=== PATIENT | male | born 1970 | race American Indian/Alaskan Native ===

== ENCOUNTER 2017-08-13 22:18 | Inpatient (IN) | payer MEDICAID, OTHER ==
[2017-08-13 22:20] VITALS: BMI 28.5
[2017-08-13] MEDS ORDERED: Iodixanol 320 MG/ML 100 ML BOTTLE IV ONE (22:42)
--- NOTE | 2017-08-13 22:48 | ED PDOC ---
Arrival/HPI - General Time Seen by Provider: 08/13/17 22:19 Historian: Family, EMS - History of Present Illness Narrative History of Present Illness (Text): 08/13/17 22:46 Juan Carlos Brandt is a 47 year old male presents to the emergency department via EMS for AMS. Patient was last seen normal at 830 pm. Girlfriend states left the house at 7, and arrived at 830, verbal, and "had a fall". Family also states, that soon after arriving home, patient was sweating and stumbled trying to sit down. Patient was weak with right sided deficits. Patient has no previous complaints. Full HPI and ROS limited due to patient's mental status. No deficit from previous CVA. Time/Duration: Prior to Arrival Symptom Onset: Sudden Symptom Course: Unchanged Activities at Onset: Light Context: Home Past Medical History - Provider Review Nursing Documentation Reviewed: Yes Family/Social History - Physician Review Nursing Documentation Reviewed: Yes Family/Social History: Unknown Family HX Allergies/Home Meds Allergies/Adverse Reactions: Allergies No Known Allergies Allergy (Verified 08/13/17 22:20) Home Medications: Home Meds Medication Instructions Recorded Confirmed Lisinopril [Zestril] 20 mg PO DAILY 08/13/17 08/13/17 Lovastatin 20 mg PO DAILY 08/13/17 08/13/17 Metoprolol Succinate [Toprol XL] 25 mg PO DAILY 08/13/17 08/13/17 hydroCHLOROthiazide [Hydrodiuril] 25 mg PO DAILY 08/13/17 08/13/17 Review of Systems - Review of Systems Systems not reviewed;Unavailable: Altered Mental Status Physical Exam Vital Signs Temp Pulse Resp BP Pulse Ox 08/14/17 00:12 76 16 184/108 H 97 08/14/17 00:11 75 184/108 H 08/14/17 00:01 75 184/108 H 08/14/17 00:00 77 16 189/115 H 95 08/13/17 23:47 78 16 176/106 H 94 L 08/13/17 23:42 75 177/105 H 08/13/17 23:40 70 15 177/105 H 96 08/13/17 23:25 75 15 173/98 H 97 08/13/17 23:20 72 15 179/96 H 96 08/13/17 23:15 75 17 186/110 H 97 08/13/17 23:00 98 F 77 16 172/94 H 95 08/13/17 22:25 97.9 F 86 16 175/96 H 95 Medical Decision Making ED Course and Treatment: 08/13/17 22:49 Impression: 47 year old male brought into the emergency department via EMS for AMS and right sided deficits. Plan: -- CTA Head -- CT Head -- EKG -- Labs -- Hemoglobin A1C -- Lipid Panel -- Troponin I -- Reassess and disposition Progress Notes: 08/13/17 22:54 CT head reviewed, shows: Brain: Hypodensity is visualized within the left temporal lobe, consistent with an infarct. This is likely subacute. A small hypodense lacunar infarct is visualized within the right cerebellar lobe, which is also likely subacute. No acute intracranial hemorrhage is seen. Midline shift: There is no midline shift. Ventricles: There is a small cavum septum pellucidum variant. No ventriculomegaly. Bones/joints: The calvarium demonstrates no evidence for a depressed fracture. Soft tissues: Unremarkable. Sinuses: Unremarkable. Mastoid air cells: Unremarkable. Vasculature: Mild atherosclerotic changes are visualized. Orbits: There is bilateral proptosis. IMPRESSION: 1. Hypodensity is visualized within the left temporal lobe, consistent with an infarct. This is likely subacute. A small hypodense lacunar infarct is visualized within the right cerebellar lobe, which is also likely subacute. If further evaluation is clinically indicated, an MRI of the brain is recommended. 2. No acute intracranial hemorrhage. 08/13/17 23:52 Case discussed with sister in [place] and girlfriend. Onset 830. Case discussed with Dr. De La Rosa, who recommends tpa. Consented for tpa. tpa pushed [id number] Zabala, ICU. Pt re-assesed. Pt is now verbal with improvement in right lower extremity. 08/14/17 00:01 CTA Head reviewed, shows: Right internal carotid artery: No evidence of acute pathology. Intracranial segment is patent with no significant stenosis. No aneurysm. Right anterior cerebral artery: Unremarkable. No occlusion or significant stenosis. No aneurysm. Right middle cerebral artery: Unremarkable. No occlusion or significant stenosis. No aneurysm. Right posterior cerebral artery: Unremarkable. No occlusion or significant stenosis. No aneurysm. Right vertebral artery: Unremarkable as visualized. Left internal carotid artery: Occluding thrombus is seen in left supraclinoid ICA just distal to the left P-comm extending to ICA bifurcation. There is reconstitution of flow in left M1 segment MCA which appears to be through the mcgrath of Tsang and patent left A1 segment. Flow is detected in proximal M2 segments. No flow is seen in distal M2 or M3 cortical branches in left frontal and parietal lobes. Atherosclerotic disease with areas of moderate stenosis in left supraclinoid ICA. No aneurysm. Left anterior cerebral artery: Unremarkable. No occlusion or significant stenosis. No aneurysm. Left middle cerebral artery: Unremarkable. No occlusion or significant stenosis. No aneurysm. Left posterior cerebral artery: Patent left posterior communicating artery. No occlusion or significant stenosis. No aneurysm. 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 Basilar artery: Unremarkable. No occlusion or significant stenosis. No aneurysm. IMPRESSION: 1. Occluding thrombus is seen in left supraclinoid ICA just distal to the left P -comm extending to ICA bifurcation. There is reconstitution of flow in left M1 segment of MCA which appears to be through the mcgrath of Tsang and patent left A1 segment. Flow is detected in proximal M2 segments. No flow is seen in distal M2 or M3 cortical branches in left frontal and parietal lobes. 2. Atherosclerotic disease with areas of moderate stenosis in left supraclinoid ICA. - Lab Interpretations Lab Results: 08/13/17 22:45 08/13/17 22:45 Lab Results 08/13/17 22:45: TSH 3rd Generation 0.81 08/13/17 22:45: Blood Type A POSITIVE, Antibody Screen Negative, BBK History Checked No verified bt 08/13/17 22:45: Hemoglobin A1c 7.0 H 08/13/17 22:45: Sodium 142, Potassium 3.9, Chloride 108 H, Carbon Dioxide 26, Anion Gap 12, BUN 20, Creatinine 1.3, Est GFR ( Amer) > 60, Est GFR (Non- Af Amer) 59, Random Glucose 132 H, Calcium 9.9, Total Bilirubin 0.4, AST 33, ALT 52, Alkaline Phosphatase 114, Troponin I < 0.01, Total Protein 7.6, Albumin 3.8, Globulin 3.8, Albumin/Globulin Ratio 1.0 L, Triglycerides 157, Cholesterol 191, LDL Cholesterol Direct 123, HDL Cholesterol 23 L 08/13/17 22:45: PT 13.3 H, INR 1.16 H, APTT 30.1 08/13/17 22:45: WBC 8.0, RBC 5.08, Hgb 15.2, Hct 44.2, MCV 87.0, MCH 29.9, MCHC 34.4, RDW 13.9, Plt Count 269, MPV 10.6, Gran % 71.8 H, Lymph % (Auto) 22.0, Dolores % (Auto) 5.8, Eos % (Auto) 0.1 L, Baso % (Auto) 0.3, Gran # 5.71, Lymph # ( Auto) 1.8, Dolores # (Auto) 0.5, Eos # (Auto) 0.0, Baso # (Auto) 0.02 - RAD Interpretation Radiology Orders: 08/13/17 22:23 CTA HEAD/NECK CODE STROKE [CT] Stat HEAD W/O (CODE STROKE) [CT] Stat CHEST PORTABLE [RAD] Stat - Medication Orders Current Medication Orders: Aspirin (Aspirin Chewable) 81 mg PO DAILY [facility] Atorvastatin Calcium (Lipitor) 40 mg PO DIN [facility] Clopidogrel Bisulfate (Plavix) 75 mg PO DAILY [facility] Nicardipine HCl (Cardene Iv Premix) 20 mg in 200 mls @ 50 mls/hr IV .Q4H PRN; Protocol; 5 MG/HR PRN Reason: TITRATE PER MD ORDER Last Titration: 08/14/17 09:53 Dose: 0.5 mg/hr, 5 mls/hr Titration Intervention Document 08/14/17 09:53 FM (Rec: 08/14/17 09:54 FM [id number]) Titration Intake Titration Intake 0 Cumulative Intake 85 Cumulative Intake (Rx) 85 Waste Amount 0 Container Volume 115 Titration Dosing Titration Dose 0.5 IV Rate 5 Intake/Decrease Decreased Cumulative Dose 8.5 Pantoprazole Sodium (Protonix Inj) 40 mg IVP DAILY [facility] Last Admin: 08/14/17 09:45 Dose: 40 mg IVP Administration Document 08/14/17 09:45 FM (Rec: 08/14/17 09:46 FM [id number]) Charges for Administration # of IVP Administrations 1 Discontinued Medications Alteplase, Recombinant (Activase 100 Mg Inj) 8 mg 0.09 mg/kg (8 mg) IV ONCE ONE Stop: 08/13/17 22:55 Last Admin: 08/13/17 23:11 Dose: 8 mg eMAR Start Stop Document 08/13/17 23:11 RG (Rec: 08/13/17 23:16 RG [id number]) Intravenous Solution Start Date 08/13/17 Start Time 23:11 Alteplase, Recombinant (Activase 100 Mg Inj) 73 mg 0.81 mg/kg (73 mg) IV ONCE ONE Stop: 08/13/17 22:55 Last Admin: 08/13/17 23:13 Dose: 73 mg eMAR Start Stop Document 08/13/17 23:13 RG (Rec: 08/13/17 23:18 RG [id number]) Intravenous Solution Start Date 08/13/17 Start Time 23:13 Sodium Chloride (Sodium Chloride 0.9%) 1,000 mls @ 100 mls/hr IV .Q10H JEROD Last Admin: 08/14/17 10:07 Dose: 100 mls/hr eMAR Start Stop Document 08/14/17 10:07 FM (Rec: 08/14/17 10:07 FM [id number]) Intravenous Solution Start Date 08/14/17 Start Time 10:07 End Date 08/14/17 Labetalol HCl (Trandate) 10 mg IV STAT STA Stop: 08/13/17 23:36 Last Admin: 08/13/17 23:42 Dose: 10 mg eMAR Start Stop Document 08/13/17 23:42 RG (Rec: 08/13/17 23:49 RG [id number]) Intravenous Solution Start Date 08/13/17 Start Time 23:42 End Date 08/13/17 End time 23:45 Total Infusion Time 3 MAR Pulse and Blood Pressure Document 08/13/17 23:42 RG (Rec: 08/13/17 23:49 RG [id number]) Pulse Pulse Rate (60-90) 75 Blood Pressure Blood Pressure (100/60-150/90) 177/105 Labetalol HCl (Trandate) 10 mg IV STAT STA Stop: 08/13/17 23:59 Last Admin: 08/14/17 00:01 Dose: 10 mg eMAR Start Stop Document 08/14/17 00:01 RG (Rec: 08/14/17 00:14 RG [id number]) Intravenous Solution Start Date 08/14/17 Start Time 00:01 End Date 08/14/17 End time 00:04 Total Infusion Time 3 MAR Pulse and Blood Pressure Document 08/14/17 00:01 RG (Rec: 08/14/17 00:14 [id number]) Pulse Pulse Rate (60-90) 75 Blood Pressure Blood Pressure (100/60-150/90) 184/108 Labetalol HCl (Trandate) 20 mg IV STAT STA Stop: 08/14/17 00:07 Last Admin: 08/14/17 00:11 Dose: 20 mg eMAR Start Stop Document 08/14/17 00:11 RG (Rec: 08/14/17 00:18 [id number]) Intravenous Solution Start Date 08/14/17 Start Time 00:11 End Date 08/14/17 End time 00:17 Total Infusion Time 6 MAR Pulse and Blood Pressure Document 08/14/17 00:11 RG (Rec: 08/14/17 00:18 [id number]) Pulse Pulse Rate (60-90) 75 Blood Pressure Blood Pressure (100/60-150/90) 184/108 NIHSS Scale ([place]) Time Performed: 22:49 - How Severe is the Stoke Baseline Level of Consciousness: 1=Drowsy LOC to Questions: 2=Neither correct LOC to commands: 0=Obeys both correctly Best Gaze: 2=Forced deviation Visual: 0=No visual loss Facial: 3=Complete unilateral paralysis Motor Arm - Left: 0=No drift Motor Arm - Right: 4=No movement Motor Leg - Left: 0=No drift Motor Leg - Right: 4=No movement Limb Ataxia: 0=Absent Sensory: 2=Severe to total loss Best Language: 3=Mute Dysarthia: 2=Severe, near unintelligible or worse Extinction & Inattention (Neglect): 0=Normal, no object Score: 23 Risk Level: Severe Stroke Risk rTPA Inclusion/Exclusion - Refusal of Treatment Patient Refused Treatment: No - Inclusion Criteria for Altepase Patient is 18 years or Older: No The Clinical Diagnosis of Ischemic Stroke That is Causing a Potentially Disabling Neurological Deficit: Yes Time of Onset is Well Established to be Less Than 270 Minute Before Treatment Would Begin: No Risk/Benefit Discussed With Patient/Family Member Present: Yes - Exclusion Criteria for Altepase Uncontrolled Hypertension at Time of Treatment (Systolic BP above 185 or Diastolic BP above 110 mmHg): No - Scribe Statement The provider has reviewed the documentation as recorded by the Scribe Yolande Liang All medical record entries made by the Scribe were at my direction and personally dictated by me. I have reviewed the chart and agree that the record accurately reflects my personal performance of the history, physical exam, medical decision making, and the department course for this patient. I have also personally directed, reviewed, and agree with the discharge instructions and disposition. Disposition/Present on Arrival - Present on Arrival Any Indicators Present on Arrival: No - Disposition Have Diagnosis and Disposition been Completed?: Yes Diagnosis: Acute ischemic stroke Disposition: HOSPITALIZED Disposition Time: 12:00 Patient Problems: Current Active Problems Problem Status Onset Acute ischemic stroke Acute Condition: CRITICAL
--- NOTE | 2017-08-13 22:50 | ED PDOC ---
Arrival/HPI - General Time Seen by Provider: 08/13/17 22:19 Historian: Patient, EMS EM Caveat: Intoxicated - History of Present Illness Narrative History of Present Illness (Text): 08/13/17 22:46 Lan Brandt is a 47 year old male presents to the emergency department via EMS for AMS. Patient was last seen normal at 19:00. Patient came home and was weak with right sided deficits. Patient has no previous complaints. Full HPI and ROS limited due to patient's mental status. Time/Duration: Prior to Arrival Symptom Onset: Sudden Symptom Course: Unchanged Activities at Onset: Light Context: Home Past Medical History - Provider Review Nursing Documentation Reviewed: Yes Family/Social History - Physician Review Nursing Documentation Reviewed: Yes Family/Social History: Unknown Family HX Allergies/Home Meds Allergies/Adverse Reactions: Allergies No Known Allergies Allergy (Verified 08/13/17 22:20) Home Medications: Home Meds Medication Instructions Recorded Confirmed Lisinopril [Zestril] 20 mg PO DAILY 08/13/17 08/13/17 Lovastatin 20 mg PO DAILY 08/13/17 08/13/17 Metoprolol Succinate [Toprol XL] 25 mg PO DAILY 08/13/17 08/13/17 hydroCHLOROthiazide [Hydrodiuril] 25 mg PO DAILY 08/13/17 08/13/17 Review of Systems - Review of Systems Systems not reviewed;Unavailable: Altered Mental Status Medical Decision Making ED Course and Treatment: 08/13/17 22:49 Impression: 47 year old male brought into the emergency department via EMS for AMS and right sided deficits. Plan: -- CTA Head -- CT Head -- EKG -- Labs -- Hemoglobin A1C -- Lipid Panel -- Troponin I -- Reassess and disposition Progress Notes: 08/13/17 22:54 CT head reviewed, shows: Brain: Hypodensity is visualized within the left temporal lobe, consistent with an infarct. This is likely subacute. A small hypodense lacunar infarct is visualized within the right cerebellar lobe, which is also likely subacute. No acute intracranial hemorrhage is seen. Midline shift: There is no midline shift. Ventricles: There is a small cavum septum pellucidum variant. No ventriculomegaly. Bones/joints: The calvarium demonstrates no evidence for a depressed fracture. Soft tissues: Unremarkable. Sinuses: Unremarkable. Mastoid air cells: Unremarkable. Vasculature: Mild atherosclerotic changes are visualized. Orbits: There is bilateral proptosis. IMPRESSION: 1. Hypodensity is visualized within the left temporal lobe, consistent with an infarct. This is likely subacute. A small hypodense lacunar infarct is visualized within the right cerebellar lobe, which is also likely subacute. If further evaluation is clinically indicated, an MRI of the brain is recommended. 2. No acute intracranial hemorrhage. - RAD Interpretation Radiology Orders: 08/13/17 22:23 CTA HEAD/NECK CODE STROKE [CT] Stat HEAD W/O (CODE STROKE) [CT] Stat CHEST PORTABLE [RAD] Stat - Scribe Statement The provider has reviewed the documentation as recorded by the Scribe Yolande Liang All medical record entries made by the Scribe were at my direction and personally dictated by me. I have reviewed the chart and agree that the record accurately reflects my personal performance of the history, physical exam, medical decision making, and the department course for this patient. I have also personally directed, reviewed, and agree with the discharge instructions and disposition. Disposition/Present on Arrival - Disposition Referrals: Chapo Goldman, [Primary Care Provider] - Follow up with primary
[2017-08-13 23:00] LABS: BASO # 0.02 K/mm3 (0.0-2.0); BASO % 0.3 % (0.0-3.0); EOS % 0.1 % (1.5-5.0); GRAN # 5.71 (1.4-6.5); GRAN % 71.8 % (50.0-68.0); HEMOGLOBIN 15.2 g/dL (14.0-18.0); LYMPH # 1.8 (1.2-3.4); MEAN CORPUSCULAR HEMOGLOBIN 29.9 pg (25.0-35.0); MEAN CORPUSCULAR HGB CONC 34.4 g/dl (31.0-37.0); MEAN PLATELET VOLUME 10.6 fl (7.0-11.0); MONO # 0.5 (0.1-0.6); MONO % 5.8 % (1.0-6.0); RBC 5.08 10^6/uL (3.5-6.1); RED CELL DISTRIBUTION WIDTH 13.9 % (11.5-14.5)
[2017-08-13 23:07] LABS: ALBUMIN 3.8 g/dL (3.0-4.8); ALT/SGPT 52 U/L (7-56); AST/SGOT 33 U/L (17-59); BLOOD UREA NITROGEN 20 mg/dL (7-21); CALCIUM 9.9 mg/dL (8.4-10.5); GFR AFRICAN-AMERICAN > 60; GFR NON-AFRICAN AMERICAN 59; HDL CHOLESTEROL 23 mg/dL (29-60); INR 1.16 (0.93-1.08); PARTIAL THROMBOPLASTIN TIME 30.1 Seconds (25.1-36.5); PROTHROMBIN TIME 13.3 SECONDS (9.4-12.5)
--- NOTE | 2017-08-13 23:07 | CP.PCM.PN ---
Subjective - Date & Time of Evaluation Date of Evaluation: 08/13/17 Time of Evaluation: 10:45 - Subjective Subjective: This is a tele-stroke visit that was conducted by telephone due to non- functioning Emailage system. Mr. Brandt is a 47-year-old man with a past medical history of HTN, and previous CVA 3 years ago, who was last normal at around 8:30PM tonight, when he was walking, talking and missed a chair and fell (witnessed by friend). He then developed speech difficulty, right side weakness, and gaze preference. He was brought to the ED, where his NIHSS was 23. He was taken to the CT scanner and there was no evidence of hemorrhage, but there were chronic infarcts in the left temporal lobe noted. According to the history, he was not on anticoagulation and there were no contraindications to IV tPA. His BP was below 185/105 mm Hg. He was within the 3 hour time window of IV tPA and it was recommended as long as it can be initiated prior to the 3 hours time limit. Objective - Neurological Exam Additional comments: Right side hemiplegia, aphasia and left gaze preference with NIHSS of 23. Assessment and Plan (1) Acute ischemic stroke Assessment & Plan: The patient appears to be having an acute ischemic stroke involving the left MCA. There was no bleed on CT head and no obvious large vessel occlusion ( unofficial read). He is a candidate for IV tPA and the family consents after an explanation of the risks and benefits were provided. Since the patient has a history of previous stroke, there is a slightly higher risk of bleeding, but considering the severity of his symptoms, the benefits outweigh the risks. Furthermore, I recommend the followin. ICU 2. Follow post-tPA protocol 3. Repeat CT head in 24 hours 4. MRI brain without contrast 5. Lipids, HbA1c, B12, folate, TSH, homocysteine 6. PT/OT eval 7. FLuids with NS at 100 mL/hr 8. Case management consult Thank you. Neurology will follow. Status: Acute
[2017-08-13 23:17] LABS: LDL CHOLESTEROL 123 mg/dL (0-129)
[2017-08-13 23:20] LABS: TROPONIN I < 0.01 ng/mL
[2017-08-13] MEDS ORDERED: Labetalol 5 mg/ml Inj 20ML IV STA ×2 (23:35→23:58)
[2017-08-14] MEDS ORDERED: Labetalol 5 mg/ml Inj 20ML IV STA (00:06)
[2017-08-14] MEDS ORDERED: diltiaZEM IVPB 100mg in NS 100 ML IV PRN (00:18)
[2017-08-14] MEDS: Nicardipine 20 MG/200 ML 20 MG/200 ML BAG IV PRN (00:31)
--- NOTE | 2017-08-14 00:36 | CP.PCM.HP ---
<Benoit Fregoso - Last Filed: 08/14/17 00:51> History of Present Illness - History of Present Illness History of Present Illness: CC: Right sided weakness Pt is a 47 yo M with PMH of asthma, HTN, HLD, and CVA (3 yrs ago) presents to ED due to right sided weakness. Patient's girlfriend was at bedside to provide history as patient was somnolent and difficult to arose at time of exam. Pt was last seen normal around 8:30 pm. Girlfriend stated that he was ambulating and verbal, but missed chair when trying to sit down and fell. Girlfriend noticed that his speech was slurred, could not move his right arm, and had right sided facial drooping. In the ED, NIHSS was found to be 23. CT head showed a hypodensity within the left temporal lobe, consistent with an infarct. Patient was evaluated by neurologist and IV tPA was recommended as the patient was within the 3 hour time window and no contraindications were present. Further HPI and ROS limited due to patient's current mental status. PMD: Khalid PMH: asthma, HTN, HLD, CVA Surg: denied All: NKDA FHx: Non-contributory SH: 1 ppd for 20 yrs, social EtOH use, marijuana use Medications as per MAR Present on Admission - Present on Admission Any Indicators Present on Admission: No Review of Systems - Review of Systems Review of Systems: 12 point ROS limited due to patient's current mental status Past Patient History - Past Social History Smoking Status: Former Smoker - CARDIAC Hx Hypercholesterolemia: Yes Hx Hypertension: Yes - PULMONARY Hx Asthma: Yes - NEUROLOGICAL Hx Neurological Disorder: No - RENAL Hx Chronic Kidney Disease: No - ENDOCRINE/METABOLIC Hx Endocrine Disorders: No - HEMATOLOGICAL/ONCOLOGICAL Hx Blood Disorders: No - INTEGUMENTARY Hx Dermatological Problems: No - MUSCULOSKELETAL/RHEUMATOLOGICAL Hx Musculoskeletal Disorders: No - GASTROINTESTINAL Hx Gastrointestinal Disorders: No - GENITOURINARY/GYNECOLOGICAL Hx Genitourinary Disorders: No - PSYCHIATRIC Hx Psychophysiologic Disorder: No Hx Substance Use: No - SURGICAL HISTORY Hx Surgeries: No - ANESTHESIA Hx Anesthesia: No Meds Allergies/Adverse Reactions: Allergies Allergy/AdvReac Type Severity Reaction Status Date / Time No Known Allergies Allergy Verified 08/13/17 22:20 Physical Exam - Constitutional Appears: No Acute Distress - Head Exam Head Exam: NORMAL INSPECTION - Eye Exam Eye Exam: Normal appearance - ENT Exam ENT Exam: Normal Exam - Neck Exam Neck exam: Positive for: Normal Inspection - Respiratory Exam Respiratory Exam: Clear to Auscultation Bilateral. absent: Rales, Rhonchi, Wheezes - Cardiovascular Exam Cardiovascular Exam: RRR, +S1, +S2. absent: Diastolic murmur, Gallop, Rubs, Systolic Murmur - GI/Abdominal Exam GI & Abdominal Exam: Soft. absent: Distended, Guarding, Rebound, Tenderness - Extremities Exam Extremities exam: Positive for: normal inspection - Back Exam Back exam: NORMAL INSPECTION - Neurological Exam Neurological exam: CN II-XII Intact Additional comments: Right sided facial droop Strength: RUE 0/5, LUE 5/5, RLE 0/5, LLE 5/5; Right sided sensory deficit - Skin Skin Exam: Dry, Intact, Normal Color, Warm Results - Vital Signs Recent Vital Signs: Last Vital Signs Temp 98 F 08/13/17 23:00 Pulse 76 08/14/17 00:12 Resp 16 08/14/17 00:12 BP 184/108 H 08/14/17 00:12 Pulse Ox 97 08/14/17 00:12 - Labs Result Diagrams: 08/13/17 22:45 08/13/17 22:45 Assessment & Plan - Assessment and Plan (Free Text) Assessment: 47 yo M with PMH of asthma, HTN, HLD, and CVA admitted for ischemic CVA s/p IV tPA. Plan: 1. Ischemic CVA - NIHSS 23 - CT head showed hypodensity in left temporal lobe and small hypodense lacunar infarct in right cerebellar lobe, both likely subacute. No acute hemorrhage. - CTA head showed occluding thrombus in left supraclinoid ICA distal to left p- comm extending to ICA bifurcation. No flow in distal M2 or M3 cortical branches in left frontal and parietal lobes - IV tPA given per neuro - CT head ordered for 24 hr post tPA - Brain MRI without contrast ordered - Lipid panel, HgbA1c, Folate, B12, Homocysteine ordered - AM EKG and troponin ordered - Cardene drip, titrate to keep SBP < 185 - NS at 100 cc/hr - Vitals and Neurochecks post tPA: q15min for 2 hr, q30min for 6 hrs, q1h for 24 hrs, then q2h - Accucheck q2h - NPO pending swallow eval - Fall and aspiration risk precautions - PT/OT eval - Case management referral - Neurology consulted 2. HTN - Holding home PO meds - Cardene drip - Titrate to keep SBP < 185 3. HLD - Holding home PO meds GI/DVT PPx - Protonix - SCDs Pt seen and discussed in detail with Dr. Zabala. Robert Fregoso, PGY1 NIHSS Scale ([place]) Time Performed: 00:00 - How Severe is the Stoke Post tPA Level of Consciousness: 1=Drowsy LOC to Questions: 2=Neither correct LOC to commands: 0=Obeys both correctly Best Gaze: 2=Forced deviation Visual: 0=No visual loss Facial: 3=Complete unilateral paralysis Motor Arm - Left: 0=No drift Motor Arm - Right: 4=No movement Motor Leg - Left: 0=No drift Motor Leg - Right: 4=No movement Limb Ataxia: 0=Absent Sensory: 2=Severe to total loss Best Language: 3=Mute Dysarthia: 2=Severe, near unintelligible or worse Extinction & Inattention (Neglect): 0=Normal, no object Score: 23 Risk Level: Severe Stroke Risk <Sagrario NARANJO,Guillermo - Last Filed: 08/14/17 11:10> Results - Vital Signs Recent Vital Signs: Last Vital Signs Temp 98.5 F 08/14/17 06:00 Pulse 67 08/14/17 08:40 Resp 13 08/14/17 08:40 BP 154/102 H 08/14/17 08:00 Pulse Ox 100 08/14/17 08:40 - Labs Result Diagrams: 08/13/17 22:45 08/14/17 08:45 Labs: Laboratory Results - last 24 hr 08/14/17 08/14/17 00:47 08:45 Sodium 145 Potassium 3.9 Chloride 112 H Carbon Dioxide 26 Anion Gap 10 BUN 17 Creatinine 0.9 Est GFR ( Amer) > 60 Est GFR (Non-Af Amer) > 60 Random Glucose 98 Calcium 9.5 Total Bilirubin 0.7 AST 37 ALT 49 Alkaline Phosphatase 111 Total Protein 7.5 Albumin 3.7 Globulin 3.8 Albumin/Globulin Ratio 1.0 L Triglycerides 173 H Cholesterol 204 H LDL Cholesterol Direct 132 H HDL Cholesterol 22 L Blood Type Confirm A POSITIVE Attending/Attestation - Attestation I have personally seen and examined this patient.: Yes I have fully participated in the care of the patient.: Yes I have reviewed all pertinent clinical information: Yes Notes (Text): -I agree with the above H&P completed by the resident physician with the following additions and/or changes: -The patient is a 47 year old man with a history of CVA (with no residual deficits), HL and HTN who presented with acute right hemiparesis and slurred speech. CT-head confirmed ischemic CVA and patient was given t-PA in the ED. He will now be admitted to the ICU for hourly neuro checks and tight blood pressure control. He will be placed on Nicardipine drip with goal to keep SBP< 185 and DBP<105. Neurology is already on board. HgA1c, Lipids and USD will be checked. He will be kept NPO and have a formal swallow evaluation in the morning. Repeat CT-head 24 hours after initial study. Critical Care Time Spent: 90-120 minutes
[2017-08-14] MEDS: Sodium Chloride 0.9% 1,000 ML IV SCH ×2 (00:40→10:07)
[2017-08-14 09:15] LABS: ALBUMIN 3.7 g/dL (3.0-4.8); ALT/SGPT 49 U/L (7-56); AST/SGOT 37 U/L (17-59); BLOOD UREA NITROGEN 17 mg/dL (7-21); CALCIUM 9.5 mg/dL (8.4-10.5); GFR AFRICAN-AMERICAN > 60; GFR NON-AFRICAN AMERICAN > 60; HDL CHOLESTEROL 22 mg/dL (29-60)
[2017-08-14 09:25] LABS: LDL CHOLESTEROL 132 mg/dL (0-129)
--- NOTE | 2017-08-14 09:45 | RAD ---
Portable chest History. Code stroke Comments. A single portable film was obtained. Heart and mediastinum are normal in size and the lungs are clear. There are no bony abnormalities. Impression: No active disease
--- NOTE | 2017-08-14 12:00 | CP.CCUPN ---
<Willard Cota - Last Filed: 08/14/17 12:03> CCU Subjective - Physician Review Subjective (Free Text): Patient seen and examined at bedside. Patient's speech improved from overnight, but right upper extremity hemiparesis remains. Denies chest pain, shortness of breath, nausea, vomiting, diarrhea, fever, chills. CCU Objective - Vital Signs / Intake & Output Vital Signs (Last 4 hours): Vital Signs Pulse Resp BP Pulse Ox 08/14/17 08:40 67 13 100 08/14/17 08:30 67 14 100 08/14/17 08:20 67 19 100 08/14/17 08:10 67 16 100 08/14/17 08:00 71 18 154/102 H 100 Intake and Output (Last 8hrs): Intake & Output 08/13/17 08/14/17 08/14/17 22:59 06:59 14:59 Intake Total 480 5 Output Total 0 Balance 480 5 Intake: IV 480 5 Left Hand 0 Right Antecubital 0 Right Hand 400 Oral 0 Output: Urine 0 Condom 0 Other: # Bowel Movements 0 - Physical Exam Head: Positive for: Atraumatic, Normocephalic Extroacular Muscles: Positive for: EOMI Conjunctiva: Positive for: Normal Respiratory/Chest: Positive for: Clear to Auscultation. Negative for: Respiratory Distress Cardiovascular: Positive for: Regular Rate and Rhythm, Normal S1, S2 Abdomen: Positive for: Normal Bowel Sounds. Negative for: Tenderness Lower Extremity: Positive for: Neurovascularly Intact Neurological: Positive for: CN II-XII Intact, Speech Normal, Normal Sensory Function, Other (Right arm hemiparesis. Sensatation intact. Muscle strength 0/5) Psychiatric: Positive for: Alert, Oriented x 3, Normal Insight, Normal Concentration - Medications Active Medications: Active Medications Generic Name Dose Route Start Last Admin Trade Name Freq PRN Reason Stop Dose Admin Atorvastatin Calcium 40 mg 08/14/17 17:00 Lipitor PO DIN JEROD Nicardipine HCl 20 mg in 200 mls @ 50 mls/hr 08/14/17 00:16 08/14/17 09:53 Cardene Iv Premix IV 0.5 mg/hr .Q4H PRN 5 mls/hr TITRATE PER MD ORDER Titration Protocol 5 MG/HR Sodium Chloride 1,000 mls @ 100 mls/hr 08/14/17 00:30 08/14/17 10:07 Sodium Chloride 0.9% IV 100 mls/hr .Q10H JEROD Administration Pantoprazole Sodium 40 mg 08/14/17 10:00 08/14/17 09:45 Protonix Inj IVP 40 mg DAILY JEROD Administration - Patient Studies Lab Studies: Lab Studies 08/14/17 08/14/17 Range/Units 08:45 00:47 Sodium 145 (132-148) mmol/L Potassium 3.9 (3.6-5.0) mmol/L Chloride 112 H (98-107) mmol/L Carbon Dioxide 26 (21-33) mmol/L Anion Gap 10 (10-20) BUN 17 (7-21) mg/dL Creatinine 0.9 (0.8-1.5) mg/dl Est GFR ( Amer) > 60 Est GFR (Non-Af Amer) > 60 Random Glucose 98 (70-110) mg/dL Calcium 9.5 (8.4-10.5) mg/dL Total Bilirubin 0.7 (0.2-1.3) mg/dL AST 37 (17-59) U/L ALT 49 (7-56) U/L Alkaline Phosphatase 111 (38-126) U/L Total Protein 7.5 (5.8-8.3) g/dL Albumin 3.7 (3.0-4.8) g/dL Globulin 3.8 gm/dL Albumin/Globulin Ratio 1.0 L (1.1-1.8) Triglycerides 173 H (35-160) mg/dL Cholesterol 204 H (130-200) mg/dL LDL Cholesterol Direct 132 H (0-129) mg/dL HDL Cholesterol 22 L (29-60) mg/dL Blood Type Confirm A POSITIVE Laboratory Results - last 24 hr 08/14/17 08/14/17 00:47 08:45 Sodium 145 Potassium 3.9 Chloride 112 H Carbon Dioxide 26 Anion Gap 10 BUN 17 Creatinine 0.9 Est GFR ( Amer) > 60 Est GFR (Non-Af Amer) > 60 Random Glucose 98 Calcium 9.5 Total Bilirubin 0.7 AST 37 ALT 49 Alkaline Phosphatase 111 Total Protein 7.5 Albumin 3.7 Globulin 3.8 Albumin/Globulin Ratio 1.0 L Triglycerides 173 H Cholesterol 204 H LDL Cholesterol Direct 132 H HDL Cholesterol 22 L Blood Type Confirm A POSITIVE EKG/Cardiology Studies: Cardiology / EKG Studies 08/14/17 05:00 ELECTROCARDIOGRAM DAILY Comment: Reason For Exam: stroke Fingerstick Blood Sugar Results: 111 Critical Care Progress Note - Nutrition Nutrition: Nutrition Category Date Time Status Heart Healthy Diet [DIET] Diets 08/14/17 Dinner Ordered NPO Diet [DIET] Diets 08/14/17 Breakfast Ordered Assessment/Plan - Assessment and Plan (Free Text) Plan: 47 yo M with PMH of asthma, HIV, HTN, HLD, and CVA admitted for ischemic CVA s/ p tPA. Patient placed on cardiene drip for elevated BP overnight, this morning BP is stable. Patient will have repeat CT and MRI as per neurology. Patient will also have echocardiogram, Will add Lipitor to medical regimen. Continue monitor closely Neuro: CT head showed hypodensity in left temporal lobe and small hypodense lacunar infarct in right cerebellar lobe, both likely subacute. No acute hemorrhage. CTA head showed occluding thrombus in left supraclinoid ICA distal to left posterior communicating extending to ICA bifurcation. No flow in distal M2 or M3 cortical branches in left frontal and parietal lobes Neurochecks q1h Repeat CT head Brain MRI ordered PT/OT ordered Cardio: Cardiene drip Maintain hemodynamic stability Maintain MAP >65 Lipid panel elevated Pulm: Maintain O2 sat > 90% GI: Protonix Bedside nursing swallow eval shows no acute dysphagia Nephro: HgA1c 7 Maintain euvolemia Replete electrolytes as needed Heme/ID: Afebrile, no leukocytosis Maintain normothermia Cipriano, PGY-2 <Emiliano Garcia - Last Filed: 08/14/17 12:39> CCU Objective - Vital Signs / Intake & Output Vital Signs (Last 4 hours): Vital Signs Pulse Resp Pulse Ox 08/14/17 08:40 67 13 100 Intake and Output (Last 8hrs): Intake & Output 08/13/17 08/14/17 08/14/17 22:59 06:59 14:59 Intake Total 480 5 Output Total 0 Balance 480 5 Intake: IV 480 5 Left Hand 0 Right Antecubital 0 Right Hand 400 Oral 0 Output: Urine 0 Condom 0 Other: # Bowel Movements 0 - Medications Active Medications: Active Medications Generic Name Dose Route Start Last Admin Trade Name Freq PRN Reason Stop Dose Admin Atorvastatin Calcium 40 mg 08/14/17 17:00 Lipitor PO DIN JEROD Nicardipine HCl 20 mg in 200 mls @ 50 mls/hr 08/14/17 00:16 08/14/17 09:53 Cardene Iv Premix IV 0.5 mg/hr .Q4H PRN 5 mls/hr TITRATE PER MD ORDER Titration Protocol 5 MG/HR Sodium Chloride 1,000 mls @ 100 mls/hr 08/14/17 00:30 08/14/17 10:07 Sodium Chloride 0.9% IV 100 mls/hr .Q10H JEROD Administration Pantoprazole Sodium 40 mg 08/14/17 10:00 08/14/17 09:45 Protonix Inj IVP 40 mg DAILY JEROD Administration - Patient Studies Lab Studies: Lab Studies 08/14/17 08/14/17 Range/Units 08:45 00:47 Sodium 145 (132-148) mmol/L Potassium 3.9 (3.6-5.0) mmol/L Chloride 112 H (98-107) mmol/L Carbon Dioxide 26 (21-33) mmol/L Anion Gap 10 (10-20) BUN 17 (7-21) mg/dL Creatinine 0.9 (0.8-1.5) mg/dl Est GFR ( Amer) > 60 Est GFR (Non-Af Amer) > 60 Random Glucose 98 (70-110) mg/dL Calcium 9.5 (8.4-10.5) mg/dL Total Bilirubin 0.7 (0.2-1.3) mg/dL AST 37 (17-59) U/L ALT 49 (7-56) U/L Alkaline Phosphatase 111 (38-126) U/L Total Protein 7.5 (5.8-8.3) g/dL Albumin 3.7 (3.0-4.8) g/dL Globulin 3.8 gm/dL Albumin/Globulin Ratio 1.0 L (1.1-1.8) Triglycerides 173 H (35-160) mg/dL Cholesterol 204 H (130-200) mg/dL LDL Cholesterol Direct 132 H (0-129) mg/dL HDL Cholesterol 22 L (29-60) mg/dL Vitamin B12 322 (239-931) pg/mL Folate 15.8 ng/mL Blood Type Confirm A POSITIVE Laboratory Results - last 24 hr 08/14/17 08/14/17 00:47 08:45 Sodium 145 Potassium 3.9 Chloride 112 H Carbon Dioxide 26 Anion Gap 10 BUN 17 Creatinine 0.9 Est GFR ( Amer) > 60 Est GFR (Non-Af Amer) > 60 Random Glucose 98 Calcium 9.5 Total Bilirubin 0.7 AST 37 ALT 49 Alkaline Phosphatase 111 Total Protein 7.5 Albumin 3.7 Globulin 3.8 Albumin/Globulin Ratio 1.0 L Triglycerides 173 H Cholesterol 204 H LDL Cholesterol Direct 132 H HDL Cholesterol 22 L Vitamin B12 322 Folate 15.8 Blood Type Confirm A POSITIVE EKG/Cardiology Studies: Cardiology / EKG Studies 08/14/17 05:00 ELECTROCARDIOGRAM DAILY Comment: Reason For Exam: stroke Critical Care Progress Note - Nutrition Nutrition: Nutrition Category Date Time Status Heart Healthy Diet [DIET] Diets 08/14/17 Dinner Ordered Assessment/Plan - Assessment and Plan (Free Text) Plan: Patient seen and examined on rounds with resident agree with note with following additions/exceptions: Patient is 47yo male with PMhx of HIV on ?HAART, HLD, CVA, a/w ischemic CVA s/p tPA. Patient is currently afebrile, HD stable, on cardene drip. On exam speech is improving, RUQ 1/5, otherwise normal neuro exam. Neurology following. Acute CVA s/p tPA HIV HLD HTN Recommend: - supp o2 as neede - panculture - BP contorl, cardene - follow up neuro - MRI brain - hold ASA for now, s/p tPA - Statin - ECHO with bubble - check HgbA1C, TSH - ID consult for HIV - GI ppx - DVT ppx - Monitor in MICU
[2017-08-14 12:21] LABS: FOLATE 15.8 ng/mL
--- NOTE | 2017-08-14 12:49 | CT ---
PROCEDURE: CT HEAD WITHOUT CONTRAST. HISTORY: Code Stroke COMPARISON: None available. TECHNIQUE: Axial computed tomography images were obtained through the head/brain without intravenous contrast. Radiation dose: Total exam DLP = 884 mGy-cm. This CT exam was performed using one or more of the following dose reduction techniques: Automated exposure control, adjustment of the mA and/or kV according to patient size, and/or use of iterative reconstruction technique. FINDINGS: HEMORRHAGE: No intracranial hemorrhage. BRAIN: There is a 1.6 x 2.6 cm hypodensity in the left temporal lobe consistent with an acute or subacute infarct. VENTRICLES: Unremarkable. No hydrocephalus. CALVARIUM: Unremarkable. PARANASAL SINUSES: Unremarkable as visualized. No significant inflammatory changes. MASTOID AIR CELLS: Unremarkable as visualized. No inflammatory changes. OTHER FINDINGS: The report concurs with the preliminary [facility] report IMPRESSION: Acute or subacute infarct in the left temporal lobe
--- NOTE | 2017-08-14 12:58 | CP.PCM.PN ---
Subjective - Date & Time of Evaluation Date of Evaluation: 08/14/17 Time of Evaluation: 12:56 - Subjective Subjective: Mr. Brandt was seen and examined at the bedside in ICU. He is alert, oriented in all spheres. He denies any headache, dizziness, lightheadedness, blurred vision , diplopia. He is able to follow simple commands with the right side weaker than the left especially the right upper extremity which is flaccid. His pupils are reactive to light accommodation. There was no untoward events overnight. Objective - Vital Signs/Intake and Output Vital Signs (last 24 hours): Temp Pulse Resp BP Pulse Ox 98.5 F 67 13 154/102 H 100 08/14/17 06:00 08/14/17 08:40 08/14/17 08:40 08/14/17 08:00 08/14/17 08:40 Intake and Output: 08/14/17 08/14/17 06:59 18:59 Intake Total 480 5 Output Total 0 Balance 480 5 - Medications Medications: Current Medications Aspirin (Aspirin Chewable) 81 mg PO DAILY [facility] Atorvastatin Calcium (Lipitor) 40 mg PO DIN [facility] Clopidogrel Bisulfate (Plavix) 75 mg PO DAILY [facility] Nicardipine HCl (Cardene Iv Premix) 20 mg in 200 mls @ 50 mls/hr IV .Q4H PRN; Protocol; 5 MG/HR PRN Reason: TITRATE PER MD ORDER Last Titration: 08/14/17 09:53 Dose: 0.5 mg/hr, 5 mls/hr Sodium Chloride (Sodium Chloride 0.9%) 1,000 mls @ 100 mls/hr IV .Q10H [facility] Last Admin: 08/14/17 10:07 Dose: 100 mls/hr Pantoprazole Sodium (Protonix Inj) 40 mg IVP DAILY [facility] Last Admin: 08/14/17 09:45 Dose: 40 mg - Labs Labs: 08/14/17 08:45 PT 13.3 SECONDS (9.4-12.5) H 08/13/17 22:45 INR 1.16 (0.93-1.08) H 08/13/17 22:45 APTT 30.1 Seconds (25.1-36.5) 08/13/17 22:45 - Constitutional Appears: No Acute Distress - Head Exam Head Exam: NORMAL INSPECTION - Neurological Exam Neurological Exam: Alert, Awake, Oriented x3 Neuro motor strength exam: Left Upper Extremity: 5, Right Upper Extremity: 0, Left Lower Extremity: 5, Right Lower Extremity: 3 Additional comments: He is alert, oriented in all spheres, follows commands. Sensation is asymmetrical especially the right upper extremity. Assessment and Plan (1) Acute ischemic stroke Assessment & Plan: Case discussed with Dr. Wayne, continue all current medical. physical, occupational, and speech therapies. Pending MRI of the brain, echocardiogram. Recommend aspirin 81 mg PO daily and plavix 75 mg po daily starting danna. Recommend blood pressure control. Recommend acute rehab for discharge planning. Status: Acute
--- NOTE | 2017-08-14 13:06 | CT ---
PROCEDURE: CT Angiography of the neck with contrast HISTORY: code stroke COMPARISON: None available. TECHNIQUE: Contiguous axial images of the neck were obtained from the level of the skull-base to the superior mediastinum in the arteriographic phase of enhancement. Coronal and sagittal reformats or also generated. IV contrast dose: 100 cc of Visipaque 320 Radiation Dose - DLP: 526 mGy-cm This CT exam was performed using one or more of the following dose reduction techniques: Automated exposure control, adjustment of the mA and/or kV according to patient size, and/or use of iterative reconstruction technique. FINDINGS: RIGHT CAROTID ARTERIES: Common Carotid Artery: Normal. Carotid Bifurcation: Normal. Internal Carotid Artery:There is a mild 50 percent stenosis of the proximal internal carotid External Carotid Artery (proximal branches): Normal. LEFT CAROTID ARTERIES: Common Carotid Artery: Normal. Carotid Bifurcation: Normal. Internal Carotid Artery:Mild 50 percent stenosis of the proximal internal carotid External Carotid Artery (proximal branches): Normal. VERTEBRAL ARTERIES: Right Vertebral Artery: Normal. Left Vertebral Artery: Normal. OTHER FINDINGS: The report concurs with the preliminary [facility] report IMPRESSION: Mild stenosis less than 50 percent of the internal carotid arteries CT Angiography of the Brain. HISTORY: code stroke COMPARISON: None available. TECHNIQUE: CT angiography of the intracranial arteries was performed. Coronal and sagittal maximum intensity projection reformated images were generated. This CT exam was performed using one or more of the following dose reduction techniques: Automated exposure control, adjustment of the mA and/or kV according to patient size, and/or use of iterative reconstruction technique. FINDINGS: INTERNAL CEREBRAL ARTERIES: There is a high-grade stenosis or occlusion at the junction of the left supraclinoid carotid can the proximal middle cerebral artery. ANTERIOR CEREBRAL ARTERIES: Unremarkable. A1 and A2 segments are widely patent. Smaller distal branches unremarkable, as visualized. MIDDLE CEREBRAL ARTERIES: Unremarkable. M1 and M2 segments are widely patent. Perisylvian branches grossly symmetric. The left MCA is supplied by a n[place] of Tsang collaterals. There is a high-grade stenosis or occlusion at the junction of the internal carotid and middle cerebral POSTERIOR CIRCULATION: Basilar Artery: Unremarkable. Distal Vertebral Arteries: Unremarkable. Posterior Cerebral Arteries: Unremarkable. Posterior Inferior Cerebellar Arteries: Unremarkable. ANEURYSM/ VASCULAR MALFORMATIONS: None. OTHER FINDINGS: The report concurs with the preliminary [facility] report IMPRESSION: There is a high-grade stenosis or occlusion at the junction of the left supraclinoid carotid and the proximal middle cerebral artery. The MCA is supplied by a n[place]nek of Tsang collaterals via the anterior communicator. There is some diminished flow in the distal branches of the left MCA in the area of the left temporal infarct
[2017-08-14] MEDS ORDERED: Gadodiamide 287 MG/ML VIAL (15ML) IV ONE (15:17)
--- NOTE | 2017-08-14 16:06 | MRI ---
PROCEDURE: MRI BRAIN WITH AND WITHOUT CONTRAST HISTORY: stroke COMPARISON: None. TECHNIQUE: Multiplanar, multisequence MR images of the brain were obtained with and without intravenous contrast enhancement. 15 cc of Omniscan FINDINGS: HEMORRHAGE: None DWI: Multiple acute cortical and subcortical infarcts are seen in the left frontal and left parietal lobe in the distribution of the middle cerebral artery. BRAIN PARENCHYMA: No mass,mass effect or edema. There is no atrophy ENHANCEMENT: No abnormal intracranial enhancement. VENTRICLES: Unremarkable. No hydrocephalus. CRANIUM: Unremarkable. ORBITS: Grossly unremarkable. PARANASAL SINUSES/MASTOIDS: Clear VASCULAR SYSTEM: Skull base flow voids intact. OTHER FINDINGS: None . IMPRESSION: Multiple acute cortical and subcortical infarcts are seen in the left frontal and left parietal lobe in the distribution of the middle cerebral artery.
--- NOTE | 2017-08-14 18:05 | CP.PCM.CON ---
History of Present Illness - History of Present Illness History of Present Illness: Infectious Disease Consultation: August 14, 2017 47 yo male who presented with slurred speech, right sided facial droop, right arm weakness. Given tPA by neurology. Patient with known HIV disease. Speech has improved. The patient states he was on treatment for HIV with Genvoya. States he hasn't been on HAART for at least 1 month. The patient had prior CVA attack in the past. He still have right arm and right sided weakness. PMHx: HTN, CVA, Asthma, HIV, hyperlipidemia PSHx: Denies Allergies: NKDA Social Hx: Tobacco 1 ppd for 20 years Social EtOH use Marijuana use Active Medications Aspirin (Aspirin Chewable) 81 mg PO DAILY [facility] Atorvastatin Calcium (Lipitor) 40 mg PO DIN [facility] Last Admin: 08/14/17 17:10 Dose: 40 mg Clopidogrel Bisulfate (Plavix) 75 mg PO DAILY [facility] Nicardipine HCl (Cardene Iv Premix) 20 mg in 200 mls @ 50 mls/hr IV .Q4H PRN; Protocol; 5 MG/HR PRN Reason: TITRATE PER MD ORDER Last Titration: 08/14/17 09:53 Dose: 0.5 mg/hr, 5 mls/hr Pantoprazole Sodium (Protonix Inj) 40 mg IVP DAILY [facility] Last Admin: 08/14/17 09:45 Dose: 40 mg Family Hx: none given ROS: Difficult to obtain from the patient. Right sided weakness especially right arm. Past Patient History - Past Social History Smoking Status: Light Smoker < 10 Cigarettes Daily - CARDIAC Hx Cardiac Disorders: No Hx Hypertension: Yes - PULMONARY Hx Asthma: Yes - NEUROLOGICAL HX Cerebrovascular Accident: Yes - HEENT Hx HEENT Problems: No - RENAL Hx Chronic Kidney Disease: No - ENDOCRINE/METABOLIC Hx Endocrine Disorders: No - HEMATOLOGICAL/ONCOLOGICAL Hx Blood Disorders: No Hx AIDS: No Hx Anemia: No Hx Cancer: No Hx Chemotherapy: No Hx Cirrhosis: No Hx Hepatitis A: No Hx Hepatitis B: No Hx Hepatitis C: No Hx Human Immunodeficiency Virus (HIV): No - INTEGUMENTARY Hx Dermatological Problems: No - MUSCULOSKELETAL/RHEUMATOLOGICAL Hx Musculoskeletal Disorders: No Hx Falls: Yes - GASTROINTESTINAL Hx Gastrointestinal Disorders: No - GENITOURINARY/GYNECOLOGICAL Hx Genitourinary Disorders: No - PSYCHIATRIC Hx Psychophysiologic Disorder: No - SURGICAL HISTORY Hx Surgeries: No - ANESTHESIA Hx Anesthesia: No Meds Allergies/Adverse Reactions: Allergies Allergy/AdvReac Type Severity Reaction Status Date / Time No Known Allergies Allergy Verified 08/13/17 22:20 - Medications Medications: Current Medications Aspirin (Aspirin Chewable) 81 mg PO DAILY [facility] Atorvastatin Calcium (Lipitor) 40 mg PO DIN [facility] Last Admin: 08/14/17 17:10 Dose: 40 mg Clopidogrel Bisulfate (Plavix) 75 mg PO DAILY [facility] Nicardipine HCl (Cardene Iv Premix) 20 mg in 200 mls @ 50 mls/hr IV .Q4H PRN; Protocol; 5 MG/HR PRN Reason: TITRATE PER MD ORDER Last Titration: 08/14/17 09:53 Dose: 0.5 mg/hr, 5 mls/hr Pantoprazole Sodium (Protonix Inj) 40 mg IVP DAILY [facility] Last Admin: 08/14/17 09:45 Dose: 40 mg Physical Exam - Constitutional Appears: Non-toxic, No Acute Distress, Chronically Ill - Head Exam Head Exam: ATRAUMATIC, NORMOCEPHALIC - Eye Exam Eye Exam: EOMI, PERRL Pupil Exam: NORMAL ACCOMODATION, PERRL - ENT Exam ENT Exam: Mucous Membranes Moist, Normal External Ear Exam, TM's Normal Bilaterally - Neck Exam Neck exam: Positive for: Full Rom, Normal Inspection - Respiratory Exam Respiratory Exam: Clear to Auscultation Bilateral, NORMAL BREATHING PATTERN. absent: Rales, Rhonchi, Wheezes - Cardiovascular Exam Cardiovascular Exam: REGULAR RHYTHM, RRR, +S1, +S2 - GI/Abdominal Exam GI & Abdominal Exam: Normal Bowel Sounds, Soft. absent: Distended, Tenderness - Extremities Exam Extremities exam: Positive for: normal inspection Additional comments: right sided weakness. - Neurological Exam Neurological exam: Alert, Oriented x3 Additional comments: right sided weakness. mild facial droop on the right side. - Expanded Neurological Exam Expanded Neuro motor strength exam: Left Upper Extremity: 5, Right Upper Extremity: 0, Left Lower Extremity: 5, Right Lower Extremity: 0 - Psychiatric Exam Psychiatric exam: Normal Affect, Normal Mood - Skin Skin Exam: Intact, Normal Color, Warm Results - Vital Signs Recent Vital Signs: Last Vital Signs Temp 98.7 F 08/14/17 07:00 Pulse 67 08/14/17 08:40 Resp 13 08/14/17 08:40 BP 154/102 H 08/14/17 08:00 Pulse Ox 100 08/14/17 08:40 - Labs Result Diagrams: 08/13/17 22:45 08/14/17 08:45 Labs: Laboratory Results - last 24 hr 08/14/17 08/14/17 00:47 08:45 Sodium 145 Potassium 3.9 Chloride 112 H Carbon Dioxide 26 Anion Gap 10 BUN 17 Creatinine 0.9 Est GFR ( Amer) > 60 Est GFR (Non-Af Amer) > 60 Random Glucose 98 Calcium 9.5 Total Bilirubin 0.7 AST 37 ALT 49 Alkaline Phosphatase 111 Total Protein 7.5 Albumin 3.7 Globulin 3.8 Albumin/Globulin Ratio 1.0 L Triglycerides 173 H Cholesterol 204 H LDL Cholesterol Direct 132 H HDL Cholesterol 22 L Vitamin B12 322 Folate 15.8 Blood Type Confirm A POSITIVE Assessment & Plan - Assessment and Plan (Free Text) Assessment: 47 yo AA male with possible left sided CVA showing right sided weakness. History of HIV. On Genvoya before the patient had insurance issues. Check CD4 and HIV Viral Load. The patient has not been on HAART for at least 1 month if not longer. The patient has a prior history of CVA with right sided weakness. The patient's other medical issues include Hypertension, hyperlipidemia. Supportive care. Thank you for allowing me to participate in the care of the patient, we will follow with you.
--- NOTE | 2017-08-14 18:22 | CARD ---
APPROVED REPORT EXAM: Two-dimensional and M-mode echocardiogram with Doppler and color Doppler. INDICATION CVA/TIA BUBBLE STUDY 2D DIMENSIONS Left Atrium (2D)4.2 (1.6-4.0cm)IVSd1.4 (0.7-1.1cm) LVDd4.5 (3.9-5.9cm)PWd1.4 (0.7-1.1cm) LVDs2.8 (2.5-4.0cm)FS (%) 38.5 % LVEF (%)69.0 (>50%) M-Mode DIMENSIONS Aortic Root2.90 (2.2-3.7cm)Aortic Cusp Exc.1.70 (1.5-2.0cm) Aortic Valve AoV Peak Kwotwzeg095.0cm/Manuel Peak GR.16mmHgLVOT Peak Hakaower630.0cm/s LVOT VTI29.20cm Mitral Valve MV E Pfbrebkn79.2cm/sMV A Cjpaxvei97.1cm/sE/A ratio1.1 TDI Lateral E' Peak V7.41cm/sMedial E' Peak V8.97cm/sE/Lateral E'12.6 E/Medial E'10.4 Pulmonary Valve PV Peak Lcxptctp806.0cm/sPV Peak Grad.5mmHg Tricuspid Valve TR Peak Qkuctfrx638qb/sRAP [id number] Peak Gr.26mmHg [id number] LEFT VENTRICLE The left ventricle is normal size. There is mild concentric left ventricular hypertrophy. The left ventricular function is normal. The left ventricular ejection fraction is within the normal range. There is normal LV segmental wall motion. Transmitral Doppler flow pattern is Grade I-abnormal relaxation pattern. RIGHT VENTRICLE The right ventricle is normal size. There is normal right ventricular wall thickness. The right ventricular systolic function is normal. ATRIA The left atrium is borderline dilated. The right atrium size is normal. The interatrial septum is intact with no evidence for an atrial septal defect. AORTIC VALVE The aortic valve is normal in structure. No aortic regurgitation is present. There is no aortic valvular stenosis. MITRAL VALVE The mitral valve is normal in structure. There is no mitral valve regurgitation noted. There is no mitral valve stenosis. TRICUSPID VALVE The tricuspid valve is normal in structure. There is mild tricuspid regurgitation. There is mild pulmonary hypertension. GREAT VESSELS The aortic root is normal in size. The IVC is normal in size and collapses >50% with inspiration. PERICARDIAL EFFUSION There is no pleural effusion. There is no pericardial effusion. <Conclusion> The left ventricle is normal size. There is mild concentric left ventricular hypertrophy. The left ventricular function is normal. The left ventricular ejection fraction is within the normal range. There is normal LV segmental wall motion. Transmitral Doppler flow pattern is Grade I-abnormal relaxation pattern. There is mild tricuspid regurgitation. There is mild pulmonary hypertension. The interatrial septum is intact with no evidence for an atrial septal defect.
--- NOTE | 2017-08-14 19:31 | CARD ---
APPROVED REPORT EKG Measurement Heart [id number] <Conclusion> Normal sinus rhythm Minimal voltage criteria for LVH, may be normal variant ST & T wave abnormality, consider inferolateral ischemia Abnormal ECG
[2017-08-15] MEDS: Nicardipine 20 MG/200 ML 20 MG/200 ML BAG IV PRN ×2 (01:23→05:00)
[2017-08-15 06:47] LABS: HEMOGLOBIN 15.9 g/dL (14.0-18.0); MEAN CELL VOLUME 87.9 fl (80.0-105.0); MEAN CORPUSCULAR HEMOGLOBIN 30.1 pg (25.0-35.0); MEAN CORPUSCULAR HGB CONC 34.2 g/dl (31.0-37.0); MEAN PLATELET VOLUME 10.9 fl (7.0-11.0); RBC 5.29 10^6/uL (3.5-6.1); RED CELL DISTRIBUTION WIDTH 14.1 % (11.5-14.5); WHITE BLOOD COUNT 10.2 10^3/ul (4.5-11.0)
[2017-08-15 07:07] LABS: TROPONIN I < 0.01 ng/mL
[2017-08-15 07:11] LABS: ALT/SGPT 49 U/L (7-56); AST/SGOT 34 U/L (17-59); BLOOD UREA NITROGEN 12 mg/dL (7-21); CALCIUM 9.6 mg/dL (8.4-10.5); GFR AFRICAN-AMERICAN > 60; GFR NON-AFRICAN AMERICAN > 60
[2017-08-15 07:15] LABS: INR 1.12 (0.93-1.08); PROTHROMBIN TIME 12.9 SECONDS (9.4-12.5)
[2017-08-15 07:16] LABS: PARTIAL THROMBOPLASTIN TIME 31.5 Seconds (25.1-36.5)
--- NOTE | 2017-08-15 08:54 | CT ---
PROCEDURE: CT HEAD WITHOUT CONTRAST. HISTORY: post tPA, stroke COMPARISON: CT 08/13/2017 TECHNIQUE: Axial computed tomography images were obtained through the head/brain without intravenous contrast. Radiation dose: Total exam DLP = 849 mGy-cm. This CT exam was performed using one or more of the following dose reduction techniques: Automated exposure control, adjustment of the mA and/or kV according to patient size, and/or use of iterative reconstruction technique. FINDINGS: HEMORRHAGE: No intracranial hemorrhage. BRAIN: The left temporal infarct described previously has a more well-defined appearance. New areas of infarction are seen in the subcortical white matter of the left frontal lobe VENTRICLES: Unremarkable. No hydrocephalus. CALVARIUM: Unremarkable. PARANASAL SINUSES: Unremarkable as visualized. No significant inflammatory changes. MASTOID AIR CELLS: Unremarkable as visualized. No inflammatory changes. OTHER FINDINGS: The report concurs with the preliminary [facility] report IMPRESSION: The left temporal infarct described previously has a more well-defined appearance. New areas of infarction are seen in the subcortical white matter of the left frontal lobe
[2017-08-15] MEDS: Metoprolol Succinate 25 mg XL Tab PO SCH (09:02)
[2017-08-15] MEDS: Pantoprazole 40 mg EC Tab PO SCH (09:07)
--- NOTE | 2017-08-15 11:59 | CP.CCUPN ---
<Willard Cota - Last Filed: 08/15/17 13:17> CCU Subjective - Physician Review Subjective (Free Text): Patient seen and examined at bedside. Patient's speech at baseline, but right upper extremity hemiparesis remains the same as previous day. Denies chest pain , shortness of breath, nausea, vomiting, diarrhea, fever, chills. CCU Objective - Vital Signs / Intake & Output Vital Signs (Last 4 hours): Vital Signs Pulse BP 08/15/17 09:02 82 155/84 H 08/15/17 09:01 80 155/101 H Intake and Output (Last 8hrs): Intake & Output 08/14/17 08/15/17 08/15/17 22:59 06:59 14:59 Intake Total 565 125 Output Total 525 Balance 40 125 Intake: IV 565 125 Left Hand 250 Output: Urine 525 Condom 525 - Physical Exam Head: Positive for: Atraumatic, Normocephalic Extroacular Muscles: Positive for: EOMI Conjunctiva: Positive for: Normal Mouth: Positive for: Moist Mucous Membranes Respiratory/Chest: Positive for: Clear to Auscultation, Good Air Exchange. Negative for: Respiratory Distress Cardiovascular: Positive for: Regular Rate and Rhythm, Normal S1, S2 Abdomen: Positive for: Normal Bowel Sounds. Negative for: Tenderness Upper Extremity: Positive for: Normal Inspection Lower Extremity: Positive for: Normal Inspection, Neurovascularly Intact Neurological: Positive for: CN II-XII Intact, Speech Normal, Normal Sensory Function, Other (Right arm hemiparesis. Sensatation intact. Muscle strength 0/5) Psychiatric: Positive for: Alert, Oriented x 3, Normal Insight, Normal Concentration - Medications Active Medications: Active Medications Generic Name Dose Route Start Last Admin Trade Name Freq PRN Reason Stop Dose Admin Aspirin 81 mg 08/15/17 10:00 Aspirin Chewable PO DAILY [facility] Atorvastatin Calcium 40 mg 08/14/17 17:00 08/14/17 17:10 Lipitor PO 40 mg DIN JEROD Administration Clopidogrel Bisulfate 75 mg 08/15/17 10:00 08/15/17 09:01 Plavix PO 75 mg DAILY JEROD Administration Hydrochlorothiazide 25 mg 08/15/17 10:00 08/15/17 09:02 Hydrodiuril PO 25 mg DAILY JEROD Administration Lisinopril 20 mg 08/15/17 10:00 08/15/17 09:01 Zestril PO 20 mg DAILY JEROD Administration Metoprolol Succinate 25 mg 08/15/17 10:00 08/15/17 09:02 Toprol Xl PO 25 mg DAILY JEROD Administration Pantoprazole Sodium 40 mg 08/15/17 10:00 08/15/17 09:07 Protonix Ec Tab PO 40 mg DAILY JEROD Administration - Patient Studies Lab Studies: Microbiology Studies 08/14/17 02:30 MRSA Culture (Admit) - Final Naris MRSA NOT DETECTED Lab Studies 08/15/17 08/15/17 08/15/17 Range/Units 06:05 06:05 06:05 WBC 10.2 D (4.5-11.0) 10^3/ul RBC 5.29 (3.5-6.1) 10^6/uL Hgb 15.9 (14.0-18.0) g/dL Hct 46.5 (42.0-52.0) % MCV 87.9 (80.0-105.0) fl MCH 30.1 (25.0-35.0) pg MCHC 34.2 (31.0-37.0) g/dl RDW 14.1 (11.5-14.5) % Plt Count 274 (120.0-450.0) 10^3/uL MPV 10.9 (7.0-11.0) fl PT 12.9 H (9.4-12.5) SECONDS INR 1.12 H (0.93-1.08) APTT 31.5 (25.1-36.5) Seconds Sodium 140 (132-148) mmol/L Potassium 3.6 (3.6-5.0) mmol/L Chloride 106 (98-107) mmol/L Carbon Dioxide 25 (21-33) mmol/L Anion Gap 12 (10-20) BUN 12 (7-21) mg/dL Creatinine 0.9 (0.8-1.5) mg/dl Est GFR ( Amer) > 60 Est GFR (Non-Af Amer) > 60 POC Glucose (mg/dL) (65-110) mg/dL Random Glucose 124 H (70-110) mg/dL Calcium 9.6 (8.4-10.5) mg/dL Phosphorus 2.9 (2.5-4.5) mg/dL Magnesium 2.0 (1.7-2.2) mg/dL Total Bilirubin 0.5 (0.2-1.3) mg/dL AST 34 (17-59) U/L ALT 49 (7-56) U/L Alkaline Phosphatase 117 (38-126) U/L Troponin I < 0.01 ng/mL Total Protein 7.8 (5.8-8.3) g/dL Albumin 4.0 (3.0-4.8) g/dL Globulin 3.9 gm/dL Albumin/Globulin Ratio 1.0 L (1.1-1.8) Vitamin B12 (239-931) pg/mL Folate ng/mL Homocysteine ( <11.4) umol/L 08/15/17 08/14/17 08/14/17 Range/Units 04:51 08:45 08:45 WBC (4.5-11.0) 10^3/ul RBC (3.5-6.1) 10^6/uL Hgb (14.0-18.0) g/dL Hct (42.0-52.0) % MCV (80.0-105.0) fl MCH (25.0-35.0) pg MCHC (31.0-37.0) g/dl RDW (11.5-14.5) % Plt Count (120.0-450.0) 10^3/uL MPV (7.0-11.0) fl PT (9.4-12.5) SECONDS INR (0.93-1.08) APTT (25.1-36.5) Seconds Sodium (132-148) mmol/L Potassium (3.6-5.0) mmol/L Chloride (98-107) mmol/L Carbon Dioxide (21-33) mmol/L Anion Gap (10-20) BUN (7-21) mg/dL Creatinine (0.8-1.5) mg/dl Est GFR ( Amer) Est GFR (Non-Af Amer) POC Glucose (mg/dL) 123 H (65-110) mg/dL Random Glucose (70-110) mg/dL Calcium (8.4-10.5) mg/dL Phosphorus (2.5-4.5) mg/dL Magnesium (1.7-2.2) mg/dL Total Bilirubin (0.2-1.3) mg/dL AST (17-59) U/L ALT (7-56) U/L Alkaline Phosphatase (38-126) U/L Troponin I ng/mL Total Protein (5.8-8.3) g/dL Albumin (3.0-4.8) g/dL Globulin gm/dL Albumin/Globulin Ratio (1.1-1.8) Vitamin B12 322 (239-931) pg/mL Folate 15.8 ng/mL Homocysteine 7.0 ( <11.4) umol/L Laboratory Results - last 24 hr 08/14/17 08/14/17 08/15/17 08:45 08:45 04:51 WBC RBC Hgb Hct MCV MCH MCHC RDW Plt Count MPV PT INR APTT Sodium Potassium Chloride Carbon Dioxide Anion Gap BUN Creatinine Est GFR ( Amer) Est GFR (Non-Af Amer) POC Glucose (mg/dL) 123 H Random Glucose Calcium Phosphorus Magnesium Total Bilirubin AST ALT Alkaline Phosphatase Troponin I Total Protein Albumin Globulin Albumin/Globulin Ratio Vitamin B12 322 Folate 15.8 Homocysteine 7.0 08/15/17 08/15/17 08/15/17 06:05 06:05 06:05 WBC 10.2 D RBC 5.29 Hgb 15.9 Hct 46.5 MCV 87.9 MCH 30.1 MCHC 34.2 RDW 14.1 Plt Count 274 MPV 10.9 PT 12.9 H INR 1.12 H APTT 31.5 Sodium 140 Potassium 3.6 Chloride 106 Carbon Dioxide 25 Anion Gap 12 BUN 12 Creatinine 0.9 Est GFR ( Amer) > 60 Est GFR (Non-Af Amer) > 60 POC Glucose (mg/dL) Random Glucose 124 H Calcium 9.6 Phosphorus 2.9 Magnesium 2.0 Total Bilirubin 0.5 AST 34 ALT 49 Alkaline Phosphatase 117 Troponin I < 0.01 Total Protein 7.8 Albumin 4.0 Globulin 3.9 Albumin/Globulin Ratio 1.0 L Vitamin B12 Folate Homocysteine Fingerstick Blood Sugar Results: 123 Critical Care Progress Note - Nutrition Nutrition: Nutrition Category Date Time Status Heart Healthy Diet [DIET] Diets 08/14/17 Lunch Ordered Assessment/Plan - Assessment and Plan (Free Text) Plan: 47 yo M with PMH of asthma, HIV, HTN, HLD, and CVA admitted for ischemic CVA s/ p tPA. Patient taken off cardiene drip and has had his blood pressure meds restarted. Patient is hemodynamically stable. Patient will be transferred to remote telemetry. Neuro: Repeat CT head demonstrates well defined area of infarct Brain MRI demonstrates PT/OT ordered Cardio: Cardiene drip Maintain hemodynamic stability Maintain MAP >65 Lipid panel elevated Pulm: Maintain O2 sat > 90% GI: Protonix Bedside nursing swallow eval shows no acute dysphagia Nephro: HgA1c 7 Maintain euvolemia Replete electrolytes as needed Heme/ID: Afebrile, no leukocytosis Maintain normothermia Heparin for DVT PPX Cipriano, PGY-2 <Emiliano Garcia - Last Filed: 08/15/17 15:05> CCU Objective - Vital Signs / Intake & Output Vital Signs (Last 4 hours): Vital Signs Temp Pulse Resp BP Pulse Ox 08/15/17 14:45 96 08/15/17 14:40 95 08/15/17 14:30 146/93 H 92 L 08/15/17 14:20 95 08/15/17 14:10 98 08/15/17 14:00 140/83 92 L 08/15/17 13:50 98 08/15/17 13:40 97 08/15/17 13:34 99.3 F 08/15/17 13:30 146/92 H 92 L 08/15/17 13:20 96 08/15/17 13:10 95 08/15/17 13:00 146/104 H 91 L 08/15/17 12:50 96 08/15/17 12:40 97 08/15/17 12:30 151/99 H 90 L 08/15/17 12:20 97 08/15/17 12:10 97 08/15/17 12:00 92 L 08/15/17 11:50 99 08/15/17 11:46 143/99 H 97 08/15/17 11:44 96 08/15/17 11:30 153/83 H 98 08/15/17 11:20 64 98 08/15/17 11:10 70 21 96 Intake and Output (Last 8hrs): Intake & Output 08/15/17 08/15/17 08/15/17 06:59 14:59 22:59 Intake Total 565 125 Output Total 525 Balance 40 125 Weight 199 lb Intake: IV 565 125 Left Hand 250 Output: Urine 525 Condom 525 - Medications Active Medications: Active Medications Generic Name Dose Route Start Last Admin Trade Name Graciela PRN Reason Stop Dose Admin Aspirin 81 mg 08/15/17 10:00 08/15/17 10:03 Aspirin Chewable PO 81 mg DAILY [facility] Administration Atorvastatin Calcium 40 mg 08/14/17 17:00 08/14/17 17:10 Lipitor PO 40 mg DIN JEROD Administration Clopidogrel Bisulfate 75 mg 08/15/17 10:00 08/15/17 09:01 Plavix PO 75 mg DAILY [facility] Administration Hydrochlorothiazide 25 mg 08/15/17 10:00 08/15/17 09:02 Hydrodiuril PO 25 mg DAILY [facility] Administration Lisinopril 20 mg 08/15/17 10:00 08/15/17 09:01 Zestril PO 20 mg DAILY [facility] Administration Metoprolol Succinate 25 mg 08/15/17 10:00 08/15/17 09:02 Toprol Xl PO 25 mg DAILY [facility] Administration Pantoprazole Sodium 40 mg 08/15/17 10:00 08/15/17 09:07 Protonix Ec Tab PO 40 mg DAILY [facility] Administration - Patient Studies Lab Studies: Microbiology Studies 08/14/17 02:30 MRSA Culture (Admit) - Final Naris MRSA NOT DETECTED Lab Studies 08/15/17 08/15/17 08/15/17 Range/Units 14:45 12:34 10:28 WBC (4.5-11.0) 10^3/ul RBC (3.5-6.1) 10^6/uL Hgb (14.0-18.0) g/dL Hct (42.0-52.0) % MCV (80.0-105.0) fl MCH (25.0-35.0) pg MCHC (31.0-37.0) g/dl RDW (11.5-14.5) % Plt Count (120.0-450.0) 10^3/uL MPV (7.0-11.0) fl PT (9.4-12.5) SECONDS INR (0.93-1.08) APTT (25.1-36.5) Seconds Sodium (132-148) mmol/L Potassium (3.6-5.0) mmol/L Chloride (98-107) mmol/L Carbon Dioxide (21-33) mmol/L Anion Gap (10-20) BUN (7-21) mg/dL Creatinine (0.8-1.5) mg/dl Est GFR ( Amer) Est GFR (Non-Af Amer) POC Glucose (mg/dL) 106 143 H 130 H (65-110) mg/dL Random Glucose (70-110) mg/dL Calcium (8.4-10.5) mg/dL Phosphorus (2.5-4.5) mg/dL Magnesium (1.7-2.2) mg/dL Total Bilirubin (0.2-1.3) mg/dL AST (17-59) U/L ALT (7-56) U/L Alkaline Phosphatase (38-126) U/L Troponin I ng/mL Total Protein (5.8-8.3) g/dL Albumin (3.0-4.8) g/dL Globulin gm/dL Albumin/Globulin Ratio (1.1-1.8) Homocysteine ( <11.4) umol/L 08/15/17 08/15/17 08/15/17 Range/Units 08:32 07:01 06:05 WBC (4.5-11.0) 10^3/ul RBC (3.5-6.1) 10^6/uL Hgb (14.0-18.0) g/dL Hct (42.0-52.0) % MCV (80.0-105.0) fl MCH (25.0-35.0) pg MCHC (31.0-37.0) g/dl RDW (11.5-14.5) % Plt Count (120.0-450.0) 10^3/uL MPV (7.0-11.0) fl PT (9.4-12.5) SECONDS INR (0.93-1.08) APTT (25.1-36.5) Seconds Sodium 140 (132-148) mmol/L Potassium 3.6 (3.6-5.0) mmol/L Chloride 106 (98-107) mmol/L Carbon Dioxide 25 (21-33) mmol/L Anion Gap 12 (10-20) BUN 12 (7-21) mg/dL Creatinine 0.9 (0.8-1.5) mg/dl Est GFR ( Amer) > 60 Est GFR (Non-Af Amer) > 60 POC Glucose (mg/dL) 133 H 155 H (65-110) mg/dL Random Glucose 124 H (70-110) mg/dL Calcium 9.6 (8.4-10.5) mg/dL Phosphorus 2.9 (2.5-4.5) mg/dL Magnesium 2.0 (1.7-2.2) mg/dL Total Bilirubin 0.5 (0.2-1.3) mg/dL AST 34 (17-59) U/L ALT 49 (7-56) U/L Alkaline Phosphatase 117 (38-126) U/L Troponin I < 0.01 ng/mL Total Protein 7.8 (5.8-8.3) g/dL Albumin 4.0 (3.0-4.8) g/dL Globulin 3.9 gm/dL Albumin/Globulin Ratio 1.0 L (1.1-1.8) Homocysteine ( <11.4) umol/L 08/15/17 08/15/17 08/15/17 Range/Units 06:05 06:05 04:51 WBC 10.2 D (4.5-11.0) 10^3/ul RBC 5.29 (3.5-6.1) 10^6/uL Hgb 15.9 (14.0-18.0) g/dL Hct 46.5 (42.0-52.0) % MCV 87.9 (80.0-105.0) fl MCH 30.1 (25.0-35.0) pg MCHC 34.2 (31.0-37.0) g/dl RDW 14.1 (11.5-14.5) % Plt Count 274 (120.0-450.0) 10^3/uL MPV 10.9 (7.0-11.0) fl PT 12.9 H (9.4-12.5) SECONDS INR 1.12 H (0.93-1.08) APTT 31.5 (25.1-36.5) Seconds Sodium (132-148) mmol/L Potassium (3.6-5.0) mmol/L Chloride (98-107) mmol/L Carbon Dioxide (21-33) mmol/L Anion Gap (10-20) BUN (7-21) mg/dL Creatinine (0.8-1.5) mg/dl Est GFR ( Amer) Est GFR (Non-Af Amer) POC Glucose (mg/dL) 123 H (65-110) mg/dL Random Glucose (70-110) mg/dL Calcium (8.4-10.5) mg/dL Phosphorus (2.5-4.5) mg/dL Magnesium (1.7-2.2) mg/dL Total Bilirubin (0.2-1.3) mg/dL AST (17-59) U/L ALT (7-56) U/L Alkaline Phosphatase (38-126) U/L Troponin I ng/mL Total Protein (5.8-8.3) g/dL Albumin (3.0-4.8) g/dL Globulin gm/dL Albumin/Globulin Ratio (1.1-1.8) Homocysteine ( <11.4) umol/L 08/14/17 Range/Units 08:45 WBC (4.5-11.0) 10^3/ul RBC (3.5-6.1) 10^6/uL Hgb (14.0-18.0) g/dL Hct (42.0-52.0) % MCV (80.0-105.0) fl MCH (25.0-35.0) pg MCHC (31.0-37.0) g/dl RDW (11.5-14.5) % Plt Count (120.0-450.0) 10^3/uL MPV (7.0-11.0) fl PT (9.4-12.5) SECONDS INR (0.93-1.08) APTT (25.1-36.5) Seconds Sodium (132-148) mmol/L Potassium (3.6-5.0) mmol/L Chloride (98-107) mmol/L Carbon Dioxide (21-33) mmol/L Anion Gap (10-20) BUN (7-21) mg/dL Creatinine (0.8-1.5) mg/dl Est GFR ( Amer) Est GFR (Non-Af Amer) POC Glucose (mg/dL) (65-110) mg/dL Random Glucose (70-110) mg/dL Calcium (8.4-10.5) mg/dL Phosphorus (2.5-4.5) mg/dL Magnesium (1.7-2.2) mg/dL Total Bilirubin (0.2-1.3) mg/dL AST (17-59) U/L ALT (7-56) U/L Alkaline Phosphatase (38-126) U/L Troponin I ng/mL Total Protein (5.8-8.3) g/dL Albumin (3.0-4.8) g/dL Globulin gm/dL Albumin/Globulin Ratio (1.1-1.8) Homocysteine 7.0 ( <11.4) umol/L Laboratory Results - last 24 hr 08/14/17 08/15/17 08/15/17 08:45 04:51 06:05 WBC 10.2 D RBC 5.29 Hgb 15.9 Hct 46.5 MCV 87.9 MCH 30.1 MCHC 34.2 RDW 14.1 Plt Count 274 MPV 10.9 PT INR APTT Sodium Potassium Chloride Carbon Dioxide Anion Gap BUN Creatinine Est GFR ( Amer) Est GFR (Non-Af Amer) POC Glucose (mg/dL) 123 H Random Glucose Calcium Phosphorus Magnesium Total Bilirubin AST ALT Alkaline Phosphatase Troponin I Total Protein Albumin Globulin Albumin/Globulin Ratio Homocysteine 7.0 08/15/17 08/15/17 08/15/17 06:05 06:05 07:01 WBC RBC Hgb Hct MCV MCH MCHC RDW Plt Count MPV PT 12.9 H INR 1.12 H APTT 31.5 Sodium 140 Potassium 3.6 Chloride 106 Carbon Dioxide 25 Anion Gap 12 BUN 12 Creatinine 0.9 Est GFR ( Amer) > 60 Est GFR (Non-Af Amer) > 60 POC Glucose (mg/dL) 155 H Random Glucose 124 H Calcium 9.6 Phosphorus 2.9 Magnesium 2.0 Total Bilirubin 0.5 AST 34 ALT 49 Alkaline Phosphatase 117 Troponin I < 0.01 Total Protein 7.8 Albumin 4.0 Globulin 3.9 Albumin/Globulin Ratio 1.0 L Homocysteine 08/15/17 08/15/17 08/15/17 08:32 10:28 12:34 WBC RBC Hgb Hct MCV MCH MCHC RDW Plt Count MPV PT INR APTT Sodium Potassium Chloride Carbon Dioxide Anion Gap BUN Creatinine Est GFR ( Amer) Est GFR (Non-Af Amer) POC Glucose (mg/dL) 133 H 130 H 143 H Random Glucose Calcium Phosphorus Magnesium Total Bilirubin AST ALT Alkaline Phosphatase Troponin I Total Protein Albumin Globulin Albumin/Globulin Ratio Homocysteine 08/15/17 14:45 WBC RBC Hgb Hct MCV MCH MCHC RDW Plt Count MPV PT INR APTT Sodium Potassium Chloride Carbon Dioxide Anion Gap BUN Creatinine Est GFR ( Amer) Est GFR (Non-Af Amer) POC Glucose (mg/dL) 106 Random Glucose Calcium Phosphorus Magnesium Total Bilirubin AST ALT Alkaline Phosphatase Troponin I Total Protein Albumin Globulin Albumin/Globulin Ratio Homocysteine Critical Care Progress Note - Nutrition Nutrition: Nutrition Category Date Time Status Heart Healthy Diet [DIET] Diets 08/14/17 Lunch Ordered Assessment/Plan - Assessment and Plan (Free Text) Plan: Patient seen and examined on rounds with resident agree with note with following additions/exceptions: Patient is 47yo male with PMhx of HIV on ?HAART, HLD, CVA, a/w ischemic CVA s/p tPA. Patient is currently afebrile, HD stable, OFF cardene drip. On exam speech is normal RUQ 1/5, otherwise normal neuro exam. Acute CVA s/p tPA HIV HLD HTN Recommend: - supp o2 as needed - panculture - BP control - follow up neuro - Statin - ECHO with bubble - check HgbA1C, TSH - GI ppx - DVT ppx - transfer to telemetry
--- NOTE | 2017-08-15 13:14 | CP.PCM.PN ---
<Jamie Maguire - Last Filed: 08/15/17 13:10> Subjective - Date & Time of Evaluation Date of Evaluation: 08/15/17 Time of Evaluation: 13:10 - Subjective Subjective: Medicine Progress Note: Patient seen and assessed at bedside in ICU. No acute events overnight noted by patient or nursing staff. Patient endorses that he is still experiencing motor deficits in his RUE but denies fevers, chills, headache, changes in his vision, chest pain, SOB, cough, wheezing, abdominal pain, N/V/D/C, changes in urinary color/frequency, dysuria, or any skin changes. Objective - Vital Signs/Intake and Output Vital Signs (last 24 hours): Temp Pulse Resp BP Pulse Ox 98.4 F 82 18 155/84 H 95 08/15/17 04:00 08/15/17 09:02 08/15/17 05:50 08/15/17 09:02 08/15/17 05:50 Intake and Output: 08/15/17 08/15/17 06:59 18:59 Intake Total 565 125 Output Total 525 Balance 40 125 - Medications Medications: Current Medications Aspirin (Aspirin Chewable) 81 mg PO DAILY [facility] Last Admin: 08/15/17 10:03 Dose: 81 mg Atorvastatin Calcium (Lipitor) 40 mg PO DIN [facility] Last Admin: 08/14/17 17:10 Dose: 40 mg Clopidogrel Bisulfate (Plavix) 75 mg PO DAILY [facility] Last Admin: 08/15/17 09:01 Dose: 75 mg Hydrochlorothiazide (Hydrodiuril) 25 mg PO DAILY [facility] Last Admin: 08/15/17 09:02 Dose: 25 mg Lisinopril (Zestril) 20 mg PO DAILY [facility] Last Admin: 08/15/17 09:01 Dose: 20 mg Metoprolol Succinate (Toprol Xl) 25 mg PO DAILY [facility] Last Admin: 08/15/17 09:02 Dose: 25 mg Pantoprazole Sodium (Protonix Ec Tab) 40 mg PO DAILY [facility] Last Admin: 08/15/17 09:07 Dose: 40 mg - Labs Labs: 08/15/17 06:05 08/15/17 06:05 PT 12.9 SECONDS (9.4-12.5) H 08/15/17 06:05 INR 1.12 (0.93-1.08) H 08/15/17 06:05 APTT 31.5 Seconds (25.1-36.5) 08/15/17 06:05 - Constitutional Appears: Non-toxic, No Acute Distress - Head Exam Head Exam: ATRAUMATIC, NORMOCEPHALIC - Eye Exam Eye Exam: EOMI Pupil Exam: NORMAL ACCOMODATION, PERRL Additional comments: Lateral strabismus - ENT Exam ENT Exam: Mucous Membranes Moist, Normal Exam - Neck Exam Neck Exam: Full ROM, Normal Inspection. absent: Lymphadenopathy, Meningismus, Tenderness - Respiratory Exam Respiratory Exam: Clear to Ausculation Bilateral, NORMAL BREATHING PATTERN. absent: Accessory Muscle Use, Chest Wall Tenderness, Decreased Breath Sounds, Prolonged Expiratory Phase, Rales, Rhonchi, Wheezes, Respiratory Distress - Cardiovascular Exam Cardiovascular Exam: REGULAR RHYTHM, RRR, +S1, +S2. absent: Bradycardia, Tachycardia, Clicks, Diastolic murmur, Gallop, Irregular Rhythm, JVD, Rubs, +S4 , Murmur - GI/Abdominal Exam GI & Abdominal Exam: Soft, Normal Bowel Sounds. absent: Distended, Firm, Guarding, Rigid, Tenderness, Rebound - Extremities Exam Extremities Exam: Full ROM, Normal Capillary Refill, Normal Inspection. absent : Calf Tenderness, Joint Swelling, Pedal Edema, Tenderness - Back Exam Back Exam: Full ROM, NORMAL INSPECTION. absent: CVA tenderness (L), CVA tenderness (R), muscle spasm, paraspinal tenderness, rash noted, tenderness, vertebral tenderness - Neurological Exam Neurological Exam: Alert, Awake, CN II-XII Intact, Oriented x3 Neuro motor strength exam: Left Upper Extremity: 5, Right Upper Extremity: 0 ( Limited sensory intact to distal phalanges), Left Lower Extremity: 5, Right Lower Extremity: 3 - Psychiatric Exam Psychiatric exam: Normal Affect, Normal Mood - Skin Skin Exam: Dry, Intact, Normal Color, Warm Assessment and Plan - Assessment and Plan (Free Text) Assessment: 47 year old male with a past medical history significant for HIV, asthma, HTN, HLD, and CVA (3 yrs ago) who presented with right sided weakness. In the ED, NIHSS was found to be 23. CT head showed a hypodensity within the left temporal lobe, consistent with an infarct. Patient was evaluated by neurologist and IV tPA was administered. Patient currently being treated medically for acute ischemic stroke and is under remote telemetry monitoring. Plan: 1. Acute Ischemic Stroke -Brain MRI showed multiple acute cortical and subcortical infarcts in the left frontal and left parietal lobe in the distribution of the MCA -[address] Head showed left temporal infarct with interval improved definition noted as well as new areas of infarction seen in the subcortical white matter of the left frontal lobe -Initial CT Head showed a hypodensity in the left temporal lobe and a small hypodense lacunar infarct in right cerebellar lobe -CTA Head and Neck showed a high grade stenosis or occlusion at the junction of the left supraclinoid carotid and the proximal middle cerebral artery and diminished flow in the distal branches of the left MCA in the area of the left temporal infarct -Echocardiogram with Bubble Study showed normal left ventricular size, function and EF with Grade-I abnormal relaxation pattern as well as an intact interatrial septum -EKG showed NSR at 64 beats/min with minimal LVH voltage criteria -S/P tPA at 2300 on 08/13/2017 -Continue high intensity Lipitor, low dose ASA, and Plavix -Neuro checks Q2H -Transferred from ICU to Remote Telemetry -Neurology consulted, all recommendations appreciated -PT/OT recommending acute rehab upon discharge 2. History of HIV -Patient reports seeing a Dr. Alberts in [place] -Will obtain records from PMD including current medications (Genvoya), latest CD4 count and latest viral load -ID consulted, all recommendations appreciated 3. History of HTN -Continue home Toprol XL, HCTZ and Lisinopril GI Prophylaxis: Protonix DVT Prophylaxis: Heparin and SCD's Diet: Heart healthy Patient seen and case discussed with attending, Dr. Stoll. <Reece Stoll - Last Filed: 08/15/17 15:39> Objective - Vital Signs/Intake and Output Vital Signs (last 24 hours): Temp Pulse Resp BP Pulse Ox 99.3 F 64 21 146/93 H 96 08/15/17 13:34 08/15/17 11:20 08/15/17 11:10 08/15/17 14:30 08/15/17 14:45 Intake and Output: 08/15/17 08/15/17 06:59 18:59 Intake Total 565 125 Output Total 525 Balance 40 125 - Medications Medications: Current Medications Aspirin (Aspirin Chewable) 81 mg PO DAILY [facility] Last Admin: 04/03/18 10:03 Dose: 81 mg Atorvastatin Calcium (Lipitor) 40 mg PO DIN [facility] Last Admin: 08/14/17 17:10 Dose: 40 mg Clopidogrel Bisulfate (Plavix) 75 mg PO DAILY [facility] Last Admin: 08/15/17 09:01 Dose: 75 mg Hydrochlorothiazide (Hydrodiuril) 25 mg PO DAILY [facility] Last Admin: 08/15/17 09:02 Dose: 25 mg Lisinopril (Zestril) 20 mg PO DAILY [facility] Last Admin: 08/15/17 09:01 Dose: 20 mg Metoprolol Succinate (Toprol Xl) 25 mg PO DAILY [facility] Last Admin: 08/15/17 09:02 Dose: 25 mg Pantoprazole Sodium (Protonix Ec Tab) 40 mg PO DAILY [facility] Last Admin: 08/15/17 09:07 Dose: 40 mg - Labs Labs: 08/15/17 06:05 08/15/17 06:05 PT 12.9 SECONDS (9.4-12.5) H 08/15/17 06:05 INR 1.12 (0.93-1.08) H 08/15/17 06:05 APTT 31.5 Seconds (25.1-36.5) 08/15/17 06:05 Attending/Attestation - Attestation I have personally seen and examined this patient.: Yes I have fully participated in the care of the patient.: Yes I have reviewed all pertinent clinical information, including history, physical exam and plan: Yes Notes (Text): 08/15/17 15:33 attending note; Patient seen and examined with resident. Patient is a 47-year-old male with a history of hypertension, HIV, previous CVA is admitted with right sided weakness. Status post TPA. MRI showed showed multiple acute cortical and subcortical infarcts in the left frontal and left parietal lobe in the distribution of the MCA. neurology evaluation appreciated. Continue aspirin and Plavix, Lipitor. hypertension; Cardene drip was discontinued. Continue metoprolol, lisinopril. history of HIV; currently not on meds. needs to follow up with HIV clinic upon discharge. PT evaluation requested. acute rehabilitation recommended. 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 upon discharge patient will follow-up with [facility] clinic.
--- NOTE | 2017-08-15 14:33 | CP.PCM.PN ---
Subjective - Date & Time of Evaluation Date of Evaluation: 08/15/17 Time of Evaluation: 14:15 - Subjective Subjective: Patient is clinically the same, with right sided plegia and unchanged neurological examination. MRI brain shows that patient has new acute subcortical and cortical infarcts in the left frontal and parietal regions that are in the left mCA territory. ECHO: normal EF with no septal defect. CTA: shows that he has high grade stenosis of the left supraclinoid near the left mca. ON EXAM: PERRL, speech fluent, aaox3. cn 2-12 normal. has right sided plegia, sensory: decreased ft, pin, in right upper and lower limb. no speech deficits noted. +2 dtr ul and ll bl. Toes downgoing, no clonus. Objective - Vital Signs/Intake and Output Vital Signs (last 24 hours): Temp Pulse Resp BP Pulse Ox 99.3 F 82 18 155/84 H 95 08/15/17 13:34 08/15/17 09:02 08/15/17 05:50 08/15/17 09:02 08/15/17 05:50 Intake and Output: 08/15/17 08/15/17 06:59 18:59 Intake Total 565 125 Output Total 525 Balance 40 125 - Medications Medications: Current Medications Aspirin (Aspirin Chewable) 81 mg PO DAILY [facility] Last Admin: 08/15/17 10:03 Dose: 81 mg Atorvastatin Calcium (Lipitor) 40 mg PO DIN [facility] Last Admin: 08/14/17 17:10 Dose: 40 mg Clopidogrel Bisulfate (Plavix) 75 mg PO DAILY [facility] Last Admin: 08/15/17 09:01 Dose: 75 mg Hydrochlorothiazide (Hydrodiuril) 25 mg PO DAILY [facility] Last Admin: 08/15/17 09:02 Dose: 25 mg Lisinopril (Zestril) 20 mg PO DAILY [facility] Last Admin: 08/15/17 09:01 Dose: 20 mg Metoprolol Succinate (Toprol Xl) 25 mg PO DAILY [facility] Last Admin: 08/15/17 09:02 Dose: 25 mg Pantoprazole Sodium (Protonix Ec Tab) 40 mg PO DAILY [facility] Last Admin: 08/15/17 09:07 Dose: 40 mg - Labs Labs: 08/15/17 06:05 08/15/17 06:05 PT 12.9 SECONDS (9.4-12.5) H 08/15/17 06:05 INR 1.12 (0.93-1.08) H 08/15/17 06:05 APTT 31.5 Seconds (25.1-36.5) 08/15/17 06:05 Assessment and Plan - Assessment and Plan (Free Text) Assessment: 47 yr old male with what appears to be embolic (from left carotid most likely ) strokes in left mca region, with old stroke present in the same territory. I have consulted from endovascular and he will address the high stenosis, and we will continue with stroke management. Plan: 1. Permissive hypertension. Please discontinue all bp meds and keep bp at 180- 190 systolic 2. IV fluids ns at 100ccs per hour. 3. Physical therapy 4. asprin and plavix Dr. Tone MD, DPN.
--- NOTE | 2017-08-15 19:11 | CP.PCM.PN ---
Subjective - Date & Time of Evaluation Date of Evaluation: 08/15/17 Time of Evaluation: 18:00 - Subjective Subjective: Infectious Disease Follow Up: August 15, 2017 47 yo male who presented with slurred speech, right sided facial droop, right arm weakness. Given tPA by neurology. Patient with known HIV disease. Speech has improved. The patient states he was on treatment for HIV with Genvoya. States he hasn't been on HAART for at least 1 month. The patient had prior CVA attack in the past. He still have right arm and right sided weakness. Difficulties on obtaining HAART as the patient's medicaid in not in [place] and he does not have the funds to afford the HAART medications. Objective - Vital Signs/Intake and Output Vital Signs (last 24 hours): Temp Pulse Resp BP Pulse Ox 99.3 F 64 21 146/93 H 96 08/15/17 13:34 08/15/17 16:21 08/15/17 11:10 08/15/17 14:30 08/15/17 14:45 Intake and Output: 08/15/17 08/16/17 18:59 06:59 Intake Total 125 Balance 125 - Medications Medications: Current Medications Aspirin (Aspirin Chewable) 81 mg PO DAILY [facility] Last Admin: 08/15/17 10:03 Dose: 81 mg Atorvastatin Calcium (Lipitor) 40 mg PO DIN [facility] Last Admin: 08/15/17 17:04 Dose: 40 mg Clopidogrel Bisulfate (Plavix) 75 mg PO DAILY [facility] Last Admin: 08/15/17 09:01 Dose: 75 mg Hydrochlorothiazide (Hydrodiuril) 25 mg PO DAILY [facility] Last Admin: 08/15/17 09:02 Dose: 25 mg Lisinopril (Zestril) 20 mg PO DAILY [facility] Last Admin: 08/15/17 09:01 Dose: 20 mg Metoprolol Succinate (Toprol Xl) 25 mg PO DAILY [facility] Last Admin: 08/15/17 09:02 Dose: 25 mg Pantoprazole Sodium (Protonix Ec Tab) 40 mg PO DAILY [facility] Last Admin: 08/15/17 09:07 Dose: 40 mg - Labs Labs: 08/15/17 06:05 08/15/17 06:05 PT 12.9 SECONDS (9.4-12.5) H 08/15/17 06:05 INR 1.12 (0.93-1.08) H 08/15/17 06:05 APTT 31.5 Seconds (25.1-36.5) 08/15/17 06:05 - Constitutional Appears: Non-toxic, No Acute Distress, Chronically Ill - Head Exam Head Exam: ATRAUMATIC, NORMOCEPHALIC - Eye Exam Eye Exam: EOMI, PERRL Pupil Exam: NORMAL ACCOMODATION, PERRL - ENT Exam ENT Exam: Mucous Membranes Moist, Normal External Ear Exam, TM's Normal Bilaterally - Neck Exam Neck Exam: Full ROM, Normal Inspection - Respiratory Exam Respiratory Exam: Clear to Ausculation Bilateral, NORMAL BREATHING PATTERN. absent: Rales, Rhonchi, Wheezes - Cardiovascular Exam Cardiovascular Exam: REGULAR RHYTHM, RRR, +S1, +S2 - GI/Abdominal Exam GI & Abdominal Exam: Soft, Normal Bowel Sounds. absent: Distended, Tenderness - Extremities Exam Additional comments: right sided weakness. - Neurological Exam Neurological Exam: Alert, Awake, Oriented x3 Neuro motor strength exam: Left Upper Extremity: 5, Right Upper Extremity: 0, Left Lower Extremity: 5, Right Lower Extremity: 0 Additional comments: right sided weakness. mild facial droop on the right side. - Psychiatric Exam Psychiatric exam: Normal Affect, Normal Mood - Skin Skin Exam: Intact, Normal Color, Warm Assessment and Plan - Assessment and Plan (Free Text) Assessment: 47 yo AA male with possible left sided CVA showing right sided weakness. History of HIV. On Genvoya before the patient had insurance issues. Check CD4 and HIV Viral Load. The patient has not been on HAART for at least 1 month if not longer. The patient has a prior history of CVA with right sided weakness. The patient's other medical issues include Hypertension, hyperlipidemia. Supportive care. Patient with extremely limited resources as an outpatient. On the whole, the patient is improving. Thank you for allowing me to participate in the care of the patient, we will follow with you.
[2017-08-16 06:55] LABS: ALBUMIN 4.1 g/dL (3.0-4.8); ALT/SGPT 44 U/L (7-56); AST/SGOT 35 U/L (17-59); BLOOD UREA NITROGEN 14 mg/dL (7-21); CALCIUM 10.1 mg/dL (8.4-10.5); GFR AFRICAN-AMERICAN > 60; GFR NON-AFRICAN AMERICAN > 60
[2017-08-16 07:35] LABS: HEMOGLOBIN 16.1 g/dL (14.0-18.0); MEAN CELL VOLUME 86.8 fl (80.0-105.0); MEAN CORPUSCULAR HEMOGLOBIN 30.3 pg (25.0-35.0); MEAN CORPUSCULAR HGB CONC 34.8 g/dl (31.0-37.0); MEAN PLATELET VOLUME 11.2 fl (7.0-11.0); RBC 5.32 10^6/uL (3.5-6.1); RED CELL DISTRIBUTION WIDTH 13.8 % (11.5-14.5)
[2017-08-16] MEDS: Pantoprazole 40 mg EC Tab PO SCH (09:06)
[2017-08-16] MEDS: Metoprolol Succinate 25 mg XL Tab PO SCH (09:06)
--- NOTE | 2017-08-16 14:01 | CP.PCM.PN ---
<Jamie Maguire - Last Filed: 08/16/17 13:57> Subjective - Date & Time of Evaluation Date of Evaluation: 08/16/17 Time of Evaluation: 13:58 - Subjective Subjective: Medicine Progress Note: Patient seen and assessed at bedside in ICU. No acute events overnight noted by patient or nursing staff. Patient is currently without any new complaints and denies fevers, chills, headache, changes in his vision, chest pain, SOB, cough, wheezing, abdominal pain, N/V/D/C, changes in urinary color/frequency, dysuria, or any skin changes. Objective - Vital Signs/Intake and Output Vital Signs (last 24 hours): Temp Pulse Resp BP Pulse Ox 98.5 F 66 20 167/85 H 95 08/16/17 08:15 08/16/17 13:16 08/16/17 07:00 08/16/17 09:06 08/16/17 07:00 Intake and Output: 08/16/17 08/16/17 06:59 18:59 Intake Total 240 Output Total 800 Balance -560 - Medications Medications: Current Medications Aspirin (Aspirin Chewable) 81 mg PO DAILY [facility] Last Admin: 08/16/17 09:06 Dose: 81 mg Atorvastatin Calcium (Lipitor) 40 mg PO DIN [facility] Last Admin: 08/15/17 17:04 Dose: 40 mg Clopidogrel Bisulfate (Plavix) 75 mg PO DAILY [facility] Last Admin: 08/16/17 09:06 Dose: 75 mg Hydrochlorothiazide (Hydrodiuril) 50 mg PO DAILY [facility] Lisinopril (Zestril) 20 mg PO DAILY [facility] Last Admin: 08/16/17 09:06 Dose: 20 mg Metoprolol Succinate (Toprol Xl) 25 mg PO DAILY [facility] Last Admin: 08/16/17 09:06 Dose: 25 mg Pantoprazole Sodium (Protonix Ec Tab) 40 mg PO DAILY [facility] Last Admin: 08/16/17 09:06 Dose: 40 mg - Labs Labs: 08/16/17 05:30 08/16/17 05:30 PT 12.9 SECONDS (9.4-12.5) H 08/15/17 06:05 INR 1.12 (0.93-1.08) H 08/15/17 06:05 APTT 31.5 Seconds (25.1-36.5) 08/15/17 06:05 - Constitutional Appears: Non-toxic, No Acute Distress - Head Exam Head Exam: ATRAUMATIC, NORMOCEPHALIC - Eye Exam Eye Exam: EOMI. absent: Normal appearance (lateral strabismus noted) Pupil Exam: NORMAL ACCOMODATION, PERRL - ENT Exam ENT Exam: Mucous Membranes Moist, Normal Exam - Neck Exam Neck Exam: Full ROM, Normal Inspection - Respiratory Exam Respiratory Exam: Clear to Ausculation Bilateral, NORMAL BREATHING PATTERN. absent: Accessory Muscle Use, Rales, Rhonchi, Wheezes - Cardiovascular Exam Cardiovascular Exam: REGULAR RHYTHM, RRR, +S1, +S2. absent: Bradycardia, Tachycardia, Clicks, Diastolic murmur, Gallop, Irregular Rhythm, JVD, Rubs, +S4 , Murmur - GI/Abdominal Exam GI & Abdominal Exam: Soft, Normal Bowel Sounds. absent: Distended, Firm, Guarding, Rigid, Tenderness, Rebound - Extremities Exam Extremities Exam: Full ROM, Normal Capillary Refill, Normal Inspection. absent : Calf Tenderness, Joint Swelling, Pedal Edema, Tenderness - Back Exam Back Exam: NORMAL INSPECTION - Neurological Exam Neurological Exam: Alert, Awake, Oriented x3 Neuro motor strength exam: Left Upper Extremity: 5, Right Upper Extremity: 0, Left Lower Extremity: 5, Right Lower Extremity: 3 - Psychiatric Exam Psychiatric exam: Normal Affect, Normal Mood - Skin Skin Exam: Dry, Intact, Normal Color, Warm Assessment and Plan - Assessment and Plan (Free Text) Assessment: 47 year old male with a past medical history significant for HIV, asthma, HTN, HLD, and CVA (3 yrs ago) who presented with right sided weakness. In the ED, NIHSS was found to be 23. CT head showed a hypodensity within the left temporal lobe, consistent with an infarct. Patient was evaluated by neurologist and IV tPA was administered. Patient currently being treated medically for acute ischemic stroke and is under remote telemetry monitoring. Plan: 1. Acute Ischemic Stroke -Brain MRI showed multiple acute cortical and subcortical infarcts in the left frontal and left parietal lobe in the distribution of the MCA -[address] Head showed left temporal infarct with interval improved definition noted as well as new areas of infarction seen in the subcortical white matter of the left frontal lobe -Initial CT Head showed a hypodensity in the left temporal lobe and a small hypodense lacunar infarct in right cerebellar lobe -CTA Head and Neck showed a high grade stenosis or occlusion at the junction of the left supraclinoid carotid and the proximal middle cerebral artery and diminished flow in the distal branches of the left MCA in the area of the left temporal infarct -Echocardiogram with Bubble Study showed normal left ventricular size, function and EF with Grade-I abnormal relaxation pattern as well as an intact interatrial septum -EKG showed NSR at 64 beats/min with minimal LVH voltage criteria -S/P tPA at 2300 on 08/13/2017 -Continue high intensity Lipitor, low dose ASA, and Plavix -Neuro checks Q2H -Remote Telemetry -Neurology consulted, all recommendations appreciated -PT/OT recommending acute rehab upon discharge 2. History of HIV -Patient reports seeing EVALUATION ASSISTANT [place] in [place] -Will obtain records from PMD including current medications (Genvoya), latest CD4 count and latest viral load -ID consulted, all recommendations appreciated 3. History of HTN -Increased HCTZ dosage to 50mg PO daily -Continue home Toprol XL and Lisinopril GI Prophylaxis: Protonix DVT Prophylaxis: Heparin and SCD's Diet: Heart healthy Patient seen and case discussed with attending, Dr. Stoll. <Reece Stoll - Last Filed: 08/16/17 18:51> Objective - Vital Signs/Intake and Output Vital Signs (last 24 hours): Temp Pulse Resp BP Pulse Ox 97.4 F L 68 20 167/85 H 95 08/16/17 14:31 08/16/17 18:00 08/16/17 07:00 08/16/17 09:06 08/16/17 07:00 Intake and Output: 08/16/17 08/16/17 06:59 18:59 Intake Total 960 Output Total 1450 Balance -490 - Medications Medications: Current Medications Aspirin (Aspirin Chewable) 81 mg PO DAILY [facility] Last Admin: 08/16/17 09:06 Dose: 81 mg Atorvastatin Calcium (Lipitor) 40 mg PO DIN [facility] Last Admin: 08/16/17 16:37 Dose: 40 mg Clopidogrel Bisulfate (Plavix) 75 mg PO DAILY [facility] Last Admin: 08/16/17 09:06 Dose: 75 mg Hydrochlorothiazide (Hydrodiuril) 50 mg PO DAILY [facility] Sodium Chloride (Sodium Chloride 0.9%) 1,000 mls @ 50 mls/hr IV .Q20H [facility] Last Admin: 08/16/17 16:38 Dose: 50 mls/hr Lisinopril (Zestril) 20 mg PO DAILY [facility] Last Admin: 08/16/17 09:06 Dose: 20 mg Metoprolol Succinate (Toprol Xl) 25 mg PO DAILY [facility] Last Admin: 08/16/17 09:06 Dose: 25 mg Pantoprazole Sodium (Protonix Ec Tab) 40 mg PO DAILY [facility] Last Admin: 08/16/17 09:06 Dose: 40 mg - Labs Labs: 08/16/17 05:30 08/16/17 05:30 PT 12.9 SECONDS (9.4-12.5) H 08/15/17 06:05 INR 1.12 (0.93-1.08) H 08/15/17 06:05 APTT 31.5 Seconds (25.1-36.5) 08/15/17 06:05 Attending/Attestation - Attestation I have personally seen and examined this patient.: Yes I have fully participated in the care of the patient.: Yes I have reviewed all pertinent clinical information, including history, physical exam and plan: Yes Notes (Text): 08/16/17 18:45 attending note; Patient seen and examined with resident. Patient is a 47-year-old male with a history of hypertension, HIV, previous CVA is admitted with right sided weakness. Status post TPA. MRI showed showed multiple acute cortical and subcortical infarcts in the left frontal and left parietal lobe in the distribution of the MCA. neurology evaluation appreciated. currently patient has right upper extremity flaccid. Strength is 0/5. Patient had some expressive aphasia. Improving. Continue aspirin and Plavix, Lipitor. patient was evaluated by neuro tar boiler. hypertension; Cardene drip was discontinued. Continue metoprolol, lisinopril and hydro-thiazide. history of HIV; currently not on meds. needs to follow up with HIV clinic upon discharge. PT evaluation appreciated. acute rehabilitation recommended. crime prevention worker evaluation appreciated in assisting insurance information and discharge planning. upon discharge patient will follow-up with [facility] clinic.
--- NOTE | 2017-08-16 14:03 | CP.PCM.PN ---
Subjective - Date & Time of Evaluation Date of Evaluation: 08/16/17 Time of Evaluation: 13:30 - Subjective Subjective: Infectious Disease Follow Up: August 16, 2017 47 yo male who presented with slurred speech, right sided facial droop, right arm weakness. Given tPA by neurology. Patient with known HIV disease. Speech has improved. The patient states he was on treatment for HIV with Genvoya. States he hasn't been on HAART for at least 1 month. The patient had prior CVA attack in the past. He still has right arm and right sided weakness. Difficulties on obtaining HAART as the patient's medicaid in not in [place] and he does not have the funds to afford the HAART medications. Objective - Vital Signs/Intake and Output Vital Signs (last 24 hours): Temp Pulse Resp BP Pulse Ox 98.5 F 66 20 167/85 H 95 08/16/17 08:15 08/16/17 13:16 08/16/17 07:00 08/16/17 09:06 08/16/17 07:00 Intake and Output: 08/16/17 08/16/17 06:59 18:59 Intake Total 240 Output Total 800 Balance -560 - Medications Medications: Current Medications Aspirin (Aspirin Chewable) 81 mg PO DAILY [facility] Last Admin: 08/16/17 09:06 Dose: 81 mg Atorvastatin Calcium (Lipitor) 40 mg PO DIN [facility] Last Admin: 08/15/17 17:04 Dose: 40 mg Clopidogrel Bisulfate (Plavix) 75 mg PO DAILY [facility] Last Admin: 08/16/17 09:06 Dose: 75 mg Hydrochlorothiazide (Hydrodiuril) 50 mg PO DAILY [facility] Lisinopril (Zestril) 20 mg PO DAILY [facility] Last Admin: 08/16/17 09:06 Dose: 20 mg Metoprolol Succinate (Toprol Xl) 25 mg PO DAILY [facility] Last Admin: 08/16/17 09:06 Dose: 25 mg Pantoprazole Sodium (Protonix Ec Tab) 40 mg PO DAILY [facility] Last Admin: 08/16/17 09:06 Dose: 40 mg - Labs Labs: 08/16/17 05:30 08/16/17 05:30 PT 12.9 SECONDS (9.4-12.5) H 08/15/17 06:05 INR 1.12 (0.93-1.08) H 04/03/18 06:05 APTT 31.5 Seconds (25.1-36.5) 08/15/17 06:05 - Constitutional Appears: Non-toxic, No Acute Distress, Chronically Ill - Head Exam Head Exam: ATRAUMATIC, NORMOCEPHALIC - Eye Exam Eye Exam: EOMI, PERRL Pupil Exam: NORMAL ACCOMODATION, PERRL - ENT Exam ENT Exam: Mucous Membranes Moist, Normal External Ear Exam, TM's Normal Bilaterally - Neck Exam Neck Exam: Full ROM, Normal Inspection - Respiratory Exam Respiratory Exam: Clear to Ausculation Bilateral, NORMAL BREATHING PATTERN. absent: Rales, Rhonchi, Wheezes - Cardiovascular Exam Cardiovascular Exam: REGULAR RHYTHM, RRR, +S1, +S2 - GI/Abdominal Exam GI & Abdominal Exam: Soft, Normal Bowel Sounds. absent: Distended, Tenderness - Extremities Exam Additional comments: right sided weakness - Neurological Exam Neurological Exam: Alert, Awake, Oriented x3 Neuro motor strength exam: Left Upper Extremity: 5, Right Upper Extremity: 0, Left Lower Extremity: 5, Right Lower Extremity: 0 Additional comments: right sided weakness. mild facial droop on the right side. - Psychiatric Exam Psychiatric exam: Normal Affect, Normal Mood - Skin Skin Exam: Intact, Normal Color, Warm Assessment and Plan - Assessment and Plan (Free Text) Assessment: 47 yo AA male with possible left sided CVA showing right sided weakness. History of HIV. On Genvoya before the patient had insurance issues. Check CD4 and HIV Viral Load. The patient has not been on HAART for at least 1 month if not longer. The patient has a prior history of CVA with right sided weakness. The patient's other medical issues include Hypertension, hyperlipidemia. Supportive care. Patient with extremely limited resources as an outpatient. On the whole, the patient is improving with slight improvement to the weakness of the right side. Obtaining HAART medications for the patient may be difficult due to the patient' s lack of resources and the his Medicaid being out of state. Thank you for allowing me to participate in the care of the patient, we will follow with you.
--- NOTE | 2017-08-16 14:06 | CP.PCM.CON ---
History of Present Illness - History of Present Illness History of Present Illness: The patient is a 47 y/o male with a PMH significant for a stroke 3 years ago with no clear residual, asthma,HIV+ and HTN. 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 Initial NIHSS was 23. IV tpa given and the patient was admitted to the ICU. Intial CTH showed changes in the left temporal lobe, but likely due to his previous strokes. CTA showed an occlusion of the left supraclinoid ICA with collateralization to the left MCA from the left A1 and distal left MCA flow deficits. Post event MRI showed scattered acute infarctions in the left MCA territory. Review of Systems - Hematologic/Lymphatic Additional comments: Patient says he cannot move his right arm Past Patient History - Past Social History Smoking Status: Light Smoker < 10 Cigarettes Daily - CARDIAC Hx Cardiac Disorders: No Hx Hypertension: Yes - PULMONARY Hx Asthma: Yes - NEUROLOGICAL HX Cerebrovascular Accident: Yes - HEENT Hx HEENT Problems: No - RENAL Hx Chronic Kidney Disease: No - ENDOCRINE/METABOLIC Hx Endocrine Disorders: No - HEMATOLOGICAL/ONCOLOGICAL Hx Blood Disorders: No Hx AIDS: No Hx Anemia: No Hx Cancer: No Hx Chemotherapy: No Hx Cirrhosis: No Hx Hepatitis A: No Hx Hepatitis B: No Hx Hepatitis C: No Hx Human Immunodeficiency Virus (HIV): Yes (See ID notes ) - INTEGUMENTARY Hx Dermatological Problems: No - MUSCULOSKELETAL/RHEUMATOLOGICAL Hx Musculoskeletal Disorders: No Hx Falls: Yes - GASTROINTESTINAL Hx Gastrointestinal Disorders: No - GENITOURINARY/GYNECOLOGICAL Hx Genitourinary Disorders: No - PSYCHIATRIC Hx Psychophysiologic Disorder: No - SURGICAL HISTORY Hx Surgeries: No - ANESTHESIA Hx Anesthesia: No Meds Allergies/Adverse Reactions: Allergies Allergy/AdvReac Type Severity Reaction Status Date / Time No Known Allergies Allergy Verified 08/13/17 22:20 - Medications Medications: Current Medications Aspirin (Aspirin Chewable) 81 mg PO DAILY [facility] Last Admin: 08/16/17 09:06 Dose: 81 mg Atorvastatin Calcium (Lipitor) 40 mg PO DIN [facility] Last Admin: 08/15/17 17:04 Dose: 40 mg Clopidogrel Bisulfate (Plavix) 75 mg PO DAILY [facility] Last Admin: 08/16/17 09:06 Dose: 75 mg Hydrochlorothiazide (Hydrodiuril) 50 mg PO DAILY [facility] Lisinopril (Zestril) 20 mg PO DAILY [facility] Last Admin: 08/16/17 09:06 Dose: 20 mg Metoprolol Succinate (Toprol Xl) 25 mg PO DAILY [facility] Last Admin: 08/16/17 09:06 Dose: 25 mg Pantoprazole Sodium (Protonix Ec Tab) 40 mg PO DAILY [facility] Last Admin: 08/16/17 09:06 Dose: 40 mg Physical Exam - Additional Findings Additional findings: NIHSS: 5 for gaze in left eye (possibly chronic 1 points) and left arm paresis ( 4 points) AOx3 No aphasia No dysarthria left 3rd nerve palsy Moves all extremities excpet left arm which is 0/5 Sensory grossly intact Results - Vital Signs Recent Vital Signs: Last Vital Signs Temp 98.5 F 08/16/17 08:15 Pulse 66 08/16/17 13:16 Resp 20 08/16/17 07:00 BP 167/85 H 08/16/17 09:06 Pulse Ox 95 08/16/17 07:00 - Labs Result Diagrams: 08/16/17 05:30 08/16/17 05:30 Labs: Laboratory Results - last 24 hr 08/15/17 08/15/17 08/15/17 12:34 14:45 16:07 WBC RBC Hgb Hct MCV MCH MCHC RDW Plt Count MPV Sodium Potassium Chloride Carbon Dioxide Anion Gap BUN Creatinine Est GFR ( Amer) Est GFR (Non-Af Amer) POC Glucose (mg/dL) 143 H 106 112 H Random Glucose Calcium Phosphorus Magnesium Total Bilirubin AST ALT Alkaline Phosphatase Total Protein Albumin Globulin Albumin/Globulin Ratio 08/15/17 08/16/17 08/16/17 18:29 00:33 05:30 WBC 9.0 RBC 5.32 Hgb 16.1 Hct 46.2 MCV 86.8 MCH 30.3 MCHC 34.8 RDW 13.8 Plt Count 258 MPV 11.2 H Sodium Potassium Chloride Carbon Dioxide Anion Gap BUN Creatinine Est GFR ( Amer) Est GFR (Non-Af Amer) POC Glucose (mg/dL) 152 H 96 Random Glucose Calcium Phosphorus Magnesium Total Bilirubin AST ALT Alkaline Phosphatase Total Protein Albumin Globulin Albumin/Globulin Ratio 08/16/17 05:30 WBC RBC Hgb Hct MCV MCH MCHC RDW Plt Count MPV Sodium 140 Potassium 3.7 Chloride 101 Carbon Dioxide 31 Anion Gap 11 BUN 14 Creatinine 1.1 Est GFR ( Amer) > 60 Est GFR (Non-Af Amer) > 60 POC Glucose (mg/dL) Random Glucose 106 Calcium 10.1 Phosphorus 3.8 Magnesium 2.1 Total Bilirubin 0.7 AST 35 ALT 44 Alkaline Phosphatase 129 H Total Protein 8.1 Albumin 4.1 Globulin 4.0 Albumin/Globulin Ratio 1.0 L Assessment & Plan - Assessment and Plan (Free Text) Assessment: Left MCA territory stroke s/p IV TPA with significant improvement in symptoms. Plan: 1. Continue ID workup as requested. 2. Continue Neurology workup 3. Repeat CTA of the head and neck tomorrow to determine if there is still residual clot, or underlying structural abnormality. Prior please optimize renal function. - Date & Time Date: 08/16/17 Time: 14:06
[2017-08-16] MEDS: Sodium Chloride 0.9% 1,000 ML IV SCH (16:38)
--- NOTE | 2017-08-16 22:04 | CP.PCM.PN ---
Subjective - Date & Time of Evaluation Date of Evaluation: 08/16/17 Time of Evaluation: 14:00 - Subjective Subjective: Patient is slightly improved, with no headache, no other complaints. Neuro exam: unchanged. continues to be plegic right arm, with fluent speech, no aphasia. Objective - Vital Signs/Intake and Output Vital Signs (last 24 hours): Temp Pulse Resp BP Pulse Ox 97.4 F L 74 20 174/92 H 95 08/16/17 14:31 08/16/17 21:11 08/16/17 07:00 08/16/17 21:11 08/16/17 07:00 Intake and Output: 08/16/17 08/17/17 18:59 06:59 Intake Total 960 Output Total 1450 Balance -490 - Medications Medications: Current Medications Aspirin (Aspirin Chewable) 81 mg PO DAILY [facility] Last Admin: 08/16/17 09:06 Dose: 81 mg Atorvastatin Calcium (Lipitor) 40 mg PO DIN [facility] Last Admin: 08/16/17 16:37 Dose: 40 mg Clopidogrel Bisulfate (Plavix) 75 mg PO DAILY [facility] Last Admin: 08/16/17 09:06 Dose: 75 mg Hydrochlorothiazide (Hydrodiuril) 50 mg PO DAILY [facility] Sodium Chloride (Sodium Chloride 0.9%) 1,000 mls @ 50 mls/hr IV .Q20H [facility] Last Admin: 08/16/17 16:38 Dose: 50 mls/hr Lisinopril (Zestril) 20 mg PO DAILY [facility] Last Admin: 08/16/17 09:06 Dose: 20 mg Metoprolol Succinate (Toprol Xl) 25 mg PO DAILY [facility] Last Admin: 08/16/17 09:06 Dose: 25 mg Pantoprazole Sodium (Protonix Ec Tab) 40 mg PO DAILY [facility] Last Admin: 08/16/17 09:06 Dose: 40 mg - Labs Labs: 08/16/17 05:30 08/16/17 05:30 PT 12.9 SECONDS (9.4-12.5) H 08/15/17 06:05 INR 1.12 (0.93-1.08) H 08/15/17 06:05 APTT 31.5 Seconds (25.1-36.5) 08/15/17 06:05 Assessment and Plan - Assessment and Plan (Free Text) Assessment: 47 yr old male s/p TPA with embolic left mca strokes, resulting in right sided plegia and now being evaluated for possible thrombectomy. APpreciate consult and input. We will hydrate him and obtain repeat CTA in am. We will restart aspirin and plavix. PLan: 1. physical therapy 2. DVT with venodynes 3. Repeat CTA am 4. COntinue hypertension control. Our team will follow thank you. Dr. Wayne
[2017-08-17 06:30] LABS: HEMOGLOBIN 17.1 g/dL (14.0-18.0); MEAN CELL VOLUME 85.8 fl (80.0-105.0); MEAN CORPUSCULAR HEMOGLOBIN 30.7 pg (25.0-35.0); MEAN CORPUSCULAR HGB CONC 35.8 g/dl (31.0-37.0); MEAN PLATELET VOLUME 10.8 fl (7.0-11.0); RBC 5.57 10^6/uL (3.5-6.1); RED CELL DISTRIBUTION WIDTH 13.6 % (11.5-14.5); WHITE BLOOD COUNT 7.7 10^3/ul (4.5-11.0)
[2017-08-17 07:07] LABS: BLOOD UREA NITROGEN 18 mg/dL (7-21); CALCIUM 10.7 mg/dL (8.4-10.5); GFR AFRICAN-AMERICAN > 60; GFR NON-AFRICAN AMERICAN > 60
[2017-08-17] MEDS ORDERED: Potassium Chloride 20 mEq ER Tab PO STA (08:32)
[2017-08-17] MEDS: Pantoprazole 40 mg EC Tab PO SCH ×2 (08:49→09:07)
[2017-08-17] MEDS: Metoprolol Succinate 25 mg XL Tab PO SCH ×2 (08:49→09:07)
[2017-08-17] MEDS ORDERED: Iohexol 350 MG/100 ML VIAL ONE (10:05)
--- NOTE | 2017-08-17 11:13 | CP.PCM.PN ---
<Jamie Maguire - Last Filed: 08/17/17 11:09> Subjective - Date & Time of Evaluation Date of Evaluation: 08/17/17 Time of Evaluation: 11:09 - Subjective Subjective: Medicine Progress Note: Patient seen and assessed at bedside. No acute events overnight noted by patient or nursing staff. Patient still endorses flaccid paralysis of RUE with limited sensory intact. Patient is currently without any new complaints and denies fevers, chills, headache, changes in his vision, chest pain, SOB, cough, abdominal pain, N/V/D/C, changes in urinary color/frequency, dysuria, or any skin changes. Objective - Vital Signs/Intake and Output Vital Signs (last 24 hours): Temp Pulse Resp BP Pulse Ox 99.6 F 88 17 139/97 H 99 08/17/17 08:58 08/17/17 08:50 08/17/17 08:50 08/17/17 08:50 08/17/17 08:50 Intake and Output: 08/17/17 08/17/17 06:59 18:59 Intake Total 500 Output Total 450 Balance 50 - Medications Medications: Current Medications Aspirin (Aspirin Chewable) 81 mg PO DAILY [facility] Last Admin: 08/17/17 09:06 Dose: Not Given Atorvastatin Calcium (Lipitor) 40 mg PO DIN [facility] Last Admin: 08/16/17 16:37 Dose: 40 mg Clopidogrel Bisulfate (Plavix) 75 mg PO DAILY [facility] Last Admin: 08/17/17 09:07 Dose: Not Given Hydrochlorothiazide (Hydrodiuril) 50 mg PO DAILY [facility] Last Admin: 08/17/17 09:06 Dose: Not Given Sodium Chloride (Sodium Chloride 0.9%) 1,000 mls @ 50 mls/hr IV .Q20H [facility] Last Admin: 08/16/17 16:38 Dose: 50 mls/hr Lisinopril (Zestril) 20 mg PO DAILY [facility] Last Admin: 08/17/17 09:07 Dose: Not Given Metoprolol Succinate (Toprol Xl) 25 mg PO DAILY [facility] Last Admin: 08/17/17 09:07 Dose: Not Given Pantoprazole Sodium (Protonix Ec Tab) 40 mg PO DAILY [facility] Last Admin: 08/17/17 09:07 Dose: Not Given - Labs Labs: 08/17/17 06:00 08/17/17 06:00 PT 12.9 SECONDS (9.4-12.5) H 08/15/17 06:05 INR 1.12 (0.93-1.08) H 08/15/17 06:05 APTT 31.5 Seconds (25.1-36.5) 08/15/17 06:05 - Constitutional Appears: Non-toxic, No Acute Distress - Head Exam Head Exam: ATRAUMATIC, NORMOCEPHALIC - Eye Exam Eye Exam: EOMI. absent: Normal appearance (Left lateral strabismus) Pupil Exam: NORMAL ACCOMODATION, PERRL - ENT Exam ENT Exam: Mucous Membranes Moist, Normal Exam - Neck Exam Neck Exam: Full ROM, Normal Inspection. absent: Lymphadenopathy, Tenderness - Respiratory Exam Respiratory Exam: Clear to Ausculation Bilateral, NORMAL BREATHING PATTERN. absent: Rales, Rhonchi, Wheezes - Cardiovascular Exam Cardiovascular Exam: REGULAR RHYTHM, RRR, +S1, +S2. absent: Bradycardia, Tachycardia, Clicks, Diastolic murmur, Gallop, Irregular Rhythm, JVD, Rubs, +S4 , Murmur - GI/Abdominal Exam GI & Abdominal Exam: Soft, Normal Bowel Sounds. absent: Distended, Firm, Guarding, Rigid, Tenderness, Rebound - Extremities Exam Extremities Exam: Full ROM, Normal Capillary Refill, Normal Inspection. absent : Calf Tenderness, Joint Swelling, Pedal Edema, Tenderness - Neurological Exam Neurological Exam: Alert, Awake, Oriented x3 Neuro motor strength exam: Left Upper Extremity: 5, Right Upper Extremity: 0, Left Lower Extremity: 5, Right Lower Extremity: 5 - Psychiatric Exam Psychiatric exam: Normal Affect, Normal Mood - Skin Skin Exam: Dry, Intact, Normal Color, Warm Assessment and Plan - Assessment and Plan (Free Text) Assessment: 47 year old male with a past medical history significant for HIV, asthma, HTN, HLD, and CVA (3 yrs ago) who presented with right sided weakness. In the ED, NIHSS was found to be 23. CT head showed a hypodensity within the left temporal lobe, consistent with an infarct. Patient was evaluated by neurologist and IV tPA was administered. Patient currently being treated medically for acute ischemic stroke and is under remote telemetry monitoring. Patient is pending MARI placement. Plan: 1. Acute Embolic Stroke -Repeat CTA Head and Neck pending official interpretation -Brain MRI showed multiple acute cortical and subcortical infarcts in the left frontal and left parietal lobe in the distribution of the MCA -[address] Head showed left temporal infarct with interval improved definition noted as well as new areas of infarction seen in the subcortical white matter of the left frontal lobe -Initial CT Head showed a hypodensity in the left temporal lobe and a small hypodense lacunar infarct in right cerebellar lobe -CTA Head and Neck showed a high grade stenosis or occlusion at the junction of the left supraclinoid carotid and the proximal middle cerebral artery and diminished flow in the distal branches of the left MCA in the area of the left temporal infarct -Echocardiogram with Bubble Study showed normal left ventricular size, function and EF with Grade-I abnormal relaxation pattern as well as an intact interatrial septum -EKG showed NSR at 64 beats/min with minimal LVH voltage criteria -S/P tPA at 2300 on 08/13/2017 -Evaluation for possible thrombectomy pending -Continue high intensity Lipitor, low dose ASA, and Plavix -Neuro checks Q2H -Remote Telemetry -Neurology and Neurointerventional Radiology consulted, all recommendations appreciated -PT/OT recommending acute rehab upon discharge 2. History of HIV -Patient reports seeing [facility]ELOP[facility]ORDIN[facility] in [place] -Will obtain records from [facility]D including current medications (Genvoya), latest CD4 count and latest viral load -ID consulted, all recommendations appreciated 3. History of HTN -Continue home HCTZ, Toprol XL and Lisinopril GI Prophylaxis: Protonix DVT Prophylaxis: Heparin and SCD's Diet: Heart healthy Patient seen and case discussed with attending, Dr. Stoll. <Reece Stoll - Last Filed: 08/17/17 15:15> Objective - Vital Signs/Intake and Output Vital Signs (last 24 hours): Temp Pulse Resp BP Pulse Ox 99.6 F 88 17 139/97 H 99 08/17/17 08:58 08/17/17 08:50 08/17/17 08:50 08/17/17 08:50 08/17/17 08:50 Intake and Output: 08/17/17 08/17/17 06:59 18:59 Intake Total 500 Output Total 450 Balance 50 - Medications Medications: Current Medications Aspirin (Aspirin Chewable) 81 mg PO DAILY [facility] Last Admin: 08/17/17 09:06 Dose: Not Given Atorvastatin Calcium (Lipitor) 40 mg PO DIN [facility] Last Admin: 08/16/17 16:37 Dose: 40 mg Clopidogrel Bisulfate (Plavix) 75 mg PO DAILY [facility] Last Admin: 08/17/17 09:07 Dose: Not Given Hydrochlorothiazide (Hydrodiuril) 50 mg PO DAILY [facility] Last Admin: 08/17/17 09:06 Dose: Not Given Sodium Chloride (Sodium Chloride 0.9%) 1,000 mls @ 50 mls/hr IV .Q20H [facility] Last Admin: 08/17/17 11:53 Dose: 50 mls/hr Lisinopril (Zestril) 20 mg PO DAILY [facility] Last Admin: 08/17/17 09:07 Dose: Not Given Metoprolol Succinate (Toprol Xl) 25 mg PO DAILY [facility] Last Admin: 08/17/17 09:07 Dose: Not Given Pantoprazole Sodium (Protonix Ec Tab) 40 mg PO DAILY [facility] Last Admin: 08/17/17 09:07 Dose: Not Given - Labs Labs: 08/17/17 06:00 08/17/17 06:00 PT 12.9 SECONDS (9.4-12.5) H 08/15/17 06:05 INR 1.12 (0.93-1.08) H 08/15/17 06:05 APTT 31.5 Seconds (25.1-36.5) 08/15/17 06:05 Attending/Attestation - Attestation I have personally seen and examined this patient.: Yes I have fully participated in the care of the patient.: Yes I have reviewed all pertinent clinical information, including history, physical exam and plan: Yes Notes (Text): 08/17/17 15:13 attending note; Patient seen and examined with resident. Patient is a 47-year-old male with a history of hypertension, HIV, previous CVA is admitted with right sided weakness. Status post TPA. MRI showed showed multiple acute cortical and subcortical infarcts in the left frontal and left parietal lobe in the distribution of the MCA. neurology evaluation appreciated. currently patient has right upper extremity flaccid. Strength is 0/5. Patient had some expressive aphasia. Improving. Continue aspirin and Plavix, Lipitor. patient was evaluated by neuro trade economist. Repeat CT angiography of the head and neck is normal. hypertension; Continue metoprolol, lisinopril and hydro-thiazide. history of HIV; currently not on meds. needs to follow up with HIV clinic upon discharge. PT evaluation appreciated. acute rehabilitation recommended. pond worker evaluation appreciated in assisting insurance information and discharge planning. upon discharge patient will follow-up with [facility] clinic.
--- NOTE | 2017-08-17 11:20 | CT ---
PROCEDURE: CT Angiography of the neck with contrast HISTORY: CVA COMPARISON: CTA 08/13/2017 TECHNIQUE: Contiguous axial images of the neck were obtained from the level of the skull-base to the superior mediastinum in the arteriographic phase of enhancement. Coronal and sagittal reformats or also generated. IV contrast dose: 100 cc of Omni 350 Radiation Dose - DLP: mGy-cm This CT exam was performed using one or more of the following dose reduction techniques: Automated exposure control, adjustment of the mA and/or kV according to patient size, and/or use of iterative reconstruction technique. FINDINGS: RIGHT CAROTID ARTERIES: Common Carotid Artery: Normal. Carotid Bifurcation: Normal. Internal Carotid Artery:Mild stenosis of the proximal internal carotid External Carotid Artery (proximal branches): Normal. LEFT CAROTID ARTERIES: Common Carotid Artery: Normal. Carotid Bifurcation: Normal. Internal Carotid Artery:Mild stenosis of the proximal internal carotid External Carotid Artery (proximal branches): Normal. VERTEBRAL ARTERIES: Right Vertebral Artery: Normal. Left Vertebral Artery: Normal. OTHER FINDINGS: None. IMPRESSION: Mild stenosis of less than 50 percent of both internal carotid arteries. Findings are unchanged CT Angiography of the Brain. HISTORY: CVA COMPARISON: 08/13/2017 TECHNIQUE: CT angiography of the intracranial arteries was performed. Coronal and sagittal maximum intensity projection reformated images were generated. This CT exam was performed using one or more of the following dose reduction techniques: Automated exposure control, adjustment of the mA and/or kV according to patient size, and/or use of iterative reconstruction technique. FINDINGS: INTERNAL CEREBRAL ARTERIES: The previous study showed a focal occlusion or high-grade stenosis at the junction of the left supraclinoid internal carotid and the middle cerebral artery. This artery appears more normal on the current study. The artery is patent as seen on image 31 series 604. ANTERIOR CEREBRAL ARTERIES: Unremarkable. A1 and A2 segments are widely patent. Smaller distal branches unremarkable, as visualized. MIDDLE CEREBRAL ARTERIES: Unremarkable. M1 and M2 segments are widely patent. Perisylvian branches grossly symmetric. POSTERIOR CIRCULATION: Basilar Artery: Unremarkable. Distal Vertebral Arteries: Unremarkable. Posterior Cerebral Arteries: Unremarkable. Posterior Inferior Cerebellar Arteries: Unremarkable. ANEURYSM/ VASCULAR MALFORMATIONS: None. OTHER FINDINGS: None. IMPRESSION: The previous study showed a focal occlusion or high-grade stenosis at the junction of the left supraclinoid internal carotid and the middle cerebral artery. This artery appears more normal on the current study. .
--- NOTE | 2017-08-17 11:48 | CP.PCM.PN ---
Subjective - Date & Time of Evaluation Date of Evaluation: 08/17/17 Time of Evaluation: 11:47 - Subjective Subjective: Mr. Brandt was seen and examined at the bedside. He is alert, oriented in all spheres. He denies any headache, dizziness, lightheadedness, blurred vision, diplopia, nausea, or vomiting. He is able to move all 3 extremities ( left upper and bilateral lower extremities), his right upper extremity remains flaccid. He is preoccupied with food. He is concern of not receiving lunch tray since he was just moved from ICU.Repeat CTA of the head and neck showed normal in comparison from the previous study which showed focal occlusion or high grade stenosis at the junction of the left supraclinoid internal carotid and the MCA. Echocardiogram showed LV size is normalmild concentric LV hypertrophy , LV function is normal, EF is within normal range, LV segmental wall motion is normal. There is mild tricuspid regurgitation, pulmonary hypertension. There is no intraseptal defect.There was no untoward events overnight. Objective - Vital Signs/Intake and Output Vital Signs (last 24 hours): Temp Pulse Resp BP Pulse Ox 99.6 F 88 17 139/97 H 99 08/17/17 08:58 08/17/17 08:50 08/17/17 08:50 08/17/17 08:50 08/17/17 08:50 Intake and Output: 08/17/17 08/17/17 06:59 18:59 Intake Total 500 Output Total 450 Balance 50 - Medications Medications: Current Medications Aspirin (Aspirin Chewable) 81 mg PO DAILY [facility] Last Admin: 08/17/17 09:06 Dose: Not Given Atorvastatin Calcium (Lipitor) 40 mg PO DIN [facility] Last Admin: 08/16/17 16:37 Dose: 40 mg Clopidogrel Bisulfate (Plavix) 75 mg PO DAILY [facility] Last Admin: 08/17/17 09:07 Dose: Not Given Hydrochlorothiazide (Hydrodiuril) 50 mg PO DAILY [facility] Last Admin: 08/17/17 09:06 Dose: Not Given Sodium Chloride (Sodium Chloride 0.9%) 1,000 mls @ 50 mls/hr IV .Q20H [facility] Last Admin: 08/16/17 16:38 Dose: 50 mls/hr Lisinopril (Zestril) 20 mg PO DAILY [facility] Last Admin: 08/17/17 09:07 Dose: Not Given Metoprolol Succinate (Toprol Xl) 25 mg PO DAILY [facility] Last Admin: 08/17/17 09:07 Dose: Not Given Pantoprazole Sodium (Protonix Ec Tab) 40 mg PO DAILY [facility] Last Admin: 08/17/17 09:07 Dose: Not Given - Labs Labs: 08/17/17 06:00 08/17/17 06:00 PT 12.9 SECONDS (9.4-12.5) H 08/15/17 06:05 INR 1.12 (0.93-1.08) H 08/15/17 06:05 APTT 31.5 Seconds (25.1-36.5) 08/15/17 06:05 - Constitutional Appears: No Acute Distress - Head Exam Head Exam: NORMAL INSPECTION - Neurological Exam Neurological Exam: Alert, Awake, Oriented x3 Neuro motor strength exam: Left Upper Extremity: 5, Right Upper Extremity: 0, Left Lower Extremity: 5, Right Lower Extremity: 5 Additional comments: Neurological unchanged from previous examination. Assessment and Plan (1) Acute ischemic stroke Assessment & Plan: Case discussed with Dr. Wayne, continue all current medical, physical, occupational, and speech therapies. Recommend normotension and glycemic control. Status: Acute
[2017-08-17] MEDS: Sodium Chloride 0.9% 1,000 ML IV SCH (11:53)
--- NOTE | 2017-08-17 18:35 | CP.PCM.PN ---
Subjective - Date & Time of Evaluation Date of Evaluation: 08/17/17 Time of Evaluation: 16:00 - Subjective Subjective: Infectious Disease Follow Up: August 17, 2017 47 yo male who presented with slurred speech, right sided facial droop, right arm weakness. Given tPA by neurology. Patient with known HIV disease. Speech has improved. The patient states he was on treatment for HIV with Genvoya. States he hasn't been on HAART for at least 1 month. The patient had prior CVA attack in the past. He still has right arm and right sided weakness. Difficulties on obtaining HAART as the patient's medicaid has become inactive and he does not have the funds to afford the HAART medications. Objective - Vital Signs/Intake and Output Vital Signs (last 24 hours): Temp Pulse Resp BP Pulse Ox 98.1 F 64 20 139/97 H 98 08/17/17 16:00 08/17/17 18:00 08/17/17 16:00 08/17/17 08:50 08/17/17 16:00 Intake and Output: 08/17/17 08/17/17 06:59 18:59 Intake Total 500 Output Total 450 Balance 50 - Medications Medications: Current Medications Aspirin (Aspirin Chewable) 81 mg PO DAILY [facility] Last Admin: 08/17/17 09:06 Dose: Not Given Atorvastatin Calcium (Lipitor) 40 mg PO DIN [facility] Last Admin: 08/17/17 17:33 Dose: 40 mg Clopidogrel Bisulfate (Plavix) 75 mg PO DAILY [facility] Last Admin: 08/17/17 09:07 Dose: Not Given Hydrochlorothiazide (Hydrodiuril) 50 mg PO DAILY [facility] Last Admin: 08/17/17 09:06 Dose: Not Given Sodium Chloride (Sodium Chloride 0.9%) 1,000 mls @ 50 mls/hr IV .Q20H [facility] Last Admin: 08/17/17 11:53 Dose: 50 mls/hr Lisinopril (Zestril) 20 mg PO DAILY [facility] Last Admin: 08/17/17 09:07 Dose: Not Given Metoprolol Succinate (Toprol Xl) 25 mg PO DAILY [facility] Last Admin: 08/17/17 09:07 Dose: Not Given Pantoprazole Sodium (Protonix Ec Tab) 40 mg PO DAILY [facility] Last Admin: 08/17/17 09:07 Dose: Not Given - Labs Labs: 08/17/17 06:00 04/05/18 06:00 PT 12.9 SECONDS (9.4-12.5) H 08/15/17 06:05 INR 1.12 (0.93-1.08) H 08/15/17 06:05 APTT 31.5 Seconds (25.1-36.5) 08/15/17 06:05 - Constitutional Appears: Non-toxic, No Acute Distress, Chronically Ill - Head Exam Head Exam: ATRAUMATIC, NORMOCEPHALIC - Eye Exam Eye Exam: EOMI, PERRL Pupil Exam: NORMAL ACCOMODATION, PERRL - ENT Exam ENT Exam: Mucous Membranes Moist, Normal External Ear Exam, TM's Normal Bilaterally - Neck Exam Neck Exam: Full ROM, Normal Inspection - Respiratory Exam Respiratory Exam: Clear to Ausculation Bilateral, NORMAL BREATHING PATTERN. absent: Rales, Rhonchi, Wheezes - Cardiovascular Exam Cardiovascular Exam: REGULAR RHYTHM, RRR, +S1, +S2 - GI/Abdominal Exam GI & Abdominal Exam: Soft, Normal Bowel Sounds. absent: Distended, Tenderness - Extremities Exam Additional comments: right sided weakness. - Neurological Exam Neurological Exam: Alert, Awake, CN II-XII Intact, Oriented x3 Neuro motor strength exam: Left Upper Extremity: 5, Right Upper Extremity: 0, Left Lower Extremity: 5, Right Lower Extremity: 5 Additional comments: right arm weakness. mild facial droop on the right side. - Psychiatric Exam Psychiatric exam: Normal Affect, Normal Mood - Skin Skin Exam: Intact, Normal Color, Warm Assessment and Plan - Assessment and Plan (Free Text) Assessment: 47 yo AA male with possible left sided CVA showing right sided weakness. History of HIV. On Genvoya before the patient had insurance issues. Check CD4 and HIV Viral Load. The patient has not been on HAART for at least 1 month if not longer. The patient has a prior history of CVA with right sided weakness. The patient's other medical issues include Hypertension, hyperlipidemia. Supportive care. Patient with extremely limited resources as an outpatient. On the whole, the patient is improving with slight improvement to the weakness of the right side. Obtaining HAART medications for the patient may be difficult due to the patient' s lack of resources and his Medicaid being inactive now. Thank you for allowing me to participate in the care of the patient, we will follow with you.
[2017-08-18 06:22] LABS: MEAN CORPUSCULAR HEMOGLOBIN 30.2 pg (25.0-35.0); MEAN CORPUSCULAR HGB CONC 34.8 g/dl (31.0-37.0); MEAN PLATELET VOLUME 10.8 fl (7.0-11.0); RBC 5.62 10^6/uL (3.5-6.1); RED CELL DISTRIBUTION WIDTH 13.7 % (11.5-14.5)
[2017-08-18 07:17] LABS: ALBUMIN 4.2 g/dL (3.0-4.8); ALT/SGPT 57 U/L (7-56); AST/SGOT 56 U/L (17-59); BLOOD UREA NITROGEN 23 mg/dL (7-21); CALCIUM 10.8 mg/dL (8.4-10.5); GFR AFRICAN-AMERICAN > 60; GFR NON-AFRICAN AMERICAN > 60
[2017-08-18] MEDS: Metoprolol Succinate 25 mg XL Tab PO SCH (09:55)
[2017-08-18] MEDS: Pantoprazole 40 mg EC Tab PO SCH (09:56)
--- NOTE | 2017-08-18 10:59 | CP.PCM.PN ---
Subjective - Date & Time of Evaluation Date of Evaluation: 08/18/17 Time of Evaluation: 10:59 - Subjective Subjective: Mr. Brandt was seen and examined at the bedside. He is alert, oriented in all spheres. He denies any headache, dizziness, lightheadedness, blurred vision, diplopia, nausea, or vomiting. He is able to move all 3 extremities ( left upper and bilateral lower extremities), his right upper extremity remains flaccid. He is preoccupied with food especially foods high in sugar. Educated the importance of food selection. He is awaiting placement to [facility]. There was no untoward events overnight. Objective - Vital Signs/Intake and Output Vital Signs (last 24 hours): Temp Pulse Resp BP Pulse Ox 98.0 F 78 20 141/98 H 100 08/18/17 06:00 08/18/17 06:00 08/18/17 06:00 08/18/17 06:00 08/18/17 06:00 Intake and Output: 08/18/17 08/18/17 06:59 18:59 Intake Total 540 Output Total 0 Balance 540 - Medications Medications: Current Medications Aspirin (Aspirin Chewable) 81 mg PO DAILY [facility] Last Admin: 08/18/17 09:56 Dose: 81 mg Atorvastatin Calcium (Lipitor) 40 mg PO DIN [facility] Last Admin: 08/17/17 17:33 Dose: 40 mg Clopidogrel Bisulfate (Plavix) 75 mg PO DAILY [facility] Last Admin: 08/18/17 09:56 Dose: 75 mg Hydrochlorothiazide (Hydrodiuril) 50 mg PO DAILY [facility] Last Admin: 08/18/17 09:56 Dose: 50 mg Sodium Chloride (Sodium Chloride 0.9%) 1,000 mls @ 50 mls/hr IV .Q20H [facility] Last Admin: 08/17/17 11:53 Dose: 50 mls/hr Lisinopril (Zestril) 20 mg PO DAILY [facility] Last Admin: 08/18/17 09:55 Dose: 20 mg Metoprolol Succinate (Toprol Xl) 25 mg PO DAILY [facility] Last Admin: 08/18/17 09:55 Dose: 25 mg Pantoprazole Sodium (Protonix Ec Tab) 40 mg PO DAILY [facility] Last Admin: 08/18/17 09:56 Dose: 40 mg - Labs Labs: 08/18/17 05:30 08/18/17 05:30 PT 12.9 SECONDS (9.4-12.5) H 08/15/17 06:05 INR 1.12 (0.93-1.08) H 08/15/17 06:05 APTT 31.5 Seconds (25.1-36.5) 08/15/17 06:05 - Constitutional Appears: No Acute Distress - Head Exam Head Exam: NORMAL INSPECTION - Neurological Exam Neurological Exam: Alert, Awake, Oriented x3 Neuro motor strength exam: Left Upper Extremity: 5, Right Upper Extremity: 0, Left Lower Extremity: 5, Right Lower Extremity: 5 Additional comments: Neurological unchanged from previous examination. Assessment and Plan (1) Acute ischemic stroke Assessment & Plan: Case discussed with Dr. Wayne, continue all current medical, physical, occupational, and speech therapies. Recommend HGBA1C level. Recommend normotension and glycemic control. May follow up with either Dr. De La Rosa/Tone after his rehab. at [facility]. He can make appointment at [address] [place] [address]. [address] [facility]3] [id number]. Tel. # [phone]. Status: Acute
--- NOTE | 2017-08-18 12:04 | CP.PCM.PN ---
<Jamie Maguire - Last Filed: 08/18/17 12:01> Subjective - Date & Time of Evaluation Date of Evaluation: 08/18/17 Time of Evaluation: 12:01 - Subjective Subjective: Medicine Progress Note: Patient seen and assessed at bedside. No acute events overnight noted by patient or nursing staff. Patient is currently without any new complaints and denies fevers, chills, headache, changes in his vision, chest pain, SOB, cough, abdominal pain, N/V/D/C, changes in urinary color/frequency, dysuria, or any skin changes. Objective - Vital Signs/Intake and Output Vital Signs (last 24 hours): Temp Pulse Resp BP Pulse Ox 98.0 F 82 20 141/98 H 100 08/18/17 06:00 08/18/17 10:00 08/18/17 06:00 08/18/17 06:00 08/18/17 06:00 Intake and Output: 08/18/17 08/18/17 06:59 18:59 Intake Total 540 Output Total 0 Balance 540 - Medications Medications: Current Medications Aspirin (Aspirin Chewable) 81 mg PO DAILY [facility] Last Admin: 08/18/17 09:56 Dose: 81 mg Atorvastatin Calcium (Lipitor) 40 mg PO DIN [facility] Last Admin: 08/17/17 17:33 Dose: 40 mg Clopidogrel Bisulfate (Plavix) 75 mg PO DAILY [facility] Last Admin: 08/18/17 09:56 Dose: 75 mg Hydrochlorothiazide (Hydrodiuril) 50 mg PO DAILY [facility] Last Admin: 08/18/17 09:56 Dose: 50 mg Sodium Chloride (Sodium Chloride 0.9%) 1,000 mls @ 50 mls/hr IV .Q20H [facility] Last Admin: 08/17/17 11:53 Dose: 50 mls/hr Lisinopril (Zestril) 20 mg PO DAILY [facility] Last Admin: 08/18/17 09:55 Dose: 20 mg Metoprolol Succinate (Toprol Xl) 25 mg PO DAILY [facility] Last Admin: 08/18/17 09:55 Dose: 25 mg Pantoprazole Sodium (Protonix Ec Tab) 40 mg PO DAILY [facility] Last Admin: 08/18/17 09:56 Dose: 40 mg - Labs Labs: 08/18/17 05:30 08/18/17 05:30 PT 12.9 SECONDS (9.4-12.5) H 08/15/17 06:05 INR 1.12 (0.93-1.08) H 08/15/17 06:05 APTT 31.5 Seconds (25.1-36.5) 08/15/17 06:05 - Constitutional Appears: Non-toxic, No Acute Distress - Head Exam Head Exam: ATRAUMATIC, NORMOCEPHALIC - Eye Exam Eye Exam: EOMI, Normal appearance Pupil Exam: NORMAL ACCOMODATION, PERRL - ENT Exam ENT Exam: Mucous Membranes Moist, Normal Exam - Neck Exam Neck Exam: Full ROM, Normal Inspection. absent: Lymphadenopathy, Tenderness - Respiratory Exam Respiratory Exam: Clear to Ausculation Bilateral, NORMAL BREATHING PATTERN. absent: Accessory Muscle Use, Chest Wall Tenderness, Decreased Breath Sounds, Prolonged Expiratory Phase, Rales, Rhonchi, Wheezes, Respiratory Distress, Stridor - Cardiovascular Exam Cardiovascular Exam: REGULAR RHYTHM, RRR, +S1, +S2. absent: Bradycardia, Tachycardia, Clicks, Diastolic murmur, Gallop, Irregular Rhythm, JVD, Rubs, +S4 , Murmur - GI/Abdominal Exam GI & Abdominal Exam: Soft, Normal Bowel Sounds. absent: Distended, Firm, Guarding, Rigid, Tenderness, Rebound - Extremities Exam Extremities Exam: Full ROM, Normal Capillary Refill, Normal Inspection. absent : Calf Tenderness, Joint Swelling, Pedal Edema, Tenderness - Back Exam Back Exam: Full ROM, NORMAL INSPECTION. absent: CVA tenderness (L), CVA tenderness (R), muscle spasm, paraspinal tenderness, rash noted, tenderness, vertebral tenderness - Neurological Exam Neurological Exam: Alert, Awake, Oriented x3 Neuro motor strength exam: Left Upper Extremity: 5, Right Upper Extremity: 0, Left Lower Extremity: 5, Right Lower Extremity: 5 - Psychiatric Exam Psychiatric exam: Normal Affect, Normal Mood - Skin Skin Exam: Dry, Intact, Normal Color, Warm Assessment and Plan - Assessment and Plan (Free Text) Assessment: 47 year old male with a past medical history significant for HIV, asthma, HTN, HLD, and CVA (3 yrs ago) who presented with right sided weakness. In the ED, NIHSS was found to be 23. CT head showed a hypodensity within the left temporal lobe, consistent with an infarct. Patient was evaluated by neurologist and IV tPA was administered. Patient currently being treated medically for acute ischemic stroke and is under remote telemetry monitoring. Patient is pending MARI placement. Plan: 1. Acute Embolic Stroke -Repeat CTA Head and Neck showed mild stenosis of less than 50 percent of both internal carotid arteries and interval resolution of previously noted high grade stenosis or occlusion at the junction of the left supraclinoid carotid and the proximal middle cerebral artery -CTA Head and Neck showed a high grade stenosis or occlusion at the junction of the left supraclinoid carotid and the proximal middle cerebral artery and diminished flow in the distal branches of the left MCA in the area of the left temporal infarct -Brain MRI showed multiple acute cortical and subcortical infarcts in the left frontal and left parietal lobe in the distribution of the MCA -[address] Head showed left temporal infarct with interval improved definition noted as well as new areas of infarction seen in the subcortical white matter of the left frontal lobe -Initial CT Head showed a hypodensity in the left temporal lobe and a small hypodense lacunar infarct in right cerebellar lobe -Echocardiogram with Bubble Study showed normal left ventricular size, function and EF with Grade-I abnormal relaxation pattern as well as an intact interatrial septum -EKG showed NSR at 64 beats/min with minimal LVH voltage criteria -S/P tPA at 2300 on 08/13/2017 -Continue high intensity Lipitor, low dose ASA, and Plavix -Neuro checks Q2H -Telemetry discontinued -Neurology and Neurointerventional Radiology consulted, all recommendations appreciated -PT recommending acute rehab upon discharge -OT, MAINTENANCE PAINTER and Swallow Evaluation and Treatments pending 2. History of HIV -Patient reports seeing [facility] in [place] -CD4 count and HIV Viral Load pending -ID consulted, all recommendations appreciated 3. History of HTN -Continue home HCTZ, Toprol XL and Lisinopril GI Prophylaxis: Protonix DVT Prophylaxis: Heparin and SCD's Diet: Heart healthy Disposition: Patient pending OT, MAINTENANCE PAINTER and Swallow evaluation for possible placement at [facility] for rehab following discharge. Patient to follow up with Neurology (Dr. De La Rosa/Dr. Wayne) and ID upon discharge. Patient seen and case discussed with attending, Dr. Stoll. <Reece Stoll - Last Filed: 08/18/17 14:41> Objective - Vital Signs/Intake and Output Vital Signs (last 24 hours): Temp Pulse Resp BP Pulse Ox 98.0 F 82 20 141/98 H 100 08/18/17 06:00 08/18/17 10:00 08/18/17 06:00 08/18/17 06:00 08/18/17 06:00 Intake and Output: 08/18/17 08/18/17 06:59 18:59 Intake Total 540 Output Total 0 Balance 540 - Medications Medications: Current Medications Aspirin (Aspirin Chewable) 81 mg PO DAILY [facility] Last Admin: 08/18/17 09:56 Dose: 81 mg Atorvastatin Calcium (Lipitor) 40 mg PO DIN [facility] Last Admin: 08/17/17 17:33 Dose: 40 mg Clopidogrel Bisulfate (Plavix) 75 mg PO DAILY [facility] Last Admin: 08/18/17 09:56 Dose: 75 mg Hydrochlorothiazide (Hydrodiuril) 50 mg PO DAILY [facility] Last Admin: 08/18/17 09:56 Dose: 50 mg Sodium Chloride (Sodium Chloride 0.9%) 1,000 mls @ 50 mls/hr IV .Q20H [facility] Last Admin: 08/17/17 11:53 Dose: 50 mls/hr Lisinopril (Zestril) 20 mg PO DAILY [facility] Last Admin: 08/18/17 09:55 Dose: 20 mg Metoprolol Succinate (Toprol Xl) 25 mg PO DAILY [facility] Last Admin: 08/18/17 09:55 Dose: 25 mg Pantoprazole Sodium (Protonix Ec Tab) 40 mg PO DAILY [facility] Last Admin: 08/18/17 09:56 Dose: 40 mg - Labs Labs: 08/18/17 05:30 08/18/17 05:30 PT 12.9 SECONDS (9.4-12.5) H 08/15/17 06:05 INR 1.12 (0.93-1.08) H 08/15/17 06:05 APTT 31.5 Seconds (25.1-36.5) 08/15/17 06:05 Attending/Attestation - Attestation I have personally seen and examined this patient.: Yes I have fully participated in the care of the patient.: Yes I have reviewed all pertinent clinical information, including history, physical exam and plan: Yes Notes (Text): 08/18/17 14:40 attending note; Patient seen and examined with resident. Patient is a 47-year-old male with a history of hypertension, HIV, previous CVA is admitted with right sided weakness. Status post TPA. MRI showed showed multiple acute cortical and subcortical infarcts in the left frontal and left parietal lobe in the distribution of the MCA. neurology evaluation appreciated. currently patient has right upper extremity flaccid. Strength is 0/5. Patient had some expressive aphasia. Improving. Continue aspirin and Plavix, Lipitor. patient was evaluated by neuro box office attendant. Repeat CT angiography of the head and neck is normal. hypertension; Continue metoprolol, lisinopril and hydro-thiazide. history of HIV; currently not on meds. needs to follow up with HIV clinic upon discharge. PT evaluation appreciated. acute rehabilitation recommended. Occupational therapy and speech therapy evaluation requested. Pending approval from acute rehabilitation. bridge maintenance worker evaluation appreciated in assisting insurance information and discharge planning. upon discharge patient will follow-up with [facility] clinic. 08/18/17 14:41
--- NOTE | 2017-08-18 13:17 | CP.PCM.PN ---
Subjective - Date & Time of Evaluation Date of Evaluation: 08/18/17 Time of Evaluation: 11:30 - Subjective Subjective: Infectious Disease Follow Up: August 18, 2017 47 yo male who presented with slurred speech, right sided facial droop, right arm weakness. Given tPA by neurology. Patient with known HIV disease. Speech has improved. The patient states he was on treatment for HIV with Genvoya. States he hasn't been on HAART for at least 1 month. The patient had prior CVA attack in the past. He still has right arm weakness. Difficulties on obtaining HAART as the patient's medicaid has become inactive and he does not have the funds to afford the HAART medications. Patient was going to [place] for his HIV care before his Medicaid stopped. Objective - Vital Signs/Intake and Output Vital Signs (last 24 hours): Temp Pulse Resp BP Pulse Ox 98.0 F 82 20 141/98 H 100 08/18/17 06:00 08/18/17 10:00 08/18/17 06:00 08/18/17 06:00 08/18/17 06:00 Intake and Output: 08/18/17 08/18/17 06:59 18:59 Intake Total 540 Output Total 0 Balance 540 - Medications Medications: Current Medications Aspirin (Aspirin Chewable) 81 mg PO DAILY [facility] Last Admin: 08/18/17 09:56 Dose: 81 mg Atorvastatin Calcium (Lipitor) 40 mg PO DIN [facility] Last Admin: 08/17/17 17:33 Dose: 40 mg Clopidogrel Bisulfate (Plavix) 75 mg PO DAILY [facility] Last Admin: 08/18/17 09:56 Dose: 75 mg Hydrochlorothiazide (Hydrodiuril) 50 mg PO DAILY [facility] Last Admin: 08/18/17 09:56 Dose: 50 mg Sodium Chloride (Sodium Chloride 0.9%) 1,000 mls @ 50 mls/hr IV .Q20H [facility] Last Admin: 08/17/17 11:53 Dose: 50 mls/hr Lisinopril (Zestril) 20 mg PO DAILY [facility] Last Admin: 08/18/17 09:55 Dose: 20 mg Metoprolol Succinate (Toprol Xl) 25 mg PO DAILY [facility] Last Admin: 08/18/17 09:55 Dose: 25 mg Pantoprazole Sodium (Protonix Ec Tab) 40 mg PO DAILY [facility] Last Admin: 08/18/17 09:56 Dose: 40 mg - Labs Labs: 08/18/17 05:30 08/18/17 05:30 PT 12.9 SECONDS (9.4-12.5) H 08/15/17 06:05 INR 1.12 (0.93-1.08) H 08/15/17 06:05 APTT 31.5 Seconds (25.1-36.5) 08/15/17 06:05 - Constitutional Appears: Non-toxic, No Acute Distress, Chronically Ill - Eye Exam Eye Exam: EOMI, PERRL Pupil Exam: NORMAL ACCOMODATION, PERRL - ENT Exam ENT Exam: Mucous Membranes Moist, Normal External Ear Exam, TM's Normal Bilaterally - Neck Exam Neck Exam: Full ROM, Normal Inspection - Respiratory Exam Respiratory Exam: Clear to Ausculation Bilateral, NORMAL BREATHING PATTERN. absent: Rales, Rhonchi, Wheezes - Cardiovascular Exam Cardiovascular Exam: REGULAR RHYTHM, RRR, +S1, +S2 - GI/Abdominal Exam GI & Abdominal Exam: Soft, Normal Bowel Sounds. absent: Distended, Tenderness - Extremities Exam Additional comments: right sided weakness. - Neurological Exam Neurological Exam: Alert, Awake, CN II-XII Intact, Oriented x3 Neuro motor strength exam: Left Upper Extremity: 5, Right Upper Extremity: 0, Left Lower Extremity: 5, Right Lower Extremity: 5 Additional comments: right arm weakness. very mild facial droop on the right side. - Psychiatric Exam Psychiatric exam: Normal Affect, Normal Mood - Skin Skin Exam: Intact, Normal Color Assessment and Plan - Assessment and Plan (Free Text) Assessment: 47 yo AA male with possible left sided CVA showing right sided weakness. History of HIV. On Genvoya before the patient had insurance issues. Check CD4 and HIV Viral Load. The patient has not been on HAART for at least 1 month if not longer. The patient has a prior history of CVA with right sided weakness. The patient's other medical issues include Hypertension, hyperlipidemia. Supportive care. Patient with extremely limited resources as an outpatient. On the whole, the patient is improving with residual right arm weakness. Obtaining HAART medications for the patient may be difficult due to the patient' s lack of resources and his Medicaid being inactive now. He states that he was going to a clinic in [place] before his Medicaid stopped. Thank you for allowing me to participate in the care of the patient, we will follow with you.
--- NOTE | 2017-08-18 14:30 | CP.PCM.PN ---
Subjective - Date & Time of Evaluation Date of Evaluation: 08/18/17 Time of Evaluation: 14:24 - Subjective Subjective: 47 year old male presented with a left MCA syndrome, IV tpa given with excellent improvement. Now with resolving right arm weakness. Objective - Vital Signs/Intake and Output Vital Signs (last 24 hours): Temp Pulse Resp BP Pulse Ox 98.0 F 82 20 141/98 H 100 08/18/17 06:00 08/18/17 10:00 08/18/17 06:00 08/18/17 06:00 08/18/17 06:00 Intake and Output: 08/18/17 08/18/17 06:59 18:59 Intake Total 540 Output Total 0 Balance 540 - Medications Medications: Current Medications Aspirin (Aspirin Chewable) 81 mg PO DAILY [facility] Last Admin: 08/18/17 09:56 Dose: 81 mg Atorvastatin Calcium (Lipitor) 40 mg PO DIN [facility] Last Admin: 08/17/17 17:33 Dose: 40 mg Clopidogrel Bisulfate (Plavix) 75 mg PO DAILY [facility] Last Admin: 08/18/17 09:56 Dose: 75 mg Hydrochlorothiazide (Hydrodiuril) 50 mg PO DAILY [facility] Last Admin: 08/18/17 09:56 Dose: 50 mg Sodium Chloride (Sodium Chloride 0.9%) 1,000 mls @ 50 mls/hr IV .Q20H [facility] Last Admin: 08/17/17 11:53 Dose: 50 mls/hr Lisinopril (Zestril) 20 mg PO DAILY [facility] Last Admin: 08/18/17 09:55 Dose: 20 mg Metoprolol Succinate (Toprol Xl) 25 mg PO DAILY [facility] Last Admin: 08/18/17 09:55 Dose: 25 mg Pantoprazole Sodium (Protonix Ec Tab) 40 mg PO DAILY [facility] Last Admin: 08/18/17 09:56 Dose: 40 mg - Labs Labs: 08/18/17 05:30 08/18/17 05:30 PT 12.9 SECONDS (9.4-12.5) H 08/15/17 06:05 INR 1.12 (0.93-1.08) H 08/15/17 06:05 APTT 31.5 Seconds (25.1-36.5) 08/15/17 06:05 - Neurological Exam Additional comments: In bed, left eye with exodeviation. No aphasia, No dysarthria Moving all extrmities except for left arm. Assessment and Plan - Assessment and Plan (Free Text) Assessment: Left MCA territory stroke, severity of infarct greatly mitigated by prompt administration of IV thrombolytic Plan: 1. Repeat CTA shows clearing of previously described clot in left supraclinoid ICA. As well Carotids have less than 50% stenosis bilaterally. No current indication for Carotid stenting. 2. Continue stroke workup 3. Continue DAPT and aggressive lipid lowering. 4. Follow up with me in clinic in 1 month.
[2017-08-19 07:36] LABS: MEAN CELL VOLUME 87.3 fl (80.0-105.0); MEAN CORPUSCULAR HEMOGLOBIN 30.1 pg (25.0-35.0); MEAN CORPUSCULAR HGB CONC 34.5 g/dl (31.0-37.0); MEAN PLATELET VOLUME 11.1 fl (7.0-11.0); RBC 5.65 10^6/uL (3.5-6.1); RED CELL DISTRIBUTION WIDTH 13.6 % (11.5-14.5); WHITE BLOOD COUNT 9.2 10^3/ul (4.5-11.0)
[2017-08-19 07:49] LABS: ALBUMIN 4.2 g/dL (3.0-4.8); ALT/SGPT 53 U/L (7-56); AST/SGOT 59 U/L (17-59); BLOOD UREA NITROGEN 29 mg/dL (7-21); CALCIUM 10.4 mg/dL (8.4-10.5); GFR AFRICAN-AMERICAN > 60; GFR NON-AFRICAN AMERICAN > 60
[2017-08-19] MEDS: Pantoprazole 40 mg EC Tab PO SCH (09:37)
[2017-08-19] MEDS: Metoprolol Succinate 25 mg XL Tab PO SCH (09:37)
--- NOTE | 2017-08-19 12:03 | CP.PCM.PN ---
<Jamie Maguire - Last Filed: 08/19/17 11:53> Subjective - Date & Time of Evaluation Date of Evaluation: 08/19/17 Time of Evaluation: 11:53 - Subjective Subjective: Medicine Progress Note: Patient seen and assessed at bedside. No acute events overnight noted. Patient reports that he has been doing the recommended exercises for his RUE. Patient is without complaints at this time and denies fevers, chills, headache, changes in his vision, chest pain, SOB, cough, abdominal pain, N/V/D/C, changes in urinary color/frequency, dysuria, or any skin changes. Objective - Vital Signs/Intake and Output Vital Signs (last 24 hours): Temp Pulse Resp BP Pulse Ox 98.2 F 73 19 119/85 99 08/19/17 08:03 08/19/17 09:38 08/19/17 08:03 08/19/17 09:38 08/19/17 08:03 Intake and Output: 08/19/17 08/19/17 06:59 18:59 Intake Total 480 Balance 480 - Medications Medications: Current Medications Aspirin (Aspirin Chewable) 81 mg PO DAILY [facility] Last Admin: 08/19/17 09:37 Dose: 81 mg Atorvastatin Calcium (Lipitor) 40 mg PO DIN [facility] Last Admin: 08/18/17 16:58 Dose: 40 mg Clopidogrel Bisulfate (Plavix) 75 mg PO DAILY [facility] Last Admin: 08/19/17 09:37 Dose: 75 mg Hydrochlorothiazide (Hydrodiuril) 50 mg PO DAILY [facility] Last Admin: 08/19/17 09:37 Dose: 50 mg Lisinopril (Zestril) 20 mg PO DAILY [facility] Last Admin: 08/19/17 09:38 Dose: 20 mg Metoprolol Succinate (Toprol Xl) 25 mg PO DAILY [facility] Last Admin: 08/19/17 09:37 Dose: 25 mg Pantoprazole Sodium (Protonix Ec Tab) 40 mg PO DAILY [facility] Last Admin: 08/19/17 09:37 Dose: 40 mg - Labs Labs: 08/19/17 07:00 08/19/17 07:00 PT 12.9 SECONDS (9.4-12.5) H 08/15/17 06:05 INR 1.12 (0.93-1.08) H 08/15/17 06:05 APTT 31.5 Seconds (25.1-36.5) 08/15/17 06:05 - Constitutional Appears: Non-toxic, No Acute Distress - Head Exam Head Exam: ATRAUMATIC, NORMOCEPHALIC - Eye Exam Eye Exam: EOMI. absent: Normal appearance (Lateral strabimus noted (chronic)) Pupil Exam: NORMAL ACCOMODATION, PERRL - ENT Exam ENT Exam: Mucous Membranes Moist, Normal Exam - Neck Exam Neck Exam: Full ROM, Normal Inspection. absent: Lymphadenopathy, Tenderness - Respiratory Exam Respiratory Exam: Clear to Ausculation Bilateral, NORMAL BREATHING PATTERN. absent: Accessory Muscle Use, Decreased Breath Sounds, Rales, Rhonchi, Wheezes, Respiratory Distress - Cardiovascular Exam Cardiovascular Exam: REGULAR RHYTHM, RRR, +S1, +S2. absent: Bradycardia, Tachycardia, Clicks, Diastolic murmur, Gallop, Irregular Rhythm, JVD, Rubs, +S4 , Murmur - GI/Abdominal Exam GI & Abdominal Exam: Soft, Normal Bowel Sounds. absent: Distended, Firm, Guarding, Rigid, Tenderness, Rebound - Extremities Exam Extremities Exam: Full ROM, Normal Capillary Refill, Normal Inspection. absent : Calf Tenderness, Joint Swelling, Pedal Edema, Tenderness - Back Exam Back Exam: Full ROM, NORMAL INSPECTION. absent: CVA tenderness (L), CVA tenderness (R), muscle spasm, paraspinal tenderness, rash noted, tenderness, vertebral tenderness - Neurological Exam Neurological Exam: Alert, Awake, Oriented x3 Neuro motor strength exam: Left Upper Extremity: 5, Right Upper Extremity: 0, Left Lower Extremity: 5, Right Lower Extremity: 5 - Psychiatric Exam Psychiatric exam: Normal Affect, Normal Mood - Skin Skin Exam: Dry, Intact, Normal Color, Warm Assessment and Plan - Assessment and Plan (Free Text) Assessment: 47 year old male with a past medical history significant for HIV, asthma, HTN, HLD, and CVA (3 yrs ago) who presented with right sided weakness. In the ED, NIHSS was found to be 23. CT head showed a hypodensity within the left temporal lobe, consistent with an infarct. Patient was evaluated by neurologist and IV tPA was administered. Patient currently being treated medically for acute ischemic stroke and is under remote telemetry monitoring. Patient is pending MARI placement. Plan: 1. Acute Embolic Stroke -Repeat CTA Head and Neck showed mild stenosis of less than 50 percent of both internal carotid arteries and interval resolution of previously noted high grade stenosis or occlusion at the junction of the left supraclinoid carotid and the proximal middle cerebral artery -CTA Head and Neck showed a high grade stenosis or occlusion at the junction of the left supraclinoid carotid and the proximal middle cerebral artery and diminished flow in the distal branches of the left MCA in the area of the left temporal infarct -Brain MRI showed multiple acute cortical and subcortical infarcts in the left frontal and left parietal lobe in the distribution of the MCA -[address] Head showed left temporal infarct with interval improved definition noted as well as new areas of infarction seen in the subcortical white matter of the left frontal lobe -Initial CT Head showed a hypodensity in the left temporal lobe and a small hypodense lacunar infarct in right cerebellar lobe -Echocardiogram with Bubble Study showed normal left ventricular size, function and EF with Grade-I abnormal relaxation pattern as well as an intact interatrial septum -EKG showed NSR at 64 beats/min with minimal LVH voltage criteria -S/P tPA at 2300 on 08/13/2017 -Continue high intensity Lipitor, low dose ASA, and Plavix -Neuro checks Q2H -Neurology and Neurointerventional Radiology consulted, all recommendations appreciated -PT/OT recommending acute rehab upon discharge -Swallow Evaluation and Speech Pathology recommend to continue regular consistency diet with thin liquids with no further interventions to be done at this time 2. History of HIV -Patient reports seeing [facility] in [place] -CD4 count and HIV Viral Load pending -ID consulted, all recommendations appreciated 3. History of HTN -Continue home HCTZ, Toprol XL and Lisinopril GI Prophylaxis: Protonix DVT Prophylaxis: Heparin and SCD's Diet: Heart Healthy Disposition: Patient pending possible placement at [facility] for rehab next week. Patient to follow up with Neurology (Dr. De La Rosa/Dr. Wayne), Neurointerventional Radiology (Dr. Dubose) and ID upon discharge. Patient seen and case discussed with attending, Dr. Stoll. <Reece Stoll - Last Filed: 08/19/17 16:20> Objective - Vital Signs/Intake and Output Vital Signs (last 24 hours): Temp Pulse Resp BP Pulse Ox 98.2 F 73 19 119/85 99 08/19/17 08:03 08/19/17 09:38 08/19/17 08:03 08/19/17 09:38 08/19/17 08:03 Intake and Output: 08/19/17 08/19/17 06:59 18:59 Intake Total 480 600 Balance 480 600 - Medications Medications: Current Medications Aspirin (Aspirin Chewable) 81 mg PO DAILY [facility] Last Admin: 08/19/17 09:37 Dose: 81 mg Atorvastatin Calcium (Lipitor) 40 mg PO DIN [facility] Last Admin: 08/18/17 16:58 Dose: 40 mg Clopidogrel Bisulfate (Plavix) 75 mg PO DAILY [facility] Last Admin: 08/19/17 09:37 Dose: 75 mg Hydrochlorothiazide (Hydrodiuril) 50 mg PO DAILY [facility] Last Admin: 08/19/17 09:37 Dose: 50 mg Lisinopril (Zestril) 20 mg PO DAILY [facility] Last Admin: 08/19/17 09:38 Dose: 20 mg Metoprolol Succinate (Toprol Xl) 25 mg PO DAILY [facility] Last Admin: 08/19/17 09:37 Dose: 25 mg Pantoprazole Sodium (Protonix Ec Tab) 40 mg PO DAILY [facility] Last Admin: 08/19/17 09:37 Dose: 40 mg - Labs Labs: 08/19/17 07:00 08/19/17 07:00 PT 12.9 SECONDS (9.4-12.5) H 08/15/17 06:05 INR 1.12 (0.93-1.08) H 08/15/17 06:05 APTT 31.5 Seconds (25.1-36.5) 08/15/17 06:05 Attending/Attestation - Attestation I have personally seen and examined this patient.: Yes I have fully participated in the care of the patient.: Yes I have reviewed all pertinent clinical information, including history, physical exam and plan: Yes Notes (Text): 08/19/17 16:03 attending note; Patient seen and examined with resident. Patient is a 47-year-old male with a history of hypertension, HIV, previous CVA is admitted with right sided weakness. Status post TPA. MRI showed showed multiple acute cortical and subcortical infarcts in the left frontal and left parietal lobe in the distribution of the MCA. neurology evaluation appreciated. currently patient has right upper extremity flaccid. Strength is 0/5. Patient had some expressive aphasia. Improving. Continue aspirin and Plavix, Lipitor. patient was evaluated by neuro sales project coordinator. Repeat CT angiography of the head and neck is normal. hypertension; Continue metoprolol, lisinopril and hydro-thiazide. history of HIV; currently not on meds. needs to follow up with HIV clinic upon discharge. PT evaluation appreciated. acute rehabilitation recommended. Occupational therapy and speech therapy evaluation requested. sanitation worker cleaning equipment evaluation appreciated in assisting insurance information and discharge planning. waiting for Rehab placement. upon discharge patient will follow-up with [facility] clinic. 08/19/17 16:03
[2017-08-19 14:07] LABS: % CD4 (T HELPER CELL) 45 Percent (30-61); % CD8 (SUPPRESSOR T CELL) 31 Percent (12-42); ABSOLUTE CD4 CELLS 1208 Cells/mcL (490-1740); ABSOLUTE CD8 CELLS 828 Cells/mcL (180-1170); ABSOLUTE LYMPHOCYTES 2690 Cells/mcL (850-3900); HELPER/SUPPRESSOR RATIO 1.46 Ratio (0.86-5.00)
--- NOTE | 2017-08-19 17:37 | CP.PCM.PN ---
Subjective - Date & Time of Evaluation Date of Evaluation: 08/29/17 Time of Evaluation: 11:00 - Subjective Subjective: Patient resting comfortably, no headaches, no dizziness, no new complaints. On exam: aaox3. PERRL. Right sided arm plegic, good motor strength in all other modalities. Decreased ft, pin right arm, all else normal. Can name and repeat. Objective - Vital Signs/Intake and Output Vital Signs (last 24 hours): Temp Pulse Resp BP Pulse Ox 97.8 F 64 20 127/87 98 08/19/17 16:00 08/19/17 16:00 08/19/17 16:00 08/19/17 16:00 08/19/17 16:00 Intake and Output: 08/19/17 08/19/17 06:59 18:59 Intake Total 480 600 Balance 480 600 - Medications Medications: Current Medications Aspirin (Aspirin Chewable) 81 mg PO DAILY [facility] Last Admin: 08/19/17 09:37 Dose: 81 mg Atorvastatin Calcium (Lipitor) 40 mg PO DIN [facility] Last Admin: 08/18/17 16:58 Dose: 40 mg Clopidogrel Bisulfate (Plavix) 75 mg PO DAILY [facility] Last Admin: 08/19/17 09:37 Dose: 75 mg Hydrochlorothiazide (Hydrodiuril) 25 mg PO DAILY [facility] Lisinopril (Zestril) 20 mg PO DAILY [facility] Last Admin: 08/19/17 09:38 Dose: 20 mg Metoprolol Succinate (Toprol Xl) 25 mg PO DAILY [facility] Last Admin: 08/19/17 09:37 Dose: 25 mg Pantoprazole Sodium (Protonix Ec Tab) 40 mg PO DAILY [facility] Last Admin: 08/19/17 09:37 Dose: 40 mg - Labs Labs: 08/19/17 07:00 08/19/17 07:00 PT 12.9 SECONDS (9.4-12.5) H 08/15/17 06:05 INR 1.12 (0.93-1.08) H 08/15/17 06:05 APTT 31.5 Seconds (25.1-36.5) 08/15/17 06:05 Assessment and Plan - Assessment and Plan (Free Text) Assessment: 47 yr old male with stroke lt. mca distribution and right sided plegia. Plan: 1. continue antiplatelets 2. continue statin 3. No stent recommended. APpreciate input. 4. disposition: rehab Dr. mervin md, DPN
--- NOTE | 2017-08-19 18:35 | CP.PCM.PN ---
Subjective - Date & Time of Evaluation Date of Evaluation: 08/19/17 Time of Evaluation: 17:00 - Subjective Subjective: Infectious Disease Follow Up: August 19, 2017 47 yo male who presented with slurred speech, right sided facial droop, right arm weakness. Given tPA by neurology. Patient with known HIV disease. Speech has improved. The patient states he was on treatment for HIV with Genvoya. States he hasn't been on HAART for at least 1 month. The patient had prior CVA attack in the past. He still has right arm weakness. Difficulties on obtaining HAART as the patient's medicaid has become inactive and he does not have the funds to afford the HAART medications. Patient was going to [place] for his HIV care before his Medicaid stopped. Still with right arm weakness. Objective - Vital Signs/Intake and Output Vital Signs (last 24 hours): Temp Pulse Resp BP Pulse Ox 97.8 F 64 20 127/87 98 08/19/17 16:00 08/19/17 16:00 08/19/17 16:00 08/19/17 16:00 08/19/17 16:00 Intake and Output: 08/19/17 08/19/17 06:59 18:59 Intake Total 480 600 Balance 480 600 - Medications Medications: Current Medications Aspirin (Aspirin Chewable) 81 mg PO DAILY [facility] Last Admin: 08/19/17 09:37 Dose: 81 mg Atorvastatin Calcium (Lipitor) 40 mg PO DIN [facility] Last Admin: 08/19/17 17:59 Dose: 40 mg Clopidogrel Bisulfate (Plavix) 75 mg PO DAILY [facility] Last Admin: 08/19/17 09:37 Dose: 75 mg Hydrochlorothiazide (Hydrodiuril) 25 mg PO DAILY [facility] Lisinopril (Zestril) 20 mg PO DAILY [facility] Last Admin: 08/19/17 09:38 Dose: 20 mg Metoprolol Succinate (Toprol Xl) 25 mg PO DAILY [facility] Last Admin: 08/19/17 09:37 Dose: 25 mg Pantoprazole Sodium (Protonix Ec Tab) 40 mg PO DAILY [facility] Last Admin: 08/19/17 09:37 Dose: 40 mg - Labs Labs: 08/19/17 07:00 08/19/17 07:00 PT 12.9 SECONDS (9.4-12.5) H 08/15/17 06:05 INR 1.12 (0.93-1.08) H 08/15/17 06:05 APTT 31.5 Seconds (25.1-36.5) 08/15/17 06:05 - Constitutional Appears: Non-toxic, No Acute Distress, Chronically Ill - Head Exam Head Exam: ATRAUMATIC, NORMOCEPHALIC - Eye Exam Eye Exam: EOMI, PERRL Pupil Exam: NORMAL ACCOMODATION, PERRL - ENT Exam ENT Exam: Mucous Membranes Moist, Normal External Ear Exam, TM's Normal Bilaterally - Neck Exam Neck Exam: Full ROM, Normal Inspection - Respiratory Exam Respiratory Exam: Clear to Ausculation Bilateral, NORMAL BREATHING PATTERN. absent: Rales, Rhonchi, Wheezes - Cardiovascular Exam Cardiovascular Exam: REGULAR RHYTHM, RRR, +S1, +S2 - GI/Abdominal Exam GI & Abdominal Exam: Soft, Normal Bowel Sounds. absent: Distended, Tenderness - Extremities Exam Additional comments: right sided weakness. - Neurological Exam Neurological Exam: Alert, Awake, CN II-XII Intact, Oriented x3 Neuro motor strength exam: Left Upper Extremity: 5, Right Upper Extremity: 0, Left Lower Extremity: 5, Right Lower Extremity: 5 Additional comments: right arm weakness. very mild facial droop on the right side. - Psychiatric Exam Psychiatric exam: Normal Affect, Normal Mood - Skin Skin Exam: Intact, Normal Color Assessment and Plan - Assessment and Plan (Free Text) Assessment: 47 yo AA male with possible left sided CVA showing right sided weakness. History of HIV. On Genvoya before the patient had insurance issues. Check CD4 and HIV Viral Load. The patient has not been on HAART for at least 1 month if not longer. The patient has a prior history of CVA with right sided weakness. The patient's other medical issues include Hypertension, hyperlipidemia. Supportive care. Patient with extremely limited resources as an outpatient. On the whole, the patient is improving with residual right arm weakness. Obtaining HAART medications for the patient may be difficult due to the patient' s lack of resources and his Medicaid being inactive now. He states that he was going to a clinic in [place] before his Medicaid stopped. Thank you for allowing me to participate in the care of the patient, we will follow with you.
[2017-08-20 07:00] LABS: ALBUMIN 4.2 g/dL (3.0-4.8); ALT/SGPT 53 U/L (7-56); AST/SGOT 50 U/L (17-59); BLOOD UREA NITROGEN 28 mg/dL (7-21); CALCIUM 10.5 mg/dL (8.4-10.5); GFR AFRICAN-AMERICAN > 60; GFR NON-AFRICAN AMERICAN 54
[2017-08-20 07:29] LABS: BASO # 0.02 K/mm3 (0.0-2.0); BASO % 0.2 % (0.0-3.0); EOS # 0.1 (0.0-0.7); EOS % 1.4 % (1.5-5.0); GRAN # 4.71 (1.4-6.5); GRAN % 52.4 % (50.0-68.0); HEMOGLOBIN 16.3 g/dL (14.0-18.0); LYMPH # 3.2 (1.2-3.4); LYMPH % 35.3 % (22.0-35.0); MEAN CELL VOLUME 88.8 fl (80.0-105.0); MEAN CORPUSCULAR HEMOGLOBIN 30.4 pg (25.0-35.0); MEAN CORPUSCULAR HGB CONC 34.2 g/dl (31.0-37.0); MONO % 10.7 % (1.0-6.0); RBC 5.36 10^6/uL (3.5-6.1); RED CELL DISTRIBUTION WIDTH 13.6 % (11.5-14.5)
[2017-08-20] MEDS: Pantoprazole 40 mg EC Tab PO SCH (09:23)
[2017-08-20] MEDS: Metoprolol Succinate 25 mg XL Tab PO SCH (09:23)
--- NOTE | 2017-08-20 11:05 | CP.PCM.PN ---
<Jamie Maguire - Last Filed: 08/20/17 11:06> Subjective - Date & Time of Evaluation Date of Evaluation: 08/20/17 Time of Evaluation: 11:03 - Subjective Subjective: Medicine Progress Note: Patient seen and assessed at bedside. No acute events overnight noted by patient or nursing staff. Patient is without complaints at this time and denies fevers, chills, headache, changes in his vision, chest pain, SOB, cough, abdominal pain, N/V/D/C, changes in urinary color/frequency, dysuria, or any skin changes. Objective - Vital Signs/Intake and Output Vital Signs (last 24 hours): Temp Pulse Resp BP Pulse Ox 98.3 F 77 18 121/82 99 08/20/17 07:28 08/20/17 09:23 08/20/17 07:28 08/20/17 09:23 08/20/17 07:28 Intake and Output: 08/20/17 08/20/17 06:59 18:59 Intake Total 1140 Balance 1140 - Medications Medications: Current Medications Aspirin (Aspirin Chewable) 81 mg PO DAILY [facility] Last Admin: 08/20/17 09:23 Dose: 81 mg Atorvastatin Calcium (Lipitor) 40 mg PO DIN [facility] Last Admin: 08/19/17 17:59 Dose: 40 mg Clopidogrel Bisulfate (Plavix) 75 mg PO DAILY [facility] Last Admin: 08/20/17 09:23 Dose: 75 mg Hydrochlorothiazide (Hydrodiuril) 25 mg PO DAILY [facility] Last Admin: 08/20/17 09:23 Dose: 25 mg Lisinopril (Zestril) 20 mg PO DAILY [facility] Last Admin: 08/20/17 09:23 Dose: 20 mg Metoprolol Succinate (Toprol Xl) 25 mg PO DAILY [facility] Last Admin: 08/20/17 09:23 Dose: 25 mg Pantoprazole Sodium (Protonix Ec Tab) 40 mg PO DAILY [facility] Last Admin: 08/20/17 09:23 Dose: 40 mg - Labs Labs: 08/20/17 06:00 08/20/17 06:00 PT 12.9 SECONDS (9.4-12.5) H 08/15/17 06:05 INR 1.12 (0.93-1.08) H 08/15/17 06:05 APTT 31.5 Seconds (25.1-36.5) 08/15/17 06:05 - Constitutional Appears: Non-toxic, No Acute Distress - Head Exam Head Exam: ATRAUMATIC, NORMOCEPHALIC - Eye Exam Eye Exam: EOMI, Normal appearance Pupil Exam: NORMAL ACCOMODATION, PERRL - ENT Exam ENT Exam: Mucous Membranes Moist, Normal Exam - Neck Exam Neck Exam: Full ROM, Normal Inspection. absent: Lymphadenopathy, Tenderness - Respiratory Exam Respiratory Exam: Clear to Ausculation Bilateral, NORMAL BREATHING PATTERN. absent: Accessory Muscle Use, Rales, Rhonchi, Wheezes, Respiratory Distress - Cardiovascular Exam Cardiovascular Exam: REGULAR RHYTHM, RRR, +S1, +S2. absent: Bradycardia, Tachycardia, Clicks, Diastolic murmur, Gallop, Irregular Rhythm, JVD, Rubs, +S4 , Murmur - GI/Abdominal Exam GI & Abdominal Exam: Soft, Normal Bowel Sounds. absent: Distended, Firm, Guarding, Rigid, Tenderness, Rebound - Extremities Exam Extremities Exam: Full ROM, Normal Capillary Refill, Normal Inspection. absent : Calf Tenderness, Joint Swelling, Pedal Edema, Tenderness - Back Exam Back Exam: Full ROM, NORMAL INSPECTION. absent: CVA tenderness (L), CVA tenderness (R) - Neurological Exam Neurological Exam: Alert, Awake, Normal Gait, Oriented x3 Neuro motor strength exam: Left Upper Extremity: 5, Right Upper Extremity: 0, Left Lower Extremity: 5, Right Lower Extremity: 5 - Psychiatric Exam Psychiatric exam: Normal Affect, Normal Mood - Skin Skin Exam: Dry, Intact, Normal Color, Warm Assessment and Plan - Assessment and Plan (Free Text) Assessment: 47 year old male with a past medical history significant for HIV, asthma, HTN, HLD, and CVA (3 yrs ago) who presented with right sided weakness. In the ED, NIHSS was found to be 23. CT head showed a hypodensity within the left temporal lobe, consistent with an infarct. Patient was evaluated by neurologist and IV tPA was administered. Patient currently being treated medically for acute ischemic stroke and is under remote telemetry monitoring. Patient is pending MARI placement. Plan: 1. Acute Embolic Stroke -Repeat CTA Head and Neck showed mild stenosis of less than 50 percent of both internal carotid arteries and interval resolution of previously noted high grade stenosis or occlusion at the junction of the left supraclinoid carotid and the proximal middle cerebral artery -CTA Head and Neck showed a high grade stenosis or occlusion at the junction of the left supraclinoid carotid and the proximal middle cerebral artery and diminished flow in the distal branches of the left MCA in the area of the left temporal infarct -Brain MRI showed multiple acute cortical and subcortical infarcts in the left frontal and left parietal lobe in the distribution of the MCA -[address] Head showed left temporal infarct with interval improved definition noted as well as new areas of infarction seen in the subcortical white matter of the left frontal lobe -Initial CT Head showed a hypodensity in the left temporal lobe and a small hypodense lacunar infarct in right cerebellar lobe -Echocardiogram with Bubble Study showed normal left ventricular size, function and EF with Grade-I abnormal relaxation pattern as well as an intact interatrial septum -EKG showed NSR at 64 beats/min with minimal LVH voltage criteria -S/P tPA at 2300 on 08/13/2017 -Continue Lipitor, low dose ASA, and Plavix -Neuro checks Q2H -Neurology and Neurointerventional Radiology consulted, all recommendations appreciated -PT/OT recommending acute rehab upon discharge; Speech Pathology recommending no further interventions at this time 2. History of HIV -CD4 count 1208 with HIV Viral Load pending -ID consulted, all recommendations appreciated 3. History of HTN -Continue home HCTZ, Toprol XL and Lisinopril GI Prophylaxis: Protonix DVT Prophylaxis: Heparin and SCD's Diet: Heart Healthy Disposition: Patient pending possible placement at [facility] for rehab next week. Patient to follow up with Neurology (Dr. De La Rosa/Dr. Wayne), Neurointerventional Radiology (Dr. Dubose) and ID ([facility] [place] in ) upon discharge. Patient seen and case discussed with attending, Dr. Stoll. <Reece Stoll - Last Filed: 08/20/17 14:15> Objective - Vital Signs/Intake and Output Vital Signs (last 24 hours): Temp Pulse Resp BP Pulse Ox 98.3 F 77 18 121/82 99 08/20/17 07:28 08/20/17 09:23 08/20/17 07:28 08/20/17 09:23 08/20/17 07:28 Intake and Output: 08/20/17 08/20/17 06:59 18:59 Intake Total 1140 Balance 1140 - Medications Medications: Current Medications Aspirin (Aspirin Chewable) 81 mg PO DAILY [facility] Last Admin: 08/20/17 09:23 Dose: 81 mg Atorvastatin Calcium (Lipitor) 40 mg PO DIN [facility] Last Admin: 08/19/17 17:59 Dose: 40 mg Clopidogrel Bisulfate (Plavix) 75 mg PO DAILY [facility] Last Admin: 08/20/17 09:23 Dose: 75 mg Hydrochlorothiazide (Hydrodiuril) 25 mg PO DAILY [facility] Last Admin: 08/20/17 09:23 Dose: 25 mg Lisinopril (Zestril) 20 mg PO DAILY [facility] Last Admin: 08/20/17 09:23 Dose: 20 mg Metoprolol Succinate (Toprol Xl) 25 mg PO DAILY [facility] Last Admin: 08/20/17 09:23 Dose: 25 mg Pantoprazole Sodium (Protonix Ec Tab) 40 mg PO DAILY [facility] Last Admin: 08/20/17 09:23 Dose: 40 mg - Labs Labs: 08/20/17 06:00 08/20/17 06:00 PT 12.9 SECONDS (9.4-12.5) H 08/15/17 06:05 INR 1.12 (0.93-1.08) H 08/15/17 06:05 APTT 31.5 Seconds (25.1-36.5) 08/15/17 06:05 Attending/Attestation - Attestation I have personally seen and examined this patient.: Yes I have fully participated in the care of the patient.: Yes I have reviewed all pertinent clinical information, including history, physical exam and plan: Yes Notes (Text): 08/20/17 14:14 attending note; Patient seen and examined with resident. Patient is a 47-year-old male with a history of hypertension, HIV, previous CVA is admitted with right sided weakness. Status post TPA. MRI showed showed multiple acute cortical and subcortical infarcts in the left frontal and left parietal lobe in the distribution of the MCA. neurology evaluation appreciated. currently patient has right upper extremity flaccid. Strength is 0/5. Continue aspirin and Plavix, Lipitor. Repeat CT angiography of the head and neck is normal. hypertension; Continue metoprolol, lisinopril and hydro-thiazide. history of HIV; currently not on meds. needs to follow up with HIV clinic upon discharge. PT evaluation appreciated. acute rehabilitation recommended. Occupational therapy and speech therapy evaluation appreciated. waiting for Rehab placement. upon discharge patient will follow-up with [facility] clinic.
--- NOTE | 2017-08-20 17:56 | CP.PCM.PN ---
Subjective - Date & Time of Evaluation Date of Evaluation: 08/20/17 Time of Evaluation: 15:30 - Subjective Subjective: Infectious Disease Follow Up: August 20, 2017 47 yo male who presented with slurred speech, right sided facial droop, right arm weakness. Given tPA by neurology. Patient with known HIV disease. Speech has improved. The patient states he was on treatment for HIV with Genvoya. States he hasn't been on HAART for at least 1 month. The patient had prior CVA attack in the past. He still has right arm weakness. Difficulties on obtaining HAART as the patient's medicaid has become inactive and he does not have the funds to afford the HAART medications. Patient was going to [place] for his HIV care before his Medicaid stopped. Still with right arm weakness. Objective - Vital Signs/Intake and Output Vital Signs (last 24 hours): Temp Pulse Resp BP Pulse Ox 98.4 F 89 20 116/75 97 08/20/17 16:00 08/20/17 16:00 08/20/17 16:00 08/20/17 16:00 08/20/17 16:00 Intake and Output: 08/20/17 08/20/17 06:59 18:59 Intake Total 1140 540 Balance 1140 540 - Medications Medications: Current Medications Aspirin (Aspirin Chewable) 81 mg PO DAILY [facility] Last Admin: 08/20/17 09:23 Dose: 81 mg Atorvastatin Calcium (Lipitor) 40 mg PO DIN [facility] Last Admin: 08/20/17 17:30 Dose: 40 mg Clopidogrel Bisulfate (Plavix) 75 mg PO DAILY [facility] Last Admin: 08/20/17 09:23 Dose: 75 mg Hydrochlorothiazide (Hydrodiuril) 25 mg PO DAILY [facility] Last Admin: 08/20/17 09:23 Dose: 25 mg Lisinopril (Zestril) 20 mg PO DAILY [facility] Last Admin: 08/20/17 09:23 Dose: 20 mg Metoprolol Succinate (Toprol Xl) 25 mg PO DAILY [facility] Last Admin: 08/20/17 09:23 Dose: 25 mg Pantoprazole Sodium (Protonix Ec Tab) 40 mg PO DAILY [facility] Last Admin: 08/20/17 09:23 Dose: 40 mg - Labs Labs: 08/20/17 06:00 08/20/17 06:00 PT 12.9 SECONDS (9.4-12.5) H 08/15/17 06:05 INR 1.12 (0.93-1.08) H 08/15/17 06:05 APTT 31.5 Seconds (25.1-36.5) 08/15/17 06:05 - Constitutional Appears: Non-toxic, No Acute Distress, Chronically Ill - Head Exam Head Exam: ATRAUMATIC, NORMOCEPHALIC - Eye Exam Eye Exam: EOMI, PERRL Pupil Exam: NORMAL ACCOMODATION, PERRL - ENT Exam ENT Exam: Mucous Membranes Moist, Normal External Ear Exam, TM's Normal Bilaterally - Neck Exam Neck Exam: Full ROM, Normal Inspection - Respiratory Exam Respiratory Exam: Clear to Ausculation Bilateral, NORMAL BREATHING PATTERN. absent: Rales, Rhonchi, Wheezes - Cardiovascular Exam Cardiovascular Exam: REGULAR RHYTHM, RRR, +S1, +S2 - GI/Abdominal Exam GI & Abdominal Exam: Soft, Normal Bowel Sounds. absent: Distended, Tenderness - Extremities Exam Additional comments: right arm weakness. - Neurological Exam Neurological Exam: Alert, Awake, CN II-XII Intact, Oriented x3 Neuro motor strength exam: Left Upper Extremity: 5, Right Upper Extremity: 0, Left Lower Extremity: 5, Right Lower Extremity: 5 Additional comments: right arm weakness. very mild facial droop on the right side. - Psychiatric Exam Psychiatric exam: Normal Affect, Normal Mood - Skin Skin Exam: Intact, Normal Color Assessment and Plan - Assessment and Plan (Free Text) Assessment: 47 yo AA male with possible left sided CVA showing right sided weakness. History of HIV. On Genvoya before the patient had insurance issues. Check CD4 and HIV Viral Load. The patient has not been on HAART for at least 1 month if not longer. The patient has a prior history of CVA with right sided weakness. The patient's other medical issues include Hypertension, hyperlipidemia. Supportive care. Patient with extremely limited resources as an outpatient. On the whole, the patient is improving with residual right arm weakness. Obtaining HAART medications for the patient may be difficult due to the patient' s lack of resources and his Medicaid being inactive now. He states that he was going to a clinic in [place] before his Medicaid stopped. His CD4 count is 1208. Thank you for allowing me to participate in the care of the patient, we will follow with you.
[2017-08-21 06:43] LABS: BASO # 0.04 K/mm3 (0.0-2.0); BASO % 0.5 % (0.0-3.0); EOS # 0.1 (0.0-0.7); EOS % 1.4 % (1.5-5.0); GRAN # 4.2 (1.4-6.5); GRAN % 54.9 % (50.0-68.0); HEMOGLOBIN 16.4 g/dL (14.0-18.0); LYMPH # 2.8 (1.2-3.4); LYMPH % 36.4 % (22.0-35.0); MEAN CORPUSCULAR HEMOGLOBIN 30.2 pg (25.0-35.0); MEAN CORPUSCULAR HGB CONC 34.3 g/dl (31.0-37.0); MEAN PLATELET VOLUME 10.7 fl (7.0-11.0); MONO # 0.5 (0.1-0.6); MONO % 6.8 % (1.0-6.0); RBC 5.43 10^6/uL (3.5-6.1); RED CELL DISTRIBUTION WIDTH 13.6 % (11.5-14.5); WHITE BLOOD COUNT 7.7 10^3/ul (4.5-11.0)
[2017-08-21 06:50] LABS: ALBUMIN 4.3 g/dL (3.0-4.8); ALT/SGPT 57 U/L (7-56); AST/SGOT 51 U/L (17-59); BLOOD UREA NITROGEN 24 mg/dL (7-21); CALCIUM 10.5 mg/dL (8.4-10.5); GFR AFRICAN-AMERICAN > 60; GFR NON-AFRICAN AMERICAN > 60
[2017-08-21 07:54] VITALS: O2SAT 98
[2017-08-21] MEDS: Metoprolol Succinate 25 mg XL Tab PO SCH (09:44)
[2017-08-21] MEDS: Pantoprazole 40 mg EC Tab PO SCH (09:45)
--- NOTE | 2017-08-21 16:11 | CP.PCM.PN ---
<Jonathan Brown - Last Filed: 08/21/17 16:03> Subjective - Date & Time of Evaluation Date of Evaluation: 08/21/17 Time of Evaluation: 16:03 - Subjective Subjective: Patient seen and examined. No overnight events reported. Patient offers no complaints at this time. Objective - Vital Signs/Intake and Output Vital Signs (last 24 hours): Temp Pulse Resp BP Pulse Ox 98.2 F 63 18 137/90 98 08/21/17 07:53 08/21/17 09:45 08/21/17 07:53 08/21/17 09:45 08/21/17 07:53 Intake and Output: 08/21/17 08/21/17 06:59 18:59 Intake Total 700 Balance 700 - Medications Medications: Current Medications Aspirin (Aspirin Chewable) 81 mg PO DAILY [facility] Last Admin: 08/21/17 09:44 Dose: 81 mg Atorvastatin Calcium (Lipitor) 40 mg PO DIN [facility] Last Admin: 08/20/17 17:30 Dose: 40 mg Clopidogrel Bisulfate (Plavix) 75 mg PO DAILY [facility] Last Admin: 08/21/17 09:45 Dose: 75 mg Hydrochlorothiazide (Hydrodiuril) 25 mg PO DAILY [facility] Last Admin: 08/21/17 09:45 Dose: 25 mg Lisinopril (Zestril) 20 mg PO DAILY [facility] Last Admin: 08/21/17 09:45 Dose: 20 mg Metoprolol Succinate (Toprol Xl) 25 mg PO DAILY [facility] Last Admin: 08/21/17 09:44 Dose: 25 mg Pantoprazole Sodium (Protonix Ec Tab) 40 mg PO DAILY [facility] Last Admin: 08/21/17 09:45 Dose: 40 mg - Labs Labs: 08/21/17 05:45 08/21/17 05:45 PT 12.9 SECONDS (9.4-12.5) H 08/15/17 06:05 INR 1.12 (0.93-1.08) H 08/15/17 06:05 APTT 31.5 Seconds (25.1-36.5) 08/15/17 06:05 - Additional Findings Additional findings: - Constitutional Appears: Non-toxic, No Acute Distress - Head Exam Head Exam: ATRAUMATIC, NORMOCEPHALIC - Eye Exam Eye Exam: EOMI, Normal appearance Pupil Exam: NORMAL ACCOMODATION, PERRL - ENT Exam ENT Exam: Mucous Membranes Moist, Normal Exam - Neck Exam Neck Exam: Full ROM, Normal Inspection. absent: Lymphadenopathy, Tenderness - Respiratory Exam Respiratory Exam: Clear to Ausculation Bilateral, NORMAL BREATHING PATTERN. absent: Accessory Muscle Use, Rales, Rhonchi, Wheezes, Respiratory Distress - Cardiovascular Exam Cardiovascular Exam: REGULAR RHYTHM, RRR, +S1, +S2. absent: Bradycardia, Tachycardia, Clicks, Diastolic murmur, Gallop, Irregular Rhythm, JVD, Rubs, +S4 , Murmur - GI/Abdominal Exam GI & Abdominal Exam: Soft, Normal Bowel Sounds. absent: Distended, Firm, Guarding, Rigid, Tenderness, Rebound - Extremities Exam Extremities Exam: Full ROM, Normal Capillary Refill, Normal Inspection. absent : Calf Tenderness, Joint Swelling, Pedal Edema, Tenderness - Back Exam Back Exam: Full ROM, NORMAL INSPECTION. absent: CVA tenderness (L), CVA tenderness (R) - Neurological Exam Neurological Exam: Alert, Awake, Normal Gait, Oriented x3 Neuro motor strength exam: Left Upper Extremity: 5, Right Upper Extremity: 0, Left Lower Extremity: 5, Right Lower Extremity: 5 - Psychiatric Exam Psychiatric exam: Normal Affect, Normal Mood - Skin Skin Exam: Dry, Intact, Normal Color, Warm Assessment and Plan - Assessment and Plan (Free Text) Assessment: 47 year old male with a past medical history significant for HIV, asthma, HTN, HLD, and CVA (3 yrs ago) who presented with right sided weakness. In the ED, NIHSS was found to be 23. CT head showed a hypodensity within the left temporal lobe, consistent with an infarct. Patient was evaluated by neurologist and IV tPA was administered. Patient currently being treated medically for acute ischemic stroke and is under remote telemetry monitoring. Patient is pending [facility] placement. Plan: 1. Acute Embolic Stroke -Repeat CTA Head and Neck showed mild stenosis of less than 50 percent of both internal carotid arteries and interval resolution of previously noted high grade stenosis or occlusion at the junction of the left supraclinoid carotid and the proximal middle cerebral artery -CTA Head and Neck showed a high grade stenosis or occlusion at the junction of the left supraclinoid carotid and the proximal middle cerebral artery and diminished flow in the distal branches of the left MCA in the area of the left temporal infarct -Brain MRI showed multiple acute cortical and subcortical infarcts in the left frontal and left parietal lobe in the distribution of the MCA -[address] Head showed left temporal infarct with interval improved definition noted as well as new areas of infarction seen in the subcortical white matter of the left frontal lobe -Initial CT Head showed a hypodensity in the left temporal lobe and a small hypodense lacunar infarct in right cerebellar lobe -Echocardiogram with Bubble Study showed normal left ventricular size, function and EF with Grade-I abnormal relaxation pattern as well as an intact interatrial septum -EKG showed NSR at 64 beats/min with minimal LVH voltage criteria -S/P tPA at 2300 on 08/13/2017 -Continue Lipitor, low dose ASA, and Plavix -Neuro checks Q2H -Neurology and Neurointerventional Radiology consulted, all recommendations appreciated -PT/OT recommending acute rehab upon discharge; Speech Pathology recommending no further interventions at this time -Awaiting rehab places. 2. History of HIV -CD4 count 1208 with HIV Viral Load pending -ID consulted, all recommendations appreciated 3. History of HTN -Continue home HCTZ, Toprol XL and Lisinopril GI Prophylaxis: Protonix DVT Prophylaxis: Heparin and SCD's Diet: Heart Healthy Disposition: Patient pending possible placement at [facility] for rehab. Patient to follow up with Neurology (Dr. De La Rosa/Dr. Wayne), Neurointerventional Radiology ( Dr. Dubose) and ID ([facility] in ) upon discharge. Patient seen and case discussed with attending, Dr. Poonam Medeiros. Jonathan Brown, PGY-1 <Rolo Medeiros - Last Filed: 08/21/17 16:50> Objective - Vital Signs/Intake and Output Vital Signs (last 24 hours): Temp Pulse Resp BP Pulse Ox 98.2 F 63 18 137/90 98 08/21/17 07:53 08/21/17 09:45 08/21/17 07:53 08/21/17 09:45 08/21/17 07:53 Intake and Output: 08/21/17 08/21/17 06:59 18:59 Intake Total 700 Balance 700 - Medications Medications: Current Medications Aspirin (Aspirin Chewable) 81 mg PO DAILY [facility] Last Admin: 08/21/17 09:44 Dose: 81 mg Atorvastatin Calcium (Lipitor) 40 mg PO DIN [facility] Last Admin: 08/20/17 17:30 Dose: 40 mg Clopidogrel Bisulfate (Plavix) 75 mg PO DAILY [facility] Last Admin: 08/21/17 09:45 Dose: 75 mg Hydrochlorothiazide (Hydrodiuril) 25 mg PO DAILY [facility] Last Admin: 08/21/17 09:45 Dose: 25 mg Lisinopril (Zestril) 20 mg PO DAILY [facility] Last Admin: 08/21/17 09:45 Dose: 20 mg Metoprolol Succinate (Toprol Xl) 25 mg PO DAILY [facility] Last Admin: 08/21/17 09:44 Dose: 25 mg Pantoprazole Sodium (Protonix Ec Tab) 40 mg PO DAILY [facility] Last Admin: 08/21/17 09:45 Dose: 40 mg - Labs Labs: 08/21/17 05:45 08/21/17 05:45 PT 12.9 SECONDS (9.4-12.5) H 08/15/17 06:05 INR 1.12 (0.93-1.08) H 08/15/17 06:05 APTT 31.5 Seconds (25.1-36.5) 08/15/17 06:05 Attending/Attestation - Attestation I have personally seen and examined this patient.: Yes I have fully participated in the care of the patient.: Yes I have reviewed all pertinent clinical information, including history, physical exam and plan: Yes Notes (Text): I have seen and examined patient with resident. 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 He was given tPA. MRI showed showed multiple acute cortical and subcortical infarcts in the left frontal and left parietal lobe in the distribution of the MCA. Neurology evaluation appreciated. Patient continues to have flaccid right upper extremity. Strength is 0/5. Continue with dual antiplatelet therapy including aspirin and Plavix. Continue Lipitor. Repeat CT angiography of the head and neck is normal. Continue metoprolol, lisinopril and hydro chlorothiazide. Patient is not on HIV meds for the past 1 month due to lack of insurance. PT recommended acute rehab. Awaiting rehab placement. A1C is 6.9. Life style modification and diet control recommended. Echo revealed grade 1 abnormal relaxation pattern. Upon discharge patient will follow up in [facility] clinic. Dr Rolo Medeiros
--- NOTE | 2017-08-21 17:00 | CP.PCM.PN ---
Subjective - Date & Time of Evaluation Date of Evaluation: 08/21/17 Time of Evaluation: 16:57 - Subjective Subjective: Infectious Disease Follow Up: August 21, 2017 47 yo male who presented with slurred speech, right sided facial droop, right arm weakness. Given tPA by neurology. Patient with known HIV disease. Speech has improved. The patient states he was on treatment for HIV with Genvoya. States he hasn't been on HAART for at least 1 month. The patient had prior CVA attack in the past. He still has right arm weakness. Difficulties on obtaining HAART as the patient's medicaid has become inactive and he does not have the funds to afford the HAART medications. Patient was going to [place] for his HIV care before his Medicaid stopped. Still with right arm weakness. Objective - Vital Signs/Intake and Output Vital Signs (last 24 hours): Temp Pulse Resp BP Pulse Ox 98.2 F 63 18 137/90 98 08/21/17 07:53 08/21/17 09:45 08/21/17 07:53 08/21/17 09:45 08/21/17 07:53 Intake and Output: 08/21/17 08/21/17 06:59 18:59 Intake Total 700 Balance 700 - Medications Medications: Current Medications Aspirin (Aspirin Chewable) 81 mg PO DAILY [facility] Last Admin: 08/21/17 09:44 Dose: 81 mg Atorvastatin Calcium (Lipitor) 40 mg PO DIN [facility] Last Admin: 08/20/17 17:30 Dose: 40 mg Clopidogrel Bisulfate (Plavix) 75 mg PO DAILY [facility] Last Admin: 08/21/17 09:45 Dose: 75 mg Hydrochlorothiazide (Hydrodiuril) 25 mg PO DAILY [facility] Last Admin: 08/21/17 09:45 Dose: 25 mg Lisinopril (Zestril) 20 mg PO DAILY [facility] Last Admin: 08/21/17 09:45 Dose: 20 mg Metoprolol Succinate (Toprol Xl) 25 mg PO DAILY [facility] Last Admin: 08/21/17 09:44 Dose: 25 mg Pantoprazole Sodium (Protonix Ec Tab) 40 mg PO DAILY [facility] Last Admin: 08/21/17 09:45 Dose: 40 mg - Labs Labs: 08/21/17 05:45 08/21/17 05:45 PT 12.9 SECONDS (9.4-12.5) H 08/15/17 06:05 INR 1.12 (0.93-1.08) H 08/15/17 06:05 APTT 31.5 Seconds (25.1-36.5) 08/15/17 06:05 - Constitutional Appears: Non-toxic, No Acute Distress, Chronically Ill - Head Exam Head Exam: ATRAUMATIC, NORMOCEPHALIC - Eye Exam Eye Exam: EOMI, PERRL Pupil Exam: NORMAL ACCOMODATION, PERRL - ENT Exam ENT Exam: Mucous Membranes Moist, Normal External Ear Exam, TM's Normal Bilaterally - Neck Exam Neck Exam: Full ROM, Normal Inspection - Respiratory Exam Respiratory Exam: Clear to Ausculation Bilateral, NORMAL BREATHING PATTERN. absent: Rales, Rhonchi, Wheezes - Cardiovascular Exam Cardiovascular Exam: REGULAR RHYTHM, RRR, +S1, +S2 - GI/Abdominal Exam GI & Abdominal Exam: Soft, Normal Bowel Sounds. absent: Distended, Tenderness - Extremities Exam Additional comments: right arm weakness. - Neurological Exam Neurological Exam: Alert, Awake, CN II-XII Intact, Oriented x3 Neuro motor strength exam: Left Upper Extremity: 5, Right Upper Extremity: 0, Left Lower Extremity: 5, Right Lower Extremity: 5 Additional comments: right arm weakness. very mild facial droop on the right side. - Skin Skin Exam: Intact, Normal Color Assessment and Plan - Assessment and Plan (Free Text) Assessment: 47 yo AA male with possible left sided CVA showing right sided weakness. History of HIV. On Genvoya before the patient had insurance issues. Check CD4 and HIV Viral Load. The patient has not been on HAART for at least 1 month if not longer. The patient has a prior history of CVA with right sided weakness. The patient's other medical issues include Hypertension, hyperlipidemia. Supportive care. Patient with extremely limited resources as an outpatient. On the whole, the patient is improving with residual right arm weakness. Obtaining HAART medications for the patient may be difficult due to the patient' s lack of resources and his Medicaid being inactive now. He states that he was going to a clinic in [place] before his Medicaid stopped. His CD4 count is 1208. CD4 count of log 2.77. Thank you for allowing me to participate in the care of the patient, we will follow with you.
--- NOTE | 2017-08-21 17:14 | CP.PCM.DIS ---
<Jonathan Brown - Last Filed: 08/22/17 11:21> Provider - Provider Date of Admission: 08/13/17 23:12 Attending physician: Rolo Medeiros MD Primary care physician: NO PRIMARY CARE PROVIDER Consults: Neurology - Dr. Estrella HERNANDES - Dr. Rivera Time Spent in preparation of Discharge (in minutes): 50 Diagnosis - Discharge Diagnosis (1) Acute ischemic stroke Status: Acute Hospital Course - Lab Results Lab Results: Micro Results 08/14/17 02:30 Naris MRSA Culture (Admit) - Final MRSA NOT DETECTED Most Recent Lab Values WBC 7.7 10^3/ul (4.5-11.0) 08/21/17 05:45 RBC 5.43 10^6/uL (3.5-6.1) 08/21/17 05:45 Hgb 16.4 g/dL (14.0-18.0) 08/21/17 05:45 Hct 47.8 % (42.0-52.0) 08/21/17 05:45 MCV 88.0 fl (80.0-105.0) 08/21/17 05:45 MCH 30.2 pg (25.0-35.0) 08/21/17 05:45 MCHC 34.3 g/dl (31.0-37.0) 08/21/17 05:45 RDW 13.6 % (11.5-14.5) 08/21/17 05:45 Plt Count 248 10^3/uL (120.0-450.0) 08/21/17 05:45 MPV 10.7 fl (7.0-11.0) 08/21/17 05:45 Gran % 54.9 % (50.0-68.0) 08/21/17 05:45 Lymph % (Auto) 36.4 % (22.0-35.0) H 08/21/17 05:45 [place] % (Auto) 6.8 % (1.0-6.0) H 08/21/17 05:45 Eos % (Auto) 1.4 % (1.5-5.0) L 08/21/17 05:45 Baso % (Auto) 0.5 % (0.0-3.0) 08/21/17 05:45 Gran # 4.20 (1.4-6.5) 08/21/17 05:45 Lymph # (Auto) 2.8 (1.2-3.4) 08/21/17 05:45 [place] # (Auto) 0.5 (0.1-0.6) 08/21/17 05:45 Eos # (Auto) 0.1 (0.0-0.7) 08/21/17 05:45 Baso # (Auto) 0.04 K/mm3 (0.0-2.0) 08/21/17 05:45 PT 12.9 SECONDS (9.4-12.5) H 08/15/17 06:05 INR 1.12 (0.93-1.08) H 08/15/17 06:05 APTT 31.5 Seconds (25.1-36.5) 08/15/17 06:05 Sodium 138 mmol/L (132-148) 08/21/17 05:45 Potassium 3.7 mmol/L (3.6-5.0) 08/21/17 05:45 Chloride 96 mmol/L (98-107) L 08/21/17 05:45 Carbon Dioxide 36 mmol/L (21-33) H 08/21/17 05:45 Anion Gap 10 (10-20) 08/21/17 05:45 BUN 24 mg/dL (7-21) H 08/21/17 05:45 Creatinine 1.1 mg/dl (0.8-1.5) 08/21/17 05:45 Est GFR ( Amer) > 60 08/21/17 05:45 Est GFR (Non-Af Amer) > 60 08/21/17 05:45 POC Glucose (mg/dL) 123 mg/dL (65-110) H 08/17/17 07:36 Random Glucose 154 mg/dL (70-110) H 08/21/17 05:45 Hemoglobin A1c 6.9 % (4.2-6.5) H 08/19/17 07:00 Calcium 10.5 mg/dL (8.4-10.5) 08/21/17 05:45 Phosphorus 3.8 mg/dL (2.5-4.5) 08/16/17 05:30 Magnesium 2.1 mg/dL (1.7-2.2) 08/16/17 05:30 Total Bilirubin 0.9 mg/dL (0.2-1.3) 08/21/17 05:45 AST 51 U/L (17-59) 08/21/17 05:45 ALT 57 U/L (7-56) H 08/21/17 05:45 Alkaline Phosphatase 136 U/L (38-126) H 08/21/17 05:45 Troponin I < 0.01 ng/mL 08/15/17 06:05 Total Protein 8.4 g/dL (5.8-8.3) H 08/21/17 05:45 Albumin 4.3 g/dL (3.0-4.8) 08/21/17 05:45 Globulin 4.2 gm/dL 08/21/17 05:45 Albumin/Globulin Ratio 1.0 (1.1-1.8) L 08/21/17 05:45 Triglycerides 173 mg/dL (35-160) H 08/14/17 08:45 Cholesterol 204 mg/dL (130-200) H 08/14/17 08:45 LDL Cholesterol Direct 132 mg/dL (0-129) H 08/14/17 08:45 HDL Cholesterol 22 mg/dL (29-60) L 08/14/17 08:45 Vitamin B12 322 pg/mL (239-931) 08/14/17 08:45 Folate 15.8 ng/mL 08/14/17 08:45 Homocysteine 7.0 umol/L ( <11.4) 08/14/17 08:45 TSH 3rd Generation 0.81 mIU/mL (0.46-4.68) 08/13/17 22:45 Absolute Lymphs (Flow) 2690 Cells/mcL (850-3900) 08/18/17 05:30 % CD4 Cells 45 Percent (30-61) 08/18/17 05:30 Absolute CD4 Count 1208 Cells/mcL (490-1740) 08/18/17 05:30 T-Help/Suppress Ratio 1.46 Ratio (0.86-5.00) 08/18/17 05:30 % CD8 Cells 31 Percent (12-42) 08/18/17 05:30 Absolute CD8 Count 828 Cells/mcL (180-1170) 08/18/17 05:30 HIV-1 RNA Qnt (RT-PCR) 2.77 (Not Detected) H 08/18/17 05:30 Blood Type A POSITIVE 08/13/17 22:45 Blood Type Confirm A POSITIVE 08/14/17 00:47 Antibody Screen Negative 08/13/17 22:45 BBK History Checked No verified bt 08/13/17 22:45 - Hospital Course Hospital Course: Pt is a 47 yo M with PMH of asthma, HTN, HLD, and CVA (3 yrs ago) presents to ED due to right sided weakness. Patient's girlfriend was at bedside to provide history as patient was somnolent and difficult to arose at time of exam. Pt was last seen normal around 8:30 pm. Girlfriend stated that he was ambulating and verbal, but missed chair when trying to sit down and fell. Girlfriend noticed that his speech was slurred, could not move his right arm, and had right sided facial drooping. In the ED, NIHSS was found to be 23. CT head showed a hypodensity within the left temporal lobe, consistent with an infarct. Patient was evaluated by neurologist and IV tPA was recommended as the patient was within the 3 hour time window and no contraindications were present. Patient was also found to have right upper extremity weakness. CT head on admission showed hypodensity in left temporal lobe and small hypodense lacunar infarct in right cerebellar lobe, both likely subacute. No acute hemorrhage. CTA head showed occluding thrombus in left supraclinoid ICA distal to left p-comm extending to ICA bifurcation. No flow in distal M2 or M3 cortical branches in left frontal and parietal lobes. Repeat CTA head and neck showed mild stenosis of less than 50 percent of both internal carotid arteries and interval resolution of previously noted high grade stenosis or occlusion at the junction of the left supraclinoid carotid and the proximal middle cerebral artery. Echocardiogram with bubble stody showed normal left ventricular size, function and EF with Grade-I abnormal relaxation pattern as well as an intact interatrial septum. EKG showed NSR at 64 beats/min with minimal LVH voltage criteria. Patient treated with TpA within the 3-hour window on admission. During hospital course he was treated with low dose ASA, Lipitor, and Plavix. Patient was evaluated by PT who recommended acute rehab upon discharge. Patient left AMA. Benefits of staying and risk of leaving were thoroughly explained to the patient. Patient was given prescriptions for ASA, Lipitor, Plavix, HCTZ, Lisinopril, and Metoprolol. He was told to follow up with his PCP , Neurology, Neurointerventional neurology and ID as soon as possible. Relevant Labs: Absolute CD4 Count 1208 HIV-1 RNA Qnt (RT-PCR) Jonathan Brown, PGY-1 - Date & Time of H&P Date of H&P: 08/21/17 Time of H&P: 16:00 Discharge Exam - Head Exam Head Exam: ATRAUMATIC ( ), NORMOCEPHALIC - Eye Exam Eye Exam: EOMI Additional comments: Sluggish lateral gaze - ENT Exam ENT Exam: Mucous Membranes Moist - Neck Exam Neck exam: Full Rom - Respiratory Exam Respiratory Exam: Clear to PA & Lateral. absent: Rales, Rhonchi, Wheezes - Cardiovascular Exam Cardiovascular Exam: RRR, +S1, +S2 - GI/Abdominal Exam GI & Abdominal Exam: Normal Bowel Sounds, Soft. absent: Tenderness - Extremities Exam Additional comments: No Pedal Edema - Neurological Exam Neurological exam: Normal Gait Additional comments: Right Upper Extremity - 0/5 Motor Strength Left Upper Ext, Left/Right Lower Extremity - 5/5 motor strength. - Psychiatric Exam Psychiatric exam: Anxious - Skin Skin Exam: Dry, Intact, Normal Color, Warm Discharge Plan - Discharge Medications Prescriptions: Aspirin [Aspirin Chewable] 81 mg PO DAILY #30 chew Atorvastatin [Lipitor] 40 mg PO DIN #30 tab Clopidogrel [Plavix] 75 mg PO DAILY #30 tab hydroCHLOROthiazide [Hydrodiuril] 25 mg PO DAILY 30 Days tab Lisinopril [Zestril] 20 mg PO DAILY #30 tab Metoprolol Succinate [Toprol XL] 25 mg PO DAILY #30 tab - Follow Up Plan Condition: GUARDED Disposition: AGAINST MEDICAL ADVICE Instructions: Stroke, Stroke (DC) Referrals: PCP,NO [Primary Care Provider] - Clinical Quality Measures - CQM - Stroke Antithrombotic Prescribed: Yes Anticoagulation Prescribed for Atrial Flutter, Atrial Fibrillation and History of:: Yes Statin prescribed: Yes <Rolo Medeiros - Last Filed: 08/22/17 14:35> Provider - Provider Date of Admission: 08/13/17 23:12 Attending physician: Rolo Medeiros MD Primary care physician: NO PRIMARY CARE PROVIDER Hospital Course - Lab Results Lab Results: Micro Results 08/14/17 02:30 Naris MRSA Culture (Admit) - Final MRSA NOT DETECTED Most Recent Lab Values WBC 7.7 10^3/ul (4.5-11.0) 08/21/17 05:45 RBC 5.43 10^6/uL (3.5-6.1) 08/21/17 05:45 Hgb 16.4 g/dL (14.0-18.0) 08/21/17 05:45 Hct 47.8 % (42.0-52.0) 08/21/17 05:45 MCV 88.0 fl (80.0-105.0) 08/21/17 05:45 MCH 30.2 pg (25.0-35.0) 08/21/17 05:45 MCHC 34.3 g/dl (31.0-37.0) 08/21/17 05:45 RDW 13.6 % (11.5-14.5) 08/21/17 05:45 Plt Count 248 10^3/uL (120.0-450.0) 08/21/17 05:45 MPV 10.7 fl (7.0-11.0) 08/21/17 05:45 Gran % 54.9 % (50.0-68.0) 08/21/17 05:45 Lymph % (Auto) 36.4 % (22.0-35.0) H 08/21/17 05:45 [place] % (Auto) 6.8 % (1.0-6.0) H 08/21/17 05:45 Eos % (Auto) 1.4 % (1.5-5.0) L 08/21/17 05:45 Baso % (Auto) 0.5 % (0.0-3.0) 08/21/17 05:45 Gran # 4.20 (1.4-6.5) 08/21/17 05:45 Lymph # (Auto) 2.8 (1.2-3.4) 08/21/17 05:45 [place] # (Auto) 0.5 (0.1-0.6) 08/21/17 05:45 Eos # (Auto) 0.1 (0.0-0.7) 08/21/17 05:45 Baso # (Auto) 0.04 K/mm3 (0.0-2.0) 08/21/17 05:45 PT 12.9 SECONDS (9.4-12.5) H 08/15/17 06:05 INR 1.12 (0.93-1.08) H 08/15/17 06:05 APTT 31.5 Seconds (25.1-36.5) 08/15/17 06:05 Sodium 138 mmol/L (132-148) 08/21/17 05:45 Potassium 3.7 mmol/L (3.6-5.0) 08/21/17 05:45 Chloride 96 mmol/L (98-107) L 08/21/17 05:45 Carbon Dioxide 36 mmol/L (21-33) H 08/21/17 05:45 Anion Gap 10 (10-20) 08/21/17 05:45 BUN 24 mg/dL (7-21) H 08/21/17 05:45 Creatinine 1.1 mg/dl (0.8-1.5) 08/21/17 05:45 Est GFR ( Amer) > 60 08/21/17 05:45 Est GFR (Non-Af Amer) > 60 08/21/17 05:45 POC Glucose (mg/dL) 123 mg/dL (65-110) H 08/17/17 07:36 Random Glucose 154 mg/dL (70-110) H 08/21/17 05:45 Hemoglobin A1c 6.9 % (4.2-6.5) H 08/19/17 07:00 Calcium 10.5 mg/dL (8.4-10.5) 08/21/17 05:45 Phosphorus 3.8 mg/dL (2.5-4.5) 08/16/17 05:30 Magnesium 2.1 mg/dL (1.7-2.2) 08/16/17 05:30 Total Bilirubin 0.9 mg/dL (0.2-1.3) 08/21/17 05:45 AST 51 U/L (17-59) 08/21/17 05:45 ALT 57 U/L (7-56) H 08/21/17 05:45 Alkaline Phosphatase 136 U/L (38-126) H 08/21/17 05:45 Troponin I < 0.01 ng/mL 08/15/17 06:05 Total Protein 8.4 g/dL (5.8-8.3) H 08/21/17 05:45 Albumin 4.3 g/dL (3.0-4.8) 08/21/17 05:45 Globulin 4.2 gm/dL 08/21/17 05:45 Albumin/Globulin Ratio 1.0 (1.1-1.8) L 08/21/17 05:45 Triglycerides 173 mg/dL (35-160) H 08/14/17 08:45 Cholesterol 204 mg/dL (130-200) H 08/14/17 08:45 LDL Cholesterol Direct 132 mg/dL (0-129) H 08/14/17 08:45 HDL Cholesterol 22 mg/dL (29-60) L 08/14/17 08:45 Vitamin B12 322 pg/mL (239-931) 08/14/17 08:45 Folate 15.8 ng/mL 08/14/17 08:45 Homocysteine 7.0 umol/L ( <11.4) 08/14/17 08:45 TSH 3rd Generation 0.81 mIU/mL (0.46-4.68) 08/13/17 22:45 Absolute Lymphs (Flow) 2690 Cells/mcL (850-3900) 08/18/17 05:30 % CD4 Cells 45 Percent (30-61) 08/18/17 05:30 Absolute CD4 Count 1208 Cells/mcL (490-1740) 08/18/17 05:30 T-Help/Suppress Ratio 1.46 Ratio (0.86-5.00) 08/18/17 05:30 % CD8 Cells 31 Percent (12-42) 08/18/17 05:30 Absolute CD8 Count 828 Cells/mcL (180-1170) 08/18/17 05:30 HIV-1 RNA Qnt (RT-PCR) 2.77 (Not Detected) H 08/18/17 05:30 Blood Type A POSITIVE 08/13/17 22:45 Blood Type Confirm A POSITIVE 08/14/17 00:47 Antibody Screen Negative 08/13/17 22:45 BBK History Checked No verified bt 08/13/17 22:45 Attending/Attestation - Attestation I have personally seen and examined this patient.: Yes I have fully participated in the care of the patient.: Yes I have reviewed all pertinent clinical information, including history, physical exam and plan: Yes Notes (Text): Patient left AMA.
[2017-08-21 17:25] VITALS: BP 121/74; PULSE 73; RESP 20; TEMP 97.8
== END 2017-08-21 18:00 | disposition home or self-care (01) | DRG 712 ==
LOC: ED 22:18 → ERH 23:12 → UNDOADMIN 23:18 → ERH 23:18 → ICU 08-14 01:55 → 3RSO 08-17 05:11 → ICU 08-17 05:16 → 3RNO 08-17 09:23
PROVIDERS: ADMIT Internal Medicine; ATTEND Hospitalist
DX: I63.412 Cerebral infarction due to embolism of left middle cerebral artery (principal); B20 Human immunodeficiency virus [HIV] disease; I07.1 Rheumatic tricuspid insufficiency; I10 Essential (primary) hypertension; R47.81 Slurred speech; G81.01 Flaccid hemiplegia affecting right dominant side; R29.810 Facial weakness; R29.723 NIHSS score 23; I27.20 Pulmonary hypertension, unspecified; J45.909 Unspecified asthma, uncomplicated; E78.5 Hyperlipidemia, unspecified; F12.90 Cannabis use, unspecified, uncomplicated; Z87.891 Personal history of nicotine dependence

== ENCOUNTER 2017-11-02 23:39 | Inpatient (IN) | payer MEDICAID ==
[2017-11-02 23:47] VITALS: BMI 28.2
[2017-11-03] MEDS ORDERED: levETIRAcetam 1,500 MG in Sodium Chloride 0.9% 100 ML IV ONE (00:24)
--- NOTE | 2017-11-03 00:40 | ED PDOC ---
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 As per patient and girlfriend at bedside, after AMA discharge from [facility] 2 months prior (AMA'ed as he didn't want to wait for acute rehab), rehabing at home and has continued to have improved right extremity strength, to point of ambulating without issue. Walked home from [facility], went to bed at ~8pm, awoke with twitches at ~9:30pm , and was concerned he was having a new stroke, so he presented to ED. He and girlfriend deny any similar episodes since discharge. Girlfriend states episode only lasted for a few seconds, but then occurred again a few minutes later, also for only a few seconds. Patient and girlfriend deny loss of consciousness, post-ictal period, loss of ambulation after, or confusion. Patient witnessed having several episodes while in ED, able to speak through it , only having some speech difficulties yamini to trying to speak through a stutter. Denies chest pain, shortness of breath, nausea, emesis, fevers, chills , diarrhea, constipation, dysuria, hematuria, focal weakness, loss of consciousness, loss of gait, hemiparesis, or vision changes. Does admit to sensation of dry mouth/thirst, increased PO water intake, and increased urinary frequency for last 3 days. All other ROS in 12-system review negative. PMH: as above PSH: denied FHx: Non-contributory SH: 1 ppd for 20 yrs, social EtOH use (1 beer and 1 shot today, no binging in last week), marijuana use (none used in last 2 days) PMD: Dr. Figueroa Time/Duration: Prior to Arrival (went to sleep at ~8pm, awoke with symptoms at ~ 9:30pm) Past Medical History - Provider Review Nursing Documentation Reviewed: Yes - Cardiac Hx Hypertension: Yes - Pulmonary Hx Asthma: Yes - Neurological HX Cerebrovascular Accident: Yes (3 years ago) - HEENT Hx HEENT Disorder: No - Renal Hx Renal Disorder: No - Endocrine/Metabolic Hx Endocrine Disorders: No - Hematological/Oncological Hx Blood Disorders: No Hx AIDS: No Hx Anemia: No Hx Cancer: No Hx Chemotherapy: No Hx Cirrhosis: No Hx Hepatitis A: No Hx Hepatitis B: No Hx Hepatitis C: No - Integumentary Hx Dermatological Disorder: No - Musculoskeletal/Rheumatological Hx Musculoskeletal Disorders: No Hx Falls: Yes - Gastrointestinal Hx Gastrointestinal Disorders: No - Genitourinary/Gynecological Hx Genitourinary Disorders: No - Psychiatric Hx Psychophysiologic Disorder: No Hx Substance Use: No - Anesthesia Hx Anesthesia: No Family/Social History - Physician Review Nursing Documentation Reviewed: Yes Family/Social History: No Known Family HX Smoking Status: Current Some Days Smoker Hx Alcohol Use: Yes Hx Substance Use: No Allergies/Home Meds Allergies/Adverse Reactions: Allergies Penicillins Allergy (Verified 11/03/17 00:01) ANAPHYLAXIS Review of Systems - Physician Review All systems were reviewed & negative as marked: Yes (as per HPI) - Review of Systems Constitutional: Normal. absent: Fatigue, Fevers, Night Sweats Eyes: Normal. absent: Vision Changes ENT: Normal. absent: Sore Throat, Rhinorrhea, Epistaxis Respiratory: Normal. absent: SOB, Cough, Sputum, Wheezing Cardiovascular: Normal. absent: Chest Pain, Palpitations, Syncope Gastrointestinal: Normal. absent: Abdominal Pain, Nausea, Vomiting Genitourinary Male: Frequency. absent: Normal, Dysuria, Hematuria Musculoskeletal: Normal. absent: Neck Pain Skin: Normal. absent: Rash, Pruritis Neurological: Other (right-sided facial twitches including mouth/eye/gross head movement and shaking of right shoulder and arm, retaining consciousness/speech/ alertness during, no post-ictal period). absent: Headache, Dizziness Endocrine: Polyuria (increased urination x3 days), Polydipsia (increased thirst and PO water intake x3 days). absent: Diaphoresis Physical Exam Vital Signs Reviewed: Yes Vital Signs Temp Pulse Resp BP Pulse Ox 11/03/17 02:46 98.1 F 11/03/17 02:36 85 16 113/76 95 11/02/17 23:43 82 16 107/71 98 Temperature: Afebrile Blood Pressure: Normal Pulse: Regular Respiratory Rate: Normal Appearance: Positive for: Well-Appearing, Non-Toxic, Comfortable Pain Distress: None Mental Status: Positive for: Alert and Oriented X 3 - Systems Exam Head: Present: Atraumatic, Normocephalic, Other (non-conjugate gaze, mild left eye deviation away from midline when gazing forward but peripheral martinez grossly intact on testing). No: Contusion, Ecchymosis, Abrasion, Laceration Pupils: Present: PERRL. No: Pinpoint Extroacular Muscles: Present: EOMI. No: Gaze Palsy, Entrapment Conjunctiva: Present: Normal. No: Injected, Icteric Mouth: Present: Moist Mucous Membranes (drinking water bottle prior to exam), Normal Lips, Normal Tounge, Normal Teeth. No: Dry, Drooling Pharnyx: Present: Normal. No: ERYTHEMA, EXUDATE Nose (External): Present: Atraumatic. No: Abrasion, Laceration Nose (Internal): Present: No Active Bleeding. No: Epistaxis Neck: Present: Normal Range of Motion, Trachea Midline. No: MIDLINE TENDERNESS , JVD Respiratory/Chest: Present: Clear to Auscultation, Good Air Exchange. No: Respiratory Distress, Accessory Muscle Use, Wheezes, Decreased Breath Sounds, Rales, Rhonchi, Tachypneic Cardiovascular: Present: Regular Rate and Rhythm, Normal S1, S2, Peripheal Pulses Present (+2 radial and dorsalis pedis). No: Murmurs, Irregular Rhythm, Tachycardic, Bradycardic Abdomen: Present: Normal Bowel Sounds. No: Tenderness, Distention, Guarding Upper Extremity: Present: Normal Inspection, Normal ROM, NORMAL PULSES. No: Cyanosis, Edema, Tenderness, Swelling, Erythema, Deformity Lower Extremity: Present: Normal Inspection, NORMAL PULSES, Normal ROM. No: Edema, CALF TENDERNESS, Cyanosis, Tenderness, Swelling, Erythema, Deformity Neurological: Present: GCS=15, CN II-XII Intact, Speech Normal, Motor Func Grossly Intact (5/5 strength testing LUE & LLE, 4/4 for RUE and RLE, facial motor symmetric and equal, occular findings as per eye exam), Normal Sensory Function, Other (intermittent witnessed episodes of right-sided twitches involving repetitive rightward motion of whole head, twitching of right eye and right side of mouth, and shaking of right upper extremity, but maintains awake/ alert/oriented state, speech remains intact with some word pronouncement difficulties during episode (yamini to a stutter), no post-ictal period observed, episodes lasting for 30 seconds to 1 minute) Skin: Present: Warm, Dry, Normal Color. No: Rashes Lymphatic: No: Cervical Adenopathy Psychiatric: Present: Alert, Oriented x 3, Normal Insight, Normal Concentration , Normal Affect, Normal Mood Medical Decision Making ED Course and Treatment: 11/03/17 00:21 Ddx: complex-partial seizures vs new stroke -Due to lack of neurological deficit associated with episodes, less likely new stroke, so NOT a Code Stroke, but could be seizures 2/2 prior CVA -Stat Head CT to rule out acute intracranial process -Stat CBC, CMP, Mg, Phos to rule out acute infectious process (claudia given HIV hx ) or metabolic derangement contributing -Not complaining of chest pain, but will obtain trop given hx HTN and HLD, and will obtain EKG 11/03/17 01:17 -CT head negative for acute intracranial process, another twitching episode observed (total 3 observed in ED), so 1.5g Keppra IV ordered -EKG notable for 2mm ST elevation in V3 and 1.5 ST elevation in V2 with reciprocal depressions in II, III, and aVF; reciprocal depression present in prior EKG and appear unchanged; prior ST elevations in V2 and V3 observed but with different morphology. Patient again confirms no chest pain or shortness of breath, still pending trop, but if elevated with call Cardio for assessment of EKG 11/03/17 01:47 -Trop negative x1 -Initial lab-work concerning for Blood glucose > 1200 and K 5.8, but lab reports lipemic and hemolyzed; repeat drawn and lipid panel added on, fingerstick obtained notable for reading > 600, Insulin 10 units SC ordered, 2L NS bolus IV ordered -Repeat labs notable for blood glucose 1075 (after 2.5L NS bolused), K 5.5, and Triglycerides > 1700, Insulin drip started, will also assist with elevated K -JANELL with Cr 1.6 (was 0.9 on last admit) and BUN 40, likely dehydration injury due to elevated blood glucose, more likely HHS than DKA given lack of anion gap -Intesivist called for admission to ICU given insulin drip, discussed with Dr. Medeiros, who agrees with admission to ICU. ICU resident pagelisha and case discussed Patient seen, reviewed, and discussed with attending, Dr. Gao Reassessment Condition: Re-examined - Lab Interpretations Lab Results: 11/03/17 00:06 11/03/17 00:55 Lab Results 11/03/17 02:25: POC Glucose (mg/dL) > 500 H* 11/03/17 01:44: Urine Color Colorless, Urine Appearance Clear, Urine pH 6.0, Ur Specific [place] <= 1.005, Urine Protein Negative, Urine Glucose (UA) >=1000, Urine Ketones Negative, Urine Blood Negative, Urine Nitrate Negative, Urine Bilirubin Negative, Urine Urobilinogen 0.2, Ur Leukocyte Esterase Negative 11/03/17 01:39: POC Glucose (mg/dL) > 500 H* 11/03/17 00:55: Sodium 123 L, Potassium 5.5 H, Chloride 86 L, Carbon Dioxide 25 , Anion Gap 18, BUN 39 H, Creatinine 1.6 H, Est GFR ( Amer) 56, Est GFR ( Non-Af Amer) 46, Random Glucose 1075 H*, Calcium 8.9, Total Bilirubin 0.5, AST 39, ALT 29, Alkaline Phosphatase 137 H, Troponin I < 0.01, Total Protein 7.9, Albumin 4.1, Globulin 3.9, Albumin/Globulin Ratio 1.1, Triglycerides 1760 H, Cholesterol 188, LDL Cholesterol Direct < 30, HDL Cholesterol 21 L 11/03/17 00:55: pO2 18 L, VBG pH 7.26 L, VBG pCO2 61.0 H, VBG HCO3 27.4, VBG Total CO2 29.3 H, VBG O2 Sat (Calc) 33.8 L, VBG Base Excess -1.0 L, VBG Potassium 5.6 H, Glucose 661 H*, Lactate 2.3 H, FiO2 21.0, Sodium 124.0 L, Chloride 84.0 L, Venous Blood Potassium 5.6 H 11/03/17 00:46: POC Glucose (mg/dL) > 500 H* 11/03/17 00:06: TSH 3rd Generation 1.74 11/03/17 00:06: Sodium 122 L, Potassium 5.8 H* D, Chloride 85 L, Carbon Dioxide 23, Anion Gap 20, BUN 40 H, Creatinine 1.6 H, Est GFR ( Amer) 56, Est GFR (Non-Af Amer) 46, Random Glucose 1237 H* D, Calcium 9.3, Phosphorus 4.8 H, Magnesium 2.7 H, Total Bilirubin 1.0, AST 46, ALT 27, Alkaline Phosphatase 138 H , Total Protein 8.3, Albumin 4.3, Globulin 4.0, Albumin/Globulin Ratio 1.1 11/03/17 00:06: WBC 6.6, RBC 5.37, Hgb 16.1, Hct 45.3, MCV 84.4 D, MCH 30.0, MCHC 35.5, RDW 14.7 H, Plt Count 275, Gran % 67.7, Lymph % (Auto) 22.8, Vernon % ( Auto) 7.9 H, Eos % (Auto) 0.8 L, Baso % (Auto) 0.8, Gran # 4.48, Lymph # (Auto) 1.5, Vernon # (Auto) 0.5, Eos # (Auto) 0.1, Baso # (Auto) 0.05 - RAD Interpretation Radiology Orders: 11/03/17 00:16 HEAD W/O CONTRAST [CT] Stat - Medication Orders Current Medication Orders: Sodium Chloride (Sodium Chloride 0.9%) 1,000 mls @ 999 mls/hr IV .Q1H1M STA Stop: 11/03/17 03:04 Last Admin: 11/03/17 02:22 Dose: 999 mls/hr eMAR Start Stop Document 11/03/17 02:22 MS (Rec: 11/03/17 02:22 MS [id number]) Intravenous Solution Start Date 11/03/17 Start Time 01:10 End Date 11/03/17 End time 02:10 Total Infusion Time 60 Sodium Chloride (Sodium Chloride 0.9%) 1,000 mls @ 200 mls/hr IV .Q5H JEROD Last Admin: 11/03/17 02:31 Dose: 200 mls/hr eMAR Start Stop Document 11/03/17 02:31 MS (Rec: 11/03/17 02:32 MS [facility] [id number]) Intravenous Solution Start Date 11/03/17 Start Time 02:31 Sodium Chloride (Sodium Chloride 0.9%) 1,000 mls @ 999 mls/hr IV .Q1H1M STA Stop: 11/03/17 03:06 Last Admin: 11/03/17 02:21 Dose: 999 mls/hr eMAR Start Stop Document 11/03/17 02:21 MS (Rec: 11/03/17 02:21 MS [id number]) Intravenous Solution Start Date 11/03/17 Start Time 01:50 End Date 11/03/17 End time 02:50 Total Infusion Time 60 Insulin Human Regular 100 (units/ Sodium Chloride) 100 mls @ 10 mls/hr IV .Q10H PRN; Protocol; 10 UNITS/HR PRN Reason: TITRATE PER MD ORDER Last Admin: 11/03/17 02:26 Dose: 10 mls/hr eMAR Start Stop Document 11/03/17 02:26 MS (Rec: 11/03/17 02:31 MS [facility]-[id number]) Intravenous Solution Start Date 11/03/17 Start Time 02:30 MAR Blood Glucose Document 11/03/17 02:26 MS (Rec: 11/03/17 02:31 MS [id number]) Blood Glucose Finger Stick Blood Glucose (70-120) 500 Discontinued Medications Levetiracetam 1,500 mg/ Sodium (Chloride) 115 mls @ 460 mls/hr IV ONCE ONE Stop: 11/03/17 00:38 Last Admin: 11/03/17 00:41 Dose: 460 mls/hr eMAR Start Stop Document 11/03/17 00:41 MS (Rec: 11/03/17 00:47 MS [id number]) Intravenous Solution Start Date 11/03/17 Start Time 00:46 End Date 11/03/17 End time 01:01 Total Infusion Time 15 Sodium Chloride (Sodium Chloride 0.9%) 1,000 mls @ 999 mls/hr IV .Q1H1M STA Stop: 11/03/17 01:57 Last Admin: 11/03/17 01:24 Dose: 999 mls/hr eMAR Start Stop Document 11/03/17 01:24 MS (Rec: 11/03/17 01:27 MS [id number]) Intravenous Solution Start Date 11/03/17 Start Time 01:00 End Date 11/03/17 End time 02:00 Total Infusion Time 60 Insulin Human Regular (Humulin R) 10 units SC ONCE ONE Stop: 11/03/17 01:01 Last Admin: 11/03/17 01:22 Dose: 10 units MAR Blood Glucose Document 11/03/17 01:22 MS (Rec: 11/03/17 01:23 MS [id number]) Blood Glucose Finger Stick Blood Glucose (70-120) 500 Subcutaneous Administrations Document 11/03/17 01:22 MS (Rec: 11/03/17 01:23 MS [facility]-[id number]) Injection Site MAR Injection Site Left Deltoid Charges for Administration # of Subcutaneous Administrations 1 Disposition/Present on Arrival - Present on Arrival Any Indicators Present on Arrival: No History of DVT/PE: No History of Uncontrolled Diabetes: No Urinary Catheter: No History of Decub. Ulcer: No History Surgical Site Infection Following: None - Disposition Have Diagnosis and Disposition been Completed?: Yes Diagnosis: Hypertriglyceridemia, Hyperglycemic hyperosmolar nonketotic coma Disposition: HOSPITALIZED Disposition Time: 03:55 Patient Plan: Admission, ICU Condition: SERIOUS Forms: [employer] ([place])
[2017-11-03 00:52] LABS: ALB/GLOB RATIO 1.1 (1.1-1.8); ALBUMIN 4.3 g/dL (3.0-4.8); CALCIUM 9.3 mg/dL (8.4-10.5)
[2017-11-03 00:57] LABS: HEMOGLOBIN 16.1 g/dL (14.0-18.0); MEAN CELL VOLUME 84.4 fl (80.0-105.0); RBC 5.37 10^6/uL (3.5-6.1); WHITE BLOOD COUNT 6.6 10^3/ul (4.5-11.0)
[2017-11-03] MEDS ORDERED: Sodium Chloride 0.9% 1,000 ML IV STA ×3 (00:57→02:06)
[2017-11-03 00:58] LABS: BASO % 0.8 % (0.0-3.0); EOS % 0.8 % (1.5-5.0); GRAN # 4.48 (1.4-6.5); GRAN % 67.7 % (50.0-68.0); LYMPH # 1.5 (1.2-3.4); LYMPH % 22.8 % (22.0-35.0); MEAN CORPUSCULAR HGB CONC 35.5 g/dl (31.0-37.0); MONO # 0.5 (0.1-0.6); MONO % 7.9 % (1.0-6.0); RED CELL DISTRIBUTION WIDTH 14.7 % (11.5-14.5)
[2017-11-03 00:59] LABS: BASO # 0.05 K/mm3 (0.0-2.0); EOS # 0.1 (0.0-0.7)
[2017-11-03] MEDS ORDERED: Insulin Regular 1 UNITS/0.01 ML ML SC ONE (01:00)
[2017-11-03 01:01] LABS: PLATELET COUNT 275 10^3/uL (120.0-450.0)
[2017-11-03 01:13] LABS: VENOUS BLOOD GAS PO2 18 mm/Hg (30-55); VENOUS BLOOD PH 7.26 (7.32-7.43)
[2017-11-03 02:04] LABS: TROPONIN I < 0.01 ng/mL
[2017-11-03 02:08] LABS: ALB/GLOB RATIO 1.1 (1.1-1.8); ALBUMIN 4.1 g/dL (3.0-4.8); ALT/SGPT 29 U/L (7-56); AST/SGOT 39 U/L (17-59); BLOOD UREA NITROGEN 39 mg/dL (7-21); CALCIUM 8.9 mg/dL (8.4-10.5); GFR AFRICAN-AMERICAN 56; GFR NON-AFRICAN AMERICAN 46; HDL CHOLESTEROL 21 mg/dL (29-60); LDL CHOLESTEROL < 30 mg/dL (0-129)
[2017-11-03] MEDS ORDERED: Sodium Chloride 0.9% 1,000 ML IV SCH (02:15)
[2017-11-03 02:16] LABS: URINE BILIRUBIN NEGATIVE (NEGATIVE); URINE BLOOD NEGATIVE (NEGATIVE); URINE GLUCOSE (UA) >=1000 mg/dL (NEGATIVE); URINE LEUKOCYTE ESTERASE NEGATIVE Leu/uL (NEGATIVE); URINE PROTEIN NEGATIVE mg/dL (<30 mg/dL); URINE UROBILINOGEN 0.2 E.U./dL (<1 E.U./dL)
[2017-11-03 02:22] LABS: URINE APPEARANCE CLEAR (CLEAR); URINE COLOR COLORLESS (YELLOW)
[2017-11-03] MEDS: Insulin Regular 100 UNITS in Sodium Chloride 0.9% 99 ML IV PRN ×3 (02:26→10:09)
--- NOTE | 2017-11-03 03:49 | CP.PCM.HP ---
History of Present Illness - History of Present Illness History of Present Illness: PGY-[address] 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 Today, after 2 shots of alcohol, pt went to [facility] for a milk shake, went back home to sleep at 8pm, and suddenly found his "head shaking" which awoke him at 9:30pm. His girlfriend witnessed the head shaking as well. She states each shaking episodes only lasted for a few seconds , but then occurred again a few minutes later, also for only a few seconds. Pt did not lose consciousness, no tongue biting, no foaming in mouth, no bowel/ bladder incontinence. This has never happened before. Pt was concerned about a potential stroke, so he went to the ED. In the ED, ED resident witnessed 3 more shaking episodes, each lasted less than 30 seconds, self-resolved without any Ativan given. ED resident observed that pt's head was bobbing, R sided of face twitching, R side of shoulder twitching. Pt talked through the shaking episodes , stuttering. Pt was somnolent. He received 1g Keppra in the ED. 2 months ago, he was admitted to [facility] for a second stroke at L temporal/L frontal , s/p TPA, left AMA. He claimed that he rehab at home, R extremity strength improves, ambulate independently without assist. ROS: (+) polyuria (+) polydipsia (+) dry mouth Deny loss of consciousness, post-ictal period, loss of ambulation after, or confusion. Denies recent sickness, substance use Denies SCOTT, change of vision, fever, chills, chest pain, shortness of breath, nausea, emesis, diarrhea, constipation, dysuria, hematuria, focal weakness, loss of consciousness, loss of gait, worsening hemiparesis. In the ED, he was foung to have hyperglycemia at 1075. triglyceride at 1760. Insulin gtt started. 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) Asthma, active smoker Diabetes DM2, A1C 6.9 (August 2017) Surg: denied FHx: Non-contributory SH: 1 ppd for 20 yrs, social EtOH use, marijuana use All: NKDA MEd: Toprol XL 25 HCTZ 25 Lisinopril 20 Plavix 75 Lipitor 40 ASA 81 Pharmacy: [place], [place] Present on Admission - Present on Admission Any Indicators Present on Admission: Yes History of Uncontrolled Diabetes: Yes Past Patient History - Past Social History Smoking Status: Current Some Days Smoker - CARDIAC Hx Hypertension: Yes - PULMONARY Hx Asthma: Yes - NEUROLOGICAL HX Cerebrovascular Accident: Yes (3 years ago) - HEENT Hx HEENT Problems: No - RENAL Hx Chronic Kidney Disease: No - ENDOCRINE/METABOLIC Hx Endocrine Disorders: No - HEMATOLOGICAL/ONCOLOGICAL Hx Blood Disorders: No Hx AIDS: No Hx Anemia: No Hx Cancer: No Hx Chemotherapy: No Hx Cirrhosis: No Hx Hepatitis A: No Hx Hepatitis B: No Hx Hepatitis C: No - INTEGUMENTARY Hx Dermatological Problems: No - MUSCULOSKELETAL/RHEUMATOLOGICAL Hx Musculoskeletal Disorders: No Hx Falls: Yes - GASTROINTESTINAL Hx Gastrointestinal Disorders: No - GENITOURINARY/GYNECOLOGICAL Hx Genitourinary Disorders: No - PSYCHIATRIC Hx Psychophysiologic Disorder: No Hx Substance Use: No - SURGICAL HISTORY Hx Surgeries: No - ANESTHESIA Hx Anesthesia: No Meds Allergies/Adverse Reactions: Allergies Allergy/AdvReac Type Severity Reaction Status Date / Time Penicillins Allergy ANAPHYLAXIS Verified 11/03/17 00:01 Physical Exam - Constitutional Appears: No Acute Distress Additional comments: Lethargic. easily awaken - Head Exam Head Exam: ATRAUMATIC, NORMAL INSPECTION, NORMOCEPHALIC - Eye Exam Eye Exam: EOMI, Normal appearance, PERRL. absent: Scleral icterus Pupil Exam: NORMAL ACCOMODATION - ENT Exam ENT Exam: Mucous Membranes Moist - Neck Exam Additional comments: supple - Respiratory Exam Respiratory Exam: Clear to Auscultation Bilateral. absent: Rales, Rhonchi, Wheezes - Cardiovascular Exam Cardiovascular Exam: REGULAR RHYTHM, +S1, +S2 - GI/Abdominal Exam GI & Abdominal Exam: Normal Bowel Sounds, Soft. absent: Distended, Guarding, Rigid - Extremities Exam Extremities exam: Positive for: pedal pulses present. Negative for: calf tenderness, pedal edema - Neurological Exam Neurological exam: CN II-XII Intact, Oriented x3 Additional comments: Speech normal Motor 5/5 except RUE 4/5 Sensation diminish RUE with numbness finger to nose - overshoot R hand rapid-alternating movement - intact - Psychiatric Exam Psychiatric exam: Normal Affect, Normal Mood - Skin Skin Exam: Dry, Warm Results - Vital Signs Recent Vital Signs: Last Vital Signs Temp 98.1 F 11/03/17 02:46 Pulse 85 11/03/17 02:36 Resp 16 11/03/17 02:36 BP 113/76 11/03/17 02:36 Pulse Ox 95 11/03/17 02:36 - Labs Result Diagrams: 11/03/17 00:06 11/03/17 00:55 Labs: Laboratory Results - last 24 hr 11/03/17 11/03/17 11/03/17 00:06 00:06 00:06 WBC 6.6 RBC 5.37 Hgb 16.1 Hct 45.3 MCV 84.4 D MCH 30.0 MCHC 35.5 RDW 14.7 H Plt Count 275 Gran % 67.7 Lymph % (Auto) 22.8 [place] % (Auto) 7.9 H Eos % (Auto) 0.8 L Baso % (Auto) 0.8 Gran # 4.48 Lymph # (Auto) 1.5 [place] # (Auto) 0.5 Eos # (Auto) 0.1 Baso # (Auto) 0.05 pO2 VBG pH VBG pCO2 VBG HCO3 VBG Total CO2 VBG O2 Sat (Calc) VBG Base Excess VBG Potassium Glucose Lactate FiO2 Sodium 122 L Potassium 5.8 H* D Chloride 85 L Carbon Dioxide 23 Anion Gap 20 BUN 40 H Creatinine 1.6 H Est GFR ( Amer) 56 Est GFR (Non-Af Amer) 46 POC Glucose (mg/dL) Random Glucose 1237 H* D Calcium 9.3 Phosphorus 4.8 H Magnesium 2.7 H Total Bilirubin 1.0 AST 46 ALT 27 Alkaline Phosphatase 138 H Troponin I Total Protein 8.3 Albumin 4.3 Globulin 4.0 Albumin/Globulin Ratio 1.1 Triglycerides Cholesterol LDL Cholesterol Direct HDL Cholesterol TSH 3rd Generation 1.74 Venous Blood Potassium Urine Color Urine Appearance Urine pH Ur Specific [place] Urine Protein Urine Glucose (UA) Urine Ketones Urine Blood Urine Nitrate Urine Bilirubin Urine Urobilinogen Ur Leukocyte Esterase 11/03/17 11/03/17 11/03/17 00:46 00:55 00:55 WBC RBC Hgb Hct MCV MCH MCHC RDW Plt Count Gran % Lymph % (Auto) [place] % (Auto) Eos % (Auto) Baso % (Auto) Gran # Lymph # (Auto) [place] # (Auto) Eos # (Auto) Baso # (Auto) pO2 18 L VBG pH 7.26 L VBG pCO2 61.0 H VBG HCO3 27.4 VBG Total CO2 29.3 H VBG O2 Sat (Calc) 33.8 L VBG Base Excess -1.0 L VBG Potassium 5.6 H Glucose 661 H* Lactate 2.3 H FiO2 21.0 Sodium 124.0 L 123 L Potassium 5.5 H Chloride 84.0 L 86 L Carbon Dioxide 25 Anion Gap 18 BUN 39 H Creatinine 1.6 H Est GFR ( Amer) 56 Est GFR (Non-Af Amer) 46 POC Glucose (mg/dL) > 500 H* Random Glucose 1075 H* Calcium 8.9 Phosphorus Magnesium Total Bilirubin 0.5 AST 39 ALT 29 Alkaline Phosphatase 137 H Troponin I < 0.01 Total Protein 7.9 Albumin 4.1 Globulin 3.9 Albumin/Globulin Ratio 1.1 Triglycerides 1760 H Cholesterol 188 LDL Cholesterol Direct < 30 HDL Cholesterol 21 L TSH 3rd Generation Venous Blood Potassium 5.6 H Urine Color Urine Appearance Urine pH Ur Specific [place] Urine Protein Urine Glucose (UA) Urine Ketones Urine Blood Urine Nitrate Urine Bilirubin Urine Urobilinogen Ur Leukocyte Esterase 11/03/17 11/03/17 11/03/17 01:39 01:44 02:25 WBC RBC Hgb Hct MCV MCH MCHC RDW Plt Count Gran % Lymph % (Auto) [place] % (Auto) Eos % (Auto) Baso % (Auto) Gran # Lymph # (Auto) [place] # (Auto) Eos # (Auto) Baso # (Auto) pO2 VBG pH VBG pCO2 VBG HCO3 VBG Total CO2 VBG O2 Sat (Calc) VBG Base Excess VBG Potassium Glucose Lactate FiO2 Sodium Potassium Chloride Carbon Dioxide Anion Gap BUN Creatinine Est GFR ( Amer) Est GFR (Non-Af Amer) POC Glucose (mg/dL) > 500 H* > 500 H* Random Glucose Calcium Phosphorus Magnesium Total Bilirubin AST ALT Alkaline Phosphatase Troponin I Total Protein Albumin Globulin Albumin/Globulin Ratio Triglycerides Cholesterol LDL Cholesterol Direct HDL Cholesterol TSH 3rd Generation Venous Blood Potassium Urine Color Colorless Urine Appearance Clear Urine pH 6.0 Ur Specific [place] <= 1.005 Urine Protein Negative Urine Glucose (UA) >=1000 Urine Ketones Negative Urine Blood Negative Urine Nitrate Negative Urine Bilirubin Negative Urine Urobilinogen 0.2 Ur Leukocyte Esterase Negative 11/03/17 03:14 WBC RBC Hgb Hct MCV MCH MCHC RDW Plt Count Gran % Lymph % (Auto) [place] % (Auto) Eos % (Auto) Baso % (Auto) Gran # Lymph # (Auto) [place] # (Auto) Eos # (Auto) Baso # (Auto) pO2 VBG pH VBG pCO2 VBG HCO3 VBG Total CO2 VBG O2 Sat (Calc) VBG Base Excess VBG Potassium Glucose Lactate FiO2 Sodium Potassium Chloride Carbon Dioxide Anion Gap BUN Creatinine Est GFR ( Amer) Est GFR (Non-Af Amer) POC Glucose (mg/dL) > 500 H* Random Glucose Calcium Phosphorus Magnesium Total Bilirubin AST ALT Alkaline Phosphatase Troponin I Total Protein Albumin Globulin Albumin/Globulin Ratio Triglycerides Cholesterol LDL Cholesterol Direct HDL Cholesterol TSH 3rd Generation Venous Blood Potassium Urine Color Urine Appearance Urine pH Ur Specific [place] Urine Protein Urine Glucose (UA) Urine Ketones Urine Blood Urine Nitrate Urine Bilirubin Urine Urobilinogen Ur Leukocyte Esterase Assessment & Plan - Assessment and Plan (Free Text) Plan: Mr Brandt, 47 AA M with PMH of HIV, asthma/smoker, HTN, HLD, DM, and CVA x 2 (L temporal/L frontal, 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 In the ED, he was foung to have hyperglycemia at 1075. triglyceride at 1760. Insulin gtt started. Vbg lactate 2.3. Na corrected to hyperglycemia is 139. K 5.5. BUN 39/Cre 1.6 (baseline 1). CT head compared with 08/15/17 showed no acute intracranial hemorrahge, midline shift, or mass effect. L high frontal and parietal encephalomalacia unchanged. A: Hyperosmolar hyperglycemic state - r/o infection, ischemia, iatrogenic causes JANELL likely due to dehydration from HHS Possible seizure likely from electrolyte abnormality (HHS/JANELL) vs encephalomalacia from prior strokes Hypertriglyceridemia, likely due to overweight, alcohol use, uncontrolled diabetes mellitus Elevated lactate DM2 HIV, last CD4 1200 (08/18/17), on Genvoya until 3 months ago Penicillin allergy Hx CVA x 2 (L temporal/L frontal, 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 Neuro - pending UDS, CHELLE - seizure precaution - follow up CPK to r/o rhabdomyolysis - s/p Keppra 1g at midnight - Keppra 250mg BID for now, pending neuro rec - Continue Plavix and ASA. Pls confirm with neuro whether ASA or plavix for stroke prevention - F/u with neuro re: repeat head CT vs MRI head/ CTA Pulm Maintain SaO2 above 92% Card Hold home HCTZ 25, Lisinopril 20 - JANELL Continue Toprol XL 25 Continue lipitor Trops negative x 1 GI NPO except meds Follow up Amylase, lipase No abdominal pain NS@200 Monitor electrolytes Endo Insulin gtt Accu q1, BMP q4, lipid panel q8, D5/NS@200 since sugar 260s After JANELL resolve, may add fenofibrate or gemfibrozil TSH normal Follow up on a1c Heme No active issue Infectious Pending HIV viral load and CD4 count Follow up on blood and urine culture Prophylaxis Protonix, Heparin Consult Dr Yoon, endo Dr De La Rosa, s/r/d/w Dr. Medeiros
[2017-11-03 05:02] LABS: VENOUS BLOOD GAS PO2 65 mm/Hg (30-55); VENOUS BLOOD PH 7.37 (7.32-7.43)
[2017-11-03 05:29] LABS: BASO # 0.02 K/mm3 (0.0-2.0); BASO % 0.3 % (0.0-3.0); EOS # 0.1 (0.0-0.7); EOS % 0.7 % (1.5-5.0); GRAN # 4.03 (1.4-6.5); GRAN % 53.3 % (50.0-68.0); LYMPH % 39.9 % (22.0-35.0); MEAN CORPUSCULAR HEMOGLOBIN 29.4 pg (25.0-35.0); MEAN CORPUSCULAR HGB CONC 36.4 g/dl (31.0-37.0); MEAN PLATELET VOLUME 11.7 fl (7.0-11.0); MONO # 0.4 (0.1-0.6); MONO % 5.8 % (1.0-6.0); RBC 5.11 10^6/uL (3.5-6.1); RED CELL DISTRIBUTION WIDTH 13.5 % (11.5-14.5); WHITE BLOOD COUNT 7.6 10^3/ul (4.5-11.0)
[2017-11-03 05:32] LABS: MEAN CELL VOLUME 80.6 fl (80.0-105.0)
[2017-11-03] MEDS: Dextrose 5%/0.9% NS 1,000 ML IV SCH ×4 (05:34→23:25)
[2017-11-03] MEDS: Pantoprazole 40 mg EC Tab PO SCH (05:35)
[2017-11-03] MEDS ORDERED: Insulin Detemir 100 units/ml Vial (Levemir) SC ONE (06:15)
[2017-11-03 06:49] LABS: ALBUMIN 3.8 g/dL (3.0-4.8); ALT/SGPT 31 U/L (7-56); AMYLASE 61 U/L (35-125); AST/SGOT 28 U/L (17-59); BLOOD UREA NITROGEN 29 mg/dL (7-21); CALCIUM 9.2 mg/dL (8.4-10.5); GFR AFRICAN-AMERICAN > 60; GFR NON-AFRICAN AMERICAN > 60; HDL CHOLESTEROL 20 mg/dL (29-60); LDL CHOLESTEROL < 30 mg/dL (0-129); LIPASE 357 U/L (23-300)
[2017-11-03] MEDS ORDERED: Insulin Reg-MEDIUM-Coverage SC SCH (07:30)
--- NOTE | 2017-11-03 08:31 | RAD ---
HISTORY: [facility] COMPARISON: 08/13/2017 FINDINGS: LUNGS: No active pulmonary disease. PLEURA: No significant pleural effusion identified, no pneumothorax apparent. CARDIOVASCULAR: Normal. OSSEOUS STRUCTURES: No significant abnormalities. VISUALIZED UPPER ABDOMEN: Normal. OTHER FINDINGS: None. IMPRESSION: No active disease.
[2017-11-03 08:56] LABS: CALCIUM 8.4 mg/dL (8.4-10.5); GFR AFRICAN-AMERICAN > 60; GFR NON-AFRICAN AMERICAN > 60
[2017-11-03 08:59] LABS: BLOOD UREA NITROGEN 26 mg/dL (7-21)
--- NOTE | 2017-11-03 09:21 | CARD ---
APPROVED REPORT EKG Measurement Heart [id number] <Conclusion> Normal sinus rhythm Minimal voltage criteria for LVH, may be normal variant T wave abnormality, consider inferior ischemia Abnormal ECG
--- NOTE | 2017-11-03 09:33 | CT ---
PROCEDURE: CT HEAD WITHOUT CONTRAST. HISTORY: acute onset gross right-sided twiches s/p CVA COMPARISON: 08/15/2017 TECHNIQUE: Axial computed tomography images were obtained through the head/brain without intravenous contrast. Radiation dose: Total exam DLP = 876 mGy-cm. This CT exam was performed using one or more of the following dose reduction techniques: Automated exposure control, adjustment of the mA and/or kV according to patient size, and/or use of iterative reconstruction technique. FINDINGS: HEMORRHAGE: No intracranial hemorrhage. BRAIN: No mass effect or edema. Chronic infarcts are seen in the left temporal lobe and the left posterior frontal lobe. These have become more well defined and hypodense since the previous exam. VENTRICLES: Unremarkable. No hydrocephalus. CALVARIUM: Unremarkable. PARANASAL SINUSES: Unremarkable as visualized. No significant inflammatory changes. MASTOID AIR CELLS: Unremarkable as visualized. No inflammatory changes. OTHER FINDINGS: The report concurs with the preliminary [facility] report IMPRESSION: Chronic infarcts are seen in the left temporal lobe and the left posterior frontal lobe. These have become more well defined and hypodense since the previous exam. No acute intracranial findings
[2017-11-03] MEDS ORDERED: Potassium Chloride 40 mEq/30 ml LIQ UD PO ONE (09:50)
[2017-11-03] MEDS: Metoprolol Succinate 25 mg XL Tab PO SCH (09:59)
[2017-11-03] MEDS: Multivitamin With Minerals Tab PO SCH (10:18)
[2017-11-03 10:55] LABS: BARBITURATES, UR NEGATIVE (NEGATIVE); BENZODIAZEPINES, UR NEGATIVE (NEGATIVE); OPIATES, UR NEGATIVE (NEGATIVE); PHENCYCLIDINE, UR NEGATIVE (NEGATIVE)
--- NOTE | 2017-11-03 11:21 | CP.CCUPN ---
<BonitaRafa - Last Filed: 11/03/17 12:46> CCU Subjective - Physician Review Events Since Last Encounter (Free Text): 11/03/17 08:45 Patient seen and examined at bedside. Patient presented overnight with HHS and concern for seizures. Patient has no complaints this morning and is resting comfortably. CCU Objective - Vital Signs / Intake & Output Vital Signs (Last 4 hours): Vital Signs Pulse Resp BP Pulse Ox 11/03/17 11:10 71 20 97 11/03/17 11:00 70 20 110/56 L 96 11/03/17 10:50 72 17 97 11/03/17 10:40 75 17 94 L 11/03/17 10:30 76 19 93 L 11/03/17 10:20 71 18 96 11/03/17 10:10 77 18 96 11/03/17 10:01 122/70 11/03/17 09:59 90 126/68 11/03/17 09:55 78 14 98 11/03/17 09:50 78 29 H 99 11/03/17 09:40 83 14 98 11/03/17 09:30 79 19 97 11/03/17 09:20 76 19 96 11/03/17 09:10 76 19 96 11/03/17 09:00 76 20 126/68 95 11/03/17 08:50 78 19 96 11/03/17 08:40 74 18 98 11/03/17 08:30 73 20 96 11/03/17 08:20 73 18 96 11/03/17 08:10 74 17 96 11/03/17 08:00 77 18 124/63 94 L 11/03/17 07:50 75 18 95 11/03/17 07:40 74 18 95 11/03/17 07:30 74 19 95 11/03/17 07:20 71 18 94 L Intake and Output (Last 8hrs): Intake & Output 11/02/17 11/03/17 11/03/17 22:59 06:59 14:59 Intake Total 300 Output Total 100 Balance 200 Intake: IV 200 d5/0.9 200 Oral 100 Output: Urine 100 Urine, Voided 100 Other: Voiding Method Urinal - Physical Exam Head: Positive for: Atraumatic, Normocephalic, Other (non-conjugate gaze, mild left eye deviation away from midline when gazing forward but peripheral martinez grossly intact on testing). Negative for: Contusion, Ecchymosis, Abrasion, Laceration Pupils: Positive for: PERRL. Negative for: Pinpoint Extroacular Muscles: Positive for: EOMI. Negative for: Gaze Palsy, Entrapment Conjunctiva: Positive for: Normal. Negative for: Injected, Icteric Mouth: Positive for: Moist Mucous Membranes (drinking water bottle prior to exam ), Normal Lips, Normal Tounge, Normal Teeth. Negative for: Dry, Drooling Pharnyx: Positive for: Normal. Negative for: ERYTHEMA, EXUDATE Nose (External): Positive for: Atraumatic. Negative for: Abrasion, Laceration Nose (Internal): Positive for: No Active Bleeding. Negative for: Epistaxis Neck: Positive for: Normal Range of Motion, Trachea Midline. Negative for: MIDLINE TENDERNESS, JVD Respiratory/Chest: Positive for: Clear to Auscultation, Good Air Exchange. Negative for: Respiratory Distress, Accessory Muscle Use, Wheezes, Decreased Breath Sounds, Rales, Rhonchi, Tachypneic Cardiovascular: Positive for: Regular Rate and Rhythm, Normal S1, S2, Peripheal Pulses Present (+2 radial and dorsalis pedis). Negative for: Murmurs, Irregular Rhythm, Tachycardic, Bradycardic Abdomen: Positive for: Normal Bowel Sounds. Negative for: Tenderness, Distention, Guarding Upper Extremity: Positive for: Normal Inspection, Normal ROM, NORMAL PULSES. Negative for: Cyanosis, Edema, Tenderness, Swelling, Erythema, Deformity Lower Extremity: Positive for: Normal Inspection, NORMAL PULSES, Normal ROM. Negative for: Edema, CALF TENDERNESS, Cyanosis, Tenderness, Swelling, Erythema, Deformity Neurological: Positive for: GCS=15, CN II-XII Intact, Speech Normal, Motor Func Grossly Intact (5/5 strength testing LUE & LLE, 4/4 for RUE and RLE, facial motor symmetric and equal, occular findings as per eye exam), Normal Sensory Function, Other (intermittent witnessed episodes of right-sided twitches involving repetitive rightward motion of whole head, twitching of right eye and right side of mouth, and shaking of right upper extremity, but maintains awake/ alert/oriented state, speech remains intact with some word pronouncement difficulties during episode (yamini to a stutter), no post-ictal period observed, episodes lasting for 30 seconds to 1 minute) Skin: Positive for: Warm, Dry, Normal Color. Negative for: Rashes Lymphatic: Negative for: Cervical Adenopathy Psychiatric: Positive for: Alert, Oriented x 3, Normal Insight, Normal Concentration, Normal Affect, Normal Mood - Medications Active Medications: Active Medications Generic Name Dose Route Start Last Admin Trade Name Freq PRN Reason Stop Dose Admin Aspirin 81 mg 11/03/17 10:00 11/03/17 09:59 Aspirin Chewable PO 81 mg DAILY JEROD Administration Atorvastatin Calcium 40 mg 11/03/17 17:00 Lipitor PO DIN JEROD Clopidogrel Bisulfate 75 mg 11/03/17 10:00 11/03/17 10:00 Plavix PO 75 mg DAILY JEROD Administration Fenofibrate 145 mg 11/03/17 10:00 11/03/17 09:59 Tricor PO 145 mg DAILY JEROD Administration Folic Acid 1 mg 11/03/17 10:00 11/03/17 10:00 Folic Acid PO 1 mg DAILY JEROD Administration Heparin Sodium (Porcine) 5,000 units 11/03/17 06:00 11/03/17 05:34 Heparin SC 5,000 units Q8 JEROD Administration Protocol Dextrose/Sodium Chloride 1,000 mls @ 200 mls/hr 11/03/17 05:15 11/03/17 10:15 Dextrose 5%/0.9% Ns 1000 Ml IV 200 mls/hr .Q5H JEROD Administration Insulin Human Regular 100 100 mls @ 1 mls/hr 11/03/17 09:43 11/03/17 10:09 units/ Sodium Chloride IV 1 units/hr .Q24H PRN 1 mls/hr TITRATE PER MD ORDER Administration Protocol 1 UNITS/HR Levetiracetam 250 mg 11/03/17 10:00 11/03/17 09:59 Keppra PO 250 mg BID JEROD Administration Lisinopril 20 mg 11/03/17 10:00 Zestril PO DAILY [facility] Metoprolol Succinate 25 mg 11/03/17 10:00 11/03/17 09:59 Toprol Xl PO 25 mg DAILY JEROD Administration Multivitamins/Minerals 1 tab 11/03/17 09:45 11/03/17 10:18 Therapeutic-M Tab PO 1 tab 0800 JEROD Administration Pantoprazole Sodium 40 mg 11/03/17 06:00 11/03/17 05:35 Protonix Ec Tab PO 40 mg 0600 JEROD Administration Thiamine HCl 100 mg 11/03/17 10:00 11/03/17 09:59 Vitamin B1 Tab PO 100 mg DAILY JEROD Administration - Patient Studies Lab Studies: Lab Studies 11/03/17 11/03/17 11/03/17 Range/Units 10:15 09:31 08:30 WBC (4.5-11.0) 10^3/ul RBC (3.5-6.1) 10^6/uL Hgb (14.0-18.0) g/dL Hct (42.0-52.0) % MCV (80.0-105.0) fl MCH (25.0-35.0) pg MCHC (31.0-37.0) g/dl RDW (11.5-14.5) % Plt Count (120.0-450.0) 10^3/uL MPV (7.0-11.0) fl Gran % (50.0-68.0) % Lymph % (Auto) (22.0-35.0) % Anson % (Auto) (1.0-6.0) % Eos % (Auto) (1.5-5.0) % Baso % (Auto) (0.0-3.0) % Gran # (1.4-6.5) Lymph # (Auto) (1.2-3.4) Anson # (Auto) (0.1-0.6) Eos # (Auto) (0.0-0.7) Baso # (Auto) (0.0-2.0) K/mm3 pO2 (30-55) mm/Hg VBG pH (7.32-7.43) VBG pCO2 (40-60) VBG HCO3 (21-28) mmol/l VBG Total CO2 (22-28) mmol.L VBG O2 Sat (Calc) (40-65) % VBG Base Excess (0.0-2.0) mmol/L VBG Potassium (3.6-5.2) mmol/L Sodium 135 (132-148) mmol/L Chloride 103 (98-107) mmol/L Glucose (75-110) mg/dl Lactate (0.7-2.1) mmol/L FiO2 % Potassium 3.9 (3.6-5.0) mmol/L Carbon Dioxide 22 (21-33) mmol/L Anion Gap 14 (10-20) BUN 26 H (7-21) mg/dL Creatinine 1.1 (0.8-1.5) mg/dl Est GFR ( Amer) > 60 Est GFR (Non-Af Amer) > 60 POC Glucose (mg/dL) 269 H (65-110) mg/dL Random Glucose 273 H (70-110) mg/dL Calcium 8.4 (8.4-10.5) mg/dL Total Bilirubin (0.2-1.3) mg/dL AST (17-59) U/L ALT (7-56) U/L Alkaline Phosphatase (38-126) U/L Total Creatine Kinase (35-230) U/L Total Protein (5.8-8.3) g/dL Albumin (3.0-4.8) g/dL Globulin gm/dL Albumin/Globulin Ratio (1.1-1.8) Triglycerides (35-160) mg/dL Cholesterol (130-200) mg/dL LDL Cholesterol Direct (0-129) mg/dL HDL Cholesterol (29-60) mg/dL Amylase (35-125) U/L Lipase (23-300) U/L Venous Blood Potassium (3.6-5.2) mmol/L Urine Opiates Screen Negative (NEGATIVE) Urine Methadone Screen Negative (NEGATIVE) Ur Barbiturates Screen Negative (NEGATIVE) Ur Phencyclidine Scrn Negative (NEGATIVE) Ur Amphetamines Screen Negative (NEGATIVE) U Benzodiazepines Scrn Negative (NEGATIVE) U Oth Cocaine Metabols Negative (NEGATIVE) U Cannabinoids Screen Negative (NEGATIVE) Alcohol, Quantitative (0-10) mg/dL 11/03/17 11/03/17 11/03/17 Range/Units 06:56 05:56 04:59 WBC (4.5-11.0) 10^3/ul RBC (3.5-6.1) 10^6/uL Hgb (14.0-18.0) g/dL Hct (42.0-52.0) % MCV (80.0-105.0) fl MCH (25.0-35.0) pg MCHC (31.0-37.0) g/dl RDW (11.5-14.5) % Plt Count (120.0-450.0) 10^3/uL MPV (7.0-11.0) fl Gran % (50.0-68.0) % Lymph % (Auto) (22.0-35.0) % Anson % (Auto) (1.0-6.0) % Eos % (Auto) (1.5-5.0) % Baso % (Auto) (0.0-3.0) % Gran # (1.4-6.5) Lymph # (Auto) (1.2-3.4) Anson # (Auto) (0.1-0.6) Eos # (Auto) (0.0-0.7) Baso # (Auto) (0.0-2.0) K/mm3 pO2 (30-55) mm/Hg VBG pH (7.32-7.43) VBG pCO2 (40-60) VBG HCO3 (21-28) mmol/l VBG Total CO2 (22-28) mmol.L VBG O2 Sat (Calc) (40-65) % VBG Base Excess (0.0-2.0) mmol/L VBG Potassium (3.6-5.2) mmol/L Sodium (132-148) mmol/L Chloride (98-107) mmol/L Glucose (75-110) mg/dl Lactate (0.7-2.1) mmol/L FiO2 % Potassium (3.6-5.0) mmol/L Carbon Dioxide (21-33) mmol/L Anion Gap (10-20) BUN (7-21) mg/dL Creatinine (0.8-1.5) mg/dl Est GFR ( Amer) Est GFR (Non-Af Amer) POC Glucose (mg/dL) 250 H 219 H 264 H (65-110) mg/dL Random Glucose (70-110) mg/dL Calcium (8.4-10.5) mg/dL Total Bilirubin (0.2-1.3) mg/dL AST (17-59) U/L ALT (7-56) U/L Alkaline Phosphatase (38-126) U/L Total Creatine Kinase (35-230) U/L Total Protein (5.8-8.3) g/dL Albumin (3.0-4.8) g/dL Globulin gm/dL Albumin/Globulin Ratio (1.1-1.8) Triglycerides (35-160) mg/dL Cholesterol (130-200) mg/dL LDL Cholesterol Direct (0-129) mg/dL HDL Cholesterol (29-60) mg/dL Amylase (35-125) U/L Lipase (23-300) U/L Venous Blood Potassium (3.6-5.2) mmol/L Urine Opiates Screen (NEGATIVE) Urine Methadone Screen (NEGATIVE) Ur Barbiturates Screen (NEGATIVE) Ur Phencyclidine Scrn (NEGATIVE) Ur Amphetamines Screen (NEGATIVE) U Benzodiazepines Scrn (NEGATIVE) U Oth Cocaine Metabols (NEGATIVE) U Cannabinoids Screen (NEGATIVE) Alcohol, Quantitative (0-10) mg/dL 11/03/17 11/03/17 11/03/17 Range/Units 04:35 04:35 04:35 WBC 7.6 (4.5-11.0) 10^3/ul RBC 5.11 (3.5-6.1) 10^6/uL Hgb 15.0 (14.0-18.0) g/dL Hct 41.2 L (42.0-52.0) % MCV 80.6 D (80.0-105.0) fl MCH 29.4 (25.0-35.0) pg MCHC 36.4 (31.0-37.0) g/dl RDW 13.5 (11.5-14.5) % Plt Count 243 (120.0-450.0) 10^3/uL MPV 11.7 H (7.0-11.0) fl Gran % 53.3 (50.0-68.0) % Lymph % (Auto) 39.9 H (22.0-35.0) % Anson % (Auto) 5.8 (1.0-6.0) % Eos % (Auto) 0.7 L (1.5-5.0) % Baso % (Auto) 0.3 (0.0-3.0) % Gran # 4.03 (1.4-6.5) Lymph # (Auto) 3.0 (1.2-3.4) Anson # (Auto) 0.4 (0.1-0.6) Eos # (Auto) 0.1 (0.0-0.7) Baso # (Auto) 0.02 (0.0-2.0) K/mm3 pO2 65 H (30-55) mm/Hg VBG pH 7.37 (7.32-7.43) VBG pCO2 40.0 (40-60) VBG HCO3 23.1 (21-28) mmol/l VBG Total CO2 24.3 (22-28) mmol.L VBG O2 Sat (Calc) 95.4 H (40-65) % VBG Base Excess -2.0 L (0.0-2.0) mmol/L VBG Potassium 3.5 L (3.6-5.2) mmol/L Sodium 135.0 136 (132-148) mmol/L Chloride 104.0 105 (98-107) mmol/L Glucose 352 H (75-110) mg/dl Lactate 1.2 (0.7-2.1) mmol/L FiO2 21.0 % Potassium 3.7 (3.6-5.0) mmol/L Carbon Dioxide 22 (21-33) mmol/L Anion Gap 13 (10-20) BUN 29 H (7-21) mg/dL Creatinine 1.2 (0.8-1.5) mg/dl Est GFR ( Amer) > 60 Est GFR (Non-Af Amer) > 60 POC Glucose (mg/dL) (65-110) mg/dL Random Glucose 332 H* D (70-110) mg/dL Calcium 9.2 (8.4-10.5) mg/dL Total Bilirubin 0.4 (0.2-1.3) mg/dL AST 28 (17-59) U/L ALT 31 (7-56) U/L Alkaline Phosphatase 120 (38-126) U/L Total Creatine Kinase 172 (35-230) U/L Total Protein 7.6 (5.8-8.3) g/dL Albumin 3.8 (3.0-4.8) g/dL Globulin 3.8 gm/dL Albumin/Globulin Ratio 1.0 L (1.1-1.8) Triglycerides 1544 H (35-160) mg/dL Cholesterol 194 (130-200) mg/dL LDL Cholesterol Direct < 30 (0-129) mg/dL HDL Cholesterol 20 L (29-60) mg/dL Amylase 61 (35-125) U/L Lipase 357 H (23-300) U/L Venous Blood Potassium 3.5 L (3.6-5.2) mmol/L Urine Opiates Screen (NEGATIVE) Urine Methadone Screen (NEGATIVE) Ur Barbiturates Screen (NEGATIVE) Ur Phencyclidine Scrn (NEGATIVE) Ur Amphetamines Screen (NEGATIVE) U Benzodiazepines Scrn (NEGATIVE) U Oth Cocaine Metabols (NEGATIVE) U Cannabinoids Screen (NEGATIVE) Alcohol, Quantitative (0-10) mg/dL 11/03/17 11/03/17 Range/Units 04:35 03:14 WBC (4.5-11.0) 10^3/ul RBC (3.5-6.1) 10^6/uL Hgb (14.0-18.0) g/dL Hct (42.0-52.0) % MCV (80.0-105.0) fl MCH (25.0-35.0) pg MCHC (31.0-37.0) g/dl RDW (11.5-14.5) % Plt Count (120.0-450.0) 10^3/uL MPV (7.0-11.0) fl Gran % (50.0-68.0) % Lymph % (Auto) (22.0-35.0) % Anson % (Auto) (1.0-6.0) % Eos % (Auto) (1.5-5.0) % Baso % (Auto) (0.0-3.0) % Gran # (1.4-6.5) Lymph # (Auto) (1.2-3.4) Anson # (Auto) (0.1-0.6) Eos # (Auto) (0.0-0.7) Baso # (Auto) (0.0-2.0) K/mm3 pO2 (30-55) mm/Hg VBG pH (7.32-7.43) VBG pCO2 (40-60) VBG HCO3 (21-28) mmol/l VBG Total CO2 (22-28) mmol.L VBG O2 Sat (Calc) (40-65) % VBG Base Excess (0.0-2.0) mmol/L VBG Potassium (3.6-5.2) mmol/L Sodium (132-148) mmol/L Chloride (98-107) mmol/L Glucose (75-110) mg/dl Lactate (0.7-2.1) mmol/L FiO2 % Potassium (3.6-5.0) mmol/L Carbon Dioxide (21-33) mmol/L Anion Gap (10-20) BUN (7-21) mg/dL Creatinine (0.8-1.5) mg/dl Est GFR ( Amer) Est GFR (Non-Af Amer) POC Glucose (mg/dL) > 500 H* (65-110) mg/dL Random Glucose (70-110) mg/dL Calcium (8.4-10.5) mg/dL Total Bilirubin (0.2-1.3) mg/dL AST (17-59) U/L ALT (7-56) U/L Alkaline Phosphatase (38-126) U/L Total Creatine Kinase (35-230) U/L Total Protein (5.8-8.3) g/dL Albumin (3.0-4.8) g/dL Globulin gm/dL Albumin/Globulin Ratio (1.1-1.8) Triglycerides (35-160) mg/dL Cholesterol (130-200) mg/dL LDL Cholesterol Direct (0-129) mg/dL HDL Cholesterol (29-60) mg/dL Amylase (35-125) U/L Lipase (23-300) U/L Venous Blood Potassium (3.6-5.2) mmol/L Urine Opiates Screen (NEGATIVE) Urine Methadone Screen (NEGATIVE) Ur Barbiturates Screen (NEGATIVE) Ur Phencyclidine Scrn (NEGATIVE) Ur Amphetamines Screen (NEGATIVE) U Benzodiazepines Scrn (NEGATIVE) U Oth Cocaine Metabols (NEGATIVE) U Cannabinoids Screen (NEGATIVE) Alcohol, Quantitative < 10 (0-10) mg/dL Laboratory Results - last 24 hr 11/03/17 11/03/17 11/03/17 03:14 04:35 04:35 WBC RBC Hgb Hct MCV MCH MCHC RDW Plt Count MPV Gran % Lymph % (Auto) Anson % (Auto) Eos % (Auto) Baso % (Auto) Gran # Lymph # (Auto) Anson # (Auto) Eos # (Auto) Baso # (Auto) pO2 VBG pH VBG pCO2 VBG HCO3 VBG Total CO2 VBG O2 Sat (Calc) VBG Base Excess VBG Potassium Sodium 136 Chloride 105 Glucose Lactate FiO2 Potassium 3.7 Carbon Dioxide 22 Anion Gap 13 BUN 29 H Creatinine 1.2 Est GFR ( Amer) > 60 Est GFR (Non-Af Amer) > 60 POC Glucose (mg/dL) > 500 H* Random Glucose 332 H* D Calcium 9.2 Total Bilirubin 0.4 AST 28 ALT 31 Alkaline Phosphatase 120 Total Creatine Kinase 172 Total Protein 7.6 Albumin 3.8 Globulin 3.8 Albumin/Globulin Ratio 1.0 L Triglycerides 1544 H Cholesterol 194 LDL Cholesterol Direct < 30 HDL Cholesterol 20 L Amylase 61 Lipase 357 H Venous Blood Potassium Urine Opiates Screen Urine Methadone Screen Ur Barbiturates Screen Ur Phencyclidine Scrn Ur Amphetamines Screen U Benzodiazepines Scrn U Oth Cocaine Metabols U Cannabinoids Screen Alcohol, Quantitative < 10 11/03/17 11/03/17 11/03/17 04:35 04:35 04:59 WBC 7.6 RBC 5.11 Hgb 15.0 Hct 41.2 L MCV 80.6 D MCH 29.4 MCHC 36.4 RDW 13.5 Plt Count 243 MPV 11.7 H Gran % 53.3 Lymph % (Auto) 39.9 H Anson % (Auto) 5.8 Eos % (Auto) 0.7 L Baso % (Auto) 0.3 Gran # 4.03 Lymph # (Auto) 3.0 Anson # (Auto) 0.4 Eos # (Auto) 0.1 Baso # (Auto) 0.02 pO2 65 H VBG pH 7.37 VBG pCO2 40.0 VBG HCO3 23.1 VBG Total CO2 24.3 VBG O2 Sat (Calc) 95.4 H VBG Base Excess -2.0 L VBG Potassium 3.5 L Sodium 135.0 Chloride 104.0 Glucose 352 H Lactate 1.2 FiO2 21.0 Potassium Carbon Dioxide Anion Gap BUN Creatinine Est GFR ( Amer) Est GFR (Non-Af Amer) POC Glucose (mg/dL) 264 H Random Glucose Calcium Total Bilirubin AST ALT Alkaline Phosphatase Total Creatine Kinase Total Protein Albumin Globulin Albumin/Globulin Ratio Triglycerides Cholesterol LDL Cholesterol Direct HDL Cholesterol Amylase Lipase Venous Blood Potassium 3.5 L Urine Opiates Screen Urine Methadone Screen Ur Barbiturates Screen Ur Phencyclidine Scrn Ur Amphetamines Screen U Benzodiazepines Scrn U Oth Cocaine Metabols U Cannabinoids Screen Alcohol, Quantitative 11/03/17 11/03/17 11/03/17 05:56 06:56 08:30 WBC RBC Hgb Hct MCV MCH MCHC RDW Plt Count MPV Gran % Lymph % (Auto) Anson % (Auto) Eos % (Auto) Baso % (Auto) Gran # Lymph # (Auto) Anson # (Auto) Eos # (Auto) Baso # (Auto) pO2 VBG pH VBG pCO2 VBG HCO3 VBG Total CO2 VBG O2 Sat (Calc) VBG Base Excess VBG Potassium Sodium 135 Chloride 103 Glucose Lactate FiO2 Potassium 3.9 Carbon Dioxide 22 Anion Gap 14 BUN 26 H Creatinine 1.1 Est GFR ( Amer) > 60 Est GFR (Non-Af Amer) > 60 POC Glucose (mg/dL) 219 H 250 H Random Glucose 273 H Calcium 8.4 Total Bilirubin AST ALT Alkaline Phosphatase Total Creatine Kinase Total Protein Albumin Globulin Albumin/Globulin Ratio Triglycerides Cholesterol LDL Cholesterol Direct HDL Cholesterol Amylase Lipase Venous Blood Potassium Urine Opiates Screen Urine Methadone Screen Ur Barbiturates Screen Ur Phencyclidine Scrn Ur Amphetamines Screen U Benzodiazepines Scrn U Oth Cocaine Metabols U Cannabinoids Screen Alcohol, Quantitative 11/03/17 11/03/17 09:31 10:15 WBC RBC Hgb Hct MCV MCH MCHC RDW Plt Count MPV Gran % Lymph % (Auto) Anson % (Auto) Eos % (Auto) Baso % (Auto) Gran # Lymph # (Auto) Anson # (Auto) Eos # (Auto) Baso # (Auto) pO2 VBG pH VBG pCO2 VBG HCO3 VBG Total CO2 VBG O2 Sat (Calc) VBG Base Excess VBG Potassium Sodium Chloride Glucose Lactate FiO2 Potassium Carbon Dioxide Anion Gap BUN Creatinine Est GFR ( Amer) Est GFR (Non-Af Amer) POC Glucose (mg/dL) 269 H Random Glucose Calcium Total Bilirubin AST ALT Alkaline Phosphatase Total Creatine Kinase Total Protein Albumin Globulin Albumin/Globulin Ratio Triglycerides Cholesterol LDL Cholesterol Direct HDL Cholesterol Amylase Lipase Venous Blood Potassium Urine Opiates Screen Negative Urine Methadone Screen Negative Ur Barbiturates Screen Negative Ur Phencyclidine Scrn Negative Ur Amphetamines Screen Negative U Benzodiazepines Scrn Negative U Oth Cocaine Metabols Negative U Cannabinoids Screen Negative Alcohol, Quantitative EKG/Cardiology Studies: Cardiology / EKG Studies 11/03/17 01:31 ELECTROCARDIOGRAM Stat Comment: Reason For Exam: INVOULANTARY TWICHING PRE OP:: N Does Patient Have a Pacemaker?: No Fingerstick Blood Sugar Results: 269 Critical Care Progress Note - Nutrition Nutrition: Nutrition Category Date Time Status Liquid Diet [DIET] Diets 11/03/17 Breakfast Ordered Assessment/Plan - Assessment and Plan (Free Text) Assessment: 47 AA M under ICU management for HHS with insulin drip A: Hyperosmolar hyperglycemic state - r/o infection, ischemia, iatrogenic causes, but most likely 2/2 alcohol ingestion day before JANELL likely due to dehydration from HHS Possible seizure likely from electrolyte abnormality (HHS/JANELL) vs encephalomalacia from prior strokes Hypertriglyceridemia, likely due to overweight, alcohol use, uncontrolled diabetes mellitus Elevated lactate likely 2/2 HHS DM2 HIV, last CD4 1200 (08/18/17), on Genvoya until 3 months ago Hx CVA x 2 (L temporal/L frontal, 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 Neuro - Seizure precautions - Follow up CPK to r/o rhabdomyolysis - s/p Keppra 1g at midnight - Switched Keppra to Depakote - MRI Head w and w/o contrast Pulm Maintain SaO2 above 92% Card Hold home HCTZ 25, Lisinopril 20 - JANELL Continue Toprol XL 25 Continue lipitor Trops negative x 1 GI NPO except meds Follow up Amylase, lipase No abdominal pain NS@200 Monitor electrolytes Endo Insulin gtt FS q1 Added fenofibrate TSH normal Follow up on a1c Heme No active issue Infectious Pending HIV viral load and CD4 count Follow up on blood and urine culture If ok with ID - restart HIV meds Prophylaxis Protonix, Heparin Consult Dr Yoon, endo Dr De La Rosa, <Tomas Escamilla - Last Filed: 11/03/17 13:16> CCU Objective - Vital Signs / Intake & Output Vital Signs (Last 4 hours): Vital Signs Pulse Resp BP Pulse Ox 11/03/17 11:10 71 20 97 11/03/17 11:00 70 20 110/56 L 96 11/03/17 10:50 72 17 97 11/03/17 10:40 75 17 94 L 11/03/17 10:30 76 19 93 L 11/03/17 10:20 71 18 96 11/03/17 10:10 77 18 96 11/03/17 10:01 122/70 11/03/17 10:00 75 11/03/17 09:59 90 126/68 11/03/17 09:55 78 14 98 11/03/17 09:50 78 29 H 99 11/03/17 09:40 83 14 98 11/03/17 09:30 79 19 97 11/03/17 09:20 76 19 96 11/03/17 09:10 76 19 96 Intake and Output (Last 8hrs): Intake & Output 11/02/17 11/03/17 11/03/17 22:59 06:59 14:59 Intake Total 300 6 Output Total 100 Balance 200 6 Intake: IV 200 6 d5/0.9 200 Oral 100 Output: Urine 100 Urine, Voided 100 Other: Voiding Method Urinal - Medications Active Medications: Active Medications Generic Name Dose Route Start Last Admin Trade Name Freq PRN Reason Stop Dose Admin Aspirin 81 mg 11/03/17 10:00 11/03/17 09:59 Aspirin Chewable PO 81 mg DAILY JEROD Administration Atorvastatin Calcium 40 mg 11/03/17 17:00 Lipitor PO DIN JEROD Clopidogrel Bisulfate 75 mg 11/03/17 10:00 11/03/17 10:00 Plavix PO 75 mg DAILY JEROD Administration Divalproex Sodium 500 mg 11/03/17 18:00 Kera Carlos(*Bid*) PO BID [facility] Protocol Fenofibrate 145 mg 11/03/17 10:00 11/03/17 09:59 Tricor PO 145 mg DAILY JEROD Administration Folic Acid 1 mg 11/03/17 10:00 11/03/17 10:00 Folic Acid PO 1 mg DAILY JEROD Administration Heparin Sodium (Porcine) 5,000 units 11/03/17 06:00 11/03/17 05:34 Heparin SC 5,000 units Q8 JEROD Administration Protocol Dextrose/Sodium Chloride 1,000 mls @ 200 mls/hr 11/03/17 05:15 11/03/17 10:15 Dextrose 5%/0.9% Ns 1000 Ml IV 200 mls/hr .Q5H JEROD Administration Insulin Human Regular 100 100 mls @ 1 mls/hr 11/03/17 09:43 11/03/17 12:08 units/ Sodium Chloride IV 7 units/hr .Q24H PRN 7 mls/hr TITRATE PER MD ORDER Titration Protocol 1 UNITS/HR Lisinopril 20 mg 11/03/17 10:00 Zestril PO DAILY JEROD Metoprolol Succinate 25 mg 11/03/17 10:00 11/03/17 09:59 Toprol Xl PO 25 mg DAILY JEROD Administration Multivitamins/Minerals 1 tab 11/03/17 09:45 11/03/17 10:18 Therapeutic-M Tab PO 1 tab 0800 JEROD Administration Pantoprazole Sodium 40 mg 11/03/17 06:00 11/03/17 05:35 Protonix Ec Tab PO 40 mg 0600 JEROD Administration Thiamine HCl 100 mg 11/03/17 10:00 11/03/17 09:59 Vitamin B1 Tab PO 100 mg DAILY JEROD Administration - Patient Studies Lab Studies: Lab Studies 11/03/17 11/03/17 11/03/17 Range/Units 11:50 10:15 09:31 WBC (4.5-11.0) 10^3/ul RBC (3.5-6.1) 10^6/uL Hgb (14.0-18.0) g/dL Hct (42.0-52.0) % MCV (80.0-105.0) fl MCH (25.0-35.0) pg MCHC (31.0-37.0) g/dl RDW (11.5-14.5) % Plt Count (120.0-450.0) 10^3/uL MPV (7.0-11.0) fl Gran % (50.0-68.0) % Lymph % (Auto) (22.0-35.0) % Anson % (Auto) (1.0-6.0) % Eos % (Auto) (1.5-5.0) % Baso % (Auto) (0.0-3.0) % Gran # (1.4-6.5) Lymph # (Auto) (1.2-3.4) Anson # (Auto) (0.1-0.6) Eos # (Auto) (0.0-0.7) Baso # (Auto) (0.0-2.0) K/mm3 pO2 (30-55) mm/Hg VBG pH (7.32-7.43) VBG pCO2 (40-60) VBG HCO3 (21-28) mmol/l VBG Total CO2 (22-28) mmol.L VBG O2 Sat (Calc) (40-65) % VBG Base Excess (0.0-2.0) mmol/L VBG Potassium (3.6-5.2) mmol/L Sodium (132-148) mmol/L Chloride (98-107) mmol/L Glucose (75-110) mg/dl Lactate (0.7-2.1) mmol/L FiO2 % Potassium (3.6-5.0) mmol/L Carbon Dioxide (21-33) mmol/L Anion Gap (10-20) BUN (7-21) mg/dL Creatinine (0.8-1.5) mg/dl Est GFR ( Amer) Est GFR (Non-Af Amer) POC Glucose (mg/dL) 320 H 269 H (65-110) mg/dL Random Glucose (70-110) mg/dL Hemoglobin A1c (4.2-6.5) % Calcium (8.4-10.5) mg/dL Total Bilirubin (0.2-1.3) mg/dL AST (17-59) U/L ALT (7-56) U/L Alkaline Phosphatase (38-126) U/L Total Creatine Kinase (35-230) U/L Total Protein (5.8-8.3) g/dL Albumin (3.0-4.8) g/dL Globulin gm/dL Albumin/Globulin Ratio (1.1-1.8) Triglycerides (35-160) mg/dL Cholesterol (130-200) mg/dL LDL Cholesterol Direct (0-129) mg/dL HDL Cholesterol (29-60) mg/dL Amylase (35-125) U/L Lipase (23-300) U/L Venous Blood Potassium (3.6-5.2) mmol/L Urine Opiates Screen Negative (NEGATIVE) Urine Methadone Screen Negative (NEGATIVE) Ur Barbiturates Screen Negative (NEGATIVE) Ur Phencyclidine Scrn Negative (NEGATIVE) Ur Amphetamines Screen Negative (NEGATIVE) U Benzodiazepines Scrn Negative (NEGATIVE) U Oth Cocaine Metabols Negative (NEGATIVE) U Cannabinoids Screen Negative (NEGATIVE) Alcohol, Quantitative (0-10) mg/dL 11/03/17 11/03/17 11/03/17 Range/Units 08:30 06:56 05:56 WBC (4.5-11.0) 10^3/ul RBC (3.5-6.1) 10^6/uL Hgb (14.0-18.0) g/dL Hct (42.0-52.0) % MCV (80.0-105.0) fl MCH (25.0-35.0) pg MCHC (31.0-37.0) g/dl RDW (11.5-14.5) % Plt Count (120.0-450.0) 10^3/uL MPV (7.0-11.0) fl Gran % (50.0-68.0) % Lymph % (Auto) (22.0-35.0) % Anson % (Auto) (1.0-6.0) % Eos % (Auto) (1.5-5.0) % Baso % (Auto) (0.0-3.0) % Gran # (1.4-6.5) Lymph # (Auto) (1.2-3.4) Anson # (Auto) (0.1-0.6) Eos # (Auto) (0.0-0.7) Baso # (Auto) (0.0-2.0) K/mm3 pO2 (30-55) mm/Hg VBG pH (7.32-7.43) VBG pCO2 (40-60) VBG HCO3 (21-28) mmol/l VBG Total CO2 (22-28) mmol.L VBG O2 Sat (Calc) (40-65) % VBG Base Excess (0.0-2.0) mmol/L VBG Potassium (3.6-5.2) mmol/L Sodium 135 (132-148) mmol/L Chloride 103 (98-107) mmol/L Glucose (75-110) mg/dl Lactate (0.7-2.1) mmol/L FiO2 % Potassium 3.9 (3.6-5.0) mmol/L Carbon Dioxide 22 (21-33) mmol/L Anion Gap 14 (10-20) BUN 26 H (7-21) mg/dL Creatinine 1.1 (0.8-1.5) mg/dl Est GFR ( Amer) > 60 Est GFR (Non-Af Amer) > 60 POC Glucose (mg/dL) 250 H 219 H (65-110) mg/dL Random Glucose 273 H (70-110) mg/dL Hemoglobin A1c (4.2-6.5) % Calcium 8.4 (8.4-10.5) mg/dL Total Bilirubin (0.2-1.3) mg/dL AST (17-59) U/L ALT (7-56) U/L Alkaline Phosphatase (38-126) U/L Total Creatine Kinase (35-230) U/L Total Protein (5.8-8.3) g/dL Albumin (3.0-4.8) g/dL Globulin gm/dL Albumin/Globulin Ratio (1.1-1.8) Triglycerides 1136 H (35-160) mg/dL Cholesterol 161 (130-200) mg/dL LDL Cholesterol Direct < 30 (0-129) mg/dL HDL Cholesterol 28 L (29-60) mg/dL Amylase (35-125) U/L Lipase (23-300) U/L Venous Blood Potassium (3.6-5.2) mmol/L Urine Opiates Screen (NEGATIVE) Urine Methadone Screen (NEGATIVE) Ur Barbiturates Screen (NEGATIVE) Ur Phencyclidine Scrn (NEGATIVE) Ur Amphetamines Screen (NEGATIVE) U Benzodiazepines Scrn (NEGATIVE) U Oth Cocaine Metabols (NEGATIVE) U Cannabinoids Screen (NEGATIVE) Alcohol, Quantitative (0-10) mg/dL 11/03/17 11/03/17 11/03/17 Range/Units 04:59 04:35 04:35 WBC (4.5-11.0) 10^3/ul RBC (3.5-6.1) 10^6/uL Hgb (14.0-18.0) g/dL Hct (42.0-52.0) % MCV (80.0-105.0) fl MCH (25.0-35.0) pg MCHC (31.0-37.0) g/dl RDW (11.5-14.5) % Plt Count (120.0-450.0) 10^3/uL MPV (7.0-11.0) fl Gran % (50.0-68.0) % Lymph % (Auto) (22.0-35.0) % Anson % (Auto) (1.0-6.0) % Eos % (Auto) (1.5-5.0) % Baso % (Auto) (0.0-3.0) % Gran # (1.4-6.5) Lymph # (Auto) (1.2-3.4) Anson # (Auto) (0.1-0.6) Eos # (Auto) (0.0-0.7) Baso # (Auto) (0.0-2.0) K/mm3 pO2 65 H (30-55) mm/Hg VBG pH 7.37 (7.32-7.43) VBG pCO2 40.0 (40-60) VBG HCO3 23.1 (21-28) mmol/l VBG Total CO2 24.3 (22-28) mmol.L VBG O2 Sat (Calc) 95.4 H (40-65) % VBG Base Excess -2.0 L (0.0-2.0) mmol/L VBG Potassium 3.5 L (3.6-5.2) mmol/L Sodium 135.0 (132-148) mmol/L Chloride 104.0 (98-107) mmol/L Glucose 352 H (75-110) mg/dl Lactate 1.2 (0.7-2.1) mmol/L FiO2 21.0 % Potassium (3.6-5.0) mmol/L Carbon Dioxide (21-33) mmol/L Anion Gap (10-20) BUN (7-21) mg/dL Creatinine (0.8-1.5) mg/dl Est GFR ( Amer) Est GFR (Non-Af Amer) POC Glucose (mg/dL) 264 H (65-110) mg/dL Random Glucose (70-110) mg/dL Hemoglobin A1c 15.5 H D (4.2-6.5) % Calcium (8.4-10.5) mg/dL Total Bilirubin (0.2-1.3) mg/dL AST (17-59) U/L ALT (7-56) U/L Alkaline Phosphatase (38-126) U/L Total Creatine Kinase (35-230) U/L Total Protein (5.8-8.3) g/dL Albumin (3.0-4.8) g/dL Globulin gm/dL Albumin/Globulin Ratio (1.1-1.8) Triglycerides (35-160) mg/dL Cholesterol (130-200) mg/dL LDL Cholesterol Direct (0-129) mg/dL HDL Cholesterol (29-60) mg/dL Amylase (35-125) U/L Lipase (23-300) U/L Venous Blood Potassium 3.5 L (3.6-5.2) mmol/L Urine Opiates Screen (NEGATIVE) Urine Methadone Screen (NEGATIVE) Ur Barbiturates Screen (NEGATIVE) Ur Phencyclidine Scrn (NEGATIVE) Ur Amphetamines Screen (NEGATIVE) U Benzodiazepines Scrn (NEGATIVE) U Oth Cocaine Metabols (NEGATIVE) U Cannabinoids Screen (NEGATIVE) Alcohol, Quantitative (0-10) mg/dL 11/03/17 11/03/17 11/03/17 Range/Units 04:35 04:35 04:35 WBC 7.6 (4.5-11.0) 10^3/ul RBC 5.11 (3.5-6.1) 10^6/uL Hgb 15.0 (14.0-18.0) g/dL Hct 41.2 L (42.0-52.0) % MCV 80.6 D (80.0-105.0) fl MCH 29.4 (25.0-35.0) pg MCHC 36.4 (31.0-37.0) g/dl RDW 13.5 (11.5-14.5) % Plt Count 243 (120.0-450.0) 10^3/uL MPV 11.7 H (7.0-11.0) fl Gran % 53.3 (50.0-68.0) % Lymph % (Auto) 39.9 H (22.0-35.0) % Anson % (Auto) 5.8 (1.0-6.0) % Eos % (Auto) 0.7 L (1.5-5.0) % Baso % (Auto) 0.3 (0.0-3.0) % Gran # 4.03 (1.4-6.5) Lymph # (Auto) 3.0 (1.2-3.4) Anson # (Auto) 0.4 (0.1-0.6) Eos # (Auto) 0.1 (0.0-0.7) Baso # (Auto) 0.02 (0.0-2.0) K/mm3 pO2 (30-55) mm/Hg VBG pH (7.32-7.43) VBG pCO2 (40-60) VBG HCO3 (21-28) mmol/l VBG Total CO2 (22-28) mmol.L VBG O2 Sat (Calc) (40-65) % VBG Base Excess (0.0-2.0) mmol/L VBG Potassium (3.6-5.2) mmol/L Sodium 136 (132-148) mmol/L Chloride 105 (98-107) mmol/L Glucose (75-110) mg/dl Lactate (0.7-2.1) mmol/L FiO2 % Potassium 3.7 (3.6-5.0) mmol/L Carbon Dioxide 22 (21-33) mmol/L Anion Gap 13 (10-20) BUN 29 H (7-21) mg/dL Creatinine 1.2 (0.8-1.5) mg/dl Est GFR ( Amer) > 60 Est GFR (Non-Af Amer) > 60 POC Glucose (mg/dL) (65-110) mg/dL Random Glucose 332 H* D (70-110) mg/dL Hemoglobin A1c (4.2-6.5) % Calcium 9.2 (8.4-10.5) mg/dL Total Bilirubin 0.4 (0.2-1.3) mg/dL AST 28 (17-59) U/L ALT 31 (7-56) U/L Alkaline Phosphatase 120 (38-126) U/L Total Creatine Kinase 172 (35-230) U/L Total Protein 7.6 (5.8-8.3) g/dL Albumin 3.8 (3.0-4.8) g/dL Globulin 3.8 gm/dL Albumin/Globulin Ratio 1.0 L (1.1-1.8) Triglycerides 1544 H (35-160) mg/dL Cholesterol 194 (130-200) mg/dL LDL Cholesterol Direct < 30 (0-129) mg/dL HDL Cholesterol 20 L (29-60) mg/dL Amylase 61 (35-125) U/L Lipase 357 H (23-300) U/L Venous Blood Potassium (3.6-5.2) mmol/L Urine Opiates Screen (NEGATIVE) Urine Methadone Screen (NEGATIVE) Ur Barbiturates Screen (NEGATIVE) Ur Phencyclidine Scrn (NEGATIVE) Ur Amphetamines Screen (NEGATIVE) U Benzodiazepines Scrn (NEGATIVE) U Oth Cocaine Metabols (NEGATIVE) U Cannabinoids Screen (NEGATIVE) Alcohol, Quantitative < 10 (0-10) mg/dL 11/03/17 Range/Units 03:14 WBC (4.5-11.0) 10^3/ul RBC (3.5-6.1) 10^6/uL Hgb (14.0-18.0) g/dL Hct (42.0-52.0) % MCV (80.0-105.0) fl MCH (25.0-35.0) pg MCHC (31.0-37.0) g/dl RDW (11.5-14.5) % Plt Count (120.0-450.0) 10^3/uL MPV (7.0-11.0) fl Gran % (50.0-68.0) % Lymph % (Auto) (22.0-35.0) % [place] % (Auto) (1.0-6.0) % Eos % (Auto) (1.5-5.0) % Baso % (Auto) (0.0-3.0) % Gran # (1.4-6.5) Lymph # (Auto) (1.2-3.4) [place] # (Auto) (0.1-0.6) Eos # (Auto) (0.0-0.7) Baso # (Auto) (0.0-2.0) K/mm3 pO2 (30-55) mm/Hg VBG pH (7.32-7.43) VBG pCO2 (40-60) VBG HCO3 (21-28) mmol/l VBG Total CO2 (22-28) mmol.L VBG O2 Sat (Calc) (40-65) % VBG Base Excess (0.0-2.0) mmol/L VBG Potassium (3.6-5.2) mmol/L Sodium (132-148) mmol/L Chloride (98-107) mmol/L Glucose (75-110) mg/dl Lactate (0.7-2.1) mmol/L FiO2 % Potassium (3.6-5.0) mmol/L Carbon Dioxide (21-33) mmol/L Anion Gap (10-20) BUN (7-21) mg/dL Creatinine (0.8-1.5) mg/dl Est GFR ( Amer) Est GFR (Non-Af Amer) POC Glucose (mg/dL) > 500 H* (65-110) mg/dL Random Glucose (70-110) mg/dL Hemoglobin A1c (4.2-6.5) % Calcium (8.4-10.5) mg/dL Total Bilirubin (0.2-1.3) mg/dL AST (17-59) U/L ALT (7-56) U/L Alkaline Phosphatase (38-126) U/L Total Creatine Kinase (35-230) U/L Total Protein (5.8-8.3) g/dL Albumin (3.0-4.8) g/dL Globulin gm/dL Albumin/Globulin Ratio (1.1-1.8) Triglycerides (35-160) mg/dL Cholesterol (130-200) mg/dL LDL Cholesterol Direct (0-129) mg/dL HDL Cholesterol (29-60) mg/dL Amylase (35-125) U/L Lipase (23-300) U/L Venous Blood Potassium (3.6-5.2) mmol/L Urine Opiates Screen (NEGATIVE) Urine Methadone Screen (NEGATIVE) Ur Barbiturates Screen (NEGATIVE) Ur Phencyclidine Scrn (NEGATIVE) Ur Amphetamines Screen (NEGATIVE) U Benzodiazepines Scrn (NEGATIVE) U Oth Cocaine Metabols (NEGATIVE) U Cannabinoids Screen (NEGATIVE) Alcohol, Quantitative (0-10) mg/dL Laboratory Results - last 24 hr 11/03/17 11/03/17 11/03/17 03:14 04:35 04:35 WBC RBC Hgb Hct MCV MCH MCHC RDW Plt Count MPV Gran % Lymph % (Auto) [place]son % (Auto) Eos % (Auto) Baso % (Auto) Gran # Lymph # (Auto) [place] # (Auto) Eos # (Auto) Baso # (Auto) pO2 VBG pH VBG pCO2 VBG HCO3 VBG Total CO2 VBG O2 Sat (Calc) VBG Base Excess VBG Potassium Sodium 136 Chloride 105 Glucose Lactate FiO2 Potassium 3.7 Carbon Dioxide 22 Anion Gap 13 BUN 29 H Creatinine 1.2 Est GFR ( Amer) > 60 Est GFR (Non-Af Amer) > 60 POC Glucose (mg/dL) > 500 H* Random Glucose 332 H* D Hemoglobin A1c Calcium 9.2 Total Bilirubin 0.4 AST 28 ALT 31 Alkaline Phosphatase 120 Total Creatine Kinase 172 Total Protein 7.6 Albumin 3.8 Globulin 3.8 Albumin/Globulin Ratio 1.0 L Triglycerides 1544 H Cholesterol 194 LDL Cholesterol Direct < 30 HDL Cholesterol 20 L Amylase 61 Lipase 357 H Venous Blood Potassium Urine Opiates Screen Urine Methadone Screen Ur Barbiturates Screen Ur Phencyclidine Scrn Ur Amphetamines Screen U Benzodiazepines Scrn U Oth Cocaine Metabols U Cannabinoids Screen Alcohol, Quantitative < 10 11/03/17 11/03/17 11/03/17 04:35 04:35 04:35 WBC 7.6 RBC 5.11 Hgb 15.0 Hct 41.2 L MCV 80.6 D MCH 29.4 MCHC 36.4 RDW 13.5 Plt Count 243 MPV 11.7 H Gran % 53.3 Lymph % (Auto) 39.9 H Anson % (Auto) 5.8 Eos % (Auto) 0.7 L Baso % (Auto) 0.3 Gran # 4.03 Lymph # (Auto) 3.0 [place]son # (Auto) 0.4 Eos # (Auto) 0.1 Baso # (Auto) 0.02 pO2 65 H VBG pH 7.37 VBG pCO2 40.0 VBG HCO3 23.1 VBG Total CO2 24.3 VBG O2 Sat (Calc) 95.4 H VBG Base Excess -2.0 L VBG Potassium 3.5 L Sodium 135.0 Chloride 104.0 Glucose 352 H Lactate 1.2 FiO2 21.0 Potassium Carbon Dioxide Anion Gap BUN Creatinine Est GFR ( Amer) Est GFR (Non-Af Amer) POC Glucose (mg/dL) Random Glucose Hemoglobin A1c 15.5 H D Calcium Total Bilirubin AST ALT Alkaline Phosphatase Total Creatine Kinase Total Protein Albumin Globulin Albumin/Globulin Ratio Triglycerides Cholesterol LDL Cholesterol Direct HDL Cholesterol Amylase Lipase Venous Blood Potassium 3.5 L Urine Opiates Screen Urine Methadone Screen Ur Barbiturates Screen Ur Phencyclidine Scrn Ur Amphetamines Screen U Benzodiazepines Scrn U Oth Cocaine Metabols U Cannabinoids Screen Alcohol, Quantitative 06/22/18 06/22/18 06/22/18 04:59 05:56 06:56 WBC RBC Hgb Hct MCV MCH MCHC RDW Plt Count MPV Gran % Lymph % (Auto) Anson % (Auto) Eos % (Auto) Baso % (Auto) Gran # Lymph # (Auto) [place]son # (Auto) Eos # (Auto) Baso # (Auto) pO2 VBG pH VBG pCO2 VBG HCO3 VBG Total CO2 VBG O2 Sat (Calc) VBG Base Excess VBG Potassium Sodium Chloride Glucose Lactate FiO2 Potassium Carbon Dioxide Anion Gap BUN Creatinine Est GFR ( Amer) Est GFR (Non-Af Amer) POC Glucose (mg/dL) 264 H 219 H 250 H Random Glucose Hemoglobin A1c Calcium Total Bilirubin AST ALT Alkaline Phosphatase Total Creatine Kinase Total Protein Albumin Globulin Albumin/Globulin Ratio Triglycerides Cholesterol LDL Cholesterol Direct HDL Cholesterol Amylase Lipase Venous Blood Potassium Urine Opiates Screen Urine Methadone Screen Ur Barbiturates Screen Ur Phencyclidine Scrn Ur Amphetamines Screen U Benzodiazepines Scrn U Oth Cocaine Metabols U Cannabinoids Screen Alcohol, Quantitative 11/03/17 11/03/17 11/03/17 08:30 09:31 10:15 WBC RBC Hgb Hct MCV MCH MCHC RDW Plt Count MPV Gran % Lymph % (Auto) Anson % (Auto) Eos % (Auto) Baso % (Auto) Gran # Lymph # (Auto) [place]son # (Auto) Eos # (Auto) Baso # (Auto) pO2 VBG pH VBG pCO2 VBG HCO3 VBG Total CO2 VBG O2 Sat (Calc) VBG Base Excess VBG Potassium Sodium 135 Chloride 103 Glucose Lactate FiO2 Potassium 3.9 Carbon Dioxide 22 Anion Gap 14 BUN 26 H Creatinine 1.1 Est GFR ( Amer) > 60 Est GFR (Non-Af Amer) > 60 POC Glucose (mg/dL) 269 H Random Glucose 273 H Hemoglobin A1c Calcium 8.4 Total Bilirubin AST ALT Alkaline Phosphatase Total Creatine Kinase Total Protein Albumin Globulin Albumin/Globulin Ratio Triglycerides 1136 H Cholesterol 161 LDL Cholesterol Direct < 30 HDL Cholesterol 28 L Amylase Lipase Venous Blood Potassium Urine Opiates Screen Negative Urine Methadone Screen Negative Ur Barbiturates Screen Negative Ur Phencyclidine Scrn Negative Ur Amphetamines Screen Negative U Benzodiazepines Scrn Negative U Oth Cocaine Metabols Negative U Cannabinoids Screen Negative Alcohol, Quantitative 11/03/17 11:50 WBC RBC Hgb Hct MCV MCH MCHC RDW Plt Count MPV Gran % Lymph % (Auto) [place]son % (Auto) Eos % (Auto) Baso % (Auto) Gran # Lymph # (Auto) [place]son # (Auto) Eos # (Auto) Baso # (Auto) pO2 VBG pH VBG pCO2 VBG HCO3 VBG Total CO2 VBG O2 Sat (Calc) VBG Base Excess VBG Potassium Sodium Chloride Glucose Lactate FiO2 Potassium Carbon Dioxide Anion Gap BUN Creatinine Est GFR ( Amer) Est GFR (Non-Af Amer) POC Glucose (mg/dL) 320 H Random Glucose Hemoglobin A1c Calcium Total Bilirubin AST ALT Alkaline Phosphatase Total Creatine Kinase Total Protein Albumin Globulin Albumin/Globulin Ratio Triglycerides Cholesterol LDL Cholesterol Direct HDL Cholesterol Amylase Lipase Venous Blood Potassium Urine Opiates Screen Urine Methadone Screen Ur Barbiturates Screen Ur Phencyclidine Scrn Ur Amphetamines Screen U Benzodiazepines Scrn U Oth Cocaine Metabols U Cannabinoids Screen Alcohol, Quantitative EKG/Cardiology Studies: Cardiology / EKG Studies 11/03/17 01:31 ELECTROCARDIOGRAM Stat Comment: Reason For Exam: INVOULANTARY TWICHING PRE OP:: N Does Patient Have a Pacemaker?: No Critical Care Progress Note - Nutrition Nutrition: Nutrition Category Date Time Status Heart Healthy Diet [DIET] Diets 11/03/17 Lunch Active Attending/Attestation - Attestation I have personally seen and examined this patient.: Yes I have fully participated in the care of the patient.: Yes I have reviewed all pertinent clinical information: Yes Notes (Text): 11/03/17 13:06 The patient was seen and examined at the bedside. Patient care was discussed with resident Medical records, lab studies, and imaging were reviewed and management issues were discussed and formulated. Last 24H events reviewed. Agree with above treatment plans as outlined in 's note with addition of the following: HHS \ JANELL \ Severe Hypertrigliceridemia \ HIV \ ETOH abuse \ Seizure -hemodynamic monitoring to maintain MAP>65 -o2 supplementation to maintain Spo2>90 Pao2>60; currently comfortable on room air -f\u Bun\Cr and U\o; IVF with D5NS -continue Insulin drip and monitor BGM q1h -monitor and replace e-lites -f\u trigliceride levels -PO diet (diabetic) and aspiration precautions -f\u HbA1c -endocrine team eval -f\u EEG ; neurology eval appreciated; continue anti-seizure regiment and precautions -start Thiamine and folic acid; monitor for ETOH withdrawal -ID team eval for HIV therapy -DVT \ PUD prophylaxis CCM time 33min
--- NOTE | 2017-11-03 11:29 | CP.PCM.CON ---
History of Present Illness - History of Present Illness History of Present Illness: 47 yr old male who had several seizures yesterday, with a prior history of stroke, who is not on AEDs, and is now in the ICU. He has not had any further seizures since he received Keppra yesterday. Today on exam, he is lethargic but arouseable and following commands and speaking clearly. When he came in he had a blood sugar of 1200 and he now it has decreased to 300. He is on insulin drip , and a large increase in triglycerides. He presented with right arm focal twitching with some numbness. He drank 2 shots of alcohol, went to [employer] for a milk shake, and he woke up with his head shaking. Pt did not lose consciousness, no tongue biting, no foaming in mouth, no bowel/bladder incontinence. This has never happened before. 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 No focal deficits. +2 dtr ul and ll bl. Toes downgoing. No clonus. Past Patient History - Past Social History Smoking Status: Current Some Days Smoker - CARDIAC Hx Hypertension: Yes - PULMONARY Hx Asthma: Yes - NEUROLOGICAL HX Cerebrovascular Accident: Yes (3 years ago) - HEENT Hx HEENT Problems: No - RENAL Hx Chronic Kidney Disease: No - ENDOCRINE/METABOLIC Hx Endocrine Disorders: No - HEMATOLOGICAL/ONCOLOGICAL Hx Blood Disorders: No Hx AIDS: No Hx Anemia: No Hx Cancer: No Hx Chemotherapy: No Hx Cirrhosis: No Hx Hepatitis A: No Hx Hepatitis B: No Hx Hepatitis C: No - INTEGUMENTARY Hx Dermatological Problems: No - MUSCULOSKELETAL/RHEUMATOLOGICAL Hx Musculoskeletal Disorders: No Hx Falls: Yes - GASTROINTESTINAL Hx Gastrointestinal Disorders: No - GENITOURINARY/GYNECOLOGICAL Hx Genitourinary Disorders: No - PSYCHIATRIC Hx Psychophysiologic Disorder: No Hx Substance Use: No - SURGICAL HISTORY Hx Surgeries: No - ANESTHESIA Hx Anesthesia: No Meds Allergies/Adverse Reactions: Allergies Allergy/AdvReac Type Severity Reaction Status Date / Time Penicillins Allergy ANAPHYLAXIS Verified 11/03/17 00:01 - Medications Medications: Current Medications Aspirin (Aspirin Chewable) 81 mg PO DAILY [facility] Last Admin: 11/03/17 09:59 Dose: 81 mg Atorvastatin Calcium (Lipitor) 40 mg PO DIN [facility] Clopidogrel Bisulfate (Plavix) 75 mg PO DAILY [facility] Last Admin: 11/03/17 10:00 Dose: 75 mg Fenofibrate (Tricor) 145 mg PO DAILY [facility] Last Admin: 11/03/17 09:59 Dose: 145 mg Folic Acid (Folic Acid) 1 mg PO DAILY [facility] Last Admin: 11/03/17 10:00 Dose: 1 mg Heparin Sodium (Porcine) (Heparin) 5,000 units SC Q8 [facility] PRN Reason: Protocol Last Admin: 11/03/17 05:34 Dose: 5,000 units Dextrose/Sodium Chloride (Dextrose 5%/0.9% Ns 1000 Ml) 1,000 mls @ 200 mls/hr IV .Q5H [facility] Last Admin: 11/03/17 10:15 Dose: 200 mls/hr Insulin Human Regular 100 (units/ Sodium Chloride) 100 mls @ 1 mls/hr IV .Q24H PRN; Protocol; 1 UNITS/HR PRN Reason: TITRATE PER MD ORDER Last Admin: 11/03/17 10:09 Dose: 1 units/hr, 1 mls/hr Levetiracetam (Keppra) 250 mg PO BID [facility] Last Admin: 11/03/17 09:59 Dose: 250 mg Lisinopril (Zestril) 20 mg PO DAILY [facility] Metoprolol Succinate (Toprol Xl) 25 mg PO DAILY [facility] Last Admin: 11/03/17 09:59 Dose: 25 mg Multivitamins/Minerals (Therapeutic-M Tab) 1 tab PO 0800 [facility] Last Admin: 11/03/17 10:18 Dose: 1 tab Pantoprazole Sodium (Protonix Ec Tab) 40 mg PO 0600 [facility] Last Admin: 11/03/17 05:35 Dose: 40 mg Thiamine HCl (Vitamin B1 Tab) 100 mg PO DAILY [facility] Last Admin: 11/03/17 09:59 Dose: 100 mg Results - Vital Signs Recent Vital Signs: Last Vital Signs Temp 97.6 F 11/03/17 04:39 Pulse 90 11/03/17 09:59 Resp 19 11/03/17 07:30 BP 126/68 11/03/17 09:59 Pulse Ox 95 11/03/17 07:30 - Labs Result Diagrams: 11/03/17 04:35 11/03/17 08:30 Labs: Laboratory Results - last 24 hr 11/03/17 11/03/17 11/03/17 03:14 04:35 04:35 WBC RBC Hgb Hct MCV MCH MCHC RDW Plt Count MPV Gran % Lymph % (Auto) [place] % (Auto) Eos % (Auto) Baso % (Auto) Gran # Lymph # (Auto) [place] # (Auto) Eos # (Auto) Baso # (Auto) pO2 VBG pH VBG pCO2 VBG HCO3 VBG Total CO2 VBG O2 Sat (Calc) VBG Base Excess VBG Potassium Sodium 136 Chloride 105 Glucose Lactate FiO2 Potassium 3.7 Carbon Dioxide 22 Anion Gap 13 BUN 29 H Creatinine 1.2 Est GFR ( Amer) > 60 Est GFR (Non-Af Amer) > 60 POC Glucose (mg/dL) > 500 H* Random Glucose 332 H* D Calcium 9.2 Total Bilirubin 0.4 AST 28 ALT 31 Alkaline Phosphatase 120 Total Creatine Kinase 172 Total Protein 7.6 Albumin 3.8 Globulin 3.8 Albumin/Globulin Ratio 1.0 L Triglycerides 1544 H Cholesterol 194 LDL Cholesterol Direct < 30 HDL Cholesterol 20 L Amylase 61 Lipase 357 H Venous Blood Potassium Urine Opiates Screen Urine Methadone Screen Ur Barbiturates Screen Ur Phencyclidine Scrn Ur Amphetamines Screen U Benzodiazepines Scrn U Oth Cocaine Metabols U Cannabinoids Screen Alcohol, Quantitative < 10 11/03/17 11/03/17 11/03/17 04:35 04:35 04:59 WBC 7.6 RBC 5.11 Hgb 15.0 Hct 41.2 L MCV 80.6 D MCH 29.4 MCHC 36.4 RDW 13.5 Plt Count 243 MPV 11.7 H Gran % 53.3 Lymph % (Auto) 39.9 H [place] % (Auto) 5.8 Eos % (Auto) 0.7 L Baso % (Auto) 0.3 Gran # 4.03 Lymph # (Auto) 3.0 [place] # (Auto) 0.4 Eos # (Auto) 0.1 Baso # (Auto) 0.02 pO2 65 H VBG pH 7.37 VBG pCO2 40.0 VBG HCO3 23.1 VBG Total CO2 24.3 VBG O2 Sat (Calc) 95.4 H VBG Base Excess -2.0 L VBG Potassium 3.5 L Sodium 135.0 Chloride 104.0 Glucose 352 H Lactate 1.2 FiO2 21.0 Potassium Carbon Dioxide Anion Gap BUN Creatinine Est GFR ( Amer) Est GFR (Non-Af Amer) POC Glucose (mg/dL) 264 H Random Glucose Calcium Total Bilirubin AST ALT Alkaline Phosphatase Total Creatine Kinase Total Protein Albumin Globulin Albumin/Globulin Ratio Triglycerides Cholesterol LDL Cholesterol Direct HDL Cholesterol Amylase Lipase Venous Blood Potassium 3.5 L Urine Opiates Screen Urine Methadone Screen Ur Barbiturates Screen Ur Phencyclidine Scrn Ur Amphetamines Screen U Benzodiazepines Scrn U Oth Cocaine Metabols U Cannabinoids Screen Alcohol, Quantitative 11/03/17 11/03/17 11/03/17 05:56 06:56 08:30 WBC RBC Hgb Hct MCV MCH MCHC RDW Plt Count MPV Gran % Lymph % (Auto) [place] % (Auto) Eos % (Auto) Baso % (Auto) Gran # Lymph # (Auto) [place] # (Auto) Eos # (Auto) Baso # (Auto) pO2 VBG pH VBG pCO2 VBG HCO3 VBG Total CO2 VBG O2 Sat (Calc) VBG Base Excess VBG Potassium Sodium 135 Chloride 103 Glucose Lactate FiO2 Potassium 3.9 Carbon Dioxide 22 Anion Gap 14 BUN 26 H Creatinine 1.1 Est GFR ( Amer) > 60 Est GFR (Non-Af Amer) > 60 POC Glucose (mg/dL) 219 H 250 H Random Glucose 273 H Calcium 8.4 Total Bilirubin AST ALT Alkaline Phosphatase Total Creatine Kinase Total Protein Albumin Globulin Albumin/Globulin Ratio Triglycerides Cholesterol LDL Cholesterol Direct HDL Cholesterol Amylase Lipase Venous Blood Potassium Urine Opiates Screen Urine Methadone Screen Ur Barbiturates Screen Ur Phencyclidine Scrn Ur Amphetamines Screen U Benzodiazepines Scrn U Oth Cocaine Metabols U Cannabinoids Screen Alcohol, Quantitative 11/03/17 11/03/17 09:31 10:15 WBC RBC Hgb Hct MCV MCH MCHC RDW Plt Count MPV Gran % Lymph % (Auto) [place] % (Auto) Eos % (Auto) Baso % (Auto) Gran # Lymph # (Auto) [place] # (Auto) Eos # (Auto) Baso # (Auto) pO2 VBG pH VBG pCO2 VBG HCO3 VBG Total CO2 VBG O2 Sat (Calc) VBG Base Excess VBG Potassium Sodium Chloride Glucose Lactate FiO2 Potassium Carbon Dioxide Anion Gap BUN Creatinine Est GFR ( Amer) Est GFR (Non-Af Amer) POC Glucose (mg/dL) 269 H Random Glucose Calcium Total Bilirubin AST ALT Alkaline Phosphatase Total Creatine Kinase Total Protein Albumin Globulin Albumin/Globulin Ratio Triglycerides Cholesterol LDL Cholesterol Direct HDL Cholesterol Amylase Lipase Venous Blood Potassium Urine Opiates Screen Negative Urine Methadone Screen Negative Ur Barbiturates Screen Negative Ur Phencyclidine Scrn Negative Ur Amphetamines Screen Negative U Benzodiazepines Scrn Negative U Oth Cocaine Metabols Negative U Cannabinoids Screen Negative Alcohol, Quantitative Assessment & Plan - Assessment and Plan (Free Text) Assessment: CT head: shows minimal atrophy and chronic infarcts. A/P: 47 yr old male who has hiv, severe DM, and hypertension, asthma, hyperlipidemia, prior history of strokes, who a new onset spell of seizures that is most likely related to his DM. However, in light of his HIV status, i will order MRI brain and recommend depakote 500 mg bid. \ PLan: 1. Depakote 500 mg bid 2. EEG now. 3. MRI brain with and without contrast. thank you Dr. jeffries
[2017-11-03 12:23] LABS: HDL CHOLESTEROL 28 mg/dL (29-60)
[2017-11-03 12:38] LABS: LDL CHOLESTEROL < 30 mg/dL (0-129)
[2017-11-03] MEDS ORDERED: Gadodiamide 287 MG/ML VIAL (15ML) IV ONE (15:39)
--- NOTE | 2017-11-03 16:12 | MRI ---
PROCEDURE: MRI BRAIN WITHOUT CONTRAST HISTORY: Patient with Hx of strokes, poss seizure and HIV COMPARISON: MRI 08/14/2017 TECHNIQUE: Multiplanar, multisequence MR images of the brain were obtained without intravenous contrast enhancement. 15 cc of Omniscan FINDINGS: HEMORRHAGE: None DWI: There is a recent infarct involving the left posterior frontal and parietal lobes as well as the left temporal lobe. There is a small amount of restricted diffusion that is seen on the current exam in the left posterior frontal and parietal lobes. This can be seen on image 24 series 3. This could represent an new area of cortical infarction superimposed on the earlier infarct. . No evidence of abnormal enhancement BRAIN PARENCHYMA: No atrophy or chronic microvascular ischemic changes. VENTRICLES: Unremarkable. No hydrocephalus. CRANIUM: Unremarkable. ORBITS: Grossly unremarkable. PARANASAL SINUSES/MASTOIDS: Clear VASCULAR SYSTEM: Skull base flow voids intact. OTHER FINDINGS: None. IMPRESSION: There is a recent infarct involving the left posterior frontal and parietal lobes as well as the left temporal lobe. There is a small amount of restricted diffusion that is seen on the current exam in the left posterior frontal and parietal lobes. This could represent an new area of cortical infarction superimposed on the earlier infarct.
[2017-11-03] MEDS: Divalproex 500 mg DR(BID formulation) PO SCH (17:21)
[2017-11-03] MEDS ORDERED: Insulin Detemir 100 units/ml Vial (Levemir) SC SCH (22:00)
[2017-11-04] MEDS: Pantoprazole 40 mg EC Tab PO SCH (05:26)
[2017-11-04] MEDS: Dextrose 5%/0.9% NS 1,000 ML IV SCH ×2 (05:38→12:19)
[2017-11-04 06:25] LABS: BASO # 0.01 K/mm3 (0.0-2.0); BASO % 0.1 % (0.0-3.0); EOS # 0.1 (0.0-0.7); EOS % 0.8 % (1.5-5.0); GRAN # 4.91 (1.4-6.5); GRAN % 64.3 % (50.0-68.0); HEMOGLOBIN 12.6 g/dL (14.0-18.0); LYMPH # 2.3 (1.2-3.4); LYMPH % 30.2 % (22.0-35.0); MEAN CELL VOLUME 81.3 fl (80.0-105.0); MEAN CORPUSCULAR HEMOGLOBIN 28.7 pg (25.0-35.0); MEAN CORPUSCULAR HGB CONC 35.3 g/dl (31.0-37.0); MEAN PLATELET VOLUME 11.8 fl (7.0-11.0); MONO # 0.4 (0.1-0.6); MONO % 4.6 % (1.0-6.0); RBC 4.39 10^6/uL (3.5-6.1); RED CELL DISTRIBUTION WIDTH 13.4 % (11.5-14.5); WHITE BLOOD COUNT 7.6 10^3/ul (4.5-11.0)
[2017-11-04 06:35] LABS: ALB/GLOB RATIO 0.9 (1.1-1.8); ALT/SGPT 30 U/L (7-56); AST/SGOT 23 U/L (17-59); BLOOD UREA NITROGEN 16 mg/dL (7-21); CALCIUM 8.4 mg/dL (8.4-10.5); GFR AFRICAN-AMERICAN > 60; GFR NON-AFRICAN AMERICAN > 60; LIPASE 286 U/L (23-300)
[2017-11-04] MEDS: Multivitamin With Minerals Tab PO SCH (07:46)
[2017-11-04] MEDS: Divalproex 500 mg DR(BID formulation) PO SCH ×2 (09:45→17:17)
[2017-11-04] MEDS: Metoprolol Succinate 25 mg XL Tab PO SCH (09:46)
[2017-11-04] MEDS ORDERED: GENVOYA PO SCH (10:00)
--- NOTE | 2017-11-04 10:34 | PN ---
DATE: 11/04/2017 SUBJECTIVE: The patient is seen and examined at bedside. He is comfortable. He talks full sentences. He is not in respiratory or otherwise distress. OBJECTIVE: VITAL SIGNS: Heart rate 71, respiratory rate 20, blood pressure 122/66, oxygen saturation 97% on room air. ENT: Head and neck atraumatic. LUNGS: Clear to auscultation bilaterally. HEART: Regular rhythm and rate. S1, S2 normal. ABDOMEN: Soft, nontender, nondistended. MUSCULOSKELETAL: No C/C/E. NEUROLOGICAL: The patient moves all extremities spontaneously. SKIN: Moist. PSYCHIATRIC: The patient is alert, awake and oriented x3. LABORATORY DATA: WBC 7.6, hemoglobin 12.6, platelet count 201. Sodium 136, potassium 3.9, chloride 106, carbon dioxide 23, BUN 16, creatinine 0.9, glucose 178. AST 23, ALT 30, total bilirubin 0.2, triglycerides 579 down from 1136. MEDICATIONS: Aspirin, Lipitor, Plavix, D5 normal saline at 150 mL per hour, Depakote, TriCor, folic acid, Genvoya, heparin, insulin drip, Keppra, lisinopril, metoprolol, multivitamins, Protonix, thiamine. ASSESSMENT AND PLAN: This is a 47-year-old gentleman who presented to Intensive Care Unit with severe hypertriglyceridemia without acute pancreatitis who was started on insulin drip and now his triglycerides level dropped down to 579 from more than 1000. The patient is asymptomatic. No abdominal pain. Endocrinology consult is still pending. He has continued to be on insulin drip. He is on TriCor. We will continue to target euvolemia, euglycemia, normothermia and oxygen saturation more than 90%. The patient is on IV fluids. We will continue with DVT, GI prophylaxes. ccm time 40 min Shay Navarro MD MTDHaylee
[2017-11-04] MEDS ORDERED: Potassium Chloride 20 mEq/15 ml LIQ UD PO ONE (10:45)
--- NOTE | 2017-11-04 10:59 | CP.PCM.CON ---
History of Present Illness - History of Present Illness History of Present Illness: 47 year old male with PMH of chronic HIV infection with last CD4 count 1200, undetecable virus load and compliant with meds, HTN, dyslipidemia, CVA [place] [facility] [place] of right sided weakness of arms and legs (mostly of arms) as well as numbness and twitching of the extremities. 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 He denies headache or dizziness, no chest pain, no nausea or vomiting, no abdominal pain, no diarrhea, no dysuria, no cough or colds, no SOB. He is in the ICU for closer observation and treatment. MRI brain has been done which is showing acute CVA on top of the old CVA. Infectious Diseases consult is requested for HIV infection. Review of Systems - Review of Systems All systems: reviewed and no additional remarkable complaints except (as per HPI ) Past Patient History - Past Social History Smoking Status: Current Some Days Smoker - CARDIAC Hx Hypertension: Yes - PULMONARY Hx Asthma: Yes - NEUROLOGICAL HX Cerebrovascular Accident: Yes (3 years ago) - HEENT Hx HEENT Problems: No - RENAL Hx Chronic Kidney Disease: No - ENDOCRINE/METABOLIC Hx Endocrine Disorders: No - HEMATOLOGICAL/ONCOLOGICAL Hx Blood Disorders: No Hx AIDS: No Hx Anemia: No Hx Cancer: No Hx Chemotherapy: No Hx Cirrhosis: No Hx Hepatitis A: No Hx Hepatitis B: No Hx Hepatitis C: No - INTEGUMENTARY Hx Dermatological Problems: No - MUSCULOSKELETAL/RHEUMATOLOGICAL Hx Musculoskeletal Disorders: No Hx Falls: Yes - GASTROINTESTINAL Hx Gastrointestinal Disorders: No - GENITOURINARY/GYNECOLOGICAL Hx Genitourinary Disorders: No - PSYCHIATRIC Hx Psychophysiologic Disorder: No Hx Substance Use: No - SURGICAL HISTORY Hx Surgeries: No - ANESTHESIA Hx Anesthesia: No Meds Allergies/Adverse Reactions: Allergies Allergy/AdvReac Type Severity Reaction Status Date / Time FISH Allergy Intermediate DIARRHEA Verified 11/03/17 12:28 Penicillins Allergy ANAPHYLAXIS Verified 11/03/17 00:01 - Medications Medications: Current Medications Aspirin (Aspirin Chewable) 81 mg PO DAILY [facility] Last Admin: 11/03/17 09:59 Dose: 81 mg Atorvastatin Calcium (Lipitor) 40 mg PO DIN [facility] Last Admin: 11/03/17 17:22 Dose: Not Given Clopidogrel Bisulfate (Plavix) 75 mg PO DAILY [facility] Last Admin: 11/03/17 10:00 Dose: 75 mg Divalproex Sodium (Depakote Dr(*Bid*)) 500 mg PO BID [facility] PRN Reason: Protocol Last Admin: 11/03/17 17:21 Dose: 500 mg Fenofibrate (Tricor) 145 mg PO DAILY [facility] Last Admin: 11/03/17 09:59 Dose: 145 mg Folic Acid (Folic Acid) 1 mg PO DAILY [facility] Last Admin: 11/03/17 10:00 Dose: 1 mg Heparin Sodium (Porcine) (Heparin) 5,000 units SC Q8 JEROD PRN Reason: Protocol Last Admin: 11/03/17 13:28 Dose: 5,000 units Insulin Human Regular 100 (units/ Sodium Chloride) 100 mls @ 1 mls/hr IV .Q24H PRN; Protocol; 1 UNITS/HR PRN Reason: TITRATE PER MD ORDER Last Titration: 11/03/17 16:04 Dose: 3 units/hr, 3 mls/hr Dextrose/Sodium Chloride (Dextrose 5%/0.9% Ns 1000 Ml) 1,000 mls @ 150 mls/hr IV .Q6H40M [facility] Last Admin: 11/03/17 17:22 Dose: 150 mls/hr Lisinopril (Zestril) 20 mg PO DAILY [facility] Metoprolol Succinate (Toprol Xl) 25 mg PO DAILY [facility] Last Admin: 11/03/17 09:59 Dose: 25 mg Multivitamins/Minerals (Therapeutic-M Tab) 1 tab PO 0800 [facility] Last Admin: 11/03/17 10:18 Dose: 1 tab Pantoprazole Sodium (Protonix Ec Tab) 40 mg PO 0600 [facility] Last Admin: 11/03/17 05:35 Dose: 40 mg Thiamine HCl (Vitamin B1 Tab) 100 mg PO DAILY [facility] Last Admin: 11/03/17 09:59 Dose: 100 mg Physical Exam - Constitutional Appears: Non-toxic, Chronically Ill - Head Exam Head Exam: NORMAL INSPECTION - ENT Exam ENT Exam: Mucous Membranes Moist - Neck Exam Neck exam: Negative for: Lymphadenopathy, Meningismus - Respiratory Exam Respiratory Exam: Decreased Breath Sounds. absent: Rales - Cardiovascular Exam Cardiovascular Exam: +S1, +S2 - GI/Abdominal Exam GI & Abdominal Exam: Soft. absent: Tenderness - Neurological Exam Additional comments: 4/5 strength on right side Results - Vital Signs Recent Vital Signs: Last Vital Signs Temp 98.1 F 11/03/17 04:39 Pulse 74 06/22/18 17:54 Resp 14 11/03/17 17:52 BP 112/69 11/03/17 17:00 Pulse Ox 97 11/03/17 11:10 - Labs Result Diagrams: 11/04/17 05:30 11/04/17 05:30 Labs: Laboratory Results - last 24 hr 11/03/17 11/03/17 11/03/17 03:14 04:35 04:35 WBC RBC Hgb Hct MCV MCH MCHC RDW Plt Count MPV Gran % Lymph % (Auto) Isabela % (Auto) Eos % (Auto) Baso % (Auto) Gran # Lymph # (Auto) Isabela # (Auto) Eos # (Auto) Baso # (Auto) pO2 VBG pH VBG pCO2 VBG HCO3 VBG Total CO2 VBG O2 Sat (Calc) VBG Base Excess VBG Potassium Sodium 136 Chloride 105 Glucose Lactate FiO2 Potassium 3.7 Carbon Dioxide 22 Anion Gap 13 BUN 29 H Creatinine 1.2 Est GFR ( Amer) > 60 Est GFR (Non-Af Amer) > 60 POC Glucose (mg/dL) > 500 H* Random Glucose 332 H* D Hemoglobin A1c Calcium 9.2 Total Bilirubin 0.4 AST 28 ALT 31 Alkaline Phosphatase 120 Total Creatine Kinase 172 Total Protein 7.6 Albumin 3.8 Globulin 3.8 Albumin/Globulin Ratio 1.0 L Triglycerides 1544 H Cholesterol 194 LDL Cholesterol Direct < 30 HDL Cholesterol 20 L Amylase 61 Lipase 357 H Venous Blood Potassium Urine Opiates Screen Urine Methadone Screen Ur Barbiturates Screen Ur Phencyclidine Scrn Ur Amphetamines Screen U Benzodiazepines Scrn U Oth Cocaine Metabols U Cannabinoids Screen Alcohol, Quantitative < 10 11/03/17 11/03/17 11/03/17 04:35 04:35 04:35 WBC 7.6 RBC 5.11 Hgb 15.0 Hct 41.2 L MCV 80.6 D MCH 29.4 MCHC 36.4 RDW 13.5 Plt Count 243 MPV 11.7 H Gran % 53.3 Lymph % (Auto) 39.9 H Isabela % (Auto) 5.8 Eos % (Auto) 0.7 L Baso % (Auto) 0.3 Gran # 4.03 Lymph # (Auto) 3.0 Isabela # (Auto) 0.4 Eos # (Auto) 0.1 Baso # (Auto) 0.02 pO2 65 H VBG pH 7.37 VBG pCO2 40.0 VBG HCO3 23.1 VBG Total CO2 24.3 VBG O2 Sat (Calc) 95.4 H VBG Base Excess -2.0 L VBG Potassium 3.5 L Sodium 135.0 Chloride 104.0 Glucose 352 H Lactate 1.2 FiO2 21.0 Potassium Carbon Dioxide Anion Gap BUN Creatinine Est GFR ( Amer) Est GFR (Non-Af Amer) POC Glucose (mg/dL) Random Glucose Hemoglobin A1c 15.5 H D Calcium Total Bilirubin AST ALT Alkaline Phosphatase Total Creatine Kinase Total Protein Albumin Globulin Albumin/Globulin Ratio Triglycerides Cholesterol LDL Cholesterol Direct HDL Cholesterol Amylase Lipase Venous Blood Potassium 3.5 L Urine Opiates Screen Urine Methadone Screen Ur Barbiturates Screen Ur Phencyclidine Scrn Ur Amphetamines Screen U Benzodiazepines Scrn U Oth Cocaine Metabols U Cannabinoids Screen Alcohol, Quantitative 11/03/17 11/03/17 11/03/17 04:59 05:56 06:56 WBC RBC Hgb Hct MCV MCH MCHC RDW Plt Count MPV Gran % Lymph % (Auto) Isabela % (Auto) Eos % (Auto) Baso % (Auto) Gran # Lymph # (Auto) Isabela # (Auto) Eos # (Auto) Baso # (Auto) pO2 VBG pH VBG pCO2 VBG HCO3 VBG Total CO2 VBG O2 Sat (Calc) VBG Base Excess VBG Potassium Sodium Chloride Glucose Lactate FiO2 Potassium Carbon Dioxide Anion Gap BUN Creatinine Est GFR ( Amer) Est GFR (Non-Af Amer) POC Glucose (mg/dL) 264 H 219 H 250 H Random Glucose Hemoglobin A1c Calcium Total Bilirubin AST ALT Alkaline Phosphatase Total Creatine Kinase Total Protein Albumin Globulin Albumin/Globulin Ratio Triglycerides Cholesterol LDL Cholesterol Direct HDL Cholesterol Amylase Lipase Venous Blood Potassium Urine Opiates Screen Urine Methadone Screen Ur Barbiturates Screen Ur Phencyclidine Scrn Ur Amphetamines Screen U Benzodiazepines Scrn U Oth Cocaine Metabols U Cannabinoids Screen Alcohol, Quantitative 11/03/17 11/03/17 11/03/17 08:30 09:31 10:15 WBC RBC Hgb Hct MCV MCH MCHC RDW Plt Count MPV Gran % Lymph % (Auto) Isabela % (Auto) Eos % (Auto) Baso % (Auto) Gran # Lymph # (Auto) Isabela # (Auto) Eos # (Auto) Baso # (Auto) pO2 VBG pH VBG pCO2 VBG HCO3 VBG Total CO2 VBG O2 Sat (Calc) VBG Base Excess VBG Potassium Sodium 135 Chloride 103 Glucose Lactate FiO2 Potassium 3.9 Carbon Dioxide 22 Anion Gap 14 BUN 26 H Creatinine 1.1 Est GFR ( Amer) > 60 Est GFR (Non-Af Amer) > 60 POC Glucose (mg/dL) 269 H Random Glucose 273 H Hemoglobin A1c Calcium 8.4 Total Bilirubin AST ALT Alkaline Phosphatase Total Creatine Kinase Total Protein Albumin Globulin Albumin/Globulin Ratio Triglycerides 1136 H Cholesterol 161 LDL Cholesterol Direct < 30 HDL Cholesterol 28 L Amylase Lipase Venous Blood Potassium Urine Opiates Screen Negative Urine Methadone Screen Negative Ur Barbiturates Screen Negative Ur Phencyclidine Scrn Negative Ur Amphetamines Screen Negative U Benzodiazepines Scrn Negative U Oth Cocaine Metabols Negative U Cannabinoids Screen Negative Alcohol, Quantitative 11/03/17 11/03/17 11/03/17 11:50 13:14 14:32 WBC RBC Hgb Hct MCV MCH MCHC RDW Plt Count MPV Gran % Lymph % (Auto) Isabela % (Auto) Eos % (Auto) Baso % (Auto) Gran # Lymph # (Auto) Isabela # (Auto) Eos # (Auto) Baso # (Auto) pO2 VBG pH VBG pCO2 VBG HCO3 VBG Total CO2 VBG O2 Sat (Calc) VBG Base Excess VBG Potassium Sodium Chloride Glucose Lactate FiO2 Potassium Carbon Dioxide Anion Gap BUN Creatinine Est GFR ( Amer) Est GFR (Non-Af Amer) POC Glucose (mg/dL) 320 H 269 H 221 H Random Glucose Hemoglobin A1c Calcium Total Bilirubin AST ALT Alkaline Phosphatase Total Creatine Kinase Total Protein Albumin Globulin Albumin/Globulin Ratio Triglycerides Cholesterol LDL Cholesterol Direct HDL Cholesterol Amylase Lipase Venous Blood Potassium Urine Opiates Screen Urine Methadone Screen Ur Barbiturates Screen Ur Phencyclidine Scrn Ur Amphetamines Screen U Benzodiazepines Scrn U Oth Cocaine Metabols U Cannabinoids Screen Alcohol, Quantitative 11/03/17 16:03 WBC RBC Hgb Hct MCV MCH MCHC RDW Plt Count MPV Gran % Lymph % (Auto) Isabela % (Auto) Eos % (Auto) Baso % (Auto) Gran # Lymph # (Auto) Isabela # (Auto) Eos # (Auto) Baso # (Auto) pO2 VBG pH VBG pCO2 VBG HCO3 VBG Total CO2 VBG O2 Sat (Calc) VBG Base Excess VBG Potassium Sodium Chloride Glucose Lactate FiO2 Potassium Carbon Dioxide Anion Gap BUN Creatinine Est GFR ( Amer) Est GFR (Non-Af Amer) POC Glucose (mg/dL) 186 H Random Glucose Hemoglobin A1c Calcium Total Bilirubin AST ALT Alkaline Phosphatase Total Creatine Kinase Total Protein Albumin Globulin Albumin/Globulin Ratio Triglycerides Cholesterol LDL Cholesterol Direct HDL Cholesterol Amylase Lipase Venous Blood Potassium Urine Opiates Screen Urine Methadone Screen Ur Barbiturates Screen Ur Phencyclidine Scrn Ur Amphetamines Screen U Benzodiazepines Scrn U Oth Cocaine Metabols U Cannabinoids Screen Alcohol, Quantitative Assessment & Plan - Assessment and Plan (Free Text) Plan: Assessment chronic HIV infection with last CD4 count 1200, undetectable virus load as of August 2017 as per patient and was compliant with meds acute CVA on top of the old CVA HTN dyslipidemia CVA Plan Will continue ART (Genvoya) with outpatient follow up with HIV provider follow up further recommendations of Neurology
--- NOTE | 2017-11-04 11:48 | CP.CCUPN ---
<Rafa Mesa - Last Filed: 11/04/17 11:35> CCU Subjective - Physician Review Events Since Last Encounter (Free Text): 11/04/17 08:30A Patient seen and examined at bedside. Patient was agitated overnight due to frequent fingersticks, I explained purpose to him this AM and he reasonably agreed. Patient is laying in bed comfortably with no acute complaints. CCU Objective - Vital Signs / Intake & Output Vital Signs (Last 4 hours): Vital Signs Temp Pulse Resp BP 11/04/17 11:00 133/78 11/04/17 10:59 72 20 11/04/17 10:00 74 141/86 11/04/17 09:59 77 29 H 11/04/17 09:46 73 168/85 H 11/04/17 09:00 168/85 H 11/04/17 08:59 78 17 11/04/17 08:01 169/90 H 11/04/17 08:00 97.6 F 80 19 Intake and Output (Last 8hrs): Intake & Output 11/03/17 11/04/17 11/04/17 22:59 06:59 14:59 Intake Total 2232 2282 9 Output Total 1850 2100 Balance 382 182 9 Intake: IV 2212 1782 9 Left Hand 2190 1750 Oral 20 500 Output: Urine 1850 2100 Urine, Voided 1850 2100 Other: # Bowel Movements 0 0 - Physical Exam Head: Positive for: Atraumatic, Normocephalic, Other (non-conjugate gaze, mild left eye deviation away from midline when gazing forward but peripheral martinez grossly intact on testing). Negative for: Contusion, Ecchymosis, Abrasion, Laceration Pupils: Positive for: PERRL. Negative for: Pinpoint Extroacular Muscles: Positive for: EOMI. Negative for: Gaze Palsy, Entrapment Conjunctiva: Positive for: Normal. Negative for: Injected, Icteric Mouth: Positive for: Moist Mucous Membranes (drinking water bottle prior to exam ), Normal Lips, Normal Tounge, Normal Teeth. Negative for: Dry, Drooling Pharnyx: Positive for: Normal. Negative for: ERYTHEMA, EXUDATE Nose (External): Positive for: Atraumatic. Negative for: Abrasion, Laceration Nose (Internal): Positive for: No Active Bleeding. Negative for: Epistaxis Neck: Positive for: Normal Range of Motion, Trachea Midline. Negative for: MIDLINE TENDERNESS, JVD Respiratory/Chest: Positive for: Clear to Auscultation, Good Air Exchange. Negative for: Respiratory Distress, Accessory Muscle Use, Wheezes, Decreased Breath Sounds, Rales, Rhonchi, Tachypneic Cardiovascular: Positive for: Regular Rate and Rhythm, Normal S1, S2, Peripheal Pulses Present (+2 radial and dorsalis pedis). Negative for: Murmurs, Irregular Rhythm, Tachycardic, Bradycardic Abdomen: Positive for: Normal Bowel Sounds. Negative for: Tenderness, Distention, Guarding Upper Extremity: Positive for: Normal Inspection, Normal ROM, NORMAL PULSES. Negative for: Cyanosis, Edema, Tenderness, Swelling, Erythema, Deformity Lower Extremity: Positive for: Normal Inspection, NORMAL PULSES, Normal ROM. Negative for: Edema, CALF TENDERNESS, Cyanosis, Tenderness, Swelling, Erythema, Deformity Neurological: Positive for: GCS=15, CN II-XII Intact, Speech Normal, Motor Func Grossly Intact (5/5 strength testing LUE & LLE, 4/4 for RUE and RLE, facial motor symmetric and equal, occular findings as per eye exam), Normal Sensory Function, Other (intermittent witnessed episodes of right-sided twitches involving repetitive rightward motion of whole head, twitching of right eye and right side of mouth, and shaking of right upper extremity, but maintains awake/ alert/oriented state, speech remains intact with some word pronouncement difficulties during episode (yamini to a stutter), no post-ictal period observed, episodes lasting for 30 seconds to 1 minute) Skin: Positive for: Warm, Dry, Normal Color. Negative for: Rashes Lymphatic: Negative for: Cervical Adenopathy Psychiatric: Positive for: Alert, Oriented x 3, Normal Insight, Normal Concentration, Normal Affect, Normal Mood - Medications Active Medications: Active Medications Generic Name Dose Route Start Last Admin Trade Name Freq PRN Reason Stop Dose Admin Aspirin 81 mg 11/03/17 10:11/04/17 09:45 Aspirin Chewable PO 81 mg DAILY JEROD Administration Atorvastatin Calcium 40 mg 11/03/17 17:00 11/03/17 17:22 Lipitor PO Not Given DIN JEROD Clopidogrel Bisulfate 75 mg 11/03/17 10:00 11/04/17 09:46 Plavix PO 75 mg DAILY JEROD Administration Divalproex Sodium 500 mg 11/03/17 18:00 11/04/17 09:45 Kera Carlos(*Bid*) PO 500 mg BID JEROD Administration Protocol Fenofibrate 145 mg 11/03/17 10:00 11/04/17 09:46 Tricor PO 145 mg DAILY JEROD Administration Folic Acid 1 mg 11/03/17 10:00 11/04/17 09:45 Folic Acid PO 1 mg DAILY JEROD Administration Heparin Sodium (Porcine) 5,000 units 11/03/17 06:00 11/04/17 05:25 Heparin SC 5,000 units Q8 JEROD Administration Protocol Insulin Human Regular 100 100 mls @ 1 mls/hr 11/03/17 09:43 11/04/17 08:40 units/ Sodium Chloride IV 3 units/hr .Q24H PRN 3 mls/hr TITRATE PER MD ORDER Titration Protocol 1 UNITS/HR Dextrose/Sodium Chloride 1,000 mls @ 150 mls/hr 11/03/17 15:11 11/04/17 05:38 Dextrose 5%/0.9% Ns 1000 Ml IV 150 mls/hr .[id number] JEROD Administration Lisinopril 20 mg 11/03/17 10:00 Zestril PO DAILY JEROD Metoprolol Succinate 25 mg 11/03/17 10:00 11/04/17 09:46 Toprol Xl PO 25 mg DAILY JEROD Administration Multivitamins/Minerals 1 tab 11/03/17 09:45 11/04/17 07:46 Therapeutic-M Tab PO 1 tab 0800 JEROD Administration Non-Formulary Medication 1 unit 11/04/17 10:00 Genvoya PO DAILY JEROD Pantoprazole Sodium 40 mg 11/03/17 06:00 11/04/17 05:26 Protonix Ec Tab PO 40 mg 0600 JEROD Administration Thiamine HCl 100 mg 11/03/17 10:00 11/04/17 09:46 Vitamin B1 Tab PO 100 mg DAILY JEROD Administration - Patient Studies Lab Studies: Lab Studies 11/04/17 11/04/17 11/04/17 Range/Units 11:20 10:26 09:51 WBC (4.5-11.0) 10^3/ul RBC (3.5-6.1) 10^6/uL Hgb (14.0-18.0) g/dL Hct (42.0-52.0) % MCV (80.0-105.0) fl MCH (25.0-35.0) pg MCHC (31.0-37.0) g/dl RDW (11.5-14.5) % Plt Count (120.0-450.0) 10^3/uL MPV (7.0-11.0) fl Gran % (50.0-68.0) % Lymph % (Auto) (22.0-35.0) % [place] % (Auto) (1.0-6.0) % Eos % (Auto) (1.5-5.0) % Baso % (Auto) (0.0-3.0) % Gran # (1.4-6.5) Lymph # (Auto) (1.2-3.4) [place] # (Auto) (0.1-0.6) Eos # (Auto) (0.0-0.7) Baso # (Auto) (0.0-2.0) K/mm3 Sodium (132-148) mmol/L Potassium (3.6-5.0) mmol/L Chloride (98-107) mmol/L Carbon Dioxide (21-33) mmol/L Anion Gap (10-20) BUN (7-21) mg/dL Creatinine (0.8-1.5) mg/dl Est GFR ( Amer) Est GFR (Non-Af Amer) POC Glucose (mg/dL) 199 H 201 H 201 H (65-110) mg/dL Random Glucose (70-110) mg/dL Hemoglobin A1c (4.2-6.5) % Calcium (8.4-10.5) mg/dL Total Bilirubin (0.2-1.3) mg/dL AST (17-59) U/L ALT (7-56) U/L Alkaline Phosphatase (38-126) U/L Total Creatine Kinase (35-230) U/L Total Protein (5.8-8.3) g/dL Albumin (3.0-4.8) g/dL Globulin gm/dL Albumin/Globulin Ratio (1.1-1.8) Triglycerides (35-160) mg/dL Cholesterol (130-200) mg/dL LDL Cholesterol Direct (0-129) mg/dL HDL Cholesterol (29-60) mg/dL Lipase (23-300) U/L 11/04/17 11/04/17 11/04/17 Range/Units 08:38 07:44 05:45 WBC (4.5-11.0) 10^3/ul RBC (3.5-6.1) 10^6/uL Hgb (14.0-18.0) g/dL Hct (42.0-52.0) % MCV (80.0-105.0) fl MCH (25.0-35.0) pg MCHC (31.0-37.0) g/dl RDW (11.5-14.5) % Plt Count (120.0-450.0) 10^3/uL MPV (7.0-11.0) fl Gran % (50.0-68.0) % Lymph % (Auto) (22.0-35.0) % [place] % (Auto) (1.0-6.0) % Eos % (Auto) (1.5-5.0) % Baso % (Auto) (0.0-3.0) % Gran # (1.4-6.5) Lymph # (Auto) (1.2-3.4) [place] # (Auto) (0.1-0.6) Eos # (Auto) (0.0-0.7) Baso # (Auto) (0.0-2.0) K/mm3 Sodium (132-148) mmol/L Potassium (3.6-5.0) mmol/L Chloride (98-107) mmol/L Carbon Dioxide (21-33) mmol/L Anion Gap (10-20) BUN (7-21) mg/dL Creatinine (0.8-1.5) mg/dl Est GFR ( Amer) Est GFR (Non-Af Amer) POC Glucose (mg/dL) 184 H 178 H 242 H (65-110) mg/dL Random Glucose (70-110) mg/dL Hemoglobin A1c (4.2-6.5) % Calcium (8.4-10.5) mg/dL Total Bilirubin (0.2-1.3) mg/dL AST (17-59) U/L ALT (7-56) U/L Alkaline Phosphatase (38-126) U/L Total Creatine Kinase (35-230) U/L Total Protein (5.8-8.3) g/dL Albumin (3.0-4.8) g/dL Globulin gm/dL Albumin/Globulin Ratio (1.1-1.8) Triglycerides (35-160) mg/dL Cholesterol (130-200) mg/dL LDL Cholesterol Direct (0-129) mg/dL HDL Cholesterol (29-60) mg/dL Lipase (23-300) U/L 11/04/17 11/04/17 11/04/17 Range/Units 05:30 05:30 03:47 WBC 7.6 (4.5-11.0) 10^3/ul RBC 4.39 (3.5-6.1) 10^6/uL Hgb 12.6 L D (14.0-18.0) g/dL Hct 35.7 L (42.0-52.0) % MCV 81.3 (80.0-105.0) fl MCH 28.7 (25.0-35.0) pg MCHC 35.3 (31.0-37.0) g/dl RDW 13.4 (11.5-14.5) % Plt Count 201 (120.0-450.0) 10^3/uL MPV 11.8 H (7.0-11.0) fl Gran % 64.3 (50.0-68.0) % Lymph % (Auto) 30.2 (22.0-35.0) % [place] % (Auto) 4.6 (1.0-6.0) % Eos % (Auto) 0.8 L (1.5-5.0) % Baso % (Auto) 0.1 (0.0-3.0) % Gran # 4.91 (1.4-6.5) Lymph # (Auto) 2.3 (1.2-3.4) [place] # (Auto) 0.4 (0.1-0.6) Eos # (Auto) 0.1 (0.0-0.7) Baso # (Auto) 0.01 (0.0-2.0) K/mm3 Sodium 136 (132-148) mmol/L Potassium 3.9 (3.6-5.0) mmol/L Chloride 106 (98-107) mmol/L Carbon Dioxide 23 (21-33) mmol/L Anion Gap 11 (10-20) BUN 16 (7-21) mg/dL Creatinine 0.9 (0.8-1.5) mg/dl Est GFR ( Amer) > 60 Est GFR (Non-Af Amer) > 60 POC Glucose (mg/dL) 286 H (65-110) mg/dL Random Glucose 243 H (70-110) mg/dL Hemoglobin A1c (4.2-6.5) % Calcium 8.4 (8.4-10.5) mg/dL Total Bilirubin 0.2 (0.2-1.3) mg/dL AST 23 (17-59) U/L ALT 30 (7-56) U/L Alkaline Phosphatase 78 (38-126) U/L Total Creatine Kinase 164 (35-230) U/L Total Protein 6.2 (5.8-8.3) g/dL Albumin 3.0 (3.0-4.8) g/dL Globulin 3.2 gm/dL Albumin/Globulin Ratio 0.9 L (1.1-1.8) Triglycerides 579 H (35-160) mg/dL Cholesterol (130-200) mg/dL LDL Cholesterol Direct (0-129) mg/dL HDL Cholesterol (29-60) mg/dL Lipase 286 (23-300) U/L 11/04/17 11/03/17 11/03/17 Range/Units 01:51 23:49 21:45 WBC (4.5-11.0) 10^3/ul RBC (3.5-6.1) 10^6/uL Hgb (14.0-18.0) g/dL Hct (42.0-52.0) % MCV (80.0-105.0) fl MCH (25.0-35.0) pg MCHC (31.0-37.0) g/dl RDW (11.5-14.5) % Plt Count (120.0-450.0) 10^3/uL MPV (7.0-11.0) fl Gran % (50.0-68.0) % Lymph % (Auto) (22.0-35.0) % [place] % (Auto) (1.0-6.0) % Eos % (Auto) (1.5-5.0) % Baso % (Auto) (0.0-3.0) % Gran # (1.4-6.5) Lymph # (Auto) (1.2-3.4) [place] # (Auto) (0.1-0.6) Eos # (Auto) (0.0-0.7) Baso # (Auto) (0.0-2.0) K/mm3 Sodium (132-148) mmol/L Potassium (3.6-5.0) mmol/L Chloride (98-107) mmol/L Carbon Dioxide (21-33) mmol/L Anion Gap (10-20) BUN (7-21) mg/dL Creatinine (0.8-1.5) mg/dl Est GFR ( Amer) Est GFR (Non-Af Amer) POC Glucose (mg/dL) 158 H 154 H 230 H (65-110) mg/dL Random Glucose (70-110) mg/dL Hemoglobin A1c (4.2-6.5) % Calcium (8.4-10.5) mg/dL Total Bilirubin (0.2-1.3) mg/dL AST (17-59) U/L ALT (7-56) U/L Alkaline Phosphatase (38-126) U/L Total Creatine Kinase (35-230) U/L Total Protein (5.8-8.3) g/dL Albumin (3.0-4.8) g/dL Globulin gm/dL Albumin/Globulin Ratio (1.1-1.8) Triglycerides (35-160) mg/dL Cholesterol (130-200) mg/dL LDL Cholesterol Direct (0-129) mg/dL HDL Cholesterol (29-60) mg/dL Lipase (23-300) U/L 11/03/17 11/03/17 11/03/17 Range/Units 19:45 16:03 14:32 WBC (4.5-11.0) 10^3/ul RBC (3.5-6.1) 10^6/uL Hgb (14.0-18.0) g/dL Hct (42.0-52.0) % MCV (80.0-105.0) fl MCH (25.0-35.0) pg MCHC (31.0-37.0) g/dl RDW (11.5-14.5) % Plt Count (120.0-450.0) 10^3/uL MPV (7.0-11.0) fl Gran % (50.0-68.0) % Lymph % (Auto) (22.0-35.0) % [place] % (Auto) (1.0-6.0) % Eos % (Auto) (1.5-5.0) % Baso % (Auto) (0.0-3.0) % Gran # (1.4-6.5) Lymph # (Auto) (1.2-3.4) [place] # (Auto) (0.1-0.6) Eos # (Auto) (0.0-0.7) Baso # (Auto) (0.0-2.0) K/mm3 Sodium (132-148) mmol/L Potassium (3.6-5.0) mmol/L Chloride (98-107) mmol/L Carbon Dioxide (21-33) mmol/L Anion Gap (10-20) BUN (7-21) mg/dL Creatinine (0.8-1.5) mg/dl Est GFR ( Amer) Est GFR (Non-Af Amer) POC Glucose (mg/dL) 298 H 186 H 221 H (65-110) mg/dL Random Glucose (70-110) mg/dL Hemoglobin A1c (4.2-6.5) % Calcium (8.4-10.5) mg/dL Total Bilirubin (0.2-1.3) mg/dL AST (17-59) U/L ALT (7-56) U/L Alkaline Phosphatase (38-126) U/L Total Creatine Kinase (35-230) U/L Total Protein (5.8-8.3) g/dL Albumin (3.0-4.8) g/dL Globulin gm/dL Albumin/Globulin Ratio (1.1-1.8) Triglycerides (35-160) mg/dL Cholesterol (130-200) mg/dL LDL Cholesterol Direct (0-129) mg/dL HDL Cholesterol (29-60) mg/dL Lipase (23-300) U/L 11/03/17 11/03/17 11/03/17 Range/Units 13:14 11:50 08:30 WBC (4.5-11.0) 10^3/ul RBC (3.5-6.1) 10^6/uL Hgb (14.0-18.0) g/dL Hct (42.0-52.0) % MCV (80.0-105.0) fl MCH (25.0-35.0) pg MCHC (31.0-37.0) g/dl RDW (11.5-14.5) % Plt Count (120.0-450.0) 10^3/uL MPV (7.0-11.0) fl Gran % (50.0-68.0) % Lymph % (Auto) (22.0-35.0) % [place] % (Auto) (1.0-6.0) % Eos % (Auto) (1.5-5.0) % Baso % (Auto) (0.0-3.0) % Gran # (1.4-6.5) Lymph # (Auto) (1.2-3.4) [place] # (Auto) (0.1-0.6) Eos # (Auto) (0.0-0.7) Baso # (Auto) (0.0-2.0) K/mm3 Sodium 135 (132-148) mmol/L Potassium 3.9 (3.6-5.0) mmol/L Chloride 103 (98-107) mmol/L Carbon Dioxide 22 (21-33) mmol/L Anion Gap 14 (10-20) BUN 26 H (7-21) mg/dL Creatinine 1.1 (0.8-1.5) mg/dl Est GFR ( Amer) > 60 Est GFR (Non-Af Amer) > 60 POC Glucose (mg/dL) 269 H 320 H (65-110) mg/dL Random Glucose 273 H (70-110) mg/dL Hemoglobin A1c (4.2-6.5) % Calcium 8.4 (8.4-10.5) mg/dL Total Bilirubin (0.2-1.3) mg/dL AST (17-59) U/L ALT (7-56) U/L Alkaline Phosphatase (38-126) U/L Total Creatine Kinase (35-230) U/L Total Protein (5.8-8.3) g/dL Albumin (3.0-4.8) g/dL Globulin gm/dL Albumin/Globulin Ratio (1.1-1.8) Triglycerides 1136 H (35-160) mg/dL Cholesterol 161 (130-200) mg/dL LDL Cholesterol Direct < 30 (0-129) mg/dL HDL Cholesterol 28 L (29-60) mg/dL Lipase (23-300) U/L 11/03/17 Range/Units 04:35 WBC (4.5-11.0) 10^3/ul RBC (3.5-6.1) 10^6/uL Hgb (14.0-18.0) g/dL Hct (42.0-52.0) % MCV (80.0-105.0) fl MCH (25.0-35.0) pg MCHC (31.0-37.0) g/dl RDW (11.5-14.5) % Plt Count (120.0-450.0) 10^3/uL MPV (7.0-11.0) fl Gran % (50.0-68.0) % Lymph % (Auto) (22.0-35.0) % [place] % (Auto) (1.0-6.0) % Eos % (Auto) (1.5-5.0) % Baso % (Auto) (0.0-3.0) % Gran # (1.4-6.5) Lymph # (Auto) (1.2-3.4) [place] # (Auto) (0.1-0.6) Eos # (Auto) (0.0-0.7) Baso # (Auto) (0.0-2.0) K/mm3 Sodium (132-148) mmol/L Potassium (3.6-5.0) mmol/L Chloride (98-107) mmol/L Carbon Dioxide (21-33) mmol/L Anion Gap (10-20) BUN (7-21) mg/dL Creatinine (0.8-1.5) mg/dl Est GFR ( Amer) Est GFR (Non-Af Amer) POC Glucose (mg/dL) (65-110) mg/dL Random Glucose (70-110) mg/dL Hemoglobin A1c 15.5 H D (4.2-6.5) % Calcium (8.4-10.5) mg/dL Total Bilirubin (0.2-1.3) mg/dL AST (17-59) U/L ALT (7-56) U/L Alkaline Phosphatase (38-126) U/L Total Creatine Kinase (35-230) U/L Total Protein (5.8-8.3) g/dL Albumin (3.0-4.8) g/dL Globulin gm/dL Albumin/Globulin Ratio (1.1-1.8) Triglycerides (35-160) mg/dL Cholesterol (130-200) mg/dL LDL Cholesterol Direct (0-129) mg/dL HDL Cholesterol (29-60) mg/dL Lipase (23-300) U/L Laboratory Results - last 24 hr 11/03/17 11/03/17 11/03/17 04:35 08:30 11:50 WBC RBC Hgb Hct MCV MCH MCHC RDW Plt Count MPV Gran % Lymph % (Auto) [place] % (Auto) Eos % (Auto) Baso % (Auto) Gran # Lymph # (Auto) [place] # (Auto) Eos # (Auto) Baso # (Auto) Sodium 135 Potassium 3.9 Chloride 103 Carbon Dioxide 22 Anion Gap 14 BUN 26 H Creatinine 1.1 Est GFR ( Amer) > 60 Est GFR (Non-Af Amer) > 60 POC Glucose (mg/dL) 320 H Random Glucose 273 H Hemoglobin A1c 15.5 H D Calcium 8.4 Total Bilirubin AST ALT Alkaline Phosphatase Total Creatine Kinase Total Protein Albumin Globulin Albumin/Globulin Ratio Triglycerides 1136 H Cholesterol 161 LDL Cholesterol Direct < 30 HDL Cholesterol 28 L Lipase 11/03/17 11/03/17 11/03/17 13:14 14:32 16:03 WBC RBC Hgb Hct MCV MCH MCHC RDW Plt Count MPV Gran % Lymph % (Auto) [place] % (Auto) Eos % (Auto) Baso % (Auto) Gran # Lymph # (Auto) [place] # (Auto) Eos # (Auto) Baso # (Auto) Sodium Potassium Chloride Carbon Dioxide Anion Gap BUN Creatinine Est GFR ( Amer) Est GFR (Non-Af Amer) POC Glucose (mg/dL) 269 H 221 H 186 H Random Glucose Hemoglobin A1c Calcium Total Bilirubin AST ALT Alkaline Phosphatase Total Creatine Kinase Total Protein Albumin Globulin Albumin/Globulin Ratio Triglycerides Cholesterol LDL Cholesterol Direct HDL Cholesterol Lipase 11/03/17 11/03/17 11/03/17 19:45 21:45 23:49 WBC RBC Hgb Hct MCV MCH MCHC RDW Plt Count MPV Gran % Lymph % (Auto) [place] % (Auto) Eos % (Auto) Baso % (Auto) Gran # Lymph # (Auto) [place] # (Auto) Eos # (Auto) Baso # (Auto) Sodium Potassium Chloride Carbon Dioxide Anion Gap BUN Creatinine Est GFR ( Amer) Est GFR (Non-Af Amer) POC Glucose (mg/dL) 298 H 230 H 154 H Random Glucose Hemoglobin A1c Calcium Total Bilirubin AST ALT Alkaline Phosphatase Total Creatine Kinase Total Protein Albumin Globulin Albumin/Globulin Ratio Triglycerides Cholesterol LDL Cholesterol Direct HDL Cholesterol Lipase 11/04/17 11/04/17 11/04/17 01:51 03:47 05:30 WBC RBC Hgb Hct MCV MCH MCHC RDW Plt Count MPV Gran % Lymph % (Auto) [place] % (Auto) Eos % (Auto) Baso % (Auto) Gran # Lymph # (Auto) [place] # (Auto) Eos # (Auto) Baso # (Auto) Sodium 136 Potassium 3.9 Chloride 106 Carbon Dioxide 23 Anion Gap 11 BUN 16 Creatinine 0.9 Est GFR ( Amer) > 60 Est GFR (Non-Af Amer) > 60 POC Glucose (mg/dL) 158 H 286 H Random Glucose 243 H Hemoglobin A1c Calcium 8.4 Total Bilirubin 0.2 AST 23 ALT 30 Alkaline Phosphatase 78 Total Creatine Kinase 164 Total Protein 6.2 Albumin 3.0 Globulin 3.2 Albumin/Globulin Ratio 0.9 L Triglycerides 579 H Cholesterol LDL Cholesterol Direct HDL Cholesterol Lipase 286 11/04/17 11/04/17 11/04/17 05:30 05:45 07:44 WBC 7.6 RBC 4.39 Hgb 12.6 L D Hct 35.7 L MCV 81.3 MCH 28.7 MCHC 35.3 RDW 13.4 Plt Count 201 MPV 11.8 H Gran % 64.3 Lymph % (Auto) 30.2 [place] % (Auto) 4.6 Eos % (Auto) 0.8 L Baso % (Auto) 0.1 Gran # 4.91 Lymph # (Auto) 2.3 [place] # (Auto) 0.4 Eos # (Auto) 0.1 Baso # (Auto) 0.01 Sodium Potassium Chloride Carbon Dioxide Anion Gap BUN Creatinine Est GFR ( Amer) Est GFR (Non-Af Amer) POC Glucose (mg/dL) 242 H 178 H Random Glucose Hemoglobin A1c Calcium Total Bilirubin AST ALT Alkaline Phosphatase Total Creatine Kinase Total Protein Albumin Globulin Albumin/Globulin Ratio Triglycerides Cholesterol LDL Cholesterol Direct HDL Cholesterol Lipase 11/04/17 11/04/17 11/04/17 08:38 09:51 10:26 WBC RBC Hgb Hct MCV MCH MCHC RDW Plt Count MPV Gran % Lymph % (Auto) [place] % (Auto) Eos % (Auto) Baso % (Auto) Gran # Lymph # (Auto) [place] # (Auto) Eos # (Auto) Baso # (Auto) Sodium Potassium Chloride Carbon Dioxide Anion Gap BUN Creatinine Est GFR ( Amer) Est GFR (Non-Af Amer) POC Glucose (mg/dL) 184 H 201 H 201 H Random Glucose Hemoglobin A1c Calcium Total Bilirubin AST ALT Alkaline Phosphatase Total Creatine Kinase Total Protein Albumin Globulin Albumin/Globulin Ratio Triglycerides Cholesterol LDL Cholesterol Direct HDL Cholesterol Lipase 11/04/17 11:20 WBC RBC Hgb Hct MCV MCH MCHC RDW Plt Count MPV Gran % Lymph % (Auto) [place] % (Auto) Eos % (Auto) Baso % (Auto) Gran # Lymph # (Auto) [place] # (Auto) Eos # (Auto) Baso # (Auto) Sodium Potassium Chloride Carbon Dioxide Anion Gap BUN Creatinine Est GFR ( Amer) Est GFR (Non-Af Amer) POC Glucose (mg/dL) 199 H Random Glucose Hemoglobin A1c Calcium Total Bilirubin AST ALT Alkaline Phosphatase Total Creatine Kinase Total Protein Albumin Globulin Albumin/Globulin Ratio Triglycerides Cholesterol LDL Cholesterol Direct HDL Cholesterol Lipase Fingerstick Blood Sugar Results: 199 Critical Care Progress Note - Nutrition Nutrition: Nutrition Category Date Time Status Heart Healthy Diet [DIET] Diets 11/03/17 Lunch Active Assessment/Plan - Assessment and Plan (Free Text) Assessment: 47 AA M under ICU management for HHS and Hyper Triglyceridemia with insulin drip A: Hyperosmolar hyperglycemic state - A1C is 15.5 JANELL likely due to dehydration from HHS Possible seizure likely from electrolyte abnormality (HHS/JANELL) vs encephalomalacia from prior strokes Hypertriglyceridemia, likely 2/2 uncontrolled DM (A1C 15.5) VS Poor diet Elevated lactate likely 2/2 HHS DM2 HIV, last CD4 1200 (4/6/18), on Genvoya, confirmed with that he does not miss a day 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 Plan Neuro - Seizure precautions, CPK normalized - Continue Depakote Pulm - Maintain SaO2 above 92% Card - Hold home HCTZ 25, Lisinopril 20 - JANELL - Continue Toprol XL 25 and lipitor - Trops negative x 1 GI - HHD+CHO - No diagnostic criteria for pancreatitis - Protonix for PPX - NS@150 - Monitor electrolytes Endo - Insulin gtt, FS q1 - Added fenofibrate Heme - No active issue; Heparin for PPX Infectious - Pending HIV viral load and CD4 count - Follow up on blood and urine culture - Restarted Genvoya yesterday, patient's confirms compliance - No need for OI prophylaxis given most recent known CD4 count at this time Dispo: At this time will get a TG scheduled for 10:30 to determine if below 500; if so, can stop insulin drip <Shay Navarro - Last Filed: 11/04/17 13:22> CCU Objective - Vital Signs / Intake & Output Vital Signs (Last 4 hours): Vital Signs Pulse Resp BP 11/04/17 11:00 133/78 11/04/17 10:59 72 20 11/04/17 10:00 74 141/86 11/04/17 09:59 77 29 H 11/04/17 09:46 73 168/85 H Intake and Output (Last 8hrs): Intake & Output 11/03/17 11/04/17 11/04/17 22:59 06:59 14:59 Intake Total 2232 2282 24 Output Total 1850 2100 Balance 382 182 24 Intake: IV 2212 1782 24 Left Hand 2190 1750 Oral 20 500 Output: Urine 1850 2100 Urine, Voided 1850 2100 Other: # Bowel Movements 0 0 - Medications Active Medications: Active Medications Generic Name Dose Route Start Last Admin Trade Name Freq PRN Reason Stop Dose Admin Atorvastatin Calcium 40 mg 11/03/17 17:00 11/03/17 17:22 Lipitor PO Not Given DIN JEROD Clopidogrel Bisulfate 75 mg 11/03/17 10:00 11/04/17 09:46 Plavix PO 75 mg DAILY JEROD Administration Dipyridamole/Aspirin 1 ea 11/04/17 18:00 Aggrenox 25-200 Mg PO BID JEROD Divalproex Sodium 500 mg 11/03/17 18:00 11/04/17 09:45 Deplynda Carlos(*Bid*) PO 500 mg BID JEROD Administration Protocol Fenofibrate 145 mg 11/03/17 10:00 11/04/17 09:46 Tricor PO 145 mg DAILY JEROD Administration Folic Acid 1 mg 11/03/17 10:00 11/04/17 09:45 Folic Acid PO 1 mg DAILY JEROD Administration Heparin Sodium (Porcine) 5,000 units 11/03/17 06:00 11/04/17 05:25 Heparin SC 5,000 units Q8 JEROD Administration Protocol Insulin Human Regular 100 100 mls @ 1 mls/hr 11/03/17 09:43 11/04/17 13:15 units/ Sodium Chloride IV 4 units/hr .Q24H PRN 4 mls/hr TITRATE PER MD ORDER Administration Protocol 1 UNITS/HR Dextrose/Sodium Chloride 1,000 mls @ 150 mls/hr 11/03/17 15:11 11/04/17 12:19 Dextrose 5%/0.9% Ns 1000 Ml IV 150 mls/hr .[id number] JEROD Administration Lisinopril 20 mg 11/03/17 10:00 Zestril PO DAILY JEROD Metoprolol Succinate 25 mg 11/03/17 10:00 11/04/17 09:46 Toprol Xl PO 25 mg DAILY JEROD Administration Multivitamins/Minerals 1 tab 11/03/17 09:45 11/04/17 07:46 Therapeutic-M Tab PO 1 tab 0800 JEROD Administration Non-Formulary Medication 1 unit 11/04/17 10:00 Genvoya PO DAILY JEROD Pantoprazole Sodium 40 mg 11/03/17 06:00 11/04/17 05:26 Protonix Ec Tab PO 40 mg 0600 JEROD Administration Thiamine HCl 100 mg 11/03/17 10:00 11/04/17 09:46 Vitamin B1 Tab PO 100 mg DAILY JEROD Administration - Patient Studies Lab Studies: Microbiology Studies 11/03/17 04:20 MRSA Culture (Admit) - Final Nose MRSA NOT DETECTED Lab Studies 11/04/17 11/04/17 11/04/17 Range/Units 13:13 11:20 10:26 WBC (4.5-11.0) 10^3/ul RBC (3.5-6.1) 10^6/uL Hgb (14.0-18.0) g/dL Hct (42.0-52.0) % MCV (80.0-105.0) fl MCH (25.0-35.0) pg MCHC (31.0-37.0) g/dl RDW (11.5-14.5) % Plt Count (120.0-450.0) 10^3/uL MPV (7.0-11.0) fl Gran % (50.0-68.0) % Lymph % (Auto) (22.0-35.0) % [place] % (Auto) (1.0-6.0) % Eos % (Auto) (1.5-5.0) % Baso % (Auto) (0.0-3.0) % Gran # (1.4-6.5) Lymph # (Auto) (1.2-3.4) [place] # (Auto) (0.1-0.6) Eos # (Auto) (0.0-0.7) Baso # (Auto) (0.0-2.0) K/mm3 Sodium (132-148) mmol/L Potassium (3.6-5.0) mmol/L Chloride (98-107) mmol/L Carbon Dioxide (21-33) mmol/L Anion Gap (10-20) BUN (7-21) mg/dL Creatinine (0.8-1.5) mg/dl Est GFR ( Amer) Est GFR (Non-Af Amer) POC Glucose (mg/dL) 219 H 199 H 201 H (65-110) mg/dL Random Glucose (70-110) mg/dL Calcium (8.4-10.5) mg/dL Total Bilirubin (0.2-1.3) mg/dL AST (17-59) U/L ALT (7-56) U/L Alkaline Phosphatase (38-126) U/L Total Creatine Kinase (35-230) U/L Total Protein (5.8-8.3) g/dL Albumin (3.0-4.8) g/dL Globulin gm/dL Albumin/Globulin Ratio (1.1-1.8) Triglycerides (35-160) mg/dL Lipase (23-300) U/L Valproic Acid (50.0-100.0) ug/mL 11/04/17 11/04/17 11/04/17 Range/Units 09:51 08:38 07:44 WBC (4.5-11.0) 10^3/ul RBC (3.5-6.1) 10^6/uL Hgb (14.0-18.0) g/dL Hct (42.0-52.0) % MCV (80.0-105.0) fl MCH (25.0-35.0) pg MCHC (31.0-37.0) g/dl RDW (11.5-14.5) % Plt Count (120.0-450.0) 10^3/uL MPV (7.0-11.0) fl Gran % (50.0-68.0) % Lymph % (Auto) (22.0-35.0) % [place] % (Auto) (1.0-6.0) % Eos % (Auto) (1.5-5.0) % Baso % (Auto) (0.0-3.0) % Gran # (1.4-6.5) Lymph # (Auto) (1.2-3.4) [place] # (Auto) (0.1-0.6) Eos # (Auto) (0.0-0.7) Baso # (Auto) (0.0-2.0) K/mm3 Sodium (132-148) mmol/L Potassium (3.6-5.0) mmol/L Chloride (98-107) mmol/L Carbon Dioxide (21-33) mmol/L Anion Gap (10-20) BUN (7-21) mg/dL Creatinine (0.8-1.5) mg/dl Est GFR ( Amer) Est GFR (Non-Af Amer) POC Glucose (mg/dL) 201 H 184 H 178 H (65-110) mg/dL Random Glucose (70-110) mg/dL Calcium (8.4-10.5) mg/dL Total Bilirubin (0.2-1.3) mg/dL AST (17-59) U/L ALT (7-56) U/L Alkaline Phosphatase (38-126) U/L Total Creatine Kinase (35-230) U/L Total Protein (5.8-8.3) g/dL Albumin (3.0-4.8) g/dL Globulin gm/dL Albumin/Globulin Ratio (1.1-1.8) Triglycerides (35-160) mg/dL Lipase (23-300) U/L Valproic Acid (50.0-100.0) ug/mL 11/04/17 11/04/17 11/04/17 Range/Units 07:00 07:00 05:45 WBC (4.5-11.0) 10^3/ul RBC (3.5-6.1) 10^6/uL Hgb (14.0-18.0) g/dL Hct (42.0-52.0) % MCV (80.0-105.0) fl MCH (25.0-35.0) pg MCHC (31.0-37.0) g/dl RDW (11.5-14.5) % Plt Count (120.0-450.0) 10^3/uL MPV (7.0-11.0) fl Gran % (50.0-68.0) % Lymph % (Auto) (22.0-35.0) % [place] % (Auto) (1.0-6.0) % Eos % (Auto) (1.5-5.0) % Baso % (Auto) (0.0-3.0) % Gran # (1.4-6.5) Lymph # (Auto) (1.2-3.4) [place] # (Auto) (0.1-0.6) Eos # (Auto) (0.0-0.7) Baso # (Auto) (0.0-2.0) K/mm3 Sodium (132-148) mmol/L Potassium (3.6-5.0) mmol/L Chloride (98-107) mmol/L Carbon Dioxide (21-33) mmol/L Anion Gap (10-20) BUN (7-21) mg/dL Creatinine (0.8-1.5) mg/dl Est GFR ( Amer) Est GFR (Non-Af Amer) POC Glucose (mg/dL) 242 H (65-110) mg/dL Random Glucose (70-110) mg/dL Calcium (8.4-10.5) mg/dL Total Bilirubin (0.2-1.3) mg/dL AST (17-59) U/L ALT (7-56) U/L Alkaline Phosphatase (38-126) U/L Total Creatine Kinase (35-230) U/L Total Protein (5.8-8.3) g/dL Albumin (3.0-4.8) g/dL Globulin gm/dL Albumin/Globulin Ratio (1.1-1.8) Triglycerides 593 H (35-160) mg/dL Lipase (23-300) U/L Valproic Acid 23 L (50.0-100.0) ug/mL 11/04/17 11/04/17 11/04/17 Range/Units 05:30 05:30 03:47 WBC 7.6 (4.5-11.0) 10^3/ul RBC 4.39 (3.5-6.1) 10^6/uL Hgb 12.6 L D (14.0-18.0) g/dL Hct 35.7 L (42.0-52.0) % MCV 81.3 (80.0-105.0) fl MCH 28.7 (25.0-35.0) pg MCHC 35.3 (31.0-37.0) g/dl RDW 13.4 (11.5-14.5) % Plt Count 201 (120.0-450.0) 10^3/uL MPV 11.8 H (7.0-11.0) fl Gran % 64.3 (50.0-68.0) % Lymph % (Auto) 30.2 (22.0-35.0) % [place] % (Auto) 4.6 (1.0-6.0) % Eos % (Auto) 0.8 L (1.5-5.0) % Baso % (Auto) 0.1 (0.0-3.0) % Gran # 4.91 (1.4-6.5) Lymph # (Auto) 2.3 (1.2-3.4) [place] # (Auto) 0.4 (0.1-0.6) Eos # (Auto) 0.1 (0.0-0.7) Baso # (Auto) 0.01 (0.0-2.0) K/mm3 Sodium 136 (132-148) mmol/L Potassium 3.9 (3.6-5.0) mmol/L Chloride 106 (98-107) mmol/L Carbon Dioxide 23 (21-33) mmol/L Anion Gap 11 (10-20) BUN 16 (7-21) mg/dL Creatinine 0.9 (0.8-1.5) mg/dl Est GFR ( Amer) > 60 Est GFR (Non-Af Amer) > 60 POC Glucose (mg/dL) 286 H (65-110) mg/dL Random Glucose 243 H (70-110) mg/dL Calcium 8.4 (8.4-10.5) mg/dL Total Bilirubin 0.2 (0.2-1.3) mg/dL AST 23 (17-59) U/L ALT 30 (7-56) U/L Alkaline Phosphatase 78 (38-126) U/L Total Creatine Kinase 164 (35-230) U/L Total Protein 6.2 (5.8-8.3) g/dL Albumin 3.0 (3.0-4.8) g/dL Globulin 3.2 gm/dL Albumin/Globulin Ratio 0.9 L (1.1-1.8) Triglycerides 579 H (35-160) mg/dL Lipase 286 (23-300) U/L Valproic Acid (50.0-100.0) ug/mL 11/04/17 11/03/17 11/03/17 Range/Units 01:51 23:49 21:45 WBC (4.5-11.0) 10^3/ul RBC (3.5-6.1) 10^6/uL Hgb (14.0-18.0) g/dL Hct (42.0-52.0) % MCV (80.0-105.0) fl MCH (25.0-35.0) pg MCHC (31.0-37.0) g/dl RDW (11.5-14.5) % Plt Count (120.0-450.0) 10^3/uL MPV (7.0-11.0) fl Gran % (50.0-68.0) % Lymph % (Auto) (22.0-35.0) % [place] % (Auto) (1.0-6.0) % Eos % (Auto) (1.5-5.0) % Baso % (Auto) (0.0-3.0) % Gran # (1.4-6.5) Lymph # (Auto) (1.2-3.4) [place] # (Auto) (0.1-0.6) Eos # (Auto) (0.0-0.7) Baso # (Auto) (0.0-2.0) K/mm3 Sodium (132-148) mmol/L Potassium (3.6-5.0) mmol/L Chloride (98-107) mmol/L Carbon Dioxide (21-33) mmol/L Anion Gap (10-20) BUN (7-21) mg/dL Creatinine (0.8-1.5) mg/dl Est GFR ( Amer) Est GFR (Non-Af Amer) POC Glucose (mg/dL) 158 H 154 H 230 H (65-110) mg/dL Random Glucose (70-110) mg/dL Calcium (8.4-10.5) mg/dL Total Bilirubin (0.2-1.3) mg/dL AST (17-59) U/L ALT (7-56) U/L Alkaline Phosphatase (38-126) U/L Total Creatine Kinase (35-230) U/L Total Protein (5.8-8.3) g/dL Albumin (3.0-4.8) g/dL Globulin gm/dL Albumin/Globulin Ratio (1.1-1.8) Triglycerides (35-160) mg/dL Lipase (23-300) U/L Valproic Acid (50.0-100.0) ug/mL 11/03/17 11/03/17 11/03/17 Range/Units 19:45 16:03 14:32 WBC (4.5-11.0) 10^3/ul RBC (3.5-6.1) 10^6/uL Hgb (14.0-18.0) g/dL Hct (42.0-52.0) % MCV (80.0-105.0) fl MCH (25.0-35.0) pg MCHC (31.0-37.0) g/dl RDW (11.5-14.5) % Plt Count (120.0-450.0) 10^3/uL MPV (7.0-11.0) fl Gran % (50.0-68.0) % Lymph % (Auto) (22.0-35.0) % [place] % (Auto) (1.0-6.0) % Eos % (Auto) (1.5-5.0) % Baso % (Auto) (0.0-3.0) % Gran # (1.4-6.5) Lymph # (Auto) (1.2-3.4) [place] # (Auto) (0.1-0.6) Eos # (Auto) (0.0-0.7) Baso # (Auto) (0.0-2.0) K/mm3 Sodium (132-148) mmol/L Potassium (3.6-5.0) mmol/L Chloride (98-107) mmol/L Carbon Dioxide (21-33) mmol/L Anion Gap (10-20) BUN (7-21) mg/dL Creatinine (0.8-1.5) mg/dl Est GFR ( Amer) Est GFR (Non-Af Amer) POC Glucose (mg/dL) 298 H 186 H 221 H (65-110) mg/dL Random Glucose (70-110) mg/dL Calcium (8.4-10.5) mg/dL Total Bilirubin (0.2-1.3) mg/dL AST (17-59) U/L ALT (7-56) U/L Alkaline Phosphatase (38-126) U/L Total Creatine Kinase (35-230) U/L Total Protein (5.8-8.3) g/dL Albumin (3.0-4.8) g/dL Globulin gm/dL Albumin/Globulin Ratio (1.1-1.8) Triglycerides (35-160) mg/dL Lipase (23-300) U/L Valproic Acid (50.0-100.0) ug/mL Laboratory Results - last 24 hr 11/03/17 11/03/17 11/03/17 14:32 16:03 19:45 WBC RBC Hgb Hct MCV MCH MCHC RDW Plt Count MPV Gran % Lymph % (Auto) [place] % (Auto) Eos % (Auto) Baso % (Auto) Gran # Lymph # (Auto) [place] # (Auto) Eos # (Auto) Baso # (Auto) Sodium Potassium Chloride Carbon Dioxide Anion Gap BUN Creatinine Est GFR ( Amer) Est GFR (Non-Af Amer) POC Glucose (mg/dL) 221 H 186 H 298 H Random Glucose Calcium Total Bilirubin AST ALT Alkaline Phosphatase Total Creatine Kinase Total Protein Albumin Globulin Albumin/Globulin Ratio Triglycerides Lipase Valproic Acid 11/03/17 11/03/17 11/04/17 21:45 23:49 01:51 WBC RBC Hgb Hct MCV MCH MCHC RDW Plt Count MPV Gran % Lymph % (Auto) [place] % (Auto) Eos % (Auto) Baso % (Auto) Gran # Lymph # (Auto) [place] # (Auto) Eos # (Auto) Baso # (Auto) Sodium Potassium Chloride Carbon Dioxide Anion Gap BUN Creatinine Est GFR ( Amer) Est GFR (Non-Af Amer) POC Glucose (mg/dL) 230 H 154 H 158 H Random Glucose Calcium Total Bilirubin AST ALT Alkaline Phosphatase Total Creatine Kinase Total Protein Albumin Globulin Albumin/Globulin Ratio Triglycerides Lipase Valproic Acid 11/04/17 11/04/17 11/04/17 03:47 05:30 05:30 WBC 7.6 RBC 4.39 Hgb 12.6 L D Hct 35.7 L MCV 81.3 MCH 28.7 MCHC 35.3 RDW 13.4 Plt Count 201 MPV 11.8 H Gran % 64.3 Lymph % (Auto) 30.2 [place] % (Auto) 4.6 Eos % (Auto) 0.8 L Baso % (Auto) 0.1 Gran # 4.91 Lymph # (Auto) 2.3 [place] # (Auto) 0.4 Eos # (Auto) 0.1 Baso # (Auto) 0.01 Sodium 136 Potassium 3.9 Chloride 106 Carbon Dioxide 23 Anion Gap 11 BUN 16 Creatinine 0.9 Est GFR ( Amer) > 60 Est GFR (Non-Af Amer) > 60 POC Glucose (mg/dL) 286 H Random Glucose 243 H Calcium 8.4 Total Bilirubin 0.2 AST 23 ALT 30 Alkaline Phosphatase 78 Total Creatine Kinase 164 Total Protein 6.2 Albumin 3.0 Globulin 3.2 Albumin/Globulin Ratio 0.9 L Triglycerides 579 H Lipase 286 Valproic Acid 06/23/18 06/23/18 06/23/18 05:45 07:00 07:00 WBC RBC Hgb Hct MCV MCH MCHC RDW Plt Count MPV Gran % Lymph % (Auto) [place] % (Auto) Eos % (Auto) Baso % (Auto) Gran # Lymph # (Auto) [place] # (Auto) Eos # (Auto) Baso # (Auto) Sodium Potassium Chloride Carbon Dioxide Anion Gap BUN Creatinine Est GFR ( Amer) Est GFR (Non-Af Amer) POC Glucose (mg/dL) 242 H Random Glucose Calcium Total Bilirubin AST ALT Alkaline Phosphatase Total Creatine Kinase Total Protein Albumin Globulin Albumin/Globulin Ratio Triglycerides 593 H Lipase Valproic Acid 23 L 11/04/17 11/04/17 11/04/17 07:44 08:38 09:51 WBC RBC Hgb Hct MCV MCH MCHC RDW Plt Count MPV Gran % Lymph % (Auto) [place] % (Auto) Eos % (Auto) Baso % (Auto) Gran # Lymph # (Auto) [place] # (Auto) Eos # (Auto) Baso # (Auto) Sodium Potassium Chloride Carbon Dioxide Anion Gap BUN Creatinine Est GFR ( Amer) Est GFR (Non-Af Amer) POC Glucose (mg/dL) 178 H 184 H 201 H Random Glucose Calcium Total Bilirubin AST ALT Alkaline Phosphatase Total Creatine Kinase Total Protein Albumin Globulin Albumin/Globulin Ratio Triglycerides Lipase Valproic Acid 11/04/17 11/04/17 11/04/17 10:26 11:20 13:13 WBC RBC Hgb Hct MCV MCH MCHC RDW Plt Count MPV Gran % Lymph % (Auto) [place] % (Auto) Eos % (Auto) Baso % (Auto) Gran # Lymph # (Auto) [place] # (Auto) Eos # (Auto) Baso # (Auto) Sodium Potassium Chloride Carbon Dioxide Anion Gap BUN Creatinine Est GFR ( Amer) Est GFR (Non-Af Amer) POC Glucose (mg/dL) 201 H 199 H 219 H Random Glucose Calcium Total Bilirubin AST ALT Alkaline Phosphatase Total Creatine Kinase Total Protein Albumin Globulin Albumin/Globulin Ratio Triglycerides Lipase Valproic Acid Critical Care Progress Note - Nutrition Nutrition: Nutrition Category Date Time Status Heart Healthy Diet [DIET] Diets 11/03/17 Lunch Active Attending/Attestation - Attestation I have personally seen and examined this patient.: Yes I have fully participated in the care of the patient.: Yes I have reviewed all pertinent clinical information: Yes Notes (Text): 11/04/17 13:[address] navarro note
--- NOTE | 2017-11-04 12:09 | CP.PCM.PN ---
<Manny Badillo - Last Filed: 11/04/17 12:04> Subjective - Date & Time of Evaluation Date of Evaluation: 11/04/17 Time of Evaluation: 08:00 - Subjective Subjective: Manny Badillo DO PGY1 - IM Progress Note for Dr. Mary Patient seen and examined at bedside in the ICU. Per nursing staff, no acute events overnight. Patient denies any pain or new discomfort. Patient was seen talking to his sister on facetime during encounter. Upon inquiry, patient's sister reports that he is speaking and behaving normally. He denies any headache , and reports that his strength and coordination is at baseline. Objective - Vital Signs/Intake and Output Vital Signs (last 24 hours): Temp Pulse Resp BP Pulse Ox 97.6 F 72 20 133/78 97 11/04/17 08:00 11/04/17 10:59 11/04/17 10:59 11/04/17 11:00 11/03/17 11:10 Intake and Output: 11/04/17 11/04/17 06:59 18:59 Intake Total 2297 9 Output Total 2100 Balance 197 9 - Medications Medications: Current Medications Aspirin (Aspirin Chewable) 81 mg PO DAILY [facility] Last Admin: 11/04/17 09:45 Dose: 81 mg Atorvastatin Calcium (Lipitor) 40 mg PO DIN [facility] Last Admin: 11/03/17 17:22 Dose: Not Given Clopidogrel Bisulfate (Plavix) 75 mg PO DAILY [facility] Last Admin: 11/04/17 09:46 Dose: 75 mg Divalproex Sodium (Depakote Dr(*Bid*)) 500 mg PO BID [facility] PRN Reason: Protocol Last Admin: 11/04/17 09:45 Dose: 500 mg Fenofibrate (Tricor) 145 mg PO DAILY [facility] Last Admin: 11/04/17 09:46 Dose: 145 mg Folic Acid (Folic Acid) 1 mg PO DAILY [facility] Last Admin: 11/04/17 09:45 Dose: 1 mg Heparin Sodium (Porcine) (Heparin) 5,000 units SC Q8 [facility] PRN Reason: Protocol Last Admin: 11/04/17 05:25 Dose: 5,000 units Insulin Human Regular 100 (units/ Sodium Chloride) 100 mls @ 1 mls/hr IV .Q24H PRN; Protocol; 1 UNITS/HR PRN Reason: TITRATE PER MD ORDER Last Titration: 11/04/17 08:40 Dose: 3 units/hr, 3 mls/hr Dextrose/Sodium Chloride (Dextrose 5%/0.9% Ns 1000 Ml) 1,000 mls @ 150 mls/hr IV .Q6H40M [facility] Last Admin: 11/04/17 05:38 Dose: 150 mls/hr Lisinopril (Zestril) 20 mg PO DAILY [facility] Metoprolol Succinate (Toprol Xl) 25 mg PO DAILY [facility] Last Admin: 11/04/17 09:46 Dose: 25 mg Multivitamins/Minerals (Therapeutic-M Tab) 1 tab PO 0800 [facility] Last Admin: 11/04/17 07:46 Dose: 1 tab Non-Formulary Medication (Genvoya) 1 unit PO DAILY [facility] Pantoprazole Sodium (Protonix Ec Tab) 40 mg PO 0600 [facility] Last Admin: 11/04/17 05:26 Dose: 40 mg Thiamine HCl (Vitamin B1 Tab) 100 mg PO DAILY [facility] Last Admin: 11/04/17 09:46 Dose: 100 mg - Labs Labs: 11/04/17 05:30 11/04/17 05:30 - Constitutional Appears: Non-toxic, No Acute Distress, Chronically Ill - Head Exam Head Exam: ATRAUMATIC, NORMOCEPHALIC - Eye Exam Additional comments: Stabismus, but is able to move both eyes in all directions ptosis of right eye - ENT Exam ENT Exam: Mucous Membranes Moist - Neck Exam Neck Exam: Normal Inspection - Respiratory Exam Respiratory Exam: Clear to Ausculation Bilateral, NORMAL BREATHING PATTERN - Cardiovascular Exam Cardiovascular Exam: RRR, +S1, +S2 - GI/Abdominal Exam GI & Abdominal Exam: Soft, Normal Bowel Sounds. absent: Distended, Firm, Guarding, Rigid, Tenderness - Extremities Exam Extremities Exam: absent: Calf Tenderness, Pedal Edema - Neurological Exam Neurological Exam: Alert, Awake, Oriented x3 Neuro motor strength exam: Left Upper Extremity: 5, Right Upper Extremity: 4, Left Lower Extremity: 5, Right Lower Extremity: 4 Additional comments: Right hand contracted - Psychiatric Exam Psychiatric exam: Normal Affect, Normal Mood - Skin Skin Exam: Dry, Intact, Normal Color Assessment and Plan - Assessment and Plan (Free Text) Assessment: 47 yo M with PMH of HIV, asthma/smoker, HTN, HLD, DM, and CVA x 2 (L temporal/L frontal, 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 Active workup and treatment of hyperglycemia, hypertriglyceridema, seizure. Seizure-like episode Possible seizure likely from electrolyte abnormality (HHS/JANELL) vs encephalomalacia from prior strokes vs new stroke EEG done yesterday; pending official report MRI done yesterday, shows recent infarct, and possible superimposed acute infarct Per neuro, likely secondary seizure, but cannot rule out new CVA as etiology Continue depakote as per neuro and ICU; f/u level Maintain seizure precautions Neuro on consult, appreciate recs Hyperosmolar hyperglycemic state - r/o infection, ischemia, iatrogenic causes HHS resolved Remains on insulin drip for hypertriglyceridemia; continue concomitant D5 administration to avoid hypoglycemia A1c 15.5 Patient will need diabetic education counseling and will be discharged with new insulin regimen Continue Q1 accucheck while on insulin drip Endo on consult; appreciate recs Hypertriglyceridemia Improving; continue insulin drip Recheck with AM labs Continue Tricor JANELL likely due to dehydration from HHS Resolved Continue to monitor HIV, last CD4 1200 (08/18/17) Continue ART (Genvoya) as per ID ID on consult; appreciate recs History of stroke; possible new stroke MRI shows "recent infarct involving the left posterior frontal and parietal lobes as well as the left temporal lobe. There is a small amount of restricted diffusion that is seen on the current exam in the left posterior frontal and parietal lobes. This could represent an new area of cortical infarction superimposed on the earlier infarct" Continue aspirin and plavix Continue statin GI/DVT Ppx: Heparin, Protonix Patient seen, and case discussed with attending Dr. Mary <Matias Mary - Last Filed: 11/04/17 15:52> Objective - Vital Signs/Intake and Output Vital Signs (last 24 hours): Temp Pulse Resp BP Pulse Ox 97.6 F 72 20 133/78 97 11/04/17 08:00 11/04/17 10:59 11/04/17 10:59 11/04/17 11:00 11/03/17 11:10 Intake and Output: 11/04/17 11/04/17 06:59 18:59 Intake Total 2297 24 Output Total 2100 Balance 197 24 - Medications Medications: Current Medications Clopidogrel Bisulfate (Plavix) 75 mg PO DAILY [facility] Last Admin: 11/04/17 09:46 Dose: 75 mg Dipyridamole/Aspirin (Aggrenox 25-200 Mg) 1 ea PO BID [facility] Divalproex Sodium (Depakote Dr(*Bid*)) 500 mg PO BID [facility] PRN Reason: Protocol Last Admin: 11/04/17 09:45 Dose: 500 mg Fenofibrate (Tricor) 145 mg PO DAILY [facility] Last Admin: 11/04/17 09:46 Dose: 145 mg Folic Acid (Folic Acid) 1 mg PO DAILY [facility] Last Admin: 11/04/17 09:45 Dose: 1 mg Heparin Sodium (Porcine) (Heparin) 5,000 units SC Q8 [facility] PRN Reason: Protocol Last Admin: 11/04/17 14:22 Dose: 5,000 units Home Med (Home Med) 1 unit PO HS [facility] Home Med (Home Med) 1 unit PO DAILY [facility] Sodium Chloride (Sodium Chloride 0.45%) 1,000 mls @ 150 mls/hr IV .Q6H40M [facility] Last Admin: 11/04/17 14:16 Dose: 150 mls/hr Insulin Detemir (Levemir) 24 unit SC HS [facility] Insulin Human Lispro (Humalog Low) 0 units SC ACHS [facility] PRN Reason: Protocol Insulin Human Lispro (Humalog) 8 units SC AC [facility] Lisinopril (Zestril) 20 mg PO DAILY [facility] Metoprolol Succinate (Toprol Xl) 25 mg PO DAILY [facility] Last Admin: 11/04/17 09:46 Dose: 25 mg Multivitamins/Minerals (Therapeutic-M Tab) 1 tab PO 0800 [facility] Last Admin: 11/04/17 07:46 Dose: 1 tab Pantoprazole Sodium (Protonix Ec Tab) 40 mg PO 0600 [facility] Last Admin: 11/04/17 05:26 Dose: 40 mg Thiamine HCl (Vitamin B1 Tab) 100 mg PO DAILY [facility] Last Admin: 11/04/17 09:46 Dose: 100 mg - Labs Labs: 11/04/17 05:30 11/04/17 05:30 Attending/Attestation - Attestation I have personally seen and examined this patient.: Yes I have fully participated in the care of the patient.: Yes I have reviewed all pertinent clinical information, including history, physical exam and plan: Yes Notes (Text): 11/04/17 15:51 Patient seen and examined independently at bedside. labs, vitals, orders and notes reveiwed. Agree with the outlined plan by the resident.
[2017-11-04] MEDS: Insulin Regular 100 UNITS in Sodium Chloride 0.9% 99 ML IV PRN (13:15)
[2017-11-04] MEDS: Sodium Chloride 0.45% 1,000 ML IV SCH ×2 (14:16→22:16)
[2017-11-04 16:35] LABS: % CD4 (T HELPER CELL) 43 Percent (30-61); % CD8 (SUPPRESSOR T CELL) 32 Percent (12-42); ABSOLUTE CD4 CELLS 811 Cells/mcL (490-1740); ABSOLUTE CD8 CELLS 615 Cells/mcL (180-1170); ABSOLUTE LYMPHOCYTES 1907 Cells/mcL (850-3900); HELPER/SUPPRESSOR RATIO 1.32 Ratio (0.86-5.00)
[2017-11-04] MEDS: Insulin Lispro (humaLOG) LOW Coverage SC SCH ×2 (17:12→22:15)
[2017-11-04] MEDS: Insulin Lispro 1 UNITS/0.01 ML SC SCH (17:13)
[2017-11-04] MEDS: Aspirin-Dipyridamole 200-25 mg ER Cap PO SCH (17:19)
--- NOTE | 2017-11-04 20:46 | PN ---
DATE: 11/04/2017 ENDOCRINOLOGY FOLLOWUP LOCATION: [facility]U 129, room 4. SUBJECTIVE: This is a 47-year-old male with recent uncontrolled type 2 insulin-requiring diabetes presenting here with hyperosmolar hyperglycemic state and recent diagnosis of diabetes with concomitant dehydration and supervening acute pancreatitis with underlying hypertriglyceridemia as noted. His oral intake has improved as noted with subsidence of the vomiting and upper abdominal pain as noted. His glucose values today have ranged from 178 to 184 and 201 mg/dL. His latest chemistry shows a BUN of 16, sodium 136, potassium 3.9, chloride 106, CO2 of 23, glucose 243, and creatinine 0.9. His triglyceride levels today are down to 593 as noted. ASSESSMENT: This is a 47-year-old male with uncontrolled and decompensated type 2 insulin-requiring diabetes of recent onset and evaluation, presenting here with marked hypertriglyceridemia and supervening acute pancreatitis and is now improved clinically and metabolically with the initiation of an insulin drip infusion and vigorous IV hydration as given. PLAN OF MANAGEMENT: As discussed with the patient lengthily at bedside, the imperative need for the initiation of a more physiologic basal and bolus insulin regimen was discussed with the patient and his at bedside. We will initiate diabetic education to include insulin self-administration at this time for the patient as given. We will continue the vigorous IV hydration and switch his IVs to half normal saline infusion running at 150 mL/hour as ordered. We will obtain serial chemistries and supplement accordingly as needed. We will also be initiating a more physiologic basal and bolus insulin drug combination with Humalog to be given as 80 units subcu t.i.d. before meals to start at dinner time today as ordered. We will also add basal insulin with Levemir to be given as 24 units subcu at bedtime daily to start tonight. We will modify the coverage scale to obviate hypoglycemia and detailed orders have been given. We will obtain serial chemistries and supplement accordingly as needed. We will follow this. Tiffany Yoon MD
[2017-11-04] MEDS: Insulin Detemir 100 units/ml Vial (Levemir) SC SCH (21:50)
--- NOTE | 2017-11-05 00:04 | CP.PCM.PN ---
Subjective - Date & Time of Evaluation Date of Evaluation: 11/04/17 Time of Evaluation: 14:00 - Subjective Subjective: Patient is stable, well,alert awake and following commands. MRI brain shows acute left parietal temporal stroke, embolic. He has baseline weakness right hand from prior stroke, and now has no increased weakness. 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 PERRL. congenital nystagmus. Objective - Vital Signs/Intake and Output Vital Signs (last 24 hours): Temp Pulse Resp BP Pulse Ox 97.8 F 81 16 150/89 100 11/04/17 22:13 11/04/17 22:13 11/04/17 22:13 11/04/17 22:13 11/04/17 22:13 Intake and Output: 11/04/17 11/05/17 18:59 06:59 Intake Total 1774 Output Total 1925 Balance -151 - Medications Medications: Current Medications Clopidogrel Bisulfate (Plavix) 75 mg PO DAILY [facility] Last Admin: 11/04/17 09:46 Dose: 75 mg Dipyridamole/Aspirin (Aggrenox 25-200 Mg) 1 ea PO BID [facility] Last Admin: 11/04/17 17:19 Dose: 1 ea Divalproex Sodium (Depakote Dr(*Bid*)) 500 mg PO BID [facility] PRN Reason: Protocol Last Admin: 11/04/17 17:17 Dose: 500 mg Fenofibrate (Tricor) 145 mg PO DAILY [facility] Last Admin: 11/04/17 09:46 Dose: 145 mg Folic Acid (Folic Acid) 1 mg PO DAILY [facility] Last Admin: 11/04/17 09:45 Dose: 1 mg Heparin Sodium (Porcine) (Heparin) 5,000 units SC Q8 [facility] PRN Reason: Protocol Last Admin: 11/04/17 21:49 Dose: 5,000 units Home Med (Home Med) 1 unit PO HS [facility] Last Admin: 11/04/17 21:50 Dose: 1 unit Home Med (Home Med) 1 unit PO DAILY [facility] Sodium Chloride (Sodium Chloride 0.45%) 1,000 mls @ 150 mls/hr IV .Q6H40M [facility] Last Admin: 11/04/17 22:16 Dose: 150 mls/hr Insulin Detemir (Levemir) 24 unit SC [facility] Last Admin: 11/04/17 21:50 Dose: 24 units Insulin Human Lispro (Humalog Low) 0 units SC ACHS [facility] PRN Reason: Protocol Last Admin: 11/04/17 22:15 Dose: Not Given Insulin Human Lispro (Humalog) 8 units SC AC [facility] Last Admin: 11/04/17 17:13 Dose: 8 units Lisinopril (Zestril) 20 mg PO DAILY [facility] Metoprolol Succinate (Toprol Xl) 25 mg PO DAILY [facility] Last Admin: 11/04/17 09:46 Dose: 25 mg Multivitamins/Minerals (Therapeutic-M Tab) 1 tab PO 0800 [facility] Last Admin: 11/04/17 07:46 Dose: 1 tab Pantoprazole Sodium (Protonix Ec Tab) 40 mg PO 0600 [facility] Last Admin: 11/04/17 05:26 Dose: 40 mg Thiamine HCl (Vitamin B1 Tab) 100 mg PO DAILY [facility] Last Admin: 11/04/17 09:46 Dose: 100 mg - Labs Labs: 11/04/17 05:30 11/04/17 05:30 Assessment and Plan - Assessment and Plan (Free Text) Assessment: 47 yr old male with 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 Plan: 1. Contineu on antiepileptic medications. 2. Stroke workup. ECHo with bubble study. protein c, protein s, prothrombin gene mutation, antithrombin 3, homocysteine aspirin 325 mg po daily. pt.st.ot dr jeffries
[2017-11-05] MEDS: Sodium Chloride 0.45% 1,000 ML IV SCH ×3 (03:16→17:29)
[2017-11-05] MEDS: Pantoprazole 40 mg EC Tab PO SCH (05:36)
[2017-11-05] MEDS ORDERED: Valproate 1,000 MG in Sodium Chloride 0.9% 100 ML IVPB ONE (06:07)
--- NOTE | 2017-11-05 06:11 | CP.PCM.PN ---
<Laura Holman - Last Filed: 11/05/17 06:11> Subjective - Date & Time of Evaluation Date of Evaluation: 11/05/17 Time of Evaluation: 06:09 - Subjective Subjective: Mr. Brandt was seen and examined at the bedside. He is alert, oriented able to state person, place, and time. However, he does not remember the incident prior to admission. He denies any headache,dizziness, lightheadedness. He follows simple commands with his right upper extremity weaker than the left. His latest valproic level is 23. There was no untoward events overnight. Objective - Vital Signs/Intake and Output Vital Signs (last 24 hours): Temp Pulse Resp BP Pulse Ox 98.6 F 76 20 150/95 H 98 11/05/17 00:01 11/05/17 02:00 11/05/17 00:01 11/05/17 00:01 11/05/17 00:01 Intake and Output: 11/04/17 11/05/17 18:59 06:59 Intake Total 1774 Output Total 1925 Balance -151 - Medications Medications: Current Medications Clopidogrel Bisulfate (Plavix) 75 mg PO DAILY [facility] Last Admin: 11/04/17 09:46 Dose: 75 mg Dipyridamole/Aspirin (Aggrenox 25-200 Mg) 1 ea PO BID [facility] Last Admin: 11/04/17 17:19 Dose: 1 ea Divalproex Sodium (Depakote Dr(*Bid*)) 500 mg PO BID [facility] PRN Reason: Protocol Last Admin: 11/04/17 17:17 Dose: 500 mg Fenofibrate (Tricor) 145 mg PO DAILY [facility] Last Admin: 11/04/17 09:46 Dose: 145 mg Folic Acid (Folic Acid) 1 mg PO DAILY [facility] Last Admin: 11/04/17 09:45 Dose: 1 mg Heparin Sodium (Porcine) (Heparin) 5,000 units SC Q8 [facility] PRN Reason: Protocol Last Admin: 11/05/17 05:36 Dose: 5,000 units Home Med (Home Med) 1 unit PO HS [facility] Last Admin: 11/04/17 21:50 Dose: 1 unit Home Med (Home Med) 1 unit PO DAILY [facility] Sodium Chloride (Sodium Chloride 0.45%) 1,000 mls @ 150 mls/hr IV .Q6H40M [facility] Last Admin: 11/05/17 03:16 Dose: 150 mls/hr Valproate Sodium 1,000 mg/ (Sodium Chloride) 110 mls @ 100 mls/hr IVPB ONCE ONE Stop: 11/05/17 07:12 Insulin Detemir (Levemir) 24 unit SC HS [facility] Last Admin: 11/04/17 21:50 Dose: 24 units Insulin Human Lispro (Humalog Low) 0 units SC ACHS [facility] PRN Reason: Protocol Last Admin: 11/04/17 22:15 Dose: Not Given Insulin Human Lispro (Humalog) 8 units SC AC [facility] Last Admin: 11/04/17 17:13 Dose: 8 units Lisinopril (Zestril) 20 mg PO DAILY [facility] Metoprolol Succinate (Toprol Xl) 25 mg PO DAILY [facility] Last Admin: 11/04/17 09:46 Dose: 25 mg Multivitamins/Minerals (Therapeutic-M Tab) 1 tab PO 0800 [facility] Last Admin: 11/04/17 07:46 Dose: 1 tab Pantoprazole Sodium (Protonix Ec Tab) 40 mg PO 0600 [facility] Last Admin: 11/05/17 05:36 Dose: 40 mg Thiamine HCl (Vitamin B1 Tab) 100 mg PO DAILY [facility] Last Admin: 11/04/17 09:46 Dose: 100 mg - Labs Labs: 11/04/17 05:30 11/04/17 05:30 - Constitutional Appears: No Acute Distress - Head Exam Head Exam: NORMAL INSPECTION - Eye Exam Eye Exam: Normal appearance Pupil Exam: PERRL - ENT Exam ENT Exam: Mucous Membranes Moist - Neurological Exam Neurological Exam: Alert, Awake, Oriented x3 Neuro motor strength exam: Left Upper Extremity: 5, Right Upper Extremity: 4, Left Lower Extremity: 5, Right Lower Extremity: 5 Additional comments: alert, oriented, follows simple commands with the right upper extremity weaker than the left. Sensation is intact. Assessment and Plan (1) Acute ischemic stroke Assessment & Plan: Case discussed with Dr. Wayne, continue all current medical, physical, occupational, and speech therapies. Recommend valproic 1000 mg IVPB for one dose due to suboptimal valproic acid level and repeat valproic level in am. Pending echocardiogram, hypercoagulability studies. Recommend blood pressure and glycemic control, encourage hydration, and keep head of bed elevated at least 30 degrees angle. Status: Acute <Tone,Brittney - Last Filed: 11/05/17 09:20> Subjective - Subjective Subjective: Other studies pending: CTA head and neck. Objective - Vital Signs/Intake and Output Vital Signs (last 24 hours): Temp Pulse Resp BP Pulse Ox 98.7 F 77 20 147/89 98 11/05/17 06:00 11/05/17 06:00 11/05/17 06:00 11/05/17 06:00 11/05/17 06:00 Intake and Output: 11/05/17 11/05/17 06:59 18:59 Intake Total 1690 Balance 1690 - Medications Medications: Current Medications Clopidogrel Bisulfate (Plavix) 75 mg PO DAILY [facility] Last Admin: 11/04/17 09:46 Dose: 75 mg Dipyridamole/Aspirin (Aggrenox 25-200 Mg) 1 ea PO BID [facility] Last Admin: 11/04/17 17:19 Dose: 1 ea Divalproex Sodium (Depakote Dr(*Bid*)) 500 mg PO BID [facility] PRN Reason: Protocol Last Admin: 11/04/17 17:17 Dose: 500 mg Fenofibrate (Tricor) 145 mg PO DAILY [facility] Last Admin: 11/04/17 09:46 Dose: 145 mg Folic Acid (Folic Acid) 1 mg PO DAILY [facility] Last Admin: 11/04/17 09:45 Dose: 1 mg Heparin Sodium (Porcine) (Heparin) 5,000 units SC Q8 [facility] PRN Reason: Protocol Last Admin: 11/05/17 05:36 Dose: 5,000 units Home Med (Home Med) 1 unit PO HS [facility] Last Admin: 11/04/17 21:50 Dose: 1 unit Home Med (Home Med) 1 unit PO DAILY [facility] Sodium Chloride (Sodium Chloride 0.45%) 1,000 mls @ 150 mls/hr IV .Q6H40M [facility] Last Admin: 11/05/17 03:16 Dose: 150 mls/hr Insulin Detemir (Levemir) 24 unit SC HS [facility] Last Admin: 11/04/17 21:50 Dose: 24 units Insulin Human Lispro (Humalog Low) 0 units SC ACHS [facility] PRN Reason: Protocol Last Admin: 11/05/17 07:48 Dose: Not Given Insulin Human Lispro (Humalog) 8 units SC AC [facility] Last Admin: 11/05/17 07:57 Dose: 8 units Lisinopril (Zestril) 20 mg PO DAILY [facility] Metoprolol Succinate (Toprol Xl) 25 mg PO DAILY [facility] Last Admin: 11/04/17 09:46 Dose: 25 mg Multivitamins/Minerals (Therapeutic-M Tab) 1 tab PO 0800 [facility] Last Admin: 11/05/17 07:57 Dose: 1 tab Pantoprazole Sodium (Protonix Ec Tab) 40 mg PO 0600 [facility] Last Admin: 11/05/17 05:36 Dose: 40 mg Thiamine HCl (Vitamin B1 Tab) 100 mg PO DAILY [facility] Last Admin: 11/04/17 09:46 Dose: 100 mg - Labs Labs: 11/05/17 06:30 11/05/17 06:30
[2017-11-05] MEDS: Insulin Lispro (humaLOG) LOW Coverage SC SCH ×4 (07:48→22:17)
[2017-11-05] MEDS: Insulin Lispro 1 UNITS/0.01 ML SC SCH ×3 (07:57→17:28)
[2017-11-05] MEDS: Multivitamin With Minerals Tab PO SCH (07:57)
[2017-11-05 08:20] LABS: BASO # 0.02 K/mm3 (0.0-2.0); BASO % 0.3 % (0.0-3.0); EOS # 0.1 (0.0-0.7); GRAN # 4.89 (1.4-6.5); GRAN % 61.7 % (50.0-68.0); LYMPH # 2.4 (1.2-3.4); LYMPH % 30.8 % (22.0-35.0); MEAN CELL VOLUME 80.9 fl (80.0-105.0); MEAN CORPUSCULAR HEMOGLOBIN 28.8 pg (25.0-35.0); MEAN CORPUSCULAR HGB CONC 35.6 g/dl (31.0-37.0); MEAN PLATELET VOLUME 11.4 fl (7.0-11.0); MONO # 0.5 (0.1-0.6); MONO % 6.2 % (1.0-6.0); RBC 4.51 10^6/uL (3.5-6.1); RED CELL DISTRIBUTION WIDTH 13.4 % (11.5-14.5); WHITE BLOOD COUNT 7.9 10^3/ul (4.5-11.0)
[2017-11-05 08:29] LABS: ALBUMIN 3.3 g/dL (3.0-4.8); ALT/SGPT 31 U/L (7-56); AST/SGOT 25 U/L (17-59); BLOOD UREA NITROGEN 11 mg/dL (7-21); CALCIUM 8.7 mg/dL (8.4-10.5); GFR AFRICAN-AMERICAN > 60; GFR NON-AFRICAN AMERICAN > 60
[2017-11-05] MEDS: Aspirin-Dipyridamole 200-25 mg ER Cap PO SCH ×2 (09:49→18:04)
[2017-11-05] MEDS: Metoprolol Succinate 25 mg XL Tab PO SCH (09:50)
[2017-11-05] MEDS: Divalproex 500 mg DR(BID formulation) PO SCH ×2 (09:51→18:04)
--- NOTE | 2017-11-05 13:33 | CP.PCM.PN ---
Subjective - Date & Time of Evaluation Date of Evaluation: 11/05/17 Time of Evaluation: 10:15 - Subjective Subjective: No fevers, no headache, still with weakness on the right side. Objective - Vital Signs/Intake and Output Vital Signs (last 24 hours): Temp Pulse Resp BP Pulse Ox 98.7 F 77 20 147/89 98 11/05/17 06:00 11/05/17 06:00 11/05/17 06:00 11/05/17 06:00 11/05/17 06:00 Intake and Output: 11/05/17 11/05/17 06:59 18:59 Intake Total 1690 Balance 1690 - Medications Medications: Current Medications Clopidogrel Bisulfate (Plavix) 75 mg PO DAILY [facility] Last Admin: 11/04/17 09:46 Dose: 75 mg Dipyridamole/Aspirin (Aggrenox 25-200 Mg) 1 ea PO BID [facility] Last Admin: 11/04/17 17:19 Dose: 1 ea Divalproex Sodium (Depakote Dr(*Bid*)) 500 mg PO BID [facility] PRN Reason: Protocol Last Admin: 11/04/17 17:17 Dose: 500 mg Fenofibrate (Tricor) 145 mg PO DAILY [facility] Last Admin: 11/04/17 09:46 Dose: 145 mg Folic Acid (Folic Acid) 1 mg PO DAILY [facility] Last Admin: 11/04/17 09:45 Dose: 1 mg Heparin Sodium (Porcine) (Heparin) 5,000 units SC Q8 [facility] PRN Reason: Protocol Last Admin: 11/05/17 05:36 Dose: 5,000 units Home Med (Home Med) 1 unit PO [facility] Last Admin: 11/04/17 21:50 Dose: 1 unit Home Med (Home Med) 1 unit PO DAILY [facility] Sodium Chloride (Sodium Chloride 0.45%) 1,000 mls @ 150 mls/hr IV .Q6H40M [facility] Last Admin: 11/05/17 03:16 Dose: 150 mls/hr Insulin Detemir (Levemir) 24 unit SC HS [facility] Last Admin: 11/04/17 21:50 Dose: 24 units Insulin Human Lispro (Humalog Low) 0 units SC ACHS [facility] PRN Reason: Protocol Last Admin: 11/05/17 07:48 Dose: Not Given Insulin Human Lispro (Humalog) 8 units SC AC [facility] Last Admin: 11/05/17 07:57 Dose: 8 units Lisinopril (Zestril) 20 mg PO DAILY [facility] Metoprolol Succinate (Toprol Xl) 25 mg PO DAILY [facility] Last Admin: 11/04/17 09:46 Dose: 25 mg Multivitamins/Minerals (Therapeutic-M Tab) 1 tab PO 0800 [facility] Last Admin: 11/05/17 07:57 Dose: 1 tab Pantoprazole Sodium (Protonix Ec Tab) 40 mg PO 0600 [facility] Last Admin: 11/05/17 05:36 Dose: 40 mg Thiamine HCl (Vitamin B1 Tab) 100 mg PO DAILY [facility] Last Admin: 11/04/17 09:46 Dose: 100 mg - Labs Labs: 11/04/17 05:30 11/04/17 05:30 - Constitutional Appears: Non-toxic, Chronically Ill - Head Exam Head Exam: NORMAL INSPECTION - Respiratory Exam Respiratory Exam: Decreased Breath Sounds - Cardiovascular Exam Cardiovascular Exam: +S1, +S2 - GI/Abdominal Exam GI & Abdominal Exam: Soft. absent: Tenderness Assessment and Plan - Assessment and Plan (Free Text) Plan: Assessment chronic HIV infection with last CD4 count 1200, undetectable virus load as of August 2017 as per patient and was compliant with meds acute CVA on top of the old CVA HTN dyslipidemia CVA Plan Will continue ART (Genvoya) with outpatient follow up with HIV provider follow up further recommendations of Neurology
--- NOTE | 2017-11-05 15:13 | CP.PCM.PN ---
<Manny Badillo - Last Filed: 11/05/17 15:19> Subjective - Date & Time of Evaluation Date of Evaluation: 11/05/17 Time of Evaluation: 07:30 - Subjective Subjective: Manny Badillo DO PGY1 - IM Progress Note for Dr. Mary Patient seen and examined at bedside. Patient was transfered out of ICU to telemetry yesterday, otherwise, no acute events overnight. Patient reports that strength is at baseline. He denies pain, fever, chills, confusion. Objective - Vital Signs/Intake and Output Vital Signs (last 24 hours): Temp Pulse Resp BP Pulse Ox 98 F 78 16 131/92 H 98 11/05/17 12:00 11/05/17 14:00 11/05/17 12:00 11/05/17 12:00 11/05/17 06:00 Intake and Output: 11/05/17 11/05/17 06:59 18:59 Intake Total 1690 360 Output Total 300 Balance 1690 60 - Medications Medications: Current Medications Clopidogrel Bisulfate (Plavix) 75 mg PO DAILY [facility] Last Admin: 11/05/17 09:52 Dose: 75 mg Dipyridamole/Aspirin (Aggrenox 25-200 Mg) 1 ea PO BID [facility] Last Admin: 11/05/17 09:49 Dose: 1 ea Divalproex Sodium (Depakote Dr(*Bid*)) 500 mg PO BID [facility] PRN Reason: Protocol Last Admin: 11/05/17 09:51 Dose: 500 mg Fenofibrate (Tricor) 145 mg PO DAILY [facility] Last Admin: 11/05/17 09:50 Dose: 145 mg Folic Acid (Folic Acid) 1 mg PO DAILY [facility] Last Admin: 11/05/17 09:51 Dose: 1 mg Heparin Sodium (Porcine) (Heparin) 5,000 units SC Q8 [facility] PRN Reason: Protocol Last Admin: 11/05/17 14:00 Dose: 5,000 units Home Med (Home Med) 1 unit PO HS [facility] Last Admin: 11/04/17 21:50 Dose: 1 unit Home Med (Home Med) 1 unit PO DAILY [facility] Last Admin: 11/05/17 09:48 Dose: 1 unit Sodium Chloride (Sodium Chloride 0.45%) 1,000 mls @ 150 mls/hr IV .Q6H40M [facility] Last Admin: 11/05/17 09:47 Dose: 150 mls/hr Insulin Detemir (Levemir) 24 unit SC HS [facility] Last Admin: 11/04/17 21:50 Dose: 24 units Insulin Human Lispro (Humalog Low) 0 units SC ACHS [facility] PRN Reason: Protocol Last Admin: 11/05/17 11:53 Dose: Not Given Insulin Human Lispro (Humalog) 8 units SC AC [facility] Last Admin: 11/05/17 11:51 Dose: 8 units Lisinopril (Zestril) 20 mg PO DAILY [facility] Metoprolol Succinate (Toprol Xl) 25 mg PO DAILY [facility] Last Admin: 11/05/17 09:50 Dose: 25 mg Multivitamins/Minerals (Therapeutic-M Tab) 1 tab PO 0800 [facility] Last Admin: 11/05/17 07:57 Dose: 1 tab Pantoprazole Sodium (Protonix Ec Tab) 40 mg PO 0600 [facility] Last Admin: 11/05/17 05:36 Dose: 40 mg Thiamine HCl (Vitamin B1 Tab) 100 mg PO DAILY [facility] Last Admin: 11/05/17 09:49 Dose: 100 mg - Labs Labs: 11/05/17 06:30 11/05/17 06:30 - Additional Findings Additional findings: - Constitutional Appears: Non-toxic, No Acute Distress, Chronically Ill - Head Exam Head Exam: ATRAUMATIC, NORMOCEPHALIC - Eye Exam Additional comments: Stabismus, but is able to move both eyes in all directions - ENT Exam ENT Exam: Mucous Membranes Moist - Neck Exam Neck Exam: Normal Inspection - Respiratory Exam Respiratory Exam: Clear to Ausculation Bilateral, NORMAL BREATHING PATTERN - Cardiovascular Exam Cardiovascular Exam: RRR, +S1, +S2 - GI/Abdominal Exam GI & Abdominal Exam: Soft, Normal Bowel Sounds. absent: Distended, Firm, Guarding, Rigid, Tenderness - Extremities Exam Extremities Exam: absent: Calf Tenderness, Pedal Edema - Neurological Exam Neurological Exam: Alert, Awake, Oriented x3 Neuro motor strength exam: Left Upper Extremity: 5, Right Upper Extremity: 4, Left Lower Extremity: 5, Right Lower Extremity: 4 Additional comments: Right hand contracted - Psychiatric Exam Psychiatric exam: Normal Affect, Normal Mood - Skin Skin Exam: Dry, Intact, Normal Color Assessment and Plan - Assessment and Plan (Free Text) Assessment: 47 yo M with PMH of HIV, asthma/smoker, HTN, HLD, DM, and CVA x 2 (L temporal/L frontal, 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 Active workup and treatment of hyperglycemia, hypertriglyceridema, seizure. Seizure likely from electrolyte abnormality (HHS/JANELL) vs encephalomalacia from prior strokes vs new stroke EEG done yesterday; pending official report MRI brain shows recent infarct, and possible superimposed acute infarct Per neuro, likely secondary seizure, but cannot rule out new CVA as etiology Continue depakote as per neuro; level low; f/u repeat level Maintain seizure precautions Neuro on consult, appreciate recs Hyperglycemia HHS resolved Off insulin drip; switched to basal-bolus regimen by Endo Dr. Yoon A1c 15.5 Patient will need diabetic education counseling and will be discharged with new insulin regimen Endo on consult; appreciate recs Hypertriglyceridemia Improving; off insulin drip Recheck with AM labs Changed tricor to gemfibrozil HIV, last CD4 1200 (08/18/17) Continue ART (Genvoya) as per ID ID on consult; appreciate recs History of stroke; possible new stroke MRI shows "recent infarct involving the left posterior frontal and parietal lobes as well as the left temporal lobe. There is a small amount of restricted diffusion that is seen on the current exam in the left posterior frontal and parietal lobes. This could represent an new area of cortical infarction superimposed on the earlier infarct" Continue aspirin and plavix Continue statin PT recommends acute rehab; ordered CM referral GI/DVT Ppx: Heparin, Protonix Patient seen, and case discussed with attending Dr. Mary <Matias Mary - Last Filed: 11/05/17 15:52> Objective - Vital Signs/Intake and Output Vital Signs (last 24 hours): Temp Pulse Resp BP Pulse Ox 98 F 78 16 131/92 H 98 11/05/17 12:00 11/05/17 14:00 11/05/17 12:00 11/05/17 12:00 11/05/17 06:00 Intake and Output: 11/05/17 11/05/17 06:59 18:59 Intake Total 1690 360 Output Total 300 Balance 1690 60 - Medications Medications: Current Medications Clopidogrel Bisulfate (Plavix) 75 mg PO DAILY [facility] Last Admin: 11/05/17 09:52 Dose: 75 mg Dipyridamole/Aspirin (Aggrenox 25-200 Mg) 1 ea PO BID [facility] Last Admin: 11/05/17 09:49 Dose: 1 ea Divalproex Sodium (Depakote Dr(*Bid*)) 500 mg PO BID [facility] PRN Reason: Protocol Last Admin: 11/05/17 09:51 Dose: 500 mg Folic Acid (Folic Acid) 1 mg PO DAILY [facility] Last Admin: 11/05/17 09:51 Dose: 1 mg Gemfibrozil (Lopid) 600 mg PO BID [facility] Heparin Sodium (Porcine) (Heparin) 5,000 units SC Q8 [facility] PRN Reason: Protocol Last Admin: 11/05/17 14:00 Dose: 5,000 units Home Med (Home Med) 1 unit PO HS [facility] Last Admin: 11/04/17 21:50 Dose: 1 unit Home Med (Home Med) 1 unit PO DAILY [facility] Last Admin: 11/05/17 09:48 Dose: 1 unit Sodium Chloride (Sodium Chloride 0.45%) 1,000 mls @ 150 mls/hr IV .Q6H40M [facility] Last Admin: 11/05/17 09:47 Dose: 150 mls/hr Insulin Detemir (Levemir) 24 unit SC [facility] Last Admin: 11/04/17 21:50 Dose: 24 units Insulin Human Lispro (Humalog Low) 0 units SC ACHS [facility] PRN Reason: Protocol Last Admin: 11/05/17 11:53 Dose: Not Given Insulin Human Lispro (Humalog) 8 units SC AC [facility] Last Admin: 11/05/17 11:51 Dose: 8 units Lisinopril (Zestril) 20 mg PO DAILY [facility] Metoprolol Succinate (Toprol Xl) 25 mg PO DAILY [facility] Last Admin: 11/05/17 09:50 Dose: 25 mg Multivitamins/Minerals (Therapeutic-M Tab) 1 tab PO 0800 [facility] Last Admin: 11/05/17 07:57 Dose: 1 tab Pantoprazole Sodium (Protonix Ec Tab) 40 mg PO 0600 [facility] Last Admin: 11/05/17 05:36 Dose: 40 mg Thiamine HCl (Vitamin B1 Tab) 100 mg PO DAILY [facility] Last Admin: 11/05/17 09:49 Dose: 100 mg - Labs Labs: 11/05/17 06:30 11/05/17 06:30 Attending/Attestation - Attestation I have personally seen and examined this patient.: Yes I have fully participated in the care of the patient.: Yes I have reviewed all pertinent clinical information, including history, physical exam and plan: Yes Notes (Text): 11/05/17 15:51 Patient seen and examined independently at bedside. Labs and vitals reviewed. He feels better overall,PT is recommending acute rehab. Neurology follow up noted. Agree with the plan as discussed and outlined by the resident.
[2017-11-05] MEDS: Insulin Detemir 100 units/ml Vial (Levemir) SC SCH (22:29)
[2017-11-06] MEDS: Sodium Chloride 0.45% 1,000 ML IV SCH ×2 (00:48→08:35)
[2017-11-06] MEDS: Pantoprazole 40 mg EC Tab PO SCH (05:53)
[2017-11-06 07:34] LABS: BASO # 0.01 K/mm3 (0.0-2.0); BASO % 0.1 % (0.0-3.0); EOS % 0.4 % (1.5-5.0); GRAN # 4.71 (1.4-6.5); GRAN % 65.2 % (50.0-68.0); HEMOGLOBIN 13.2 g/dL (14.0-18.0); LYMPH % 27.1 % (22.0-35.0); MEAN CELL VOLUME 81.1 fl (80.0-105.0); MEAN CORPUSCULAR HEMOGLOBIN 28.6 pg (25.0-35.0); MEAN CORPUSCULAR HGB CONC 35.3 g/dl (31.0-37.0); MEAN PLATELET VOLUME 11.1 fl (7.0-11.0); MONO # 0.5 (0.1-0.6); MONO % 7.2 % (1.0-6.0); RBC 4.61 10^6/uL (3.5-6.1); RED CELL DISTRIBUTION WIDTH 13.6 % (11.5-14.5); WHITE BLOOD COUNT 7.2 10^3/ul (4.5-11.0)
[2017-11-06 07:47] LABS: ALB/GLOB RATIO 0.9 (1.1-1.8); ALBUMIN 3.2 g/dL (3.0-4.8); ALT/SGPT 29 U/L (7-56); AST/SGOT 25 U/L (17-59); BLOOD UREA NITROGEN 11 mg/dL (7-21); CALCIUM 9.2 mg/dL (8.4-10.5); GFR AFRICAN-AMERICAN > 60; GFR NON-AFRICAN AMERICAN > 60
[2017-11-06 07:59] VITALS: RESP 20
[2017-11-06] MEDS: Insulin Lispro 1 UNITS/0.01 ML SC SCH ×3 (08:32→17:14)
[2017-11-06] MEDS: Multivitamin With Minerals Tab PO SCH (08:33)
[2017-11-06] MEDS: Insulin Lispro (humaLOG) LOW Coverage SC SCH ×4 (08:33→22:06)
--- NOTE | 2017-11-06 08:51 | CON ---
DATE: 11/03/2017 ENDOCRINOLOGY CONSULT LOCATION: In CCU 129, room 4. HISTORY OF PRESENT ILLNESS: This is a 47-year-old male with known history of type 2 diabetes and hypertension and underlying HIV who presents here with sudden onset of a localized seizure with several recurrences and witnessed by his girlfriend with no apparent loss of consciousness and was also found to have marked hyperglycemic accelerations with hyperosmolar hyperglycemic state and is now being referred for diabetic evaluation and management. PAST MEDICAL HISTORY: History of type 2 diabetes, apparently has been off oral hypoglycemic medications. History of hypertension and dyslipidemia. History of significant cerebrovascular events occurring twice in 2014 and 2018 with residual right upper weakness. History of HIV disease, currently on antiretroviral medications at this time. History of chronic obstructive lung disease and previous admissions for exacerbations of asthma and bronchitis. FAMILY HISTORY: Positive for hypertension and diabetes. SOCIAL HISTORY: Patient is an active smoker, consuming a pack a day for over 20 years with also occasional marijuana use. REVIEW OF SYSTEMS: As mentioned above, admits to generalized body weakness with easy fatigability and tiredness and suboptimal energy level with progressive bouts of dizziness and lightheadedness, worse on the day of admission. No chest pains or palpitations but admits to progressive shortness of breath especially on exertion. His oral intake has been variable with nausea, dyspepsia and vague upper abdominal pains. Also admits to marked polyuria, nocturia, and polydipsia over the past week or so prior to admission. PHYSICAL EXAMINATION: GENERAL: This is an average-built male in no apparent distress. VITAL SIGNS: Blood pressure of 140/80, pulse beats per minute regular, temperature 98, respirations 20. Height is 5 feet 7 inches, weight is 179 pounds. HEENT: Head normocephalic. Eyes anicteric with pink conjunctivae. Funduscopy not possible at this time. Ears, nose and throat otherwise normal. NECK: Supple. Thyroid gland is normal in size. No carotid bruits or any cervical adenopathy. CARDIOPULMONARY: Some adynamic precordium. S1, S2 is rapid and regular. LUNGS: Clear to auscultation. ABDOMEN: Flat, soft with positive bowel sounds. EXTREMITIES: No peripheral edema. Pulses are +2 bilaterally. LABORATORY DATA: His initial chemistry showed a BUN of 40, sodium 122, potassium 5.8, chloride 85, CO2 of 23, glucose 1237, creatinine 1.6. The subsequent glucose levels have improved today and the latest chemistry showed a BUN of 26, sodium 135, potassium 3.9, chloride 103, CO2 of 22, glucose 273 and creatinine 1.1. His triglyceride levels are 1136 and lipase levels are declining as noted. ASSESSMENT: This is a 47-year-old male with uncontrolled and decompensated type 2 insulin-requiring diabetes, presenting here with hyperosmolar hyperglycemic state and dehydration with spurious hyponatremia and hyperkalemia with concomitant localized seizure event of a recurrent nature and with supervening acute pancreatitis and underlying marked dyslipidemia, specifically hypertriglyceridemia as noted thereof. PLAN OF MANAGEMENT: We will concur with the present vigorous IV hydration and intensive insulin therapy using an insulin drip infusion as given. However, as he is tolerating the oral intake as given at this time and no acidosis noted biochemically, we can safely switch him over to a more physiologic basal and bolus insulin regimen as ordered. We will continue the vigorous IV hydration, especially with underlying pancreatitis which was also improved accordingly as noted. We will modify the coverage scale to obviate hypoglycemia and detailed orders have been given. We will initiate diabetic education to include insulin self-administration and glucose monitoring as ordered. We will also consult our dietitian for nutritional counseling accordingly. We will obtain serial chemistries and supplement accordingly as needed. We will follow with you. Tiffany Yoon MD
--- NOTE | 2017-11-06 09:26 | PN ---
DATE: 11/05/2017 ENDOCRINOLOGY FOLLOWUP NOTE SUBJECTIVE: This is a 47 y/o male with recent uncontrolled type 2 insulin-requiring diabetes and dehydration, presenting here with hyperosmolar hyperglycemic state and supervening acute pancreatitis with underlying hypertriglyceridemia and is now improving clinically and metabolically as noted thereof . He received vigorous IV hydration with intensive insulin therapy with an insulin drip infusion as noted. His glucose values overnight ranged from 149-166 mg/dl. His latest chemistry shows a BUN = 16 Dylbmr=637 Potassium=3.9 with a CO2=23 and Hlavvkoo=635 and creatinine 0.8. His triglyceride levels today are _1760 .. So at this time, we will continue the vigorous IV hydration as given. We will obtain serial chemistries and supplement accordingly as needed. We will also continue the same basal and bolus insulin regimen to allow for dose equilibration and keep him on the Humalog given as 10 units subcu t.i.d. before meals as ordered. We will continue the basal insulin given as Levemir 24 units subcu at bedtime daily as given. We will titrate incrementally as indicated to optimize metabolic control. We will obtain serial chemistries and supplement accordingly as needed. We will follow with you. Tiffany Yoon MD MTDD
[2017-11-06] MEDS: Metoprolol Succinate 25 mg XL Tab PO SCH (10:32)
[2017-11-06] MEDS: Aspirin-Dipyridamole 200-25 mg ER Cap PO SCH ×2 (10:32→17:16)
[2017-11-06] MEDS: Divalproex 500 mg DR(BID formulation) PO SCH ×2 (10:33→17:14)
--- NOTE | 2017-11-06 15:10 | CT ---
PROCEDURE: CT HEAD WITHOUT CONTRAST. HISTORY: New stroke COMPARISON: Noncontrast head CT and MRI brain from 11/03/2017. TECHNIQUE: Axial computed tomography images were obtained through the head/brain without intravenous contrast. Radiation dose: Total exam DLP = 869.8 mGy-cm. This CT exam was performed using one or more of the following dose reduction techniques: Automated exposure control, adjustment of the mA and/or kV according to patient size, and/or use of iterative reconstruction technique. FINDINGS: HEMORRHAGE: No intracranial hemorrhage. BRAIN: There are chronic left posterior parietal and temporal lobe infarctions. There is also chronic infarction in the left frontal lobe. There is no mass, mass effect or abnormal extra-axial fluid collection. VENTRICLES: The ventricles are normal in size, shape and configuration. CALVARIUM: The skull base and calvarium are normal. PARANASAL SINUSES: Predominantly clear. MASTOID AIR CELLS: Predominantly clear. OTHER FINDINGS: None. IMPRESSION: No acute intracranial abnormality. Chronic left frontal, posterior parietal and temporal lobe infarctions, a sequela of remote MCA territory insult.
--- NOTE | 2017-11-06 15:29 | CT ---
PROCEDURE: CTA HEAD AND NECK WITH CONTRAST HISTORY: New stroke COMPARISON: None available. TECHNIQUE: Initial noncontrast head CT was performed. Subsequently, CT angiogram of the head and neck were performed after the intravenous administration of 80 mL of Omnipaque 350. Contiguous 1.5mm thick images were obtained in the axial plane of the neck. 2-D coronal and sagittal MPR images were obtained. Imaging postprocessing was performed with 3-D images also obtained. A delayed contrast head CT was also obtained. This CT exam was performed using one or more of the following dose reduction techniques: Automated exposure control, adjustment of the mA and/or kV according to patient size, and/or use of iterative reconstruction technique. Contrast dose: 150 mL Omnipaque 350 Radiation dose: Total exam DLP = 545.31 MGy-cm. FINDINGS: HEAD: Right: The intracranial internal carotid artery, and anterior and middle cerebral arteries are widely patent. Left: The intracranial internal carotid artery, and anterior and middle cerebral arteries are widely patent. Posterior circulation: The visualized intracranial right vertebral artery, basilar artery and posterior cerebral arteries are widely patent. The left vertebral artery is hypoplastic and terminates in the PICA, an anatomic variant. Ther is no endoluminal filling defect to suggest thrombus. There is no intracranial saccular aneurysm. NECK: There is a three vessel aortic arch. There is no stenosis at the origins of the great vessels at the level of the aortic arch. Right Carotid: On the right, the common carotid, internal carotid and external carotid arteries are widely patent. There are mild calcified atherosclerotic plaques in the carotid bulb and mild soft plaques in the proximal internal carotid artery. There is no hemodynamically significant stenosis in the internal carotid artery by NASCET criteria. Left Carotid: On the left, the common carotid, internal carotid and external carotid arteries are widely patent. There are mild calcified atherosclerotic plaques in the carotid bulb. There is no hemodynamically significant stenosis in the internal carotid artery by NASCET criteria. The vertebral arteries are widely patent. The left vertebral artery is hypoplastic, an anatomic variant. The visualized soft tissues of the neck are normal. The visualized brain and cervical spine are within normal limits. The lung apices are clear. IMPRESSION: 1. No evidence of endoluminal thrombus, definite significant stenosis or occlusion. 2. No evidence of hemodynamically significant stenosis in the internal carotid arteries. 3. Patent bilateral vertebral arteries. The left vertebral artery is hypoplastic and terminates in PICA, an anatomic variant.
--- NOTE | 2017-11-06 17:10 | CP.PCM.PN ---
Subjective - Date & Time of Evaluation Date of Evaluation: 11/06/17 Time of Evaluation: 10:10 - Subjective Subjective: No fevers, not in distress, has more strength in his right hand. Objective - Vital Signs/Intake and Output Vital Signs (last 24 hours): Temp Pulse Resp BP Pulse Ox 98 F 76 16 156/98 H 98 11/05/17 18:00 11/05/17 18:00 11/05/17 18:00 11/05/17 18:00 11/05/17 18:00 Intake and Output: 11/06/17 11/06/17 06:59 18:59 Intake Total 2295 Balance 2295 - Medications Medications: Current Medications Clopidogrel Bisulfate (Plavix) 75 mg PO DAILY [facility] Last Admin: 11/05/17 09:52 Dose: 75 mg Dipyridamole/Aspirin (Aggrenox 25-200 Mg) 1 ea PO BID [facility] Last Admin: 11/05/17 18:04 Dose: 1 ea Divalproex Sodium (Depakote Dr(*Bid*)) 500 mg PO BID [facility] PRN Reason: Protocol Last Admin: 11/05/17 18:04 Dose: 500 mg Folic Acid (Folic Acid) 1 mg PO DAILY [facility] Last Admin: 11/05/17 09:51 Dose: 1 mg Gemfibrozil (Lopid) 600 mg PO BID [facility] Last Admin: 11/05/17 18:04 Dose: 600 mg Heparin Sodium (Porcine) (Heparin) 5,000 units SC Q8 [facility] PRN Reason: Protocol Last Admin: 11/06/17 05:52 Dose: 5,000 units Home Med (Home Med) 1 unit PO HS [facility] Last Admin: 11/05/17 22:31 Dose: 1 unit Home Med (Home Med) 1 unit PO DAILY [facility] Last Admin: 11/05/17 09:48 Dose: 1 unit Sodium Chloride (Sodium Chloride 0.45%) 1,000 mls @ 150 mls/hr IV .Q6H40M [facility] Last Admin: 11/06/17 00:48 Dose: 150 mls/hr Insulin Detemir (Levemir) 24 unit SC HS [facility] Last Admin: 11/05/17 22:29 Dose: 24 units Insulin Human Lispro (Humalog Low) 0 units SC ACHS [facility] PRN Reason: Protocol Last Admin: 11/05/17 22:17 Dose: Not Given Insulin Human Lispro (Humalog) 8 units SC AC [facility] Last Admin: 11/05/17 17:28 Dose: 8 units Lisinopril (Zestril) 20 mg PO DAILY [facility] Metoprolol Succinate (Toprol Xl) 25 mg PO DAILY [facility] Last Admin: 11/05/17 09:50 Dose: 25 mg Multivitamins/Minerals (Therapeutic-M Tab) 1 tab PO 0800 [facility] Last Admin: 11/05/17 07:57 Dose: 1 tab Pantoprazole Sodium (Protonix Ec Tab) 40 mg PO 0600 [facility] Last Admin: 11/06/17 05:53 Dose: 40 mg Thiamine HCl (Vitamin B1 Tab) 100 mg PO DAILY [facility] Last Admin: 11/05/17 09:49 Dose: 100 mg - Labs Labs: 11/05/17 06:30 11/05/17 06:30 - Constitutional Appears: Non-toxic, Chronically Ill - Head Exam Head Exam: NORMAL INSPECTION - Neck Exam Neck Exam: absent: Meningismus - Respiratory Exam Respiratory Exam: Decreased Breath Sounds. absent: Rales - Cardiovascular Exam Cardiovascular Exam: +S1, +S2 - GI/Abdominal Exam GI & Abdominal Exam: Soft. absent: Tenderness Assessment and Plan - Assessment and Plan (Free Text) Plan: Assessment chronic HIV infection with last CD4 count 1200, undetectable virus load as of August 2017 as per patient and was compliant with meds acute CVA on top of the old CVA HTN dyslipidemia CVA Plan Will continue ART (Genvoya) and should follow up as outpatient with HIV provider follow up further recommendations of Neurology
[2017-11-06 19:19] VITALS: O2SAT 100
--- NOTE | 2017-11-06 21:18 | CP.PCM.PN ---
Subjective - Date & Time of Evaluation Date of Evaluation: 11/06/17 Time of Evaluation: 09:30 - Subjective Subjective: Patient seen and evaluated this AM. No acute events reported overnight. Objective - Vital Signs/Intake and Output Vital Signs (last 24 hours): Temp Pulse Resp BP Pulse Ox 98 F 69 20 134/92 H 100 11/06/17 18:00 11/06/17 18:00 11/06/17 18:00 11/06/17 18:00 11/06/17 18:00 - Medications Medications: Current Medications Clopidogrel Bisulfate (Plavix) 75 mg PO DAILY [facility] Last Admin: 11/06/17 10:32 Dose: 75 mg Dipyridamole/Aspirin (Aggrenox 25-200 Mg) 1 ea PO BID [facility] Last Admin: 11/06/17 17:16 Dose: 1 ea Divalproex Sodium (Depakote Dr(*Bid*)) 500 mg PO BID [facility] PRN Reason: Protocol Last Admin: 11/06/17 17:14 Dose: 500 mg Folic Acid (Folic Acid) 1 mg PO DAILY [facility] Last Admin: 11/06/17 10:33 Dose: 1 mg Gemfibrozil (Lopid) 600 mg PO BID [facility] Last Admin: 11/06/17 17:14 Dose: 600 mg Heparin Sodium (Porcine) (Heparin) 5,000 units SC Q8 [facility] PRN Reason: Protocol Last Admin: 11/06/17 15:07 Dose: 5,000 units Home Med (Home Med) 1 unit PO HS [facility] Last Admin: 11/05/17 22:31 Dose: 1 unit Home Med (Home Med) 1 unit PO DAILY [facility] Last Admin: 11/06/17 10:33 Dose: Not Given Home Med (Home Med) 1 unit PO DAILY [facility] Insulin Detemir (Levemir) 28 unit SC HS [facility] Insulin Human Lispro (Humalog Low) 0 units SC ACHS [facility] PRN Reason: Protocol Last Admin: 11/06/17 17:09 Dose: Not Given Insulin Human Lispro (Humalog) 10 units SC AC [facility] Last Admin: 11/06/17 17:14 Dose: 10 units Lisinopril (Zestril) 20 mg PO DAILY [facility] Metoprolol Succinate (Toprol Xl) 25 mg PO DAILY [facility] Last Admin: 11/06/17 10:32 Dose: 25 mg Multivitamins/Minerals (Therapeutic-M Tab) 1 tab PO 0800 [facility] Last Admin: 11/06/17 08:33 Dose: 1 tab Pantoprazole Sodium (Protonix Ec Tab) 40 mg PO 0600 [facility] Last Admin: 11/06/17 05:53 Dose: 40 mg Thiamine HCl (Vitamin B1 Tab) 100 mg PO DAILY [facility] Last Admin: 11/06/17 10:32 Dose: 100 mg - Labs Labs: 11/06/17 07:10 11/06/17 07:10 - Constitutional Appears: No Acute Distress - Head Exam Head Exam: ATRAUMATIC, NORMAL INSPECTION, NORMOCEPHALIC - Eye Exam Eye Exam: PERRL - Neck Exam Neck Exam: Full ROM - Respiratory Exam Respiratory Exam: Clear to Ausculation Bilateral, NORMAL BREATHING PATTERN - Cardiovascular Exam Cardiovascular Exam: REGULAR RHYTHM, +S1, +S2 - GI/Abdominal Exam GI & Abdominal Exam: Soft, Tenderness (mid eigastric to palpation) - Extremities Exam Extremities Exam: Normal Capillary Refill. 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 Active workup and treatment of hyperglycemia, hypertriglyceridema, seizure. Plan: Seizure - Etiology: electrolyte abnormality (HHS/JANELL) vs encephalomalacia from prior strokes vs new stroke - EEG done yesterday; pending official report - MRI brain shows recent infarct, and possible superimposed acute infarct - Per neuro, likely secondary seizure, but cannot rule out new CVA as etiology - Continue depakote as per neuro; level low; f/u repeat level - Maintain seizure precautions - Neuro on consult, appreciate recs Hyperglycemia - HHS resolved - Transitioned off insulin drip; switched to basal-bolus regimen by Juan Yoon - A1c 15.5 - Dfiabetic education counseling and will be discharged with new insulin regimen - Endo on consult; appreciate recs Hypertriglyceridemia - Recheck with AM labs - Continue gemfibrozil HIV, last CD4 1200 (08/18/17) - Continue ART (Genvoya) as per ID - ID on consult; appreciate recs History of stroke; possible new stroke - MRI shows "recent infarct involving the left posterior frontal and parietal lobes as well as the left temporal lobe. There is a small amount of restricted diffusion that is seen on the current exam in the left posterior frontal and parietal lobes. This could represent an new area of cortical infarction superimposed on the earlier infarct" - Continue aspirin and plavix - Continue statin -PT recommends acute rehab; ordered CM referral GI/DVT Ppx: - Heparin - Protonix Patient seen, and case discussed with attending
[2017-11-06] MEDS ORDERED: Insulin Detemir 100 units/ml Vial (Levemir) SC SCH (22:00)
[2017-11-06] MEDS: [UNRECOGNIZED DRUG - OTHER] PO SCH (22:24)
--- NOTE | 2017-11-06 23:25 | PN ---
DATE: 11/06/2017 LOCATION: Room 363. SUBJECTIVE: This is a 47-year-old male with recent uncontrolled type 2 insulin-requiring diabetes of recent evaluation and diagnosis, presenting here with hyperosmolar hyperglycemic state and dehydration and has since then improved clinically and metabolically as noted thereof. His glycemic levels are fluctuating but improved and the glucose values today have ranged from 158-193 mg/dL. His latest chemistry shows a BUN of 11, sodium 138, potassium 4.2, chloride 106, CO2 of 23, glucose 170 and creatinine 0.9. So at this time, we will modify once again his basal and bolus insulin regimen and increase the Humalog to 10 units subcu t.i.d. before meals to start today. We will also titrate his basal insulin with Levemir to be given as 28 units subcu at bedtime daily to start tonight. We will titrate incrementally as indicated to optimize metabolic control. We will obtain serial chemistries and supplement accordingly as needed. We will follow with you. Tiffany Yoon MD
[2017-11-07] MEDS: Pantoprazole 40 mg EC Tab PO SCH (05:34)
[2017-11-07 07:33] VITALS: BP 120/86; PULSE 71; TEMP 96.8
[2017-11-07] MEDS: Insulin Lispro (humaLOG) LOW Coverage SC SCH ×2 (10:42→14:02)
[2017-11-07] MEDS: Aspirin-Dipyridamole 200-25 mg ER Cap PO SCH (10:42)
[2017-11-07] MEDS: [UNRECOGNIZED DRUG - OTHER] PO SCH (10:44)
[2017-11-07] MEDS: Insulin Lispro 1 UNITS/0.01 ML SC SCH (10:44)
[2017-11-07] MEDS: Metoprolol Succinate 25 mg XL Tab PO SCH (10:45)
[2017-11-07] MEDS: Multivitamin With Minerals Tab PO SCH (10:45)
[2017-11-07] MEDS: Divalproex 500 mg DR(BID formulation) PO SCH (10:47)
--- NOTE | 2017-11-07 14:23 | CP.PCM.DIS ---
Provider - Provider Date of Admission: 11/03/17 03:01 Attending physician: Elia Faith MD Primary care physician: Trisha Figueroa DO Consults: Endocrinology: Dr. Yoon ID: Dr. Centeno Neuro: Dr. Wayne Time Spent in preparation of Discharge (in minutes): 45 Diagnosis - Discharge Diagnosis (1) Hyperglycemic hyperosmolar nonketotic coma Status: Resolved (2) Hypertriglyceridemia Status: Resolved Hospital Course - Lab Results Lab Results: Micro Results 11/03/17 04:20 Nose MRSA Culture (Admit) - Final MRSA NOT DETECTED Most Recent Lab Values WBC 7.2 10^3/ul (4.5-11.0) 11/06/17 07:10 RBC 4.61 10^6/uL (3.5-6.1) 11/06/17 07:10 Hgb 13.2 g/dL (14.0-18.0) L 11/06/17 07:10 Hct 37.4 % (42.0-52.0) L 11/06/17 07:10 MCV 81.1 fl (80.0-105.0) 11/06/17 07:10 MCH 28.6 pg (25.0-35.0) 11/06/17 07:10 MCHC 35.3 g/dl (31.0-37.0) 11/06/17 07:10 RDW 13.6 % (11.5-14.5) 11/06/17 07:10 Plt Count 210 10^3/uL (120.0-450.0) 11/06/17 07:10 MPV 11.1 fl (7.0-11.0) H 11/06/17 07:10 Gran % 65.2 % (50.0-68.0) 11/06/17 07:10 Lymph % (Auto) 27.1 % (22.0-35.0) 11/06/17 07:10 [place] % (Auto) 7.2 % (1.0-6.0) H 11/06/17 07:10 Eos % (Auto) 0.4 % (1.5-5.0) L 11/06/17 07:10 Baso % (Auto) 0.1 % (0.0-3.0) 11/06/17 07:10 Gran # 4.71 (1.4-6.5) 11/06/17 07:10 Lymph # (Auto) 2.0 (1.2-3.4) 11/06/17 07:10 [place] # (Auto) 0.5 (0.1-0.6) 11/06/17 07:10 Eos # (Auto) 0.0 (0.0-0.7) 11/06/17 07:10 Baso # (Auto) 0.01 K/mm3 (0.0-2.0) 11/06/17 07:10 Plt P2Y12 React Units 53 PRU (194-418) L 11/07/17 07:30 pO2 65 mm/Hg (30-55) H 11/03/17 04:35 VBG pH 7.37 (7.32-7.43) 11/03/17 04:35 VBG pCO2 40.0 (40-60) 11/03/17 04:35 VBG HCO3 23.1 mmol/l (21-28) 11/03/17 04:35 VBG Total CO2 24.3 mmol.L (22-28) 11/03/17 04:35 VBG O2 Sat (Calc) 95.4 % (40-65) H 11/03/17 04:35 VBG Base Excess -2.0 mmol/L (0.0-2.0) L 11/03/17 04:35 VBG Potassium 3.5 mmol/L (3.6-5.2) L 11/03/17 04:35 Sodium 135.0 mmol/L (132-148) 11/03/17 04:35 Chloride 104.0 mmol/L (98-107) 11/03/17 04:35 Glucose 352 mg/dl (75-110) H 11/03/17 04:35 Lactate 1.2 mmol/L (0.7-2.1) 11/03/17 04:35 FiO2 21.0 % 11/03/17 04:35 Sodium 138 mmol/L (132-148) 11/06/17 07:10 Potassium 4.2 mmol/L (3.6-5.0) 11/06/17 07:10 Chloride 106 mmol/L (98-107) 11/06/17 07:10 Carbon Dioxide 23 mmol/L (21-33) 11/06/17 07:10 Anion Gap 13 (10-20) 11/06/17 07:10 BUN 11 mg/dL (7-21) 11/06/17 07:10 Creatinine 0.9 mg/dl (0.8-1.5) 11/06/17 07:10 Est GFR ( Amer) > 60 11/06/17 07:10 Est GFR (Non-Af Amer) > 60 11/06/17 07:10 POC Glucose (mg/dL) 231 mg/dL (65-110) H 11/07/17 11:11 Random Glucose 170 mg/dL (70-110) H 11/06/17 07:10 Hemoglobin A1c 15.5 % (4.2-6.5) H D 11/03/17 04:35 Calcium 9.2 mg/dL (8.4-10.5) 11/06/17 07:10 Phosphorus 4.8 mg/dL (2.5-4.5) H 11/03/17 00:06 Magnesium 2.7 mg/dL (1.7-2.2) H 11/03/17 00:06 Total Bilirubin 0.4 mg/dL (0.2-1.3) 11/06/17 07:10 AST 25 U/L (17-59) 11/06/17 07:10 ALT 29 U/L (7-56) 11/06/17 07:10 Alkaline Phosphatase 102 U/L (38-126) 11/06/17 07:10 Total Creatine Kinase 164 U/L (35-230) 11/04/17 05:30 Troponin I < 0.01 ng/mL 11/03/17 00:55 Total Protein 6.7 g/dL (5.8-8.3) 11/06/17 07:10 Albumin 3.2 g/dL (3.0-4.8) 11/06/17 07:10 Globulin 3.4 gm/dL 11/06/17 07:10 Albumin/Globulin Ratio 0.9 (1.1-1.8) L 11/06/17 07:10 Triglycerides 874 mg/dL (35-160) H 11/05/17 06:30 Cholesterol 161 mg/dL (130-200) 11/03/17 08:30 LDL Cholesterol Direct < 30 mg/dL (0-129) 11/03/17 08:30 HDL Cholesterol 28 mg/dL (29-60) L 11/03/17 08:30 Amylase 61 U/L (35-125) 11/03/17 04:35 Lipase 286 U/L (23-300) 11/04/17 05:30 Homocysteine 10.0 umol/L ( <11.4) 11/05/17 07:00 TSH 3rd Generation 1.74 mIU/mL (0.46-4.68) 11/03/17 00:06 Venous Blood Potassium 3.5 mmol/L (3.6-5.2) L 11/03/17 04:35 Urine Color Colorless (YELLOW) 11/03/17 01:44 Urine Appearance Clear (CLEAR) 11/03/17 01:44 Urine pH 6.0 (4.7-8.0) 11/03/17 01:44 Ur Specific [place] <= 1.005 (1.005-1.035) 11/03/17 01:44 Urine Protein Negative mg/dL (<30 mg/dL) 11/03/17 01:44 Urine Glucose (UA) >=1000 mg/dL (NEGATIVE) 11/03/17 01:44 Urine Ketones Negative mg/dL (NEGATIVE) 11/03/17 01:44 Urine Blood Negative (NEGATIVE) 11/03/17 01:44 Urine Nitrate Negative (NEGATIVE) 11/03/17 01:44 Urine Bilirubin Negative (NEGATIVE) 11/03/17 01:44 Urine Urobilinogen 0.2 E.U./dL (<1 E.U./dL) 11/03/17 01:44 Ur Leukocyte Esterase Negative Sonia/uL (NEGATIVE) 11/03/17 01:44 Urine Opiates Screen Negative (NEGATIVE) 11/03/17 10:15 Urine Methadone Screen Negative (NEGATIVE) 11/03/17 10:15 Ur Barbiturates Screen Negative (NEGATIVE) 11/03/17 10:15 Valproic Acid 69 ug/mL (50.0-100.0) 11/06/17 07:10 Ur Phencyclidine Scrn Negative (NEGATIVE) 11/03/17 10:15 Ur Amphetamines Screen Negative (NEGATIVE) 11/03/17 10:15 U Benzodiazepines Scrn Negative (NEGATIVE) 11/03/17 10:15 U Oth Cocaine Metabols Negative (NEGATIVE) 11/03/17 10:15 U Cannabinoids Screen Negative (NEGATIVE) 11/03/17 10:15 Alcohol, Quantitative < 10 mg/dL (0-10) 11/03/17 04:35 Absolute Lymphs (Flow) 1907 Cells/mcL (850-3900) 11/03/17 02:00 % CD4 Cells 43 Percent (30-61) 11/03/17 02:00 Absolute CD4 Count 811 Cells/mcL (490-1740) 11/03/17 02:00 T-Help/Suppress Ratio 1.32 Ratio (0.86-5.00) 11/03/17 02:00 % CD8 Cells 32 Percent (12-42) 11/03/17 02:00 Absolute CD8 Count 615 Cells/mcL (180-1170) 11/03/17 02:00 HIV-1 RNA Qnt (RT-PCR) <1.30 detected (Not Detected) H 11/03/17 02:00 - Hospital Course Hospital Course: 47 yo M with PMH of asthma, HTN, HLD, and CVA x2 (3 yrs ago & 2 months) with residual right-sided deficit who presented to ED due to right-sided involuntary twitching involving right face and shoulder.Patient was evaluated in ED and found to have continued shaking spells(total 3 observed in ED) lasting a few seconds bur occurring a few minutes apart. Patient lab work showed elevated glucose of ~1200 and hypertriglyceremia >1700. Patient was started on Insulin drip, keppra loaded and sent to ICU for HHS and hypertriglycermeia. While in ED CT head was preformed showing negative for acute intracranial process.Patient had EKG done showing 2mm ST elevation in V3 and 1.5 ST elevation in V2 with reciprocal depressions in II, III, and aVF. Patient did not complain of chest pain. Patient was safely monitored and stabilized in ICU. Neurology was consulted and evaluated the patient and recommended depakote 500mg BID, MRI brain and EEG. Infectious disease was consulted and evaluated the patient with recommendations to continue ART (Genvoya) with undectable virus load and last CD4 count of 1200. Patient was stabilized in ICU, insulin drip was transitioned off and placed on sub cutaneous insulin. Endocrinology with Dr. Yoon was consulted and evaluated the patient with recommendations for insulin therapy regiment. Patient was evaluated by physical therapy with recommendations for acute rehab. Patient refused acute rehab and was given a prescription for outpatient physical therapy. Diabetic education was consulted and met with patient with recommendations for diet and exercise as well as instructions on checking sugar levels and administration of insulin. Discharge planning including medication reconciliation, outpatient follow up were discussed with patient. Patient was in understanding and agreeable, he was able to comprehend his diagnosis and discharge plans. See full chart for further detail. - Date & Time of H&P Date of H&P: 11/03/17 Time of H&P: 03:45 Discharge Exam - Head Exam Head Exam: ATRAUMATIC, NORMAL INSPECTION, NORMOCEPHALIC - Respiratory Exam Respiratory Exam: Clear to PA & Lateral, NORMAL BREATHING PATTERN - Cardiovascular Exam Cardiovascular Exam: REGULAR RHYTHM, +S1, +S2 - GI/Abdominal Exam GI & Abdominal Exam: Normal Bowel Sounds, Soft, Unremarkable - Extremities Exam Extremities exam: normal capillary refill, pedal pulses present - Neurological Exam Neurological exam: Alert, Oriented x3, Reflexes Normal Additional comments: motor and sensory intact, able to ambulate on own - Psychiatric Exam Psychiatric exam: Normal Affect, Normal Mood - Skin Skin Exam: Dry, Warm Discharge Plan - Discharge Medications Prescriptions: Aspirin/Dipyridamole [Aggrenox 25-200 mg] 1 ea PO BID 30 Days #60 cap Atorvastatin [Lipitor] 40 mg PO DIN #30 tab Clopidogrel [Plavix] 75 mg PO DAILY #30 tab Divalproex [Depakote DR(*BID*)] 500 mg PO BID 30 Days #60 tcp Folic Acid 1 mg PO DAILY 30 Days #30 tab Gemfibrozil [Lopid] 600 mg PO BID #60 tab Insulin Detemir [Levemir] 28 unit SC HS 30 Days #100 unit Insulin Lispro [humALOG] 10 units SC AC 30 Days ml Multimineral/Multivitamin [Therapeutic-M Tab] 1 tab PO 0800 30 Days #30 tab Thiamine [Vitamin B1 Tab] 100 mg PO DAILY 30 Days #30 tab - Follow Up Plan Condition: SERIOUS Disposition: HOME/ ROUTINE Instructions: Hyperosmolar Nonketotic Coma, High Triglycerides Additional Instructions: Follow up with [facility] clinic on November 20, 2017 @ 2:00 PM - Please bring ID and insurance information Follow up with Infectious disease physician within 2 weeks upon discharge, Dr. Centeno contact information provided Follow up with Neurology within 1-2 weeks, Dr. Wayne, contact information prvoided Take medications as prescribed - Depakote 500mg by mouth twice a day - Aggrenox 25-200mg by mouth twice daily - Plavix 75mg by mouth daily - Lipitor 40mg by mouth daily - Gemfibrozil 600mg by mouth Daily - Levemir 28 units SC at evening - Humalog 10 units with meals - Folic acid 1 mg by mouth daily - Lisinopril 20mg by mouth Daily - Toprol XL 25mg by mouth daily - Multivitamin 1 tab by mouth daily - Thiamine 100mg by mouth daily - HCTZ 25mg by mouth daily If you experience seizure activity, chest pain, focal deficits, weakness, falls , persistent headache, fever, nausea/vomiting return to the nearest ED. Referrals: Trisha Figueroa DO [Primary Care Provider] - Brittney Wayne MD [Staff Provider] - Troy Centeno MD [Staff Provider] -
[2017-11-07] MEDS ORDERED: Insulin Lispro 1 UNITS/0.01 ML SC SCH (16:30)
--- NOTE | 2017-11-07 17:13 | PN ---
DATE: 11/07/2017 ENDOCRINOLOGY FOLLOWUP NOTE LOCATION: In room 363. SUBJECTIVE: This is a 47-year-old male with recent uncontrolled type 2 insulin-requiring diabetes of recent diagnosis and onset and has since then improved clinically and metabolically with the initiation of intensive insulin therapy and vigorous IV hydration as given. His glycemic levels today have ranged from 145 to 156 and 231 mg/dL. The latest chemistry showed a BUN of 11. Sodium 138, potassium 4.2, chloride CO2 of 23. Glucose 170. Creatinine 0.9. So at this time, we will modify once again his basal and bolus insulin regimen to optimize metabolic control. We will increase the Humalog to 12 units subcu t.i.d. before meals to start at dinner time today as ordered. We will also increase the basal insulin to 30 units subcu at bedtime daily to start tonight. We will titrate incrementally as indicated to optimize metabolic control. We will continue the low-dose correction scale using Humalog insulin as given to obviate hypoglycemia and detailed orders have been given. We will obtain serial chemistries and supplement accordingly as needed. We will also consult with our diabetic nurse educator for initiation of insulin self-administration techniques and teaching prior to discharge. We will follow. Tiffany Yoon MD
--- NOTE | 2017-11-07 20:56 | PN ---
DATE: 11/07/2017 SUBJECTIVE: The patient was seen earlier this morning in 362, bed 1. The patient is comfortable. Had no fevers and chills. No nausea and vomiting. PHYSICAL EXAMINATION: VITAL SIGNS: Temperature is 98, blood pressure is 120/80, respiratory rate of 18. HEENT: Examination of HEENT is unremarkable. NECK: Supple. LUNGS: Have decreased breath sounds. HEART: Normal S1 and S2. ABDOMEN: Soft. LABORATORY DATA: Laboratory examination reveals a white count of 7.2, hemoglobin of 13. The patient's serology: Vital load is detected to be 1.3. Immunology is noted and percentage is 43% T cells with 811. BUN of 11, creatinine of 0.9. Coagulation is noted. Microbiology reveals the cultures are negative. ASSESSMENT AND PLAN: A 47-year-old male with chronic human immunodeficiency virus disease with good T cells, undetectable viral load, on Genvoya. The patient was compliant with medications. Admitted with acute cerebrovascular accident on top of an old cerebrovascular accident with hypertension, dyslipidemia. The patient for possible discharge today. Erick Ha MD
[2017-11-07] MEDS ORDERED: Home Med 1 UNIT PO SCH (22:00)
[2017-11-07] MEDS ORDERED: Insulin Detemir 100 units/ml Vial (Levemir) SC SCH (22:00)
== END 2017-11-07 16:09 | disposition home or self-care (01) | DRG 566 ==
LOC: ED 23:39 → ERH 11-03 03:01 → CCU 11-03 04:07 → 5RSO 11-04 19:12 → 2RSO 11-04 22:49 → 3RNO 11-05 19:49
PROVIDERS: ADMIT Internal Medicine; ATTEND Internal Medicine
DX: E11.01 Type 2 diabetes mellitus with hyperosmolarity with coma (principal); I63.40 Cerebral infarction due to embolism of unspecified cerebral artery; N17.9 Acute kidney failure, unspecified; K85.90 Acute pancreatitis without necrosis or infection, unspecified; J44.9 Chronic obstructive pulmonary disease, unspecified; E86.0 Dehydration; E87.5 Hyperkalemia; E87.1 Hypo-osmolality and hyponatremia; G40.909 Epilepsy, unspecified, not intractable, without status epilepticus; Z21 Asymptomatic human immunodeficiency virus [HIV] infection status; E78.1 Pure hyperglyceridemia; I10 Essential (primary) hypertension; E78.5 Hyperlipidemia, unspecified; F12.90 Cannabis use, unspecified, uncomplicated; F10.10 Alcohol abuse, uncomplicated; F17.210 Nicotine dependence, cigarettes, uncomplicated; Z86.73 Personal history of transient ischemic attack (TIA), and cerebral infarction without residual deficits; Z79.4 Long term (current) use of insulin; E66.3 Overweight; Z68.31 Body mass index [BMI] 31.0-31.9, adult

== ENCOUNTER 2017-11-11 15:13 | Observation (INO) | payer MEDICAID ==
[2017-11-11] MEDS ORDERED: DiphenhydrAMINE 50 mg/ml Inj IVP STA ×2 (15:47→17:35)
--- NOTE | 2017-11-11 15:47 | ED PDOC ---
Arrival/HPI - General Time Seen by Provider: 11/11/17 15:29 Historian: Patient - History of Present Illness Narrative History of Present Illness (Text): 11/11/17 15:45 47yo male with pmhx of Diabetes, HIV, seizure , hyperlipdemia who present with complaint of left upper lip swelling and difficulty with breathing since earlier today. The by the bedside states the swelling started mildly last night and became worse this morning. Notes that the only new thing he ate yesterday was "fermín-fermín". Looks like onion chapin. Patient is also in ACEI. States he has been on Lisnopril since August. He denies drooling, chest pain, tongue swelling Past Medical History - Provider Review Nursing Documentation Reviewed: Yes - Cardiac Hx Hypertension: Yes - Pulmonary Hx Asthma: Yes - Neurological HX Cerebrovascular Accident: Yes (08/2017; 2014) - HEENT Hx HEENT Disorder: No - Renal Hx Renal Disorder: No - Endocrine/Metabolic Hx Diabetes Mellitus Type 2: Yes - Hematological/Oncological Hx Blood Disorders: No Hx AIDS: No Hx Anemia: No Hx Cancer: No Hx Chemotherapy: No Hx Cirrhosis: No Hx Hepatitis A: No Hx Hepatitis B: No Hx Hepatitis C: No - Integumentary Hx Dermatological Disorder: No - Musculoskeletal/Rheumatological Hx Musculoskeletal Disorders: No Hx Falls: Yes - Gastrointestinal Hx Gastrointestinal Disorders: No - Genitourinary/Gynecological Hx Genitourinary Disorders: No - Psychiatric Hx Psychophysiologic Disorder: No Hx Substance Use: No - Anesthesia Hx Anesthesia: No Family/Social History - Physician Review Nursing Documentation Reviewed: Yes Family/Social History: Unknown Family HX Smoking Status: Current Some Days Smoker Hx Alcohol Use: Yes Hx Substance Use: No Allergies/Home Meds Allergies/Adverse Reactions: Allergies FISH Allergy (Intermediate, Verified 11/11/17 15:45) DIARRHEA Penicillins Allergy (Verified 11/11/17 15:45) ANAPHYLAXIS Review of Systems - Physician Review All systems were reviewed & negative as marked: Yes - Review of Systems Constitutional: Normal Eyes: Normal ENT: Normal, Other (Lip swelling) Respiratory: Normal Cardiovascular: Normal Gastrointestinal: Normal Genitourinary Male: Normal Musculoskeletal: Normal Skin: Normal Neurological: Normal Endocrine: Normal Hemo/Lymphatic: Normal Psychiatric: Normal Physical Exam Vital Signs Reviewed: Yes Vital Signs Temp Pulse Resp BP Pulse Ox 11/11/17 19:50 64 18 128/90 95 06/30/18 18:19 67 18 131/86 99 11/11/17 15:56 98.2 F 78 20 131/73 97 Temperature: Afebrile Blood Pressure: Normal Pulse: Regular Respiratory Rate: Normal Appearance: Positive for: Well-Appearing, Non-Toxic, Comfortable Pain Distress: None Mental Status: Positive for: Alert and Oriented X 3 - Systems Exam Head: Present: Atraumatic, Normocephalic Pupils: Present: PERRL Extroacular Muscles: Present: EOMI Conjunctiva: Present: Normal Mouth: Present: Moist Mucous Membranes. No: Drooling, Normal Lips (Left upper lip swelling noted) Pharnyx: No: Strider Neck: Present: Normal Range of Motion Respiratory/Chest: Present: Clear to Auscultation, Good Air Exchange. No: Respiratory Distress, Accessory Muscle Use Cardiovascular: Present: Regular Rate and Rhythm, Normal S1, S2. No: Murmurs Abdomen: No: Tenderness, Distention, Peritoneal Signs Back: Present: Normal Inspection Upper Extremity: Present: Normal Inspection. No: Cyanosis, Edema Lower Extremity: Present: Normal Inspection. No: Edema Neurological: Present: GCS=15, CN II-XII Intact, Speech Normal Skin: Present: Warm, Dry, Normal Color. No: Rashes Psychiatric: Present: Alert, Oriented x 3, Normal Insight, Normal Concentration Medical Decision Making ED Course and Treatment: 11/11/17 20:05 PT present to ED for stated history. He was not in any respiratory distress in ED. He was placed on a monitor. No drooling. No stridor noted. His lip swelling worsened while he was in ED after medication was given. He was placed on NC and albuterol was also ordered. More Benadryl was ordered and the swelling was persistent. Pt also complained of left sided throat discomfort and Epinephrine was ordered. His BP and HR will be monitored, hence pt is on metoprolol. Pt needs admission for further observation. Case was DW Dr. Medeiros and pt was placed on OBS. - Lab Interpretations Lab Results: 11/11/17 18:17 11/11/17 18:17 Lab Results 11/11/17 18:17: Sodium 140, Potassium 3.8, Chloride 102, Carbon Dioxide 25, Anion Gap 17, BUN 16, Creatinine 0.9, Est GFR ( Amer) > 60, Est GFR (Non- Af Amer) > 60, Random Glucose 92, Calcium 9.4, Total Bilirubin 0.2, AST 55, ALT 36, Alkaline Phosphatase 100, Total Protein 7.4, Albumin 3.7, Globulin 3.7, Albumin/Globulin Ratio 1.0 L 11/11/17 18:17: PT 11.5, INR 1.01, APTT 30.5 11/11/17 18:17: WBC 8.8 D, RBC 4.57, Hgb 13.4 L, Hct 38.6 L, MCV 84.5 D, MCH 29.3, MCHC 34.7, RDW 14.4, Plt Count 315, MPV 9.9, Gran % 72.2 H, Lymph % (Auto ) 23.4, [place] % (Auto) 3.7, Eos % (Auto) 0.5 L, Baso % (Auto) 0.2, Gran # 6.37, Lymph # (Auto) 2.1, [place] # (Auto) 0.3, Eos # (Auto) 0.0, Baso # (Auto) 0.02 - Medication Orders Current Medication Orders: Discontinued Medications Albuterol Sulfate (Albuterol 0.083% Inhal [place] (2.5 Mg/3 Ml) Ud) 2.5 mg INH STAT STA Stop: 11/11/17 17:48 Last Admin: 11/11/17 18:23 Dose: 2.5 mg Albuterol/Ipratropium (Duoneb 3 Mg/0.5 Mg (3 Ml) Ud) 3 ml IH Q6H PRN PRN Reason: Shortness of Breath Albuterol/Ipratropium (Duoneb 3 Mg/0.5 Mg (3 Ml) Ud) 3 ml IH Q6H [facility] Last Admin: 11/12/17 08:47 Dose: 3 ml Amlodipine Besylate (Norvasc) 5 mg PO DAILY [facility] Last Admin: 11/12/17 11:30 Dose: 5 mg MAR Pulse and Blood Pressure Document 11/12/17 11:30 VS (Rec: 11/12/17 11:30 VS [id number]) Pulse Pulse Rate (60-90) 66 Blood Pressure Blood Pressure (100/60-150/90) 132/70 Atorvastatin Calcium (Lipitor) 40 mg PO DIN [facility] Clopidogrel Bisulfate (Plavix) 75 mg PO DAILY [facility] Last Admin: 11/12/17 11:30 Dose: 75 mg Diphenhydramine HCl (Benadryl) 25 mg IVP STAT STA Stop: 11/11/17 15:48 Last Admin: 11/11/17 16:12 Dose: 25 mg IVP Administration Document 11/11/17 16:12 LA (Rec: 11/11/17 16:12 LA [id number]) Charges for Administration # of IVP Administrations 1 Diphenhydramine HCl (Benadryl) 25 mg IVP STAT STA Stop: 11/11/17 17:36 Last Admin: 11/11/17 18:23 Dose: 25 mg IVP Administration Document 11/11/17 18:23 LA (Rec: 11/11/17 18:23 LA [id number]) Charges for Administration # of IVP Administrations 1 Diphenhydramine HCl (Benadryl) 25 mg IVP Q8H [facility] Last Admin: 11/12/17 05:07 Dose: 25 mg IVP Administration Document 11/12/17 05:07 RS (Rec: 11/12/17 05:07 RS [id number]) Charges for Administration # of IVP Administrations 1 Dipyridamole/Aspirin (Aggrenox 25-200 Mg) 1 ea PO BID [facility] Last Admin: 11/12/17 09:42 Dose: 1 ea Divalproex Sodium (Depakote Dr(*Bid*)) 500 mg PO BID [facility] Last Admin: 11/12/17 09:42 Dose: 500 mg Behavioural Document 11/12/17 09:42 VS (Rec: 11/12/17 09:43 VS [id number]) Maintenance Maintenance Dose Yes Re-Assess: Reassess Psych Meds Document 11/12/17 10:42 VS (Rec: 11/12/17 11:41 VS [id number]) Reassess Psych Med Effective Epinephrine Bitartrate (Epinephrine) 1 mg IM STAT STA Stop: 11/11/17 19:47 Last Admin: 11/11/17 20:21 Dose: 1 mg IM Administration Charges Document 11/11/17 20:21 LA (Rec: 11/11/17 20:29 LA [id number]) Injection Site MAR Injection Site Right Deltoid Charges for Administration # of IM Administrations 1 Famotidine (Pepcid) 20 mg IVP STAT STA Stop: 11/11/17 16:06 Last Admin: 11/11/17 16:12 Dose: 20 mg IVP Administration Document 11/11/17 16:12 LA (Rec: 11/11/17 16:12 LA [id number]) Charges for Administration # of IVP Administrations 1 Famotidine (Pepcid) 20 mg IVP DAILY [facility] Last Admin: 11/12/17 09:45 Dose: 20 mg IVP Administration Document 11/12/17 09:45 VS (Rec: 11/12/17 09:45 VS [id number]) Charges for Administration # of IVP Administrations 1 Gemfibrozil (Lopid) 600 mg PO BID [facility] Last Admin: 11/12/17 09:43 Dose: 600 mg Hydrochlorothiazide (Hydrodiuril) 25 mg PO DAILY [facility] Last Admin: 11/12/17 09:43 Dose: 25 mg Insulin Human Lispro (Humalog Med) 0 units SC [facility] PRN Reason: Protocol Last Admin: 11/12/17 08:32 Dose: Not Given Non-Admin Reason: Patient Refused Methylprednisolone (Solu-Medrol) 125 mg IVP STAT STA Stop: 11/11/17 15:48 Last Admin: 11/11/17 16:13 Dose: 125 mg IVP Administration Document 11/11/17 16:13 LA (Rec: 11/11/17 16:13 LA [id number]) Charges for Administration # of IVP Administrations 1 Metoprolol Succinate (Toprol Xl) 25 mg PO DAILY [facility] Last Admin: 11/12/17 09:43 Dose: 25 mg MAR Pulse and Blood Pressure Document 11/12/17 09:43 VS (Rec: 11/12/17 09:45 VS [id number]) Pulse Pulse Rate (60-90) 84 Blood Pressure Blood Pressure (100/60-150/90) 115/81 Pneumococcal Polyvalent Vaccine (Pneumovax 23 Vaccine) 0.5 ml IM .ONCE ONE Stop: 11/11/17 22:54 Prednisone (Prednisone Tab) 40 mg PO STAT STA Stop: 11/12/17 10:15 Last Admin: 11/12/17 11:30 Dose: 40 mg Disposition/Present on Arrival - Present on Arrival Any Indicators Present on Arrival: No History of DVT/PE: No History of Uncontrolled Diabetes: Yes Urinary Catheter: No History of Decub. Ulcer: No History Surgical Site Infection Following: None - Disposition Have Diagnosis and Disposition been Completed?: Yes Diagnosis: Angioedema Disposition: HOSPITALIZED Disposition Time: 19:30 Patient Plan: Admission Condition: STABLE
[2017-11-11 15:52] VITALS: BMI 27.8
[2017-11-11] MEDS ORDERED: Albuterol 0.083% Inhal Sol (2.5 mg/3 mL) UD INH STA (17:47)
[2017-11-11 18:24] LABS: BASO # 0.02 K/mm3 (0.0-2.0); BASO % 0.2 % (0.0-3.0); EOS % 0.5 % (1.5-5.0); GRAN # 6.37 (1.4-6.5); GRAN % 72.2 % (50.0-68.0); HEMOGLOBIN 13.4 g/dL (14.0-18.0); LYMPH # 2.1 (1.2-3.4); LYMPH % 23.4 % (22.0-35.0); MEAN CELL VOLUME 84.5 fl (80.0-105.0); MEAN CORPUSCULAR HEMOGLOBIN 29.3 pg (25.0-35.0); MEAN CORPUSCULAR HGB CONC 34.7 g/dl (31.0-37.0); MEAN PLATELET VOLUME 9.9 fl (7.0-11.0); MONO # 0.3 (0.1-0.6); MONO % 3.7 % (1.0-6.0); RBC 4.57 10^6/uL (3.5-6.1); RED CELL DISTRIBUTION WIDTH 14.4 % (11.5-14.5); WHITE BLOOD COUNT 8.8 10^3/ul (4.5-11.0)
[2017-11-11 18:35] LABS: INR 1.01 (0.93-1.08); PARTIAL THROMBOPLASTIN TIME 30.5 Seconds (25.1-36.5); PROTHROMBIN TIME 11.5 SECONDS (9.4-12.5)
[2017-11-11 19:20] LABS: ALBUMIN 3.7 g/dL (3.0-4.8); ALT/SGPT 36 U/L (7-56); AST/SGOT 55 U/L (17-59); BLOOD UREA NITROGEN 16 mg/dL (7-21); CALCIUM 9.4 mg/dL (8.4-10.5); GFR AFRICAN-AMERICAN > 60; GFR NON-AFRICAN AMERICAN > 60
[2017-11-11] MEDS ORDERED: Albuterol-Ipratrop 3 mg / 0.5 (3 ml) UD IH PRN (20:27)
--- NOTE | 2017-11-11 20:30 | CP.PCM.HP ---
History of Present Illness - History of Present Illness History of Present Illness: History and Physical - Hospitalist Service CC: "My lip is swollen" HPI: Patient is a 47 year old male with past medical history of Diabetes, HIV, Seizure disorder, hyperlipidemia, CVA with residual right upper extremity weakness presents to [facility] for lip swelling. Patient states that last night he ate a bag of Funions and afterwards felt a "knot" in his lip. States that this morning he woke up and one side of his lower lip was swollen. He states that the swelling progressively got worse which prompted the ER visit. This has never happened to him in the past. Patient reports that he did not eat anything outside of his normal regimen and that he is complaint with all of his medications. He was able to tolerate breakfast but he admitted to feeling stuck sensation in his throat this morning that has since resolved. Patient was recently discharged from the hospital last week for Hyperosmolar Nonketotic coma and High Triglycerides. Reports that his last seizure was on . Denies headaches, drooling, dysphagia, dizziness, cp, palpitations, sob, abdominal pain, urinary symptoms, changes in bowel habits. ED Course: Benadryl 25mg IVP, Epinephrine, Pepcid 20mg IVP, Solu-medrol 125mg IVP, Albuterol PMD: [facility] clinic Allergies: Fish, Penicillins Medications: HCTZ 25mg PO daily, Metoprolol 25mg PO daily, Gemfibrozil 600mg PO BID, Depakote 500mg PO BID, Lipitor 40mg PO HS, Lisinopril 20mg PO daily, Plavix 75mg PO daily, Levemir 28 unit SC HS, Humalog 10 units SC AC, Aggrenox 25 -200mg 1 tab PO BID Medical History: Diabetes, HIV, Seizure disorder, hyperlipidemia, CVA x 2, asthma Surgical History: Denies Social History: Smokes 5 cig/day, denies alcohol, tobacco use Family History: Non-contributory Present on Admission - Present on Admission Any Indicators Present on Admission: Yes History of Uncontrolled Diabetes: Yes Past Patient History - Past Social History Smoking Status: Current Some Days Smoker - CARDIAC Hx Hypertension: Yes - PULMONARY Hx Asthma: Yes - NEUROLOGICAL HX Cerebrovascular Accident: Yes (08/2017; 2014) - HEENT Hx HEENT Problems: No - RENAL Hx Chronic Kidney Disease: No - ENDOCRINE/METABOLIC Hx Diabetes Mellitus Type 2: Yes - HEMATOLOGICAL/ONCOLOGICAL Hx Blood Disorders: No Hx AIDS: No Hx Anemia: No Hx Cancer: No Hx Chemotherapy: No Hx Cirrhosis: No Hx Hepatitis A: No Hx Hepatitis B: No Hx Hepatitis C: No - INTEGUMENTARY Hx Dermatological Problems: No - MUSCULOSKELETAL/RHEUMATOLOGICAL Hx Musculoskeletal Disorders: No Hx Falls: Yes - GASTROINTESTINAL Hx Gastrointestinal Disorders: No - GENITOURINARY/GYNECOLOGICAL Hx Genitourinary Disorders: No - PSYCHIATRIC Hx Psychophysiologic Disorder: No Hx Substance Use: No - SURGICAL HISTORY Hx Surgeries: No - ANESTHESIA Hx Anesthesia: No Meds Allergies/Adverse Reactions: Allergies Allergy/AdvReac Type Severity Reaction Status Date / Time FISH Allergy Intermediate DIARRHEA Verified 11/11/17 15:45 Penicillins Allergy ANAPHYLAXIS Verified 11/11/17 15:45 Physical Exam - Constitutional Appears: Well, No Acute Distress - Head Exam Head Exam: ATRAUMATIC, NORMAL INSPECTION, NORMOCEPHALIC - Eye Exam Eye Exam: EOMI, Normal appearance Pupil Exam: NORMAL ACCOMODATION - ENT Exam ENT Exam: Mucous Membranes Moist, Normal Oropharynx Additional comments: Lower lip edema - Neck Exam Neck exam: Positive for: Full Rom - Respiratory Exam Respiratory Exam: Clear to Auscultation Bilateral, NORMAL BREATHING PATTERN. absent: Rales, Rhonchi, Wheezes - Cardiovascular Exam Cardiovascular Exam: REGULAR RHYTHM, +S1, +S2 - GI/Abdominal Exam GI & Abdominal Exam: Normal Bowel Sounds, Soft. absent: Guarding, Rebound, Rigid, Tenderness - Extremities Exam Additional comments: Right hand contracture - Neurological Exam Neurological exam: Alert, Oriented x3 - Psychiatric Exam Psychiatric exam: Normal Affect, Normal Mood - Skin Skin Exam: Dry, Normal Color, Warm Results - Vital Signs Recent Vital Signs: Last Vital Signs Temp 98.2 F 11/11/17 15:56 Pulse 64 11/11/17 19:50 Resp 18 11/11/17 19:50 BP 128/90 11/11/17 19:50 Pulse Ox 95 11/11/17 19:50 - Labs Result Diagrams: 11/11/17 18:17 11/11/17 18:17 Assessment & Plan - Assessment and Plan (Free Text) Assessment: A/P: 47 year old male with past medical history of DM, Hyperlipidemia, Seizure disorder presents to [facility] for lower lip swelling that has been progressively getting worse. Angioedema likely medication induced -Stable, afebrile -Monitor daily labs -Solumedrol 60mg Q8H IVP -Benadryl 25mg IVP Q8H until resolution -Discontinue LA inhibitor -Pepcid 20mg IVP daily -Aspiration precautions -Swallow eval ordered History of CVA -Continue Plavix 75mg PO daily -Continue Aggrenox 1 tab PO BID Diabetes Mellitus -Medium dose ISS -Accuchecks ACHS -Last A1C 15.5 Hyperlipidemia -Continue Gemfibrozil 600mg PO BID -Continue Lipitor 40mg PO HS Hypertension -Continue Metoprolol 25mg PO daily -Continue HCTZ 25mg PO daily -Lisinopril on hold, will consider starting ARB Seizure Disorder -Last seizure was last -Depakote 500mg PO BID -Seizure precautions HIV -Last CD4 count 811 on 11/03/17 -Continue ART (Genvoya) Tobacco abuse -Smoking cessation advised GI/DVT -Pepcid 20mg IVP daily -SCDS Plan discussed with Dr Reginald Wiley DO PGY-1
[2017-11-11] MEDS: Albuterol-Ipratrop 3 mg / 0.5 (3 ml) UD IH SCH (21:29)
[2017-11-11] MEDS: DiphenhydrAMINE 50 mg/ml Inj IVP SCH (21:30)
[2017-11-11] MEDS ORDERED: Insulin Lispro (humaLOG) LOW Coverage SC SCH (22:00)
[2017-11-11] MEDS: Insulin Lispro (humaLOG) MEDIUM Coverage SC SCH (22:38)
[2017-11-11] MEDS ORDERED: Pneumococcal 23-Valent Vaccine IM ONE (22:53)
[2017-11-12] MEDS: Albuterol-Ipratrop 3 mg / 0.5 (3 ml) UD IH SCH ×2 (01:29→08:47)
[2017-11-12] MEDS: DiphenhydrAMINE 50 mg/ml Inj IVP SCH (05:07)
[2017-11-12 08:01] VITALS: RESP 20; TEMP 97.9; O2SAT 99
[2017-11-12] MEDS: Insulin Lispro (humaLOG) MEDIUM Coverage SC SCH (08:32)
[2017-11-12] MEDS ORDERED: Aspirin-Dipyridamole 200-25 mg ER Cap PO SCH (10:00)
[2017-11-12] MEDS ORDERED: Divalproex 500 mg DR(BID formulation) PO SCH (10:00)
[2017-11-12] MEDS ORDERED: Metoprolol Succinate 25 mg XL Tab PO SCH (10:00)
--- NOTE | 2017-11-12 10:24 | CP.PCM.DIS ---
Provider - Provider Date of Admission: 11/11/17 19:47 Attending physician: Reece Stoll MD Primary care physician: Trisha Figueroa DO Time Spent in preparation of Discharge (in minutes): 35 Diagnosis - Discharge Diagnosis (1) Angioedema Status: Resolved Hospital Course - Lab Results Lab Results: Most Recent Lab Values WBC 8.8 10^3/ul (4.5-11.0) D 11/11/17 18:17 RBC 4.57 10^6/uL (3.5-6.1) 11/11/17 18:17 Hgb 13.4 g/dL (14.0-18.0) L 11/11/17 18:17 Hct 38.6 % (42.0-52.0) L 11/11/17 18:17 MCV 84.5 fl (80.0-105.0) D 11/11/17 18:17 MCH 29.3 pg (25.0-35.0) 11/11/17 18:17 MCHC 34.7 g/dl (31.0-37.0) 11/11/17 18:17 RDW 14.4 % (11.5-14.5) 11/11/17 18:17 Plt Count 315 10^3/uL (120.0-450.0) 11/11/17 18:17 MPV 9.9 fl (7.0-11.0) 11/11/17 18:17 Gran % 72.2 % (50.0-68.0) H 11/11/17 18:17 Lymph % (Auto) 23.4 % (22.0-35.0) 11/11/17 18:17 Faulkner % (Auto) 3.7 % (1.0-6.0) 11/11/17 18:17 Eos % (Auto) 0.5 % (1.5-5.0) L 11/11/17 18:17 Baso % (Auto) 0.2 % (0.0-3.0) 11/11/17 18:17 Gran # 6.37 (1.4-6.5) 11/11/17 18:17 Lymph # (Auto) 2.1 (1.2-3.4) 11/11/17 18:17 Faulkner # (Auto) 0.3 (0.1-0.6) 11/11/17 18:17 Eos # (Auto) 0.0 (0.0-0.7) 11/11/17 18:17 Baso # (Auto) 0.02 K/mm3 (0.0-2.0) 11/11/17 18:17 PT 11.5 SECONDS (9.4-12.5) 11/11/17 18:17 INR 1.01 (0.93-1.08) 11/11/17 18:17 APTT 30.5 Seconds (25.1-36.5) 11/11/17 18:17 Sodium 140 mmol/L (132-148) 11/11/17 18:17 Potassium 3.8 mmol/L (3.6-5.0) 11/11/17 18:17 Chloride 102 mmol/L (98-107) 11/11/17 18:17 Carbon Dioxide 25 mmol/L (21-33) 11/11/17 18:17 Anion Gap 17 (10-20) 11/11/17 18:17 BUN 16 mg/dL (7-21) 11/11/17 18:17 Creatinine 0.9 mg/dl (0.8-1.5) 11/11/17 18:17 Est GFR ( Amer) > 60 11/11/17 18:17 Est GFR (Non-Af Amer) > 60 11/11/17 18:17 POC Glucose (mg/dL) 198 mg/dL (65-110) H 11/12/17 07:01 Random Glucose 92 mg/dL (70-110) 11/11/17 18:17 Calcium 9.4 mg/dL (8.4-10.5) 11/11/17 18:17 Total Bilirubin 0.2 mg/dL (0.2-1.3) 11/11/17 18:17 AST 55 U/L (17-59) 11/11/17 18:17 ALT 36 U/L (7-56) 11/11/17 18:17 Alkaline Phosphatase 100 U/L (38-126) 11/11/17 18:17 Total Protein 7.4 g/dL (5.8-8.3) 11/11/17 18:17 Albumin 3.7 g/dL (3.0-4.8) 11/11/17 18:17 Globulin 3.7 gm/dL 11/11/17 18:17 Albumin/Globulin Ratio 1.0 (1.1-1.8) L 11/11/17 18:17 - Hospital Course Hospital Course: 47 year old male with past medical history of Diabetes, HIV, Seizure disorder, hyperlipidemia, CVA with residual right upper extremity weakness presented to [facility] for lip swelling. Patient was evaluated in ED and treated with IV steroids, benadryl, epinephrine and admitted for suspected angioedema. Patient reported taking he was taking an Dominic-inhibitor at home for blood pressure and DM. DOMINIC- inh was held and patient was monitored overnight. While admitted patient symptoms improved and patient was noted to be able to tolerate liquids and food. Patient denied any swelling of his tongue, difficulty swallowing, breathing. At time of discharge patient was noted to have limited swelling of his lower lip, without drooling, able to swallow both solids and liquids. Discharge planning was conducted including medication reconciliation and instructions to stop his DOMINIC-inhibitor, outpatient follow up including keeping his [facility] clinic, and signs and symptoms to monitor for return to nearest ED were discussed. For further details see full chart. - Date & Time of H&P Date of H&P: 11/11/17 Time of H&P: 20:29 Discharge Exam - Head Exam Head Exam: ATRAUMATIC, NORMAL INSPECTION, NORMOCEPHALIC - Eye Exam Eye Exam: EOMI. absent: Conjunctival injection, Periorbital tenderness, Scleral icterus - ENT Exam ENT Exam: Mucous Membranes Moist Additional comments: Mild lip swelling, no signs of overt angioedema, patient able to swallow and converse without difficulty, patient observed eating and drinking without difficulties, - Neck Exam Neck exam: Full Rom - Respiratory Exam Respiratory Exam: NORMAL BREATHING PATTERN, UNREMARKABLE. absent: Rales, Rhonchi, Wheezes - Cardiovascular Exam Cardiovascular Exam: REGULAR RHYTHM, +S1, +S2 - GI/Abdominal Exam GI & Abdominal Exam: Normal Bowel Sounds, Soft. absent: Tenderness - Extremities Exam Extremities exam: normal capillary refill, pedal pulses present - Neurological Exam Neurological exam: Alert, CN II-XII Intact, Normal Gait, Oriented x3 Additional comments: motor and sensory grossly intact - Psychiatric Exam Psychiatric exam: Normal Affect, Normal Mood - Skin Skin Exam: Dry, Intact Discharge Plan - Discharge Medications Prescriptions: amLODIPine [Norvasc] 5 mg PO DAILY 14 Days #14 tab Blood Sugar Diagnostic [Blood Glucose Test Strip] 1 each MC BID 14 Days #28 strip Lancets [Single-Let] 1 each MC BID 14 Days #28 each predniSONE [predniSONE Tab] See Taper PO DAILY 6 Days #14 tab - Follow Up Plan Condition: STABLE Disposition: HOME/ ROUTINE Instructions: Angioedema (DC) Additional Instructions: Follow up with [facility] clinic on November 20, 2017 Take medications as prescribed to you, note below new changes to medication regiment - STOP taking Lisinopril 20mg PO Daily - START Amlodipine 5mg PO daily If you begin having increased swelling of lip, tongue or have trouble swallowing food or notice drooling please return to the nearest emergency department Continue to adhere to a carb consistent diet and checking sugars twice daily Referrals: Trisha Figueroa DO [Primary Care Provider] -
[2017-11-12 11:31] VITALS: BP 132/70; PULSE 66
== END 2017-11-12 12:40 | disposition home or self-care (01) ==
LOC: ED 15:13 → ERH 19:47 → 3RNO 21:58
PROVIDERS: ADMIT Internal Medicine; ATTEND Internal Medicine
DX: T78.3XXA Angioneurotic edema, initial encounter (principal); G40.909 Epilepsy, unspecified, not intractable, without status epilepticus; Z21 Asymptomatic human immunodeficiency virus [HIV] infection status; E11.9 Type 2 diabetes mellitus without complications; I10 Essential (primary) hypertension; I69.331 Monoplegia of upper limb following cerebral infarction affecting right dominant side; E78.5 Hyperlipidemia, unspecified; E78.1 Pure hyperglyceridemia; J45.909 Unspecified asthma, uncomplicated; F17.210 Nicotine dependence, cigarettes, uncomplicated; Z79.4 Long term (current) use of insulin; Z88.0 Allergy status to penicillin
CPT/HCPCS: 80053; 82948; 85025; 85610; 85730; 94640; 96372; 96374; 96375; 96376; 99284; G0378; J0171; J1200; J2930